=== PATIENT | female | born 1945 | race Caucasian/White ===

== ENCOUNTER → 2017-07-11 08:39 | Outpatient (CLI) | payer MEDICARE, OTHER, SELFPAY ==
--- NOTE | 2017-07-11 08:44 | VDLE_ITS ---
Reason For Study: LEG SWELLING RIGHT LEFT CFV is compressible, spontaneous, phasic, CFV is compressible, spontaneous, phasic, competent and demonstrates normal competent, and demonstrates normal augmentation. augmentation. FV is compressible, spontaneous, phasic, FV is compressible, spontaneous, phasic, competent and demonstrates normal competent and demonstrates normal augmentation. augmentation. POP V is compressible, spontaneous, phasic, POP V is compressible, spontaneous, phasic, competent and demonstrates normal competent and demonstrates normal augmentation. augmentation. T/P Trunk is compressible. T/P Trunk is compressible. PTV is compressible. PTV is compressible. RT PerV is compressible. LT PerV is compressible. SFJ is competent SFJ is competent GSV is INCOMPETENT with reflux greater GSV is competent than .5 sec and diameter of .51 x .48 cm SSV is INCOMPETENT with reflux greater SSV is INCOMPETENT with reflux greater than .5 sec and diameter of .45 x .45 cm. than .5 sec and diameter of .56 x .63 cm. Procedure Exam performed in department. Interpretation Summary 1. Bilateral no DVT. 2. Right GSV 5.1mm with reflux. 3. Right LSV6.3mm with reflux. 4. Left LSV 4.5mm with reflux. Ordering Physician: Dillan Calles Referring Physician: Dillan Calles Performed By: Sharmila Quezada RVT
[2017-07-11 09:27] LABS: Hematocrit 42.2 % (37-47); Hemoglobin 13.9 g/dl (12.0-15.0); Mean Corp Hgb Conc 32.9 g/gl (32-36); Mean Corpuscular Hgb 29.6 pg (27.0-32.0); Mean Corpuscular Volume 89.8 fL (81-99); Platelet Count 209 K/mm3 (150-450); RBC Distribution Width CV 14.4 % (11.6-14.6); RBC Distribution Width SD 46.3 fl (35.1-43.9); White Blood Count 6.7 K/mm3 (4.4-11.0)
[2017-07-11 09:28] LABS: Scan Indicated on CBC? Y/N NO
[2017-07-11 09:46] LABS: Anion Gap 7 (5-15); BUN 25 mg/dL (7-18); BUN/Creat Ratio 29.6 RATIO (10-20); Calcium,Total 9.4 mg/dL (8.5-10.1); Chloride 103 mmol/L (98-107); Creatinine, Serum 0.84 mg/dL (0.55-1.02); EST Glomerular Filtration Rate 71 mL/min (>60); Est Glom Filt Rate - Afr Amer 86 mL/min (>60); Glucose 143 mg/dL (74-106); Potassium 3.7 mmol/L (3.5-5.1); Sodium Level 138 mmol/L (136-145)
--- NOTE | 2017-07-18 12:10 | LEAS ---
Arterial Study - Arterial Study Arterial Study: Date of scan 07/11/[address] CEDENO Interpreting physician Dr. Blue Interpretation: Right lower extremity pulsatile flow noted at the ankle duplex showing triphasic flow with an GLORIA of 1.13 and 1.1 to the posterior tib and dorsalis pedis. Next Left lower extremity also with pulsatile flow at the ankle duplex again showing triphasic flow with an GLORIA 1.291.03 of the posterior tib and dorsalis pedis. Next Impression: 1. Bilateral lower extremities with no evidence of significant arterial occlusive disease at rest with triphasic flow and an GLORIA 1.13 on the right and 1.29 on the left
== END ==
PROVIDERS: Family Provider Internal Medicine; PCP Internal Medicine; Visit Provider Internal Medicine Cardiovascular Disease
DX: I87.2 Venous insufficiency (chronic) (peripheral) (principal); I73.9 Peripheral vascular disease, unspecified; R53.83 Other fatigue; R60.0 Localized edema; R23.8 Other skin changes
CPT/HCPCS: 36415; 80048; 85027; 93922; 93970

== ENCOUNTER → 2017-07-16 12:35 | Outpatient (CLI) | payer MEDICARE, OTHER, SELFPAY ==
[2017-07-16 14:04] LABS: Hemoglobin A1c 6.5 % (4.2-6.3)
[2017-07-16 14:24] LABS: Vitamin D,25 Hydroxy 59.6 ng/mL (29.95-100.01)
== END ==
PROVIDERS: Family Provider Internal Medicine; PCP Internal Medicine; Visit Provider Internal Medicine
DX: E11.9 Type 2 diabetes mellitus without complications (principal); E55.9 Vitamin D deficiency, unspecified
CPT/HCPCS: 36415; 82306; 83036

== ENCOUNTER 2017-08-03 14:00 | Outpatient (RCR) | payer MEDICARE, OTHER, SELFPAY | END 2017-08-04 23:59 | LOC: NS 14:00 | PROVIDERS: Family Provider Internal Medicine; PCP Internal Medicine; Visit Provider Internal Medicine | DX: E66.3 Overweight (principal); E11.9 Type 2 diabetes mellitus without complications; K75.81 Nonalcoholic steatohepatitis (NASH) | CPT/HCPCS: 97802; 97803 ==

== ENCOUNTER → 2017-08-10 06:53 | Outpatient (CLI) | payer MEDICARE, OTHER, SELFPAY ==
--- NOTE | 2017-08-10 06:55 | CT_ITS ---
STUDY: CT ABDOMEN WITH CONTRAST REASON FOR EXAM: Female, 71 years old. 2 month history of worsening right upper quadrant pain. History of Mejia's esophagus. RADIATION DOSAGE (If Supplied By Facility): CTDIvol = ( 12.02 ) mGy, DLP = ( 634.48 ) mGycm TECHNIQUE: Transaxial images were obtained post I.V. administration of 100CC ml of Isovue 300 contrast, and with oral contrast. Sagittal and coronal images were reconstructed. Individualized dose optimization techniques were used for this CT. COMPARISON: Comparison is made with prior study dated September 16, 2016. FINDINGS: The visualized lung bases are unremarkable. Coronary artery calcification. There is hepatomegaly with diffuse hepatic enlargement. The patient is status post cholecystectomy. Stable mild degree of central intrahepatic biliary ductal dilatation. Prominence of the common bile duct in keeping with prior cholecystectomy. There is a 1.4 cm cyst in the posterior medial aspect of the spleen. One point one sinuses also seen along the superior lateral portion of the spleen. This is unchanged. Normal pancreas. Normal bilateral adrenal glands. Normal right kidney. Normal left kidney. Normal visualized stomach. Normal small intestine. Normal colon. The appendix is visualized and appears normal. There is diffuse atherosclerotic calcification of the abdominal aorta, without a demonstrated aneurysm. Normal inferior vena cava. Normal retroperitoneum. Normal abdominal wall. Prior interpedicular screw janelle fixation of the lower thoracic and upper lumbar vertebrae. Almost complete collapse of the T10 vertebrae. CT/Abdomen WITH IV Contrast IMPRESSION: Fatty infiltration of the liver. Stable cystic structures in the spleen. Status post cholecystectomy. Electronically Signed: Barry Segura MD at 14:43 EDT Tel [phone], Service support ,
== END ==
PROVIDERS: Family Provider Internal Medicine; PCP Internal Medicine; Visit Provider Internal Medicine Gastroenterology
DX: K75.81 Nonalcoholic steatohepatitis (NASH) (principal); R10.11 Right upper quadrant pain
CPT/HCPCS: 74160; Q9967

== ENCOUNTER → 2017-08-22 09:05 | Outpatient (CLI) | payer MEDICARE, OTHER, SELFPAY ==
[2017-08-22 10:23] LABS: AST(SGOT) 25 U/L (15-37); Alanine Aminotransfer ALT/SGPT 35 U/L (13-56); Albumin, Serum 3.9 g/dL (3.2-5.0); Alkaline Phosphatase 115 U/L (45-117); Bilirubin, Direct 0.11 mg/dL (0.00-0.30); Cholesterol 213 mg/dL (200); Globulin 4.2 g/dL (2.2-4.2); High Density Lipoprotein 35 mg/dL; Protein, Total 8.1 g/dL (6.4-8.2); Triglycerides 260 mg/dL; Very Low Density Lipoprotein 52 mg/dL (5-40)
== END ==
PROVIDERS: Family Provider Internal Medicine; PCP Internal Medicine; Visit Provider Physician Assistant Medical
DX: E78.5 Hyperlipidemia, unspecified (principal); I25.10 Atherosclerotic heart disease of native coronary artery without angina pectoris; Z79.899 Other long term (current) drug therapy
CPT/HCPCS: 36415; 80061; 80076

== ENCOUNTER 2017-08-24 11:22 | Outpatient (RCR) | payer MEDICARE, OTHER, SELFPAY | END 2017-09-03 23:59 | LOC: NS 11:22 | PROVIDERS: Family Provider Internal Medicine; PCP Internal Medicine; Visit Provider Internal Medicine | DX: E11.9 Type 2 diabetes mellitus without complications (principal); K75.81 Nonalcoholic steatohepatitis (NASH); E66.3 Overweight | CPT/HCPCS: 97803 ==

== ENCOUNTER 2017-09-07 10:00 | Outpatient (RCR) | payer MEDICARE, OTHER, SELFPAY | END 2017-09-07 10:01 | LOC: NS 10:00 | PROVIDERS: Family Provider Internal Medicine; PCP Internal Medicine; Visit Provider Internal Medicine | DX: E11.9 Type 2 diabetes mellitus without complications (principal); K75.81 Nonalcoholic steatohepatitis (NASH); E66.3 Overweight; Z71.3 Dietary counseling and surveillance | CPT/HCPCS: 97803; G0108 ==

== ENCOUNTER → 2017-10-11 09:44 | Outpatient (CLI) | payer MEDICARE, OTHER, SELFPAY ==
--- NOTE | 2017-10-11 09:44 | DT_ITS ---
This patient was seen during an EMR downtime October 08, 2017 - October 15, 2017. This patient may have a combination of paper and electronic documentation or all paper documentation. All documentation is viewable within the e-chart portion of [facility] for each patient visit.
[2017-10-16 04:12] LABS: Hemoglobin A1c 6.6 % (4.2-6.3)
[2017-10-16 04:13] LABS: AST(SGOT) 25 U/L (15-37); Alanine Aminotransfer ALT/SGPT 30 U/L (13-56); Albumin, Serum 3.9 g/dL (3.2-5.0); Alkaline Phosphatase 98 U/L (45-117); Bilirubin, Direct 0.08 mg/dL (0.00-0.30); Cholesterol 165 mg/dL (200); Globulin 4.2 g/dL (2.2-4.2); High Density Lipoprotein 32 mg/dL; Protein, Total 8.1 g/dL (6.4-8.2); Triglycerides 241 mg/dL; Very Low Density Lipoprotein 48 mg/dL (5-40)
== END ==
PROVIDERS: Nurse Practitioner Family; Family Provider Internal Medicine; PCP Internal Medicine; Visit Provider Internal Medicine Cardiovascular Disease
DX: E78.5 Hyperlipidemia, unspecified (principal); R74.8 Abnormal levels of other serum enzymes; E11.9 Type 2 diabetes mellitus without complications
CPT/HCPCS: 36415; 80061; 80076; 83036

== ENCOUNTER → 2017-10-31 10:49 | Outpatient (CLI) | payer MEDICARE, OTHER, SELFPAY ==
--- NOTE | 2017-10-31 10:55 | BD_ITS ---
STUDY: DUAL ENERGY X-RAY ABSORPTIOMETRY / DXA REASON FOR EXAM: Female, 71 years old. The patient is postmenopausal. Loss of height. TECHNIQUE: Bone Mineral Density (BMD) measurements of left forearm and bilateral hips were obtained. COMPARISON: Comparison is made with prior study dated September 21, 2009. FINDINGS: Left Femur Total: g/cm2 (0.844) / T-score (-1.3) / Z-score (0.2) Left Femoral Neck: g/cm2 (0.845) / T-score (-1.4) / Z-score (0.3) Right Femur Total: g/cm2 (0.846) / T-score (-1.3) / Z-score (0.2) Right Femoral Neck: g/cm2 (0.841) / T-score (-1.4) / Z-score (0.3) Left Forearm: g/cm2 (0.759) / T-score (-1.3) / Z-score (0.5) The T-Scores on the most recent prior examination were: Left Femur Total: which represents a worsening of 2.5%. Right Femur Total: which represents a worsening of 9.0%. BD/Dexa Bone Density Study IMPRESSION: The patient is considered osteopenic as outlined below according to World [employer] Organization (WHO) criteria with a moderate fracture risk. There has been worsening of bone density since the previous examination. Reference Information: The T-score is the number of standard deviations above or below the standard which is normal for young adults at their peak bone mineral density. The World Health Organization (WHO) interprets the T-scores as follows: Above -1 Normal bone density Between -1 and -2.5 Osteopenia Equal to / or below -2.5 Osteoporosis As a practical clinical guideline, osteopenia may be graded as follows: Mild -1 through -1.5 Moderate -1.6 through -2.0 Severe -2.1 through -2.4 The Z-score is the number of standard deviations above or below age-matched controls. A Z-score of less than -1.5 would be considered abnormal. References: 1. NIH Osteoporosis and Related Bone Diseases http://www.osteo.org 2. International Society for Clinical Densitometry http://www.iscd.org 3. National Osteoporosis Foundation http://www.nof.org Electronically Signed: Barry Segura MD at 8:52 EDT Tel [phone], Service support ,
== END ==
PROVIDERS: Family Provider Internal Medicine; PCP Internal Medicine; Visit Provider Internal Medicine
DX: M81.0 Age-related osteoporosis without current pathological fracture (principal)
CPT/HCPCS: 77080

== ENCOUNTER 2017-12-28 10:00 | Outpatient (RCR) | payer MEDICARE, OTHER, SELFPAY ==
--- NOTE | 2017-12-13 17:16 | HP.PTEVAL_ITS ---
Patient's Visit Information AWILDA WEBER is a 72 year old F referred to Physical Therapy by Chucho Elise MD with a diagnosis of BPPV. Date of Evaluation: 12/13/17 Physical Therapist: Chucho Michaels DPT, OC - Visit Plan Frequency: 1-2x /Week Duration: 2-4 Weeks Plan: 1-2x/week for 2-4 weeks as needed for positional treatments and exercises and balacne check. - Subjective Subjective: november 20 GOT VERTIGO IN MIDDLE OF NIGHT REALLY BAD when got up to go to bathroom. Room started spinning out of nowhere and lasted seconds. No reason why it started. Currently spins if she looks up, rolls in bed, gets up too fast which lasts seconds. Feels nauseous much of time otherwise. Balance is not great but had back surgery and not much worse since this started. No falls but uses cane in public and this is normal for her. Dizzyness causes her to avoid yard work and gardening. Avoids dusting. Retired. Sleeping OK as long as takes antidepressants. Hobbies and watching 4 yo grandson and is able to barely keep up, helps her. - Objective Walks with cane in L UE mod I. Transitions I. Slowly to supine due to back discomfort. Balance appears good statically. - L hallpike china. + R hallpike for up torsional nystagmus of 12 second duration accompanied by dizzyness. Treated with R Zari maneuver and post Zari education. - Goals Goal 1:: abolish dizzyness with position change. Goal Time Frame: 2-4 Weeks Goal 2:: Back to normal gardening, yard work and housework without dizzy symptoms. Goal Time Frame: 2-4 Weeks Goal 3:: Pt feel 100% better with vertigo. Goal Time Frame: 2-4 Weeks - Rehabilitation Potential Physical Therapy Diagnosis: R postcanal BPPV Rehabilitation Potential: Fair - Anticipated Interventions Patient/Client Instruction: Educate patient on: Condition, Plan of Care For the Purpose of:: To improve ability of physical actions for home/community/ work/leisure Other: to abolish dizzyness Comment: positional ex and treatments. For the Purpose of:: To increase tolerance to activity/condition/position, To improve ability of physical actions for home/community/work/leisure Thank you for the opportunity to evaluate your patient. For Medicare and Medicare HMO plans, please review the plan of care and approve it. It will need to be FAXED BACK to us at [phone] for Medicare purposes. Please let me know if there are questions or concerns regarding this plan of care. Physician Signature: Date:
--- NOTE | 2018-01-03 12:12 | HP.PTDCNRP_ITS ---
HP - Discharge Summary (1) - Patient Information AWILDA WEBER was seen in my office for initial evaluation on 12/13/17. The following Plan of Care was established for this patient: Initial Frequency: 1-2x /Week Initial Duration: 2-4 Weeks - Anticipated Interventions Patient/Client Instruction: Educate patient on: Condition, Plan of Care For the Purpose of:: To improve ability of physical actions for home/community/ work/leisure Other: to abolish dizzyness For the Purpose of:: To increase tolerance to activity/condition/position, To improve ability of physical actions for home/community/work/leisure This patient was last seen in our office 12/28/17. Pertinent comments regarding their Physical therapy will appear below: Pt seen for 3 visits of positional treatments and was to f/u but has cancelled f /u visit stating she is feeling all better since last appointment. Will disconintinue at her request. At this point I will be discontinuing this patient from physical therapy. I would be happy to see this patient again in the future if found appropriate by the physician. Thank you! Chucho Michaels, DPT, OC
== END 2017-12-28 19:00 | disposition home or self-care (01) ==
LOC: PT 10:00
PROVIDERS: Family Provider Internal Medicine; PCP Internal Medicine; Visit Provider Otolaryngology
DX: H81.10 Benign paroxysmal vertigo, unspecified ear (principal)
CPT/HCPCS: 97110; 97161; 97530

== ENCOUNTER → 2018-02-21 09:36 | Outpatient (CLI) | payer MEDICARE, OTHER, SELFPAY ==
[2018-02-21 10:44] LABS: Hemoglobin A1c 6.3 % (4.2-6.3)
[2018-02-21 10:54] LABS: ALB/GLOB Ratio 0.9 RATIO (0.9-2.4); AST(SGOT) 24 U/L (15-37); Alanine Aminotransfer ALT/SGPT 30 U/L (13-56); Albumin, Serum 3.9 g/dL (3.2-5.0); Alkaline Phosphatase 93 U/L (45-117); Anion Gap 8 (5-15); BUN 21 mg/dL (7-18); BUN/Creat Ratio 24.5 RATIO (10-20); Calcium,Total 9.1 mg/dL (8.5-10.1); Chloride 105 mmol/L (98-107); Cholesterol 129 mg/dL (200); Creatinine, Serum 0.86 mg/dL (0.55-1.02); EST Glomerular Filtration Rate 70 mL/min (>60); Est Glom Filt Rate - Afr Amer 84 mL/min (>60); Globulin 4.2 g/dL (2.2-4.2); Glucose 123 mg/dL (74-106); High Density Lipoprotein 41 mg/dL; Potassium 3.9 mmol/L (3.5-5.1); Protein, Total 8.1 g/dL (6.4-8.2); Sodium Level 141 mmol/L (136-145); Triglycerides 166 mg/dL; Very Low Density Lipoprotein 33 mg/dL (5-40)
== END ==
PROVIDERS: Family Provider Internal Medicine; PCP Internal Medicine; Referring Provider Internal Medicine; Visit Provider Internal Medicine
DX: K75.81 Nonalcoholic steatohepatitis (NASH) (principal); E11.9 Type 2 diabetes mellitus without complications; R74.8 Abnormal levels of other serum enzymes
CPT/HCPCS: 36415; 80053; 80061; 83036

== ENCOUNTER → 2018-06-25 09:49 | Outpatient (CLI) | payer MEDICARE, OTHER, SELFPAY ==
[2018-05-30 16:51] VITALS: BMI 28.7
[2018-06-25 11:24] LABS: T4 Free Direct 0.86 ng/dL (0.76-1.46); Thyroid Stim Hormone (TSH) 4.26 uIU/mL (0.358-3.74)
== END ==
PROVIDERS: Family Provider Internal Medicine; PCP Internal Medicine; Referring Provider Internal Medicine; Visit Provider Internal Medicine
DX: R00.0 Tachycardia, unspecified (principal)
CPT/HCPCS: 36415; 84439; 84443

== ENCOUNTER 2018-08-18 00:54 | Inpatient (IN) | payer MEDICARE, OTHER, SELFPAY ==
[2018-07-01 10:56] VITALS: BMI 28.7
[2018-08-18] VITALS (15 sets, daily range): BP systolic 105–159; BP diastolic 56–113; PULSE 78–124; RESP 16–24; TEMP 36.2–36.8; O2SAT 91–97; BMI 30.9
--- NOTE | 2018-08-18 | APP_PTH ---
PATIENT: AWILDA WEBER LOC: [facility]3 U#:[id number] AGE/SX: 72/F [place] [facility] [place]: Dr. Turner Tamez MD : [id number] BED: 1 DIS: 08/24/2018 SPEC #: [id number] RECD: 08/19/18 07:15 STATUS: CHANTEL RERush #: [id number] LUIS: 08/18/18 00:[address]: Turner Tamez DEPT: SURGICAL PATHOLOGY RECD BY: Tee Morales ENTERED: 08/19/18 13:16 SP TYPE: APPENDIX OTHR DR: Dr. Mati Hampton MD Tissues: Appendix, NOS Procedures: Surgery Specimen Level III HEADER OPERATION: Laparoscopic appendectomy PRE-OP DIAGNOSIS: Ruptured appendicitis TISSUE SUBMITTED: Appendix MICROSCOPIC DIAGNOSIS Appendix, appendectomy: Moderate periappendiceal acute inflammation. Focal hyperplastic changes. SJ:geraldine 08/21/18 COMMENT The entire appendix is examined. Luminal or mucosal acute inflammation is not seen. Acute inflammation is noted only involving periappendiceal adipose tissue and adjacent serosal surface and smooth muscle proper. Correlation with clinical findings and appropriate follow up are necessary. The results are reported to Dr. Tamez's office on 08/21/18. Case has been reviewed in consultation with Dr. Brown who concurs with the above diagnosis. IDC:AM MICROSCOPIC DESCRIPTION Slides are reviewed. GROSS DESCRIPTION Received is one container labeled with the patient's name and designated appendix. The specimen consists of an appendix measuring 6 cm in length and up to 0.5 cm in average diameter. No gross perforations are identified. Serial sections reveal a patent lumen. Bull Chain Operator sections are submitted in one cassette. / AM:geraldine 08/19/18 The rest of the specimen is submitted in two more cassettes, 2 & 3. / SJ:geraldine 08/20/18 TC:5 CPT: 60854
[2018-08-18 01:32] LABS: Anion Gap 9 (5-15); BUN 20 mg/dL (7-18); Calcium,Total 9.5 mg/dL (8.5-10.1); Chloride 90 mmol/L (98-107); Creatinine, Serum 1.05 mg/dL (0.55-1.02); EST Glomerular Filtration Rate 55 mL/min (>60); Est Glom Filt Rate - Afr Amer 67 mL/min (>60); Glucose 342 mg/dL (74-106); Potassium 3.2 mmol/L (3.5-5.1); Sodium Level 130 mmol/L (136-145)
[2018-08-18 01:34] LABS: Absolute Lymphocyte Count 3.09 X10^3/ul (0.83-4.51); Absolute Neutrophil Count 16.4 X10^3/uL (2.0-7.7); Basophil# 0.09 X10^3/uL; Basophil% 0.4 % (0-1); Eosinophils% 0.5 % (0-5); Hematocrit 45.1 % (37-47); Hemoglobin 15.6 g/dl (12.0-15.0); Lymphocyte # 3.09 X10^3/ul (4.0); Lymphocyte % 14.4 % (19-41); Mean Corp Hgb Conc 34.6 g/gl (32-36); Mean Corpuscular Hgb 30.4 pg (27.0-32.0); Mean Corpuscular Volume 87.7 fL (81-99); Mean Platelet Vol. 9.2 fl (6.2-12.0); Monocyte# 1.24 X10^3/uL; Monocyte% 5.8 % (0-10); Neutrophil # 16.42 X10^3/uL (2.7-7.7); Neutrophil % 76.8 % (47-70); Platelet Count 311 K/mm3 (150-450); RBC Distribution Width CV 13.9 % (11.6-14.6); RBC Distribution Width SD 44.5 fl (35.1-43.9); Red Blood Count 5.14 M/mm3 (4.2-5.4); White Blood Count 21.4 K/mm3 (4.4-11.0)
[2018-08-18 01:37] LABS: POSITIVE COUNT NO; POSITIVE DIFFERENTIAL NO; POSITIVE MORPHOLOGY NO
[2018-08-18] MEDS: Ondansetron 4 MG/2 ML Vial IV (01:56)
[2018-08-18] MEDS: 0.9% Normal Saline 1,000 ML 1000 ML IV (01:56)
[2018-08-18] MEDS: Morphine 4 MG/ML Syringe IV (01:57)
[2018-08-18 02:02] LABS: ALB/GLOB Ratio 0.5 RATIO (0.9-2.4); AST(SGOT) 25 U/L (15-37); Alanine Aminotransfer ALT/SGPT 30 U/L (13-56); Albumin, Serum 2.8 g/dL (3.2-5.0); Alkaline Phosphatase 123 U/L (45-117); Globulin 5.2 g/dL (2.2-4.2); Lipase 175 U/L (73-393)
[2018-08-18 02:05] LABS: Bacteria 0 SEEN /hpf (None Seen)
[2018-08-18 02:16] LABS: Color, Urine Yellow (Yellow); Glucose, Dipstick 250 mg/dl (Normal); Ketone-Dipstick 5 mg/dl (Negative); Leukocyte Esterase-Dipstick 500 /ul (Negative); Nitrite-Dipstick Negative (Negative); Occult Blood-Urine 150 /ul (Negative); Protein-Dipstick 100 mg/dl (Negative); Urine Clarity Sl. Cloudy (Clear); Urine Urobilinogen 4 mg/dl (Normal)
[2018-08-18 02:24] LABS: Coarse Granular Cast 0-5 SEEN /lpf (0-5 /lpf); Hyaline Cast 5-10 SEEN /lpf (0-5); Mucous, Urine 4+ /hpf (<or=2+); Red Blood Cells-Urine 5-10 SEEN /hpf (0-5); Squamous Epithelial Cells - UA > 100 SEEN /hpf (5-10); Urine Bilirubin Dipstick 3 mg/dL (Negative); White Blood Cells 10-25 SEEN /hpf (0-5)
--- NOTE | 2018-08-18 02:25 | ED.VISSUMM ---
- ER Visit Summary Date of Service: 08/18/18 Chief Complaint: Abdominal pain History of Present Illness: The patient is a 72 F who presents with right lower abdominal pain that has been getting worse over the past 3 days. Patient states the pain is constant. Patient states the pain is worse over the right lower abdomen. Patient describes the pain as aching. Patient admits to some nausea and vomiting. Patient denies any hematemesis or coffee-ground emesis. Patient denies any diarrhea, melena, or hematochezia. Patient denies any dysuria or hematuria. Patient states her pain is worse with palpation. Physical Examination: Vital signs are stable except for a tachycardia of 124. Patient is afebrile. Patient is in no acute distress. Oral mucosa is pink and moist. Neck is supple. Trachea is midline. There is no JVD noted. Heart was regular and tachycardic. Lungs are clear and equal bilateral. Abdomen is soft. There is lower abdominal tenderness. There is no rebound or guarding noted. Cranial nerves II through XII are intact. There are no focal motor or sensory deficits noted. Test Results: CBC showed a leukocytosis of 21.4. Comprehensive metabolic profile showed a creatinine of 1.05, BUN of 20, glucose of 342, sodium of 130, potassium 3.2, and chloride of 90. Urinalysis was a contaminated specimen. CT scan of the abdomen and pelvis was obtained with oral and IV contrast. There is contained perforation of the cecum or a chronic or subacute appendicitis. There are loculated fluid collections in the pelvis that could represent abscesses. Emergency Department Course and Treatment: Patient was given IV fluids, Zofran, and morphine. Patient was given a dose of Zosyn. The case was discussed with Dr. Tamez. He will be in to evaluate the patient. He will take the patient to the operating room this morning. Disposition: Admit to hospital Impression: Perforated appendicitis This note was generated with [employer] dictation software. It may contain incorrect words, spelling, and punctuation that were not noted in review of the chart prior to signing ED Disposition - Plan for ED Patient: Disposition: Acute Care Hospital [facility] Diagnosis: Perforated appendicitis Referrals: Mati Hampton MD [Primary Care Provider] -
--- NOTE | 2018-08-18 02:27 | CT_ITS ---
STUDY: CT ABDOMEN AND PELVIS WITH CONTRAST REASON FOR EXAM: Female, 72 years old. Right lower quadrant abdominal pain and constipation. RADIATION DOSAGE (If Supplied By Facility): CTDIvol = ( 20.65 ) mGy, DLP = ( 1515.64 ) mGycm TECHNIQUE: Transaxial images were obtained from the dome of the diaphragm to the symphysis pubis with oral contrast. 100 ml IV of Isovue 300 was administered. Sagittal and coronal images were reconstructed. Individualized dose optimization techniques were used for this CT. COMPARISON: CT of the abdomen and pelvis dated September 16, 2016. FINDINGS: The visualized lung bases are unremarkable. The visualized portions of the heart are within normal limits. There is hepatomegaly with diffuse hepatic enlargement. The liver measures up to 19.2 cm in greatest dimension. There is non-visualization of the gallbladder, which may be secondary to either contraction or a prior cholecystectomy. There is dilated common hepatic and common bile ducts which measure up to 2.2 cm in greatest dimension. There is a small cystic area in the spleen measuring up to 10 mm in greatest dimension. This is larger than was apparent on the previous CT. Normal pancreas. There appears to be enlargement of left adrenal gland possibly related to hyperplasia. The right adrenal gland has a normal appearance. Normal right kidney. A small lucency is visible in left kidney, too small to characterize that may represent a tiny cyst. There is no evidence for hydronephrosis, hydroureter or radiopaque ureteral calculus. There is a small hiatal hernia. There is no evidence for dilated bowel. There appear to be loculated collections in the pelvis. These may be connected. The largest collection measures approximately 10.9 cm in greatest transverse dimension by 7.7 cm in AP dimension by 7 cm in cephalocaudal dimension. There appears to be acute inflammation within the lower abdomen and right lower quadrant. There is abnormal thickening of the collado of the cecum possibly related to acute or chronic inflammation. A neoplastic process is also possible. Maximum thickness of wall of the cecum measuring approximately 2.7 cm in thickness. The appendix is not visualized. A stool is visible within the transverse colon primarily. The descending colon is not distended with the apparent thickening of the collado. There are numerous sigmoid colon diverticula. There is non-visualization of the appendix. There is diffuse atherosclerotic calcification of the abdominal aorta with elongation and tortuosity, but without a demonstrated aneurysm. Normal inferior vena cava. Normal retroperitoneum. Normal urinary bladder. Normal visualized uterus. The cystic collections surround the uterus. Normal abdominal wall. The patient has had surgical fusion of T10, T11, T12, L1, L2, L3, L4, L5 and S1 with interpedicular screws and rods. The bones are diffusely osteopenic. Patient has had laminectomies of L3, L4 and L5. There is moderate compression fracture of T12 and mild compression fracture of L4. There may also be severe compression fracture of T10. CT/Abdomen/Pelvis WITH Contrast IMPRESSION: 1. The CT findings suggest contained perforation of what may represent the cecum or a chronic or subacute appendicitis. 2. Abnormal thickening of the collado of the cecum, may be a reflection of the chronic inflammation though neoplastic etiologies are also possible. 3. There appears to be loculated collections in the pelvis that could represent abscesses. 4. Sequelae of extensive thoracic lumbar spine surgery with compression fractures. N.B. : The above information has been verbally conveyed by Callie Woodard MD to Chucho Hardy MD, on 08/18/2018 04:51:37 (ET). Electronically Signed: Callie Woodard MD at 5:04 EDT , Service support ,
--- NOTE | 2018-08-18 02:30 | ED.DCSUM_ITS ---
- ER Visit Summary Date of Service: 08/18/18 Chief Complaint: Abdominal pain History of Present Illness: The patient is a 72 F who presents with right lower abdominal pain that has been getting worse over the past 3 days. Patient states the pain is constant. Patient states the pain is worse over the right lower abdomen. Patient describes the pain as aching. Patient admits to some nausea and vomiting. Patient denies any hematemesis or coffee-ground emesis. Patient denies any diarrhea, melena, or hematochezia. Patient denies any dysuria or hematuria. Patient states her pain is worse with palpation. Physical Examination: Vital signs are stable except for a tachycardia of 124. Patient is afebrile. Patient is in no acute distress. Oral mucosa is pink and moist. Neck is supple. Trachea is midline. There is no JVD noted. Heart was regular and tachycardic. Lungs are clear and equal bilateral. Abdomen is soft. There is lower abdominal tenderness. There is no rebound or guarding noted. Cranial nerves II through XII are intact. There are no focal motor or sensory deficits noted. Test Results: CBC showed a leukocytosis of 21.4. Comprehensive metabolic profile showed a creatinine of 1.05, BUN of 20, glucose of 342, sodium of 130, potassium 3.2, and chloride of 90. Urinalysis was a contaminated specimen. CT scan of the abdomen and pelvis was obtained with oral and IV contrast. There is contained perforation of the cecum or a chronic or subacute appendicitis. There are loculated fluid collections in the pelvis that could represent abscesses. Emergency Department Course and Treatment: Patient was given IV fluids, Zofran, and morphine. Patient was given a dose of Zosyn. The case was discussed with Dr. Tamez. He will be in to evaluate the patient. He will take the patient to the operating room this morning. Disposition: Admit to hospital Impression: Perforated appendicitis This note was generated with [employer] dictation software. It may contain incorrect words, spelling, and punctuation that were not noted in review of the chart prior to signing ED Disposition - Plan for ED Patient: Disposition: Acute Care Hospital [facility] Diagnosis: Perforated appendicitis Referrals: Mati Hampton MD [Primary Care Provider] -
--- NOTE | 2018-08-18 05:39 | EKG12_ITS ---
Test Reason : ABDOMINAL PAIN Blood Pressure : / mmHG Vent. Rate : 083 BPM Atrial Rate : 083 BPM P-R Int : 140 ms QRS Dur : 092 ms QT Int : 384 ms P-R-T Axes : 058 -03 022 degrees QTc Int : 451 ms Normal sinus rhythm Inferior-posterior infarct , age undetermined Abnormal ECG Confirmed by PAO ESPINOZA, NAJMA ([id number]), medical editor FIFI JOYCE ([id number]) on 08/21/2018 9:08:21 AM Referred By: SAY Confirmed By:NAJMA CEDENO MD
[2018-08-18 07:11] LABS: Bedside Glucose 280 mg/dL (70-110)
--- NOTE | 2018-08-18 07:24 | PCM.HP.STD ---
Problem List (1) Perforated appendicitis Status: Acute History of Present Illness Date of Admission: 08/18/18 The patient is a 72 year old F with a 3-day history of abdominal pain. The patient reports that 3 days ago she began to have right lower quadrant pain and nausea and vomiting. She says she is not having fevers but she always feels hot. She denies chills. She says she is passing some gas and having diarrhea. She does not note any chest pain or shortness of breath. Past Medical History Past Medical History (Chronic Problems): Chronic Problems (Last Reviewed 07/01/18 @ 10:43 by Sarita Montalvo) Elevated liver enzymes (Chronic) History of coronary artery stent placement (Chronic) 04/30/06 PTCA/Stent (bare metal ) to RCA Atherosclerotic heart disease of [place] coronary artery without angina pectoris (Chronic) Hiatal hernia (Chronic) Barretts esophagus (Chronic) Depression (Chronic) HAMM (nonalcoholic steatohepatitis) (Chronic) Hyperlipidemia (Chronic) Vitamin D deficiency (Chronic) Lumbar stenosis (Chronic) Small bowel obstruction (Chronic) Lumbar interbody fusion L2-S1 (Chronic) Reconstruction of T10 to iliac bone. (Chronic) Scoliosis (Chronic) Coronary artery disease (Chronic) Status post stents. Type 2 diabetes mellitus (Chronic) Hypertension (Chronic) Medical History: Medical History (Last Reviewed 07/01/18 @ 10:43 by Sarita Montalvo) Elevated liver enzymes (Chronic) R74.8 Atherosclerotic heart disease of [place] coronary artery without angina pectoris (Chronic) I25.10 Venous insufficiency of both lower extremities (Acute) I87.2 Hiatal hernia (Chronic) K44.9 Barretts esophagus (Chronic) K22.70 HAMM (nonalcoholic steatohepatitis) (Chronic) K75.81 Hyperlipidemia (Chronic) E78.5 Vitamin D deficiency (Chronic) E55.9 Lumbar stenosis (Chronic) M48.06 Coronary artery disease (Chronic) I25.10 Status post stents. Type 2 diabetes mellitus (Chronic) E11.9 Hypertension (Chronic) I10 Breast lump N63.0 GERD (gastroesophageal reflux disease) K21.9 Hx of non-ST elevation myocardial infarction (NSTEMI) I25.2 Allergies eptifibatide [From Integrilin] Allergy (Verified 08/18/18 00:58) Rash niacin [From Niaspan Extended-Release] Allergy (Verified 08/18/18 00:58) Rash tizanidine [From Zanaflex] Allergy (Verified 08/18/18 00:58) Rash Home Medications: Ambulatory Orders Medication Instructions Recorded Cholecalciferol (Vitamin D3) 5,000 unit PO DAILY 09/13/16 [Vitamin D3] Aspirin 81 mg PO DAILY 11/24/16 blood-glucose meter kit See Dose Instructions .ROUTE 08/01/17 .MEDSUPPLY #1 ea polyethylene glycol 3350 17 gram 17 g PO QDAY 09/06/17 oral powder packet blood sugar diagnostic strips See Dose Instructions .ROUTE 09/07/17 .MEDSUPPLY #100 ea lancets 28 gauge See Dose Instructions .ROUTE 10/18/17 .MEDSUPPLY #50 ea meclizine 25 mg tablet 25 mg PO BID-TID PRN #60 tab 12/26/17 omeprazole 40 mg capsule,delayed 40 mg PO DAILY #90 cap 01/04/18 release cinnamon bark 500 mg capsule mg PO BID cap 02/26/18 nitroglycerin 0.4 mg sublingual 0.4 mg SUBLINGUAL Q5M PRN #30 tab 02/26/18 tablet clopidogrel 75 mg tablet 75 mg PO QDAY #90 tab 03/14/18 metformin ER 500 mg 500 mg PO QDAY #90 tab 03/25/18 tablet,extended release 24hr hydrochlorothiazide 25 mg tablet 25 mg PO QDAY #90 tab 05/02/18 venlafaxine ER 75 mg 75 mg PO DAILY #90 cap 05/30/18 capsule,extended release 24 hr rosuvastatin 20 mg tablet 20 mg PO QDAY #90 tab 06/06/18 metoprolol succinate ER 25 mg 25 mg PO DAILY #30 tab 07/09/18 tablet,extended release 24 hr metoprolol succinate ER 50 mg 50 mg PO QDAY #90 tab 07/09/18 tablet,extended release 24 hr Surgical History: Surgical History (Last Reviewed 07/01/18 @ 10:43 by Sarita Montalvo) History of coronary artery stent placement (Chronic) Z95.5 04/30/06 PTCA/Stent (bare metal ) to RCA History of Gallstone removal History of back surgery Z98.890 09/2016; 11/2016 History of cholecystectomy Z90.49 History of liver biopsy Z98.890 History of tubal ligation Onset Date: ~07/2016 Z98.51 Surgical History: cholecystectomy, - - c spine ?2 30+yrs ago. Tubal ligation. Reconstruction T10 to ileum and transforaminal lumbar interbody fusion L2-S1. Psychiatric History: No pertinent psych hx [employer] History: No pertinent [employer] history Smoking Status: Former smoker - *Family History Maternal Family History: Family History (Last Reviewed 07/01/18 @ 10:43 by Sarita Montalvo) Brother alcoholism Brother alcoholism Colon cancer Mother Arthritis Heart disease Hypertension High cholesterol Myocardial infarction Sister Myocardial infarction Hypertension High cholesterol Heart disease Sister Myocardial infarction Hypertension High cholesterol Heart disease Emphysema lung Sister Heart disease High cholesterol Hypertension Grandmother Rheumatoid arthritis History Items: Heart Disease Paternal Family History: Family History (Last Reviewed 07/01/18 @ 10:43 by Sarita Montalvo) Brother alcoholism Brother alcoholism Colon cancer Mother Arthritis Heart disease Hypertension High cholesterol Myocardial infarction Sister Myocardial infarction Hypertension High cholesterol Heart disease Sister Myocardial infarction Hypertension High cholesterol Heart disease Emphysema lung Sister Heart disease High cholesterol Hypertension Grandmother Rheumatoid arthritis History Items: No pertinent history Review of Systems Constitutional: Denies: Anorexia, Fever HEENT: Denies: Difficulty Swallowing Cardiovascular: Denies: Chest Pain Respiratory: Denies: Cough, Shortness of Breath Gastrointestinal: Reports: Abdominal Pain, Diarrhea, Nausea, Vomiting Genitourinary: Denies: Dysuria Musculoskeletal: Denies: Joint Tenderness Skin: Denies: Dryness, Jaundice Neurological: Denies: Balance problems Hematologic/ Lymphatic: Denies: Anemia VTE Information - Inpt Only VTE Present on Admission: No VTE Mechan Device Prophylaxis: SCD's Patient Problems: Active and Suspected Problems (Last Reviewed 07/01/18 @ 10:43 by Sarita Montalvo) Perforated appendicitis (Acute) - Physical Exam General: Alert, Oriented x3, Cooperative HEENT: Atraumatic, PERRLA Neck: No JVD Lungs: Normal air movement Cardiovascular: Regular rate, Regular Rhythm Abdomen: Distended, Tender Extremities: No clubbing Skin: No rashes Lymphatic: No Cervical, Supraclavicular, or Inguinal Adenopathy Neurological: Cranial nerves II-XII grossly intact Psych/Mental Status: Normal Affect Vital Signs Temp Pulse Resp BP Pulse Ox 97.7 F L 94 16 128/73 H 92 08/18/18 06:30 08/18/18 06:30 08/18/18 06:30 08/18/18 06:30 08/18/18 06:30 Oxygen Flow Rate (L/min) 2 Oxygen Delivery Method Room Air Weight: 212 lb 8.41 oz Body Mass Index (BMI) 30.9 Finger Stick Blood Glucose 280 Laboratory Tests Past 24 Hrs 08/18/18 08/18/18 08/18/18 01:00 01:00 01:00 WBC 21.4 H RBC 5.14 Hgb 15.6 H Hct 45.1 MCV 87.7 MCH 30.4 MCHC 34.6 RDW 13.9 RDW Differential 44.5 H Plt Count 311 MPV 9.2 Immature Gran % (Auto) 2.100 H Neut % (Auto) 76.8 H Lymph % (Auto) 14.4 L Swain % (Auto) 5.8 Eos % (Auto) 0.5 Baso % (Auto) 0.4 Absolute Neuts (auto) 16.4 H Absolute Lymphs (auto) 3.09 Total Counted Not Reportable Diff Path Review May foll Sodium 130 L Cancelled Potassium 3.2 L Cancelled Chloride 90 L Cancelled Carbon Dioxide 31.0 Cancelled Anion Gap 9 Cancelled BUN 20 H Cancelled Creatinine 1.05 H Cancelled Estim Creat Clear Calc 52.10 Cancelled Est GFR (MDRD) Af Amer 67 Cancelled Est GFR (MDRD) Non-Af 55 L Cancelled BUN/Creatinine Ratio 19.0 Cancelled Glucose 342 H Cancelled Calcium 9.5 Cancelled Total Bilirubin 0.50 Cancelled AST 25 Cancelled ALT 30 Cancelled Alkaline Phosphatase 123 H Cancelled Total Protein 8.0 Cancelled Albumin 2.8 L Cancelled Globulin 5.2 H Cancelled Albumin/Globulin Ratio 0.5 L Cancelled Lipase 175 Cancelled Urine Color Urine Clarity Urine pH Ur Specific [place] Urine Protein Urine Glucose (UA) Urine Ketones Urine Occult Blood Urine Nitrite Urine Bilirubin Urine Urobilinogen Ur Leukocyte Esterase Urine RBC Urine WBC Ur Squamous Epith Cells Urine Bacteria Hyaline Casts Coarse Granular Casts Urine Mucus 08/18/18 01:55 WBC RBC Hgb Hct MCV MCH MCHC RDW RDW Differential Plt Count MPV Immature Gran % (Auto) Neut % (Auto) Lymph % (Auto) Swain % (Auto) Eos % (Auto) Baso % (Auto) Absolute Neuts (auto) Absolute Lymphs (auto) Total Counted Diff Path Review Sodium Potassium Chloride Carbon Dioxide Anion Gap BUN Creatinine Estim Creat Clear Calc Est GFR (MDRD) Af Amer Est GFR (MDRD) Non-Af BUN/Creatinine Ratio Glucose Calcium Total Bilirubin AST ALT Alkaline Phosphatase Total Protein Albumin Globulin Albumin/Globulin Ratio Lipase Urine Color Yellow Urine Clarity Sl. Cloudy Urine pH 5.0 Ur Specific [place] 1.020 Urine Protein 100 H Urine Glucose (UA) 250 H Urine Ketones 5 H Urine Occult Blood 150 H Urine Nitrite Negative Urine Bilirubin 3 H Urine Urobilinogen 4 H Ur Leukocyte Esterase 500 H Urine RBC 5-10 SEEN Urine WBC 10-25 SEEN Ur Squamous Epith Cells > 100 SEEN Urine Bacteria 0 SEEN Hyaline Casts 5-10 SEEN Coarse Granular Casts 0-5 SEEN Urine Mucus 4+ POC Glucose 08/18/18 07:05 POC Glucose 280 H Clinical Impression(s) from Imaging Studies Abdomen/Pelvis CT 08/18/18 02:[address]: 1[address] The [address] findings suggest contained perforation of what may represent the cecum or a chronic or subacute appendicitis. 2. Abnormal thickening of the collado of the cecum, may be a reflection of the chronic inflammation though neoplastic etiologies are also possible. 3. There appears to be loculated collections in the pelvis that could represent abscesses. 4. Sequelae of extensive thoracic lumbar spine surgery with compression fractures. N.B. : The above information has been verbally conveyed by Callie Woodard MD to Chucho Hardy MD, on 08/18/2018 04:51:37 (ET). Electronically Signed: Callie Woodard MD at 5:04 EDT , Service support , ADDENDUM: 08/18/18 0511 IMPRESSION: 1. The CT findings suggest contained perforation of what may represent the cecum or a chronic or subacute appendicitis. 2. Abnormal thickening of the collado of the cecum, may be a reflection of the chronic inflammation though neoplastic etiologies are also possible. 3. There appears to be loculated collections in the pelvis that could represent abscesses. 4. Sequelae of extensive thoracic lumbar spine surgery with compression fractures. N.B. : The above information has been verbally conveyed by Callie Woodard MD to Chucho Hardy MD, on 08/18/2018 04:51:37 (ET). Electronically Signed: Callie Woodard MD at 5:04 EDT , Service support , Assessment/Plan All Active Problems (Last Reviewed 07/01/18 @ 10:43 by Sarita Montalvo) Perforated appendicitis (Acute) Tachycardia (Acute) URI (upper respiratory infection) (Acute) Venous insufficiency of both lower extremities (Acute) 72-year-old female with perforated viscus, likely appendicitis 1. The patient has severe right lower quadrant pain as well as leukocytosis. This is been going on for 3 days with acute onset. The patient notes that she had a normal colonoscopy 4 years ago. Patient had a CT scan which shows inflammation in the right lower quadrant as well as purulent material throughout the pelvis and right lower quadrant. Patient likely has perforated appendicitis which is been going on for 3 days. 2. I recommend surgical exploration as the patient is very tender with a large white count. We have no interventional radiologist to do percutaneous drains in the weekend. I recommend exploratory laparoscopy with washout and breakdown of intra-abdominal abscesses. If the appendix is localized I explained that I would perform an appendectomy. If there is a large perforation of the cecum I explained that a right hemicolectomy or ileocecectomy may need to be performed. I explained the possibility of having to convert to an open procedure and I explained that she may remain intubated in the ICU after surgery. I also explained that NG would be placed and stay in until the patient was passing gas after surgery. I explained the risks of surgery including but not limited to bleeding, infection, injury to surrounding organs such as the other bowels or ureter. Patient understands the risks and is willing to consent for surgery. Turner Tamez MD Pager: [facility] [address] [place] [address], [address] [place] [address] Office:
--- NOTE | 2018-08-18 07:29 | HP.PCM_ITS ---
Problem List (1) Perforated appendicitis Status: Acute History of Present Illness Date of Admission: 08/18/18 The patient is a 72 year old F with a 3-day history of abdominal pain. The patient reports that 3 days ago she began to have right lower quadrant pain and nausea and vomiting. She says she is not having fevers but she always feels hot. She denies chills. She says she is passing some gas and having diarrhea. She does not note any chest pain or shortness of breath. 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 (Chronic) Scoliosis (Chronic) Coronary artery disease (Chronic) Status post stents. 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 Type 2 diabetes mellitus (Chronic) E11.9 Hypertension (Chronic) I10 Breast lump N63.0 GERD (gastroesophageal reflux disease) K21.9 Hx of non-ST elevation myocardial infarction (NSTEMI) I25.2 Allergies eptifibatide [From Integrilin] Allergy (Verified 08/18/18 00:58) Rash niacin [From Niaspan Extended-Release] Allergy (Verified 08/18/18 00:58) Rash tizanidine [From Zanaflex] Allergy (Verified 08/18/18 00:58) Rash Home Medications: Ambulatory Orders Medication Instructions Recorded Cholecalciferol (Vitamin D3) 5,000 unit PO DAILY 09/13/16 [Vitamin D3] Aspirin 81 mg PO DAILY 11/24/16 blood-glucose meter kit See Dose Instructions .ROUTE 08/01/17 .MEDSUPPLY #1 ea polyethylene glycol 3350 17 gram 17 g PO QDAY 09/06/17 oral powder packet blood sugar diagnostic strips See Dose Instructions .ROUTE 09/07/17 .MEDSUPPLY #100 ea lancets 28 gauge See Dose Instructions .ROUTE 10/18/17 .MEDSUPPLY #50 ea meclizine 25 mg tablet 25 mg PO BID-TID PRN #60 tab 12/26/17 omeprazole 40 mg capsule,delayed 40 mg PO DAILY #90 cap 01/04/18 release cinnamon bark 500 mg capsule mg PO BID cap 02/26/18 nitroglycerin 0.4 mg sublingual 0.4 mg SUBLINGUAL Q5M PRN #30 tab 02/26/18 tablet clopidogrel 75 mg tablet 75 mg PO QDAY #90 tab 03/14/18 metformin ER 500 mg 500 mg PO QDAY #90 tab 03/25/18 tablet,extended release 24hr hydrochlorothiazide 25 mg tablet 25 mg PO QDAY #90 tab 05/02/18 venlafaxine ER 75 mg 75 mg PO DAILY #90 cap 05/30/18 capsule,extended release 24 hr rosuvastatin 20 mg tablet 20 mg PO QDAY #90 tab 06/06/18 metoprolol succinate ER 25 mg 25 mg PO DAILY #30 tab 07/09/18 tablet,extended release 24 hr metoprolol succinate ER 50 mg 50 mg PO QDAY #90 tab 07/09/18 tablet,extended release 24 hr Surgical History: Surgical History (Last Reviewed 07/01/18 @ 10:43 by Sarita Montalvo) History of coronary artery stent placement (Chronic) Z95.5 04/30/06 PTCA/Stent (bare metal ) to RCA History of Gallstone removal History of back surgery Z98.890 09/2016; 11/2016 History of cholecystectomy Z90.49 History of liver biopsy Z98.890 History of tubal ligation Onset Date: ~07/2016 Z98.51 Surgical History: cholecystectomy, - - c spine ?2 30+yrs ago. Tubal ligation. Reconstruction T10 to ileum and transforaminal lumbar interbody fusion L2-S1. 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 Smoking Status: Former smoker - *Family History Maternal Family History: Family History (Last Reviewed 07/01/18 @ 10:43 by Sarita Montalvo) Brother alcoholism Brother alcoholism Colon cancer Mother Arthritis Heart disease Hypertension High cholesterol Myocardial infarction Sister Myocardial infarction Hypertension High cholesterol Heart disease Sister Myocardial infarction Hypertension High cholesterol Heart disease Emphysema lung Sister Heart disease High cholesterol Hypertension Grandmother Rheumatoid arthritis History Items: Heart Disease Paternal Family History: Family History (Last Reviewed 07/01/18 @ 10:43 by Sarita Montalvo) Brother alcoholism Brother alcoholism Colon cancer Mother Arthritis Heart disease Hypertension High cholesterol Myocardial infarction Sister Myocardial infarction Hypertension High cholesterol Heart disease Sister Myocardial infarction Hypertension High cholesterol Heart disease Emphysema lung Sister Heart disease High cholesterol Hypertension Grandmother Rheumatoid arthritis History Items: No pertinent history Review of Systems Constitutional: Denies: Anorexia, Fever HEENT: Denies: Difficulty Swallowing Cardiovascular: Denies: Chest Pain Respiratory: Denies: Cough, Shortness of Breath Gastrointestinal: Reports: Abdominal Pain, Diarrhea, Nausea, Vomiting Genitourinary: Denies: Dysuria Musculoskeletal: Denies: Joint Tenderness Skin: Denies: Dryness, Jaundice Neurological: Denies: Balance problems Hematologic/ Lymphatic: Denies: Anemia VTE Information - Inpt Only VTE Present on Admission: No VTE Mechan Device Prophylaxis: SCD's Patient Problems: Active and Suspected Problems (Last Reviewed 07/01/18 @ 10:43 by Sarita Montalvo) Perforated appendicitis (Acute) - Physical Exam General: Alert, Oriented x3, Cooperative HEENT: Atraumatic, PERRLA Neck: No JVD Lungs: Normal air movement Cardiovascular: Regular rate, Regular Rhythm Abdomen: Distended, Tender Extremities: No clubbing Skin: No rashes Lymphatic: No Cervical, Supraclavicular, or Inguinal Adenopathy Neurological: Cranial nerves II-XII grossly intact Psych/Mental Status: Normal Affect Vital Signs Temp Pulse Resp BP Pulse Ox 97.7 F L 94 16 128/73 H 92 08/18/18 06:30 08/18/18 06:30 08/18/18 06:30 08/18/18 06:30 08/18/18 06:30 Oxygen Flow Rate (L/min) 2 Oxygen Delivery Method Room Air Weight: 212 lb 8.41 oz Body Mass Index (BMI) 30.9 Finger Stick Blood Glucose 280 Laboratory Tests Past 24 Hrs 08/18/18 08/18/18 08/18/18 01:00 01:00 01:00 WBC 21.4 H RBC 5.14 Hgb 15.6 H Hct 45.1 MCV 87.7 MCH 30.4 MCHC 34.6 RDW 13.9 RDW Differential 44.5 H Plt Count 311 MPV 9.2 Immature Gran % (Auto) 2.100 H Neut % (Auto) 76.8 H Lymph % (Auto) 14.4 L Ware % (Auto) 5.8 Eos % (Auto) 0.5 Baso % (Auto) 0.4 Absolute Neuts (auto) 16.4 H Absolute Lymphs (auto) 3.09 Total Counted Not Reportable Diff Path Review May foll Sodium 130 L Cancelled Potassium 3.2 L Cancelled Chloride 90 L Cancelled Carbon Dioxide 31.0 Cancelled Anion Gap 9 Cancelled BUN 20 H Cancelled Creatinine 1.05 H Cancelled Estim Creat Clear Calc 52.10 Cancelled Est GFR (MDRD) Af Amer 67 Cancelled Est GFR (MDRD) Non-Af 55 L Cancelled BUN/Creatinine Ratio 19.0 Cancelled Glucose 342 H Cancelled Calcium 9.5 Cancelled Total Bilirubin 0.50 Cancelled AST 25 Cancelled ALT 30 Cancelled Alkaline Phosphatase 123 H Cancelled Total Protein 8.0 Cancelled Albumin 2.8 L Cancelled Globulin 5.2 H Cancelled Albumin/Globulin Ratio 0.5 L Cancelled Lipase 175 Cancelled Urine Color Urine Clarity Urine pH Ur Specific [place] Urine Protein Urine Glucose (UA) Urine Ketones Urine Occult Blood Urine Nitrite Urine Bilirubin Urine Urobilinogen Ur Leukocyte Esterase Urine RBC Urine WBC Ur Squamous Epith Cells Urine Bacteria Hyaline Casts Coarse Granular Casts Urine Mucus 08/18/18 01:55 WBC RBC Hgb Hct MCV MCH MCHC RDW RDW Differential Plt Count MPV Immature Gran % (Auto) Neut % (Auto) Lymph % (Auto) Ware % (Auto) Eos % (Auto) Baso % (Auto) Absolute Neuts (auto) Absolute Lymphs (auto) Total Counted Diff Path Review Sodium Potassium Chloride Carbon Dioxide Anion Gap BUN Creatinine Estim Creat Clear Calc Est GFR (MDRD) Af Amer Est GFR (MDRD) Non-Af BUN/Creatinine Ratio Glucose Calcium Total Bilirubin AST ALT Alkaline Phosphatase Total Protein Albumin Globulin Albumin/Globulin Ratio Lipase Urine Color Yellow Urine Clarity Sl. Cloudy Urine pH 5.0 Ur Specific [place] 1.020 Urine Protein 100 H Urine Glucose (UA) 250 H Urine Ketones 5 H Urine Occult Blood 150 H Urine Nitrite Negative Urine Bilirubin 3 H Urine Urobilinogen 4 H Ur Leukocyte Esterase 500 H Urine RBC 5-10 SEEN Urine WBC 10-25 SEEN Ur Squamous Epith Cells > 100 SEEN Urine Bacteria 0 SEEN Hyaline Casts 5-10 SEEN Coarse Granular Casts 0-5 SEEN Urine Mucus 4+ POC Glucose 08/18/18 07:05 POC Glucose 280 H Clinical Impression(s) from Imaging Studies Abdomen/Pelvis CT 08/18/18 02:[address]: 1[address] findings suggest contained perforation of what may represent the cecum or a chronic or subacute appendicitis. 2. Abnormal thickening of the collado of the cecum, may be a reflection of the chronic inflammation though neoplastic etiologies are also possible. 3. There appears to be loculated collections in the pelvis that could represent abscesses. 4. Sequelae of extensive thoracic lumbar spine surgery with compression fractures. N.B. : The above information has been verbally conveyed by Callie Woodard MD to Chucho Hardy MD, on 08/18/2018 04:51:37 (ET). Electronically Signed: Callie Woodard MD at 5:04 EDT , Service support , ADDENDUM: 08/18/18 0511 IMPRESSION: 1. The CT findings suggest contained perforation of what may represent the cecum or a chronic or subacute appendicitis. 2. Abnormal thickening of the collado of the cecum, may be a reflection of the chronic inflammation though neoplastic etiologies are also possible. 3. There appears to be loculated collections in the pelvis that could represent abscesses. 4. Sequelae of extensive thoracic lumbar spine surgery with compression fractures. N.B. : The above information has been verbally conveyed by Callie Woodard MD to Chucho Hardy MD, on 08/18/2018 04:51:37 (ET). Electronically Signed: Callie Woodard MD at 5:04 EDT , Service support , Assessment/Plan All Active Problems (Last Reviewed 07/01/18 @ 10:43 by Sarita Montalvo) Perforated appendicitis (Acute) Tachycardia (Acute) URI (upper respiratory infection) (Acute) Venous insufficiency of both lower extremities (Acute) 72-year-old female with perforated viscus, likely appendicitis 1. The patient has severe right lower quadrant pain as well as leukocytosis. This is been going on for 3 days with acute onset. The patient notes that she had a normal colonoscopy 4 years ago. Patient had a CT scan which shows inflammation in the right lower quadrant as well as purulent material throughout the pelvis and right lower quadrant. Patient likely has perforated appendicitis which is been going on for 3 days. 2. I recommend surgical exploration as the patient is very tender with a large white count. We have no interventional radiologist to do percutaneous drains in the weekend. I recommend exploratory laparoscopy with washout and breakdown of intra-abdominal abscesses. If the appendix is localized I explained that I would perform an appendectomy. If there is a large perforation of the cecum I explained that a right hemicolectomy or ileocecectomy may need to be performed. I explained the possibility of having to convert to an open procedure and I explained that she may remain intubated in the ICU after surgery. I also explained that NG would be placed and stay in until the patient was passing gas after surgery. I explained the risks of surgery including but not limited to bleeding, infection, injury to surrounding organs such as the other bowels or ureter. Patient understands the risks and is willing to consent for surgery. Turner Tamez MD Pager: [facility] [address] [place] [address], [address] [place] [address] Office:
[2018-08-18] MEDS: Potassium Chloride 10mEq/100mL 10 MEQ/100 ML IV.SOLN. 100 MEQ IV BOLUS ×2 (08:30→09:00)
[2018-08-18] MEDS: Bupiv/Epi 0.25% 30 ML Vial (09:09)
--- NOTE | 2018-08-18 09:32 | RAD_ITS ---
STUDY: X-RAY - ABDOMEN/PELVIS REASON FOR EXAM: Female, 72 years old. Documentation of a nasogastric tube placement. TECHNIQUE: Single AP view of the abdomen / pelvis. COMPARISON: CT of the abdomen and pelvis dated August 18, 2018. FINDINGS: There is limited visualization only bases. There is an unremarkable bowel gas pattern. Enteric tube is present with the tip pointing cephalad toward the gastric fundus. There is no obvious splenomegaly, mass or dilated bowel. Normal soft tissue structures. Patient has had extensive thoracic and lumbar spine surgery with multiple interpedicular screws transfixed by rods. Screws are also visible within the iliac wings. RAD/Abdomen Single View (Portable) IMPRESSION: The tip of enteric tube is pointing cephalad within the stomach probably within the fundus. Electronically Signed: Callie Woodard MD at 10:50 EDT , Service support ,
--- NOTE | 2018-08-18 09:44 | OP.PCM_ITS ---
Problem List (1) Perforated appendicitis Status: Acute Report of Operation Date of Procedure: 08/18/18 Pre-Operative Diagnosis: Perforated appendicitis Post-Operative Diagnosis: Perforated appendicitis with purulent peritonitis Surgery/Procedure Performed:: Laparoscopic perforated appendectomy and abdominal washout Specimen's removed: Appendix Drains: LAURA to bulb suction Estimated Blood Loss (mL): 50-100 cc Description of Procedure: The patient was brought back to the operating room and general anesthesia was induced. A Felton catheter and NG tube placed. The abdomen was prepped and draped in usual sterile fashion. After a timeout an incision was made superior to the umbilicus and deepened to the fascia. The fascia was elevated and incised. A finger sweep was performed and a trocar was placed into the abdomen and the abdomen was insufflated to 15 mmHg. The abdomen was inspected and there were dense adhesions to the abdominal wall and the entire right lower quadrant. A 5 mm port was placed in the left lower quadrant under direct visualization. Next the abdominal contents were bluntly swept down from the anterior abdominal wall and came down with ease. There was copious purulent material. A 5 mm port was placed in the suprapubic area under direct visualization. Using a grasper and suction the intraloop abscesses were broken down and the loops of small bowel were . There was also a large abscess in the pelvis which was suctioned. Fluid was sent for culture. The right lower quadrant was examined and after suction and irrigation the appendix was localized. A right upper quadrant 5 mm port was placed under direct visualization to assist with retraction. The appendix appeared severely inflamed. The base of the appendix was identified and did not appear to be inflamed. There was a window created in the mesoappendix and using the Enseal the mesoappendix was taken down until the tip of the appendix was reached. The middle and tip of the appendix was severely inflamed. The appendix was elevated and a 45 mm stapler was used to come across the base of the appendix. The appendix was then placed into a bag. The right lower quadrant and pelvis were then copiously irrigated as was the right upper quadrant and left lower quadrant. The abdomen was suctioned as much as possible. There appeared to be good hemostasis. There was some oozing from the anterior abdominal wall where the adhesions were initially broken up. A 15 Portuguese drain was placed through the left lower quadrant incision and placed into the pelvis under direct visualization. The tip of the drain came up to where the appendix was in the omentum was placed back over the anterior abdominal wa ll. The drain was sutured in place with a 3-0 nylon suture. It was placed to bulb suction. The other ports were removed under direct visualization and the bag and appendix were removed through the umbilical port. The umbilical fascia was closed with 2 [id number] 0 Vicryl sutures. The umbilical subcutaneous tissue was then irrigated and suctioned. All the ports were anesthetized with Marcaine and closed with interrupted 4-0 Monocryl sutures. The drain was covered with a drain sponge and Steri-Strips and bandages were applied to the others incisions. Patient was taken to PACU in stable condition and an x-ray will be used to confirm NG placement as I was unable to see the stomach due to the left lobe of the liver and Felton will remain in place until tomorrow. - Admit VTE Documentation VTE Present on Admission: No VTE Mechan Device Prophylaxis: SCD's
[2018-08-18 09:46] LABS: Bedside Glucose 257 mg/dL (70-110)
--- NOTE | 2018-08-18 09:56 | RAD_ITS ---
STUDY: X-RAY - ABDOMEN/PELVIS REASON FOR EXAM: Female, 72 years old. Documentation of nasogastric tube placement. TECHNIQUE: Single AP view of the abdomen / pelvis. COMPARISON: Radiograph of the abdomen dated August 18, [address] of the abdomen and pelvis dated August 18, 2018 FINDINGS: Normal visualized lung bases. There is an unremarkable bowel gas pattern. Enteric tube is visible with the tip pointing cephalad in the left upper quadrant probably in the gastric fundus. There is no obvious visceromegaly, mass or dilated bowel. Normal soft tissue structures. Patient has had extensive thoracic and lumbar spine surgery with multiple interpedicular screws transfixed by rods. RAD/Abdomen Single View (Portable) IMPRESSION: Enteric tube is present with the tip pointing cephalad probably towards the gastric fundus. Electronically Signed: Callie Woodard MD at 10:53 EDT , Service support ,
[2018-08-18] MEDS: Insulin Lispro 100 UNIT/ML INSULN.PEN SC ×3 (10:21→23:05)
[2018-08-18] MEDS: 0.9% Normal Saline 1,000 ML 125 ML IV ×2 (10:42→18:21)
[2018-08-18] MEDS: Morphine 2 MG/ML Syringe IV ×4 (11:23→23:58)
[2018-08-18 11:51] LABS: Bedside Glucose 287 mg/dL (70-110)
[2018-08-18 17:36] LABS: Bedside Glucose 234 mg/dL (70-110)
[2018-08-18] MEDS: 0.9% NaCl Peripheral Flush Adult/Peds IV ×2 (21:54→23:58)
[2018-08-18 23:10] LABS: Bedside Glucose 227 mg/dL (70-110)
[2018-08-19] VITALS (8 sets, daily range): BP systolic 98–146; BP diastolic 45–78; PULSE 82–98; RESP 14–18; TEMP 36.4–36.9; O2SAT 93–96
[2018-08-19] MEDS: Morphine 2 MG/ML Syringe IV ×4 (02:25→23:08)
[2018-08-19] MEDS: 0.9% Normal Saline 1,000 ML 125 ML IV ×3 (02:32→22:02)
[2018-08-19] MEDS: Insulin Lispro 100 UNIT/ML INSULN.PEN SC ×3 (06:06→17:34)
[2018-08-19 06:13] LABS: Anion Gap 7 (5-15); BUN 11 mg/dL (7-18); BUN/Creat Ratio 17.8 RATIO (10-20); Calcium,Total 7.5 mg/dL (8.5-10.1); Chloride 103 mmol/L (98-107); Creatinine, Serum 0.62 mg/dL (0.55-1.02); EST Glomerular Filtration Rate 101 mL/min (>60); Est Glom Filt Rate - Afr Amer 123 mL/min (>60); Estimated Creatinine Clearance 54.71 ml/min; Glucose 182 mg/dL (74-106); Magnesium 2.2 mg/dL (1.6-2.6); Potassium 3.1 mmol/L (3.5-5.1); Sodium Level 139 mmol/L (136-145)
[2018-08-19 06:15] LABS: Bedside Glucose 183 mg/dL (70-110)
[2018-08-19 06:26] LABS: Absolute Lymphocyte Count 1.46 X10^3/ul (0.83-4.51); Basophil# 0.04 X10^3/uL; Basophil% 0.3 % (0-1); Eosinophil# 0.12 X10^3/uL; Eosinophils% 0.9 % (0-5); Hematocrit 35.9 % (37-47); Hemoglobin 11.7 g/dl (12.0-15.0); Lymphocyte # 1.46 X10^3/ul (4.0); Lymphocyte % 11.5 % (19-41); Mean Corp Hgb Conc 32.6 g/gl (32-36); Mean Corpuscular Hgb 29.4 pg (27.0-32.0); Mean Corpuscular Volume 90.2 fL (81-99); Mean Platelet Vol. 8.8 fl (6.2-12.0); Monocyte# 0.82 X10^3/uL; Monocyte% 6.5 % (0-10); Neutrophil # 10.03 X10^3/uL (2.7-7.7); Platelet Count 207 K/mm3 (150-450); RBC Distribution Width CV 14.4 % (11.6-14.6); RBC Distribution Width SD 47.5 fl (35.1-43.9); Red Blood Count 3.98 M/mm3 (4.2-5.4); White Blood Count 12.7 K/mm3 (4.4-11.0)
[2018-08-19 06:38] LABS: POSITIVE COUNT NO; POSITIVE DIFFERENTIAL NO; POSITIVE MORPHOLOGY NO
[2018-08-19] MEDS: Potassium Chloride 10mEq/100mL 10 MEQ/100 ML IV.SOLN. 100 MEQ IV BOLUS ×4 (07:50→11:57)
[2018-08-19] MEDS: Venlafaxine XR 75 MG Capsule PO (08:08)
[2018-08-19] MEDS: hydroCHLOROthiazide 25 MG Tablet PO (08:08)
[2018-08-19] MEDS: Atorvastatin Calcium 40 MG Tablet PO (08:08)
[2018-08-19] MEDS: Metoprolol(XL)Succ 50 MG Tablet PO (08:08)
[2018-08-19] MEDS: Acetaminophen 325 MG Tablet 650 MG PO ×3 (08:10→21:12)
--- NOTE | 2018-08-19 08:31 | PN.SURG_ITS ---
Patient Problems: Active and Suspected Problems (Last Reviewed 07/01/18 @ 10:43 by Sarita Montalvo) Perforated appendicitis (Acute) Subjective: No nausea or vomiting or flatus this morning. Pain is improved. - Physical Exam General: Alert, Oriented x3, Cooperative Lungs: Normal air movement Abdomen: Soft, Distended, Tender, - - LAURA serosanguineous Vital Signs Temp Pulse Resp BP Pulse Ox 98.4 F 98 18 98/45 L 94 08/19/18 07:59 08/19/18 08:08 08/19/18 07:59 08/19/18 07:59 08/19/18 07:59 Oxygen Flow Rate (L/min) 2 Oxygen Delivery Method Room Air Weight: 212 lb 8.41 oz Body Mass Index (BMI) 30.9 Finger Stick Blood Glucose 257 Intake and Output for Last 24 Hours 08/17/18 08/18/18 08/19/18 23:59 23:59 23:59 Intake Total 3911 / 3911 1721.3 / 1721.3 Output Total 665 / 665 930 / 930 Balance 3246 / 3246 791.3 / 791.3 Laboratory Tests Past 24 Hrs 08/19/18 08/19/18 05:02 05:02 WBC 12.7 H RBC 3.98 L Hgb 11.7 L Hct 35.9 L MCV 90.2 MCH 29.4 MCHC 32.6 RDW 14.4 RDW Differential 47.5 H Plt Count 207 MPV 8.8 Immature Gran % (Auto) 1.800 H Neut % (Auto) 79.0 H Lymph % (Auto) 11.5 L [place] % (Auto) 6.5 Eos % (Auto) 0.9 Baso % (Auto) 0.3 Absolute Neuts (auto) 10.0 H Absolute Lymphs (auto) 1.46 Total Counted Not Reportable Sodium 139 Potassium 3.1 L Chloride 103 Carbon Dioxide 29.0 Anion Gap 7 BUN 11 Creatinine 0.62 Estim Creat Clear Calc 54.71 Est GFR (MDRD) Af Amer 123 Est GFR (MDRD) Non-Af 101 BUN/Creatinine Ratio 17.8 Glucose 182 H Calcium 7.5 L Phosphorus 3.0 Magnesium 2.2 POC Glucose 08/19/18 08/18/18 08/18/18 06:04 23:03 17:28 POC Glucose 183 H 227 H 234 H 08/18/18 08/18/18 11:15 09:42 POC Glucose 287 H 257 H Medical Necessity - Tobacco Use Smoking Status: Former smoker Assessment/Plan All Active Problems (Last Reviewed 07/01/18 @ 10:43 by Sarita Montalvo) Perforated appendicitis (Acute) Tachycardia (Acute) URI (upper respiratory infection) (Acute) Venous insufficiency of both lower extremities (Acute) 72-year-old female status post lap scopic appendectomy for perforated a ppendicitis 1. Patient seems to be doing better this morning. Her abdominal pain is improved. Her urine output was good and I will remove her Felton. She is still not passing any flatus and has a postoperative ileus. I will keep the NG in place. Her LAURA is serosanguineous. Her hemoglobin is stable. I will resume her Plavix and aspirin tomorrow as long as hemoglobin remained stable. 2. Type 2 diabetes-insulin sliding scale 3. Continue antibiotics and IV fluids. PPI, encourage ambulation. Turner Tamez MD Pager: [facility] [address] [place] [address], [address] [place] [address] Office:
[2018-08-19] MEDS: Metoprolol(XL)Succ 25 MG Tablet PO (10:40)
[2018-08-19 11:50] LABS: Bedside Glucose 189 mg/dL (70-110)
[2018-08-19 13:20] LABS: Pathologist Review Reviewed
--- NOTE | 2018-08-19 14:10 | CASEMGMT ---
RN CM attempted to complete Face to Face at this time. Patient is washing up in restroom at this time. RN CM will attempt assessment at a later time.
[2018-08-19 17:41] LABS: Bedside Glucose 162 mg/dL (70-110)
[2018-08-19 23:25] LABS: Bedside Glucose 129 mg/dL (70-110)
[2018-08-20] VITALS (7 sets, daily range): BP systolic 134–162; BP diastolic 74–91; PULSE 79–94; RESP 16–18; TEMP 36.6–36.9; O2SAT 93–96
[2018-08-20] MEDS: Acetaminophen 325 MG Tablet 650 MG PO ×3 (03:31→16:03)
[2018-08-20] MEDS: 0.9% Normal Saline 1,000 ML 125 ML IV ×2 (05:10→13:31)
[2018-08-20 06:09] LABS: Anion Gap 11 (5-15); BUN 6 mg/dL (7-18); BUN/Creat Ratio 11.6 RATIO (10-20); Calcium,Total 7.9 mg/dL (8.5-10.1); Chloride 101 mmol/L (98-107); Creatinine, Serum 0.52 mg/dL (0.55-1.02); EST Glomerular Filtration Rate 124 mL/min (>60); Est Glom Filt Rate - Afr Amer 150 mL/min (>60); Estimated Creatinine Clearance 54.71 ml/min; Glucose 133 mg/dL (74-106); Potassium 2.9 mmol/L (3.5-5.1); Sodium Level 138 mmol/L (136-145)
[2018-08-20 06:35] LABS: Basophil# 0.05 X10^3/uL; Basophil% 0.4 % (0-1); Eosinophil# 0.14 X10^3/uL; Eosinophils% 1.1 % (0-5); Hematocrit 34.9 % (37-47); Hemoglobin 11.5 g/dl (12.0-15.0); Lymphocyte % 11.1 % (19-41); Mean Corpuscular Hgb 29.3 pg (27.0-32.0); Mean Corpuscular Volume 88.8 fL (81-99); Mean Platelet Vol. 8.7 fl (6.2-12.0); Monocyte# 0.73 X10^3/uL; Monocyte% 5.8 % (0-10); Neutrophil # 9.95 X10^3/uL (2.7-7.7); Neutrophil % 79.1 % (47-70); Platelet Count 232 K/mm3 (150-450); RBC Distribution Width CV 14.2 % (11.6-14.6); RBC Distribution Width SD 45.6 fl (35.1-43.9); Red Blood Count 3.93 M/mm3 (4.2-5.4); White Blood Count 12.6 K/mm3 (4.4-11.0)
[2018-08-20 06:37] LABS: Differential Indicated SCAN CRITERIA MET; POSITIVE COUNT YES; POSITIVE DIFFERENTIAL NO; POSITIVE MORPHOLOGY YES
[2018-08-20 06:40] LABS: Differential Comment SCANNED
[2018-08-20] MEDS: Insulin Lispro 100 UNIT/ML INSULN.PEN SC (06:48)
[2018-08-20 06:55] LABS: Bedside Glucose 151 mg/dL (70-110)
[2018-08-20] MEDS: Potassium Chloride 10mEq/100mL 10 MEQ/100 ML IV.SOLN. 100 MEQ IV BOLUS ×4 (09:06→13:30)
[2018-08-20] MEDS: Metoprolol(XL)Succ 50 MG Tablet PO (09:13)
[2018-08-20] MEDS: Metoprolol(XL)Succ 25 MG Tablet PO (09:14)
[2018-08-20] MEDS: hydroCHLOROthiazide 25 MG Tablet PO (09:14)
[2018-08-20] MEDS: Atorvastatin Calcium 40 MG Tablet PO (09:14)
[2018-08-20] MEDS: Venlafaxine XR 75 MG Capsule PO (09:14)
--- NOTE | 2018-08-20 09:55 | CASEMGMT ---
RN CM Face to Face with patient for initial transition planning/care coordination assessment. RN CM introduced self and role at [facility]. Patient lying in bed, alert and oriented. Patient willing to participate in assessment and is able to answer all questions appropriately. Care providers, pharmacy, and demographics verified. Patient wishes to discharge home, denies need for home health at this time. Patient states she has no further needs or concerns at this time. CM to follow for discharge planning needs that may arise. PCP: Berta Specialists: Stevan guest service team leader Preferred Pharmacy: [facility] Insurance: [employer] Prescription Benefit: yes Living Will/HPOA: None LNOK: Living Arrangements: Patient lives with in 2 story home with bed and bath on first floor, patient is independent at home. Transportation: self/ DME/HHC: Patient states she has shower chair, raised toilet seat, cane, and grab bars. Patient denies need for additional DME. Patient has had [facility] in the past. Disposition Plan: Patient to discharge home with family support and follow-up plans in place. Soraya HAMLIN, RN, CM
[2018-08-20 12:41] LABS: Bedside Glucose 136 mg/dL (70-110)
[2018-08-20 14:12] LABS: Pathologist Review Reviewed
[2018-08-20] MEDS: Morphine 2 MG/ML Syringe IV ×2 (18:40→22:40)
[2018-08-20 18:56] LABS: Bedside Glucose 120 mg/dL (70-110)
[2018-08-20] MEDS: 0.9% Normal Saline 1,000 ML 100 ML IV (22:40)
[2018-08-20 23:50] LABS: Bedside Glucose 103 mg/dL (70-110)
[2018-08-21] VITALS (8 sets, daily range): BP systolic 122–165; BP diastolic 78–96; PULSE 73–88; RESP 16–18; TEMP 36.3–37; O2SAT 93–97
[2018-08-21 06:31] LABS: Anion Gap 11 (5-15); BUN 5 mg/dL (7-18); BUN/Creat Ratio 10.2 RATIO (10-20); Calcium,Total 8.1 mg/dL (8.5-10.1); Chloride 99 mmol/L (98-107); Creatinine, Serum 0.49 mg/dL (0.55-1.02); EST Glomerular Filtration Rate 133 mL/min (>60); Est Glom Filt Rate - Afr Amer 161 mL/min (>60); Estimated Creatinine Clearance 54.71 ml/min; Glucose 106 mg/dL (74-106); Potassium 2.9 mmol/L (3.5-5.1); Sodium Level 138 mmol/L (136-145)
[2018-08-21 06:41] LABS: Bedside Glucose 120 mg/dL (70-110)
[2018-08-21 06:43] LABS: Absolute Lymphocyte Count 1.25 X10^3/ul (0.83-4.51); Absolute Neutrophil Count 7.4 X10^3/uL (2.0-7.7); Basophil# 0.04 X10^3/uL; Basophil% 0.4 % (0-1); Eosinophil# 0.13 X10^3/uL; Eosinophils% 1.3 % (0-5); Hematocrit 34.7 % (37-47); Hemoglobin 11.7 g/dl (12.0-15.0); Lymphocyte # 1.25 X10^3/ul (4.0); Lymphocyte % 12.8 % (19-41); Mean Corp Hgb Conc 33.7 g/gl (32-36); Mean Corpuscular Hgb 29.6 pg (27.0-32.0); Mean Corpuscular Volume 87.8 fL (81-99); Mean Platelet Vol. 8.6 fl (6.2-12.0); Monocyte# 0.71 X10^3/uL; Monocyte% 7.3 % (0-10); Neutrophil # 7.43 X10^3/uL (2.7-7.7); Neutrophil % 76.5 % (47-70); Platelet Count 252 K/mm3 (150-450); RBC Distribution Width CV 13.9 % (11.6-14.6); RBC Distribution Width SD 43.9 fl (35.1-43.9); Red Blood Count 3.95 M/mm3 (4.2-5.4); White Blood Count 9.7 K/mm3 (4.4-11.0)
[2018-08-21 06:53] LABS: Differential Indicated SCAN CRITERIA MET; POSITIVE COUNT NO; POSITIVE DIFFERENTIAL NO; POSITIVE MORPHOLOGY YES
--- NOTE | 2018-08-21 08:25 | PCM.PN.SRG ---
Patient Problems: Active and Suspected Problems (Last Reviewed 07/01/18 @ 10:43 by Sarita Montalvo) Perforated appendicitis (Acute) Subjective: Patient is doing well. She reports she is passing flatus this morning. - Physical Exam General: Alert, Oriented x3 Lungs: Normal air movement Cardiovascular: Regular rate, Regular Rhythm Abdomen: Soft, Distended Musculoskeletal: No Muscle Wasting Neurological: Cranial nerves II-XII grossly intact Psych/Mental Status: Normal Affect Vital Signs Temp Pulse Resp BP Pulse Ox 97.4 F L 83 16 144/84 H 93 08/21/18 02:41 08/21/18 02:41 08/21/18 02:41 08/21/18 02:41 08/21/18 07:42 Oxygen Flow Rate (L/min) 2 Oxygen Delivery Method Room Air Weight: 212 lb 8.41 oz Body Mass Index (BMI) 30.9 Finger Stick Blood Glucose 257 Intake and Output for Last 24 Hours 08/19/18 08/20/18 08/21/18 23:59 23:59 23:59 Intake Total 3386.3 / 3386.3 5315 / 5315 700 / 700 Output Total 1510 / 1510 4585 / 4585 0 / 0 Balance 1876.3 / 1876.3 730 / 730 700 / 700 Microbiology Past 72 Hours 08/18/18 09:10 Gram Stain - Final Wound Abcess - Other Wound Culture - Final Strep anginosus Laboratory Tests Past 24 Hrs 08/20/18 08/21/18 08/21/18 05:22 05:30 05:30 WBC 9.7 RBC 3.95 L Hgb 11.7 L Hct 34.7 L MCV 87.8 MCH 29.6 MCHC 33.7 RDW 13.9 RDW Differential 43.9 Plt Count 252 MPV 8.6 Immature Gran % (Auto) 1.700 H Neut % (Auto) 76.5 H Lymph % (Auto) 12.8 L [place] % (Auto) 7.3 Eos % (Auto) 1.3 Baso % (Auto) 0.4 Absolute Neuts (auto) 7.4 Absolute Lymphs (auto) 1.25 Total Counted Not Reportable Diff Path Review Reviewed Sodium 138 Potassium 2.9 L Chloride 99 Carbon Dioxide 28.0 Anion Gap 11 BUN 5 L Creatinine 0.49 L Estim Creat Clear Calc 54.71 Est GFR (MDRD) Af Amer 161 Est GFR (MDRD) Non-Af 133 BUN/Creatinine Ratio 10.2 Glucose 106 Calcium 8.1 L POC Glucose 08/21/18 08/20/18 08/20/18 05:59 23:17 18:44 POC Glucose 120 H 103 120 H 08/20/18 12:14 POC Glucose 136 H Medical Necessity - Tobacco Use Smoking Status: Former smoker Assessment/Plan All Active Problems (Last Reviewed 07/01/18 @ 10:43 by Sarita Montalvo) Perforated appendicitis (Acute) Tachycardia (Acute) URI (upper respiratory infection) (Acute) Venous insufficiency of both lower extremities (Acute) 72-year-old female status post laparoscopic appendectomy with postoperative ileus 1. Patient reports she is passing some flatus today but she is still distended. Her NG is appears bilious but it may be advanced into the duodenum. I will perform a clamping trial. She is still distended. If she does not have over 500 cc at the end of the clamping trial remove her NG but I keep her n.p.o. until she is passing more significant flatus and less distended. 2. Hypokalemia-replace 3. Patient's white count is normal and I will stop her antibiotics. 4. Patient is positive fluid balance and urinating frequently and I will stop her IV fluids. [place] Tamez MD Pager: [facility] [address] [place] [address] [facility] [place] [address] Office:
--- NOTE | 2018-08-21 08:29 | PN.SURG_ITS ---
Patient Problems: Active and Suspected Problems (Last Reviewed 07/01/18 @ 10:43 by Sarita Montalvo) Perforated appendicitis (Acute) Subjective: Patient is doing well. She reports she is passing flatus this morning. - Physical Exam General: Alert, Oriented x3 Lungs: Normal air movement Cardiovascular: Regular rate, Regular Rhythm Abdomen: Soft, Distended Musculoskeletal: No Muscle Wasting Neurological: Cranial nerves II-XII grossly intact Psych/Mental Status: Normal Affect Vital Signs Temp Pulse Resp BP Pulse Ox 97.4 F L 83 16 144/84 H 93 08/21/18 02:41 08/21/18 02:41 08/21/18 02:41 08/21/18 02:41 08/21/18 07:42 Oxygen Flow Rate (L/min) 2 Oxygen Delivery Method Room Air Weight: 212 lb 8.41 oz Body Mass Index (BMI) 30.9 Finger Stick Blood Glucose 257 Intake and Output for Last 24 Hours 08/19/18 08/20/18 08/21/18 23:59 23:59 23:59 Intake Total 3386.3 / 3386.3 5315 / 5315 700 / 700 Output Total 1510 / 1510 4585 / 4585 0 / 0 Balance 1876.3 / 1876.3 730 / 730 700 / 700 Microbiology Past 72 Hours 08/18/18 09:10 Gram Stain - Final Wound Abcess - Other Wound Culture - Final Strep anginosus Laboratory Tests Past 24 Hrs 08/20/18 08/21/18 08/21/18 05:22 05:30 05:30 WBC 9.7 RBC 3.95 L Hgb 11.7 L Hct 34.7 L MCV 87.8 MCH 29.6 MCHC 33.7 RDW 13.9 RDW Differential 43.9 Plt Count 252 MPV 8.6 Immature Gran % (Auto) 1.700 H Neut % (Auto) 76.5 H Lymph % (Auto) 12.8 L [place] % (Auto) 7.3 Eos % (Auto) 1.3 Baso % (Auto) 0.4 Absolute Neuts (auto) 7.4 Absolute Lymphs (auto) 1.25 Total Counted Not Reportable Diff Path Review Reviewed Sodium 138 Potassium 2.9 L Chloride 99 Carbon Dioxide 28.0 Anion Gap 11 BUN 5 L Creatinine 0.49 L Estim Creat Clear Calc 54.71 Est GFR (MDRD) Af Amer 161 Est GFR (MDRD) Non-Af 133 BUN/Creatinine Ratio 10.2 Glucose 106 Calcium 8.1 L POC Glucose 08/21/18 08/20/18 08/20/18 05:59 23:17 18:44 POC Glucose 120 H 103 120 H 08/20/18 12:14 POC Glucose 136 H Medical Necessity - Tobacco Use Smoking Status: Former smoker Assessment/Plan All Active Problems (Last Reviewed 07/01/18 @ 10:43 by Sarita Montalvo) Perforated appendicitis (Acute) Tachycardia (Acute) URI (upper respiratory infection) (Acute) Venous insufficiency of both lower extremities (Acute) 72-year-old female status post laparoscopic appendectomy with postoperative ileus 1. Patient reports she is passing some flatus today but she is still distended. Her NG is appears bilious but it may be advanced into the duodenum. I will perform a clamping trial. She is still distended. If she does not have over 500 cc at the end of the clamping trial remove her NG but I keep her n.p.o. until she is passing more significant flatus and less distended. 2. Hypokalemia-replace 3. Patient's white count is normal and I will stop her antibiotics. 4. Patient is positive fluid balance and urinating frequently and I will stop her IV fluids. [place] Tamez MD Pager: [facility] [address] [place] [address] [facility] [address] [place] [address] Office:
[2018-08-21] MEDS: Acetaminophen 325 MG Tablet 650 MG PO (09:00)
[2018-08-21] MEDS: Metoprolol(XL)Succ 25 MG Tablet PO (10:11)
[2018-08-21] MEDS: hydroCHLOROthiazide 25 MG Tablet PO (10:11)
[2018-08-21] MEDS: Pantoprazole Sodium 40 MG Tablet PO (10:11)
[2018-08-21] MEDS: Atorvastatin Calcium 40 MG Tablet PO (10:12)
[2018-08-21] MEDS: Metoprolol(XL)Succ 50 MG Tablet PO (10:12)
[2018-08-21] MEDS: Venlafaxine XR 75 MG Capsule PO (10:12)
--- NOTE | 2018-08-21 12:37 | NURSING ---
licensed nursing assistant charting reviewed for educational learning purposes only,
[2018-08-21 12:41] LABS: Bedside Glucose 108 mg/dL (70-110)
[2018-08-21] MEDS: Potassium Chloride 10mEq/100mL 10 MEQ/100 ML IV.SOLN. 100 MEQ IV BOLUS ×4 (14:04→17:16)
[2018-08-21 18:31] LABS: Bedside Glucose 109 mg/dL (70-110)
[2018-08-22] VITALS (7 sets, daily range): BP systolic 127–160; BP diastolic 61–85; PULSE 65–76; RESP 16–18; TEMP 36.5–36.8; O2SAT 92–98
[2018-08-22 00:15] LABS: Bedside Glucose 98 mg/dL (70-110)
[2018-08-22] MEDS: 0.9% NaCl Peripheral Flush Adult/Peds IV ×4 (03:07→20:08)
[2018-08-22 05:35] LABS: Bedside Glucose 107 mg/dL (70-110)
[2018-08-22 05:54] LABS: Absolute Lymphocyte Count 1.64 X10^3/ul (0.83-4.51); Absolute Neutrophil Count 7.6 X10^3/uL (2.0-7.7); Basophil# 0.03 X10^3/uL; Basophil% 0.3 % (0-1); Eosinophil# 0.11 X10^3/uL; Eosinophils% 1.1 % (0-5); Hematocrit 38.2 % (37-47); Hemoglobin 12.9 g/dl (12.0-15.0); Lymphocyte # 1.64 X10^3/ul (4.0); Lymphocyte % 16.1 % (19-41); Mean Corp Hgb Conc 33.8 g/gl (32-36); Mean Corpuscular Hgb 29.9 pg (27.0-32.0); Mean Corpuscular Volume 88.4 fL (81-99); Mean Platelet Vol. 8.7 fl (6.2-12.0); Monocyte# 0.66 X10^3/uL; Monocyte% 6.5 % (0-10); Neutrophil % 74.7 % (47-70); Platelet Count 277 K/mm3 (150-450); RBC Distribution Width SD 45.4 fl (35.1-43.9); Red Blood Count 4.32 M/mm3 (4.2-5.4); White Blood Count 10.2 K/mm3 (4.4-11.0)
[2018-08-22 06:04] LABS: POSITIVE COUNT NO; POSITIVE DIFFERENTIAL NO; POSITIVE MORPHOLOGY NO
[2018-08-22 06:08] LABS: Anion Gap 17 (5-15); BUN 5 mg/dL (7-18); BUN/Creat Ratio 11.3 RATIO (10-20); Calcium,Total 8.7 mg/dL (8.5-10.1); Chloride 97 mmol/L (98-107); Creatinine, Serum 0.44 mg/dL (0.55-1.02); EST Glomerular Filtration Rate 148 mL/min (>60); Est Glom Filt Rate - Afr Amer 180 mL/min (>60); Estimated Creatinine Clearance 54.71 ml/min; Glucose 104 mg/dL (74-106); Potassium 2.8 mmol/L (3.5-5.1); Sodium Level 136 mmol/L (136-145)
--- NOTE | 2018-08-22 07:25 | CT_ITS ---
STUDY: CT ABDOMEN AND PELVIS WITH CONTRAST REASON FOR EXAM: Female, 72 years old. History of recent perforated appendicitis and surgical intervention. Follow-up examination. RADIATION DOSAGE (If Supplied By Facility): CTDIvol = ( 22.18 ) mGy, DLP = ( 1620.75 ) mGycm TECHNIQUE: Transaxial images were obtained from the dome of the diaphragm to the symphysis pubis with oral contrast. 100ml IV/Oral Isovue 300 was administered. Sagittal and coronal images were reconstructed. Individualized dose optimization techniques were used for this CT. COMPARISON: Comparison is made with prior study dated August 18, 2018. FINDINGS: Mild degree of right basilar atelectasis. Coronary artery calcifications. There is decreased attenuation of the liver consistent with steatosis. The patient is status post cholecystectomy. Stable 1 cm cyst in the anterior superior aspect of the spleen. Normal pancreas. Normal bilateral adrenal glands. Normal right kidney. Normal left kidney. Moderate degree of hiatal hernia. Normal small intestine. There are multiple colonic diverticula consistent with diverticulosis. The patient is status post cholecystectomy. Postsurgical changes are seen in the region of the cecum. There is residual thickening along the medial aspect of the cecum as well as the terminal ileum. The previously seen fluid collections in the pelvis have improved. A loculated fluid collection measuring 5.5 cm x 3.8 cm is seen in the right hemipelvis. There is diffuse atherosclerotic calcification of the abdominal aorta, without a demonstrated aneurysm. Normal inferior vena cava. Normal retroperitoneum. Normal urinary bladder. Normal abdominal wall. The patient is status post screw and janelle fixation of the lower thoracic and lumbar spine with a stable loss of height of the T12 vertebrae and L4 vertebrae. CT/Abdomen/Pelvis WITH Contrast IMPRESSION: Status post appendectomy with resultant postoperative changes involving the cecum and terminal ileum. Improvement appearance of the fluid collections in the pelvis with a residual fluid collection in the right anterior pelvis measuring 3.8 size by 5.5 cm. Electronically Signed: Barry Segura, at 11:17 EDT , Service support ,
[2018-08-22] MEDS: Potassium Chloride 10mEq/100mL 10 MEQ/100 ML IV.SOLN. 100 MEQ IV BOLUS ×4 (08:12→13:06)
[2018-08-22] MEDS: Metoprolol(XL)Succ 25 MG Tablet PO (08:22)
[2018-08-22] MEDS: Atorvastatin Calcium 40 MG Tablet PO (08:22)
[2018-08-22] MEDS: Pantoprazole Sodium 40 MG Tablet PO (08:22)
[2018-08-22] MEDS: Metoprolol(XL)Succ 50 MG Tablet PO (08:22)
[2018-08-22] MEDS: Venlafaxine XR 75 MG Capsule PO (08:23)
[2018-08-22] MEDS: hydroCHLOROthiazide 25 MG Tablet PO (08:23)
--- NOTE | 2018-08-22 10:45 | PCM.PN.SRG ---
Patient Problems: Active and Suspected Problems (Last Reviewed 07/01/18 @ 10:43 by Sarita Montalvo) Perforated appendicitis (Acute) Subjective: Patient's NG was removed yesterday. She is not complaining of any nausea or vomiting. She is still complaining of some mild right lower quadrant pain. She is passing flatus. - Physical Exam General: Alert, Oriented x3, Cooperative Neck: No JVD Lungs: Normal air movement Cardiovascular: Regular rate, Regular Rhythm Abdomen: Soft, Non-Distended Vital Signs Temp Pulse Resp BP Pulse Ox 97.7 F L 76 16 160/79 H 95 08/22/18 08:15 08/22/18 08:22 08/22/18 08:15 08/22/18 08:15 08/22/18 08:15 Oxygen Flow Rate (L/min) 2 Oxygen Delivery Method Room Air Weight: 212 lb 8.41 oz Body Mass Index (BMI) 30.9 Finger Stick Blood Glucose 257 Intake and Output for Last 24 Hours 08/20/18 08/21/18 08/22/18 23:59 23:59 23:59 Intake Total 5315 / 5315 2079 / 2079 50 / 50 Output Total 4585 / 4585 600 / 600 Balance 730 / 730 1479 / 1479 50 / 50 Microbiology Past 72 Hours 08/18/18 09:10 Gram Stain - Final Wound Abcess - Other Wound Culture - Final Strep anginosus Laboratory Tests Past 24 Hrs 08/22/18 08/22/18 05:04 05:04 WBC 10.2 RBC 4.32 Hgb 12.9 Hct 38.2 MCV 88.4 MCH 29.9 MCHC 33.8 RDW 14.0 RDW Differential 45.4 H Plt Count 277 MPV 8.7 Immature Gran % (Auto) 1.300 H Neut % (Auto) 74.7 H Lymph % (Auto) 16.1 L [place] % (Auto) 6.5 Eos % (Auto) 1.1 Baso % (Auto) 0.3 Absolute Neuts (auto) 7.6 Absolute Lymphs (auto) 1.64 Total Counted Not Reportable Sodium 136 Potassium 2.8 L Chloride 97 L Carbon Dioxide 22.0 Anion Gap 17 H BUN 5 L Creatinine 0.44 L Estim Creat Clear Calc 54.71 Est GFR (MDRD) Af Amer 180 Est GFR (MDRD) Non-Af 148 BUN/Creatinine Ratio 11.3 Glucose 104 Calcium 8.7 POC Glucose 08/22/18 08/22/18 08/21/18 05:27 00:03 18:19 POC Glucose 107 98 109 08/21/18 12:01 POC Glucose 108 Medical Necessity - Tobacco Use Smoking Status: Former smoker Assessment/Plan All Active Problems (Last Reviewed 07/01/18 @ 10:43 by Sarita Montalvo) Perforated appendicitis (Acute) Tachycardia (Acute) URI (upper respiratory infection) (Acute) Venous insufficiency of both lower extremities (Acute) 72-year-old female status post appendectomy 1. The patient's pathology came back as not appendicitis. This is concerning for a perforation of another cause. Before starting a diet I will repeat a CAT scan with oral contrast. As long as there is no ongoing leak I will start the patient on clear liquids today. [place] Tamez MD Pager: [facility] [address] [place] [address], [address] [place] [address] Office:
--- NOTE | 2018-08-22 10:48 | PN.SURG_ITS ---
Patient Problems: Active and Suspected Problems (Last Reviewed 07/01/18 @ 10:43 by Sarita Montalvo) Perforated appendicitis (Acute) Subjective: Patient's NG was removed yesterday. She is not complaining of any nausea or vomiting. She is still complaining of some mild right lower quadrant pain. She is passing flatus. - Physical Exam General: Alert, Oriented x3, Cooperative Neck: No JVD Lungs: Normal air movement Cardiovascular: Regular rate, Regular Rhythm Abdomen: Soft, Non-Distended Vital Signs Temp Pulse Resp BP Pulse Ox 97.7 F L 76 16 160/79 H 95 08/22/18 08:15 08/22/18 08:22 08/22/18 08:15 08/22/18 08:15 08/22/18 08:15 Oxygen Flow Rate (L/min) 2 Oxygen Delivery Method Room Air Weight: 212 lb 8.41 oz Body Mass Index (BMI) 30.9 Finger Stick Blood Glucose 257 Intake and Output for Last 24 Hours 08/20/18 08/21/18 08/22/18 23:59 23:59 23:59 Intake Total 5315 / 5315 2079 / 2079 50 / 50 Output Total 4585 / 4585 600 / 600 Balance 730 / 730 1479 / 1479 50 / 50 Microbiology Past 72 Hours 08/18/18 09:10 Gram Stain - Final Wound Abcess - Other Wound Culture - Final Strep anginosus Laboratory Tests Past 24 Hrs 08/22/18 08/22/18 05:04 05:04 WBC 10.2 RBC 4.32 Hgb 12.9 Hct 38.2 MCV 88.4 MCH 29.9 MCHC 33.8 RDW 14.0 RDW Differential 45.4 H Plt Count 277 MPV 8.7 Immature Gran % (Auto) 1.300 H Neut % (Auto) 74.7 H Lymph % (Auto) 16.1 L [place] % (Auto) 6.5 Eos % (Auto) 1.1 Baso % (Auto) 0.3 Absolute Neuts (auto) 7.6 Absolute Lymphs (auto) 1.64 Total Counted Not Reportable Sodium 136 Potassium 2.8 L Chloride 97 L Carbon Dioxide 22.0 Anion Gap 17 H BUN 5 L Creatinine 0.44 L Estim Creat Clear Calc 54.71 Est GFR (MDRD) Af Amer 180 Est GFR (MDRD) Non-Af 148 BUN/Creatinine Ratio 11.3 Glucose 104 Calcium 8.7 POC Glucose 08/22/18 08/22/18 08/21/18 05:27 00:03 18:19 POC Glucose 107 98 109 08/21/18 12:01 POC Glucose 108 Medical Necessity - Tobacco Use Smoking Status: Former smoker Assessment/Plan All Active Problems (Last Reviewed 07/01/18 @ 10:43 by Sarita Montalvo) Perforated appendicitis (Acute) Tachycardia (Acute) URI (upper respiratory infection) (Acute) Venous insufficiency of both lower extremities (Acute) 72-year-old female status post appendectomy 1. The patient's pathology came back as not appendicitis. This is concerning for a perforation of another cause. Before starting a diet I will repeat a CAT scan with oral contrast. As long as there is no ongoing leak I will start the patient on clear liquids today. [place] Tamez MD Pager: [facility] [address] [place] [address], [address] [place] [address] Office:
[2018-08-22 12:10] LABS: Bedside Glucose 96 mg/dL (70-110)
--- NOTE | 2018-08-22 12:36 | PN_ITS ---
Progress Note CT revealed a 5 cm fluid collection in the right lower quadrant. I talked to Dr. Guerrero and he will place a drain this tomorrow. I will start her on clear liquids today. As long as she is doing well I will advance her diet tomorrow and possibly send her home with a drain tomorrow afternoon. As the pathology did not show acute appendicitis I will be performing an outpatient colonoscopy on her to evaluate the intraluminal cecum. [place] Tamez MD Pager: [facility] [address] [place] [address], [address] [place] [address] Office:
[2018-08-22 17:26] LABS: Bedside Glucose 112 mg/dL (70-110)
[2018-08-22] MEDS: Acetaminophen 325 MG Tablet 650 MG PO (21:54)
[2018-08-22 23:51] LABS: Bedside Glucose 139 mg/dL (70-110)
[2018-08-23] VITALS (11 sets, daily range): BP systolic 110–163; BP diastolic 58–73; PULSE 67–83; RESP 14–18; TEMP 36.8–37.1; O2SAT 93–98
[2018-08-23] MEDS: Acetaminophen 325 MG Tablet 650 MG PO ×3 (05:40→22:21)
[2018-08-23 05:51] LABS: Bedside Glucose 142 mg/dL (70-110)
[2018-08-23 07:40] LABS: Basophil# 0.03 X10^3/uL; Basophil% 0.4 % (0-1); Eosinophils% 1.2 % (0-5); Hemoglobin 12.8 g/dl (12.0-15.0); Lymphocyte % 14.7 % (19-41); Mean Corp Hgb Conc 33.7 g/gl (32-36); Mean Corpuscular Hgb 29.5 pg (27.0-32.0); Mean Corpuscular Volume 87.6 fL (81-99); Mean Platelet Vol. 8.4 fl (6.2-12.0); Monocyte# 0.74 X10^3/uL; Monocyte% 9.1 % (0-10); Neutrophil # 5.97 X10^3/uL (2.7-7.7); Neutrophil % 73.3 % (47-70); Platelet Count 264 K/mm3 (150-450); RBC Distribution Width CV 13.9 % (11.6-14.6); RBC Distribution Width SD 44.2 fl (35.1-43.9); Red Blood Count 4.34 M/mm3 (4.2-5.4); White Blood Count 8.2 K/mm3 (4.4-11.0)
[2018-08-23 07:46] LABS: POSITIVE COUNT NO; POSITIVE DIFFERENTIAL NO; POSITIVE MORPHOLOGY NO
[2018-08-23 07:47] LABS: Magnesium 1.9 mg/dL (1.6-2.6)
[2018-08-23 07:55] LABS: Anion Gap 7 (5-15); BUN 7 mg/dL (7-18); BUN/Creat Ratio 11.8 RATIO (10-20); Calcium,Total 8.6 mg/dL (8.5-10.1); Chloride 97 mmol/L (98-107); EST Glomerular Filtration Rate 106 mL/min (>60); Est Glom Filt Rate - Afr Amer 128 mL/min (>60); Estimated Creatinine Clearance 54.71 ml/min; Glucose 149 mg/dL (74-106); Potassium 2.8 mmol/L (3.5-5.1); Sodium Level 136 mmol/L (136-145)
--- NOTE | 2018-08-23 08:47 | PCM.PN.SRG ---
Patient Problems: Active and Suspected Problems (Last Reviewed 07/01/18 @ 10:43 by Sarita Montalvo) Perforated appendicitis (Acute) Subjective: Patient still complaining of right lower quadrant pain no pain throughout the rest of her abdomen. No nausea or vomiting overnight. Patient had several bouts of runny diarrhea overnight. - Physical Exam General: Alert, Oriented x3 Neck: No JVD Lungs: Normal air movement, No rhonchi Cardiovascular: Regular rate, Regular Rhythm Abdomen: Soft, Non-Distended, Tender - Tender in the right lower quadrant Vital Signs Temp Pulse Resp BP Pulse Ox 98.2 F 69 14 141/66 H 97 08/23/18 05:31 08/23/18 05:31 08/23/18 05:31 08/23/18 05:31 08/23/18 05:31 Oxygen Flow Rate (L/min) 2 Oxygen Delivery Method Room Air Weight: 212 lb 8.41 oz Body Mass Index (BMI) 30.9 Finger Stick Blood Glucose 257 Intake and Output for Last 24 Hours 08/21/18 08/22/18 08/23/18 23:59 23:59 23:59 Intake Total 2079 / 2079 1937 / 193 Output Total 600 / 600 Balance 1479 / 1479 1937 / 1937 Microbiology Past 72 Hours 08/18/18 09:10 Gram Stain - Final Wound Abcess - Other Wound Culture - Final Strep anginosus Laboratory Tests Past 24 Hrs 08/23/18 08/23/18 08/23/18 07:30 07:30 07:30 WBC 8.2 RBC 4.34 Hgb 12.8 Hct 38.0 MCV 87.6 MCH 29.5 MCHC 33.7 RDW 13.9 RDW Differential 44.2 H Plt Count 264 MPV 8.4 Immature Gran % (Auto) 1.300 H Neut % (Auto) 73.3 H Lymph % (Auto) 14.7 L [place] % (Auto) 9.1 Eos % (Auto) 1.2 Baso % (Auto) 0.4 Absolute Neuts (auto) 6.0 Absolute Lymphs (auto) 1.20 Total Counted Not Reportable Sodium 136 Potassium 2.8 L Chloride 97 L Carbon Dioxide 32.0 Anion Gap 7 BUN 7 Creatinine 0.60 Estim Creat Clear Calc 54.71 Est GFR (MDRD) Af Amer 128 Est GFR (MDRD) Non-Af 106 BUN/Creatinine Ratio 11.8 Glucose 149 H Calcium 8.6 Magnesium 1.9 POC Glucose 08/23/18 08/22/18 08/22/18 05:45 23:42 17:15 POC Glucose 142 H 139 H 112 H 08/22/18 11:52 POC Glucose 96 Medical Necessity - Tobacco Use Smoking Status: Former smoker Assessment/Plan All Active Problems (Last Reviewed 07/01/18 @ 10:43 by Sarita Montalvo) Perforated appendicitis (Acute) Tachycardia (Acute) URI (upper respiratory infection) (Acute) Venous insufficiency of both lower extremities (Acute) 72-year-old female status post laparoscopic appendectomy 1. Yesterday afternoon I performed a CT scan with oral contrast which showed a 5 cm fluid collection in the right lower quadrant. There is no other abnormality except for persistent thickening of the cecum. I have ordered a percutaneous drain to be placed into this fluid collection today. I will start her on a regular diet once the procedure is completed. I am checking a C. difficile. She has been off antibiotics since her white count was normal and diarrhea just started last night. 2. Persistent hypokalemia. Replacing mag and potassium [place] Tamez MD Pager: [facility] [address] [place] [address], [address] [place] [address] Office:
[2018-08-23] MEDS: fentaNYL 100 MCG/2 ML Ampul IV (08:57)
[2018-08-23] MEDS: Midazolam 2 MG/2 ML Syringe (08:58)
[2018-08-23] MEDS: Midazolam 2 MG/2 ML Syringe IV (08:58)
--- NOTE | 2018-08-23 09:00 | CT_ITS ---
PROCEDURE: CT DIRECTED ABSCESS DRAINAGE, PERITONEAL DATE OF EXAMINATION: August 23, 2018 INDICATION: Female, 72 years old. Focal abscess collection in the right hemipelvis. PHYSICIAN: Barry Segura M.D. CONSENT: Written informed consent was obtained having explained the risks, benefits and alternatives in detail with the patient who accepted the risks and agreed to proceed. Laboratory review and clinical assessment was performed. CONSCIOUS SEDATION PROTOCOL: The Drugs used were: 1 mg Versed, IV., and 50 mcg Fentanyl, IV. The sedation time was: 10 minutes. Conscious sedation was started at 8:57 AM and terminated at 9:07 AM. The conscious sedation protocol was independently monitored. RADIATION DOSAGE (If Supplied By Facility): CTDIvol = ( 20 ) mGy, DLP = ( 538.14 ) mGycm TECHNIQUE: CT sections were made through the abdomen and pelvis revealing an abscess in the right hemipelvis. The skin surface was prepped and draped in a sterile fashion. Puncture of this collection was performed initially with a 5 Mongolian catheter and fluid was aspirated. Drainage catheter was then inserted into the collection and formed into position. Additional fluid was aspirated for a total of approximately 20 cc of cloudy red fluid. The catheter was sutured into position to allow for continued drainage. Followup CT sections reveals good position of the catheter. CT/CT Guidance Abscess Drg w/Cath IMPRESSION: 1. CT directed drainage of a fluid collection using CT image guidance and image documentation as described. 2. Conscious Sedation protocol utilized with independent monitoring Electronically Signed: Barry Segura, at 10:54 EDT , Service support ,
[2018-08-23] MEDS: Potassium Chloride 10mEq/100mL 10 MEQ/100 ML IV.SOLN. 100 MEQ IV BOLUS ×4 (09:49→15:51)
[2018-08-23] MEDS: Metoprolol(XL)Succ 50 MG Tablet PO (09:50)
[2018-08-23] MEDS: Venlafaxine XR 75 MG Capsule PO (09:50)
[2018-08-23] MEDS: Metoprolol(XL)Succ 25 MG Tablet PO (09:50)
[2018-08-23] MEDS: Pantoprazole Sodium 40 MG Tablet PO (09:50)
[2018-08-23] MEDS: hydroCHLOROthiazide 25 MG Tablet PO (09:52)
[2018-08-23] MEDS: Atorvastatin Calcium 40 MG Tablet PO (11:57)
[2018-08-23 12:06] LABS: Bedside Glucose 109 mg/dL (70-110)
[2018-08-23 16:46] LABS: Bedside Glucose 146 mg/dL (70-110)
[2018-08-23] MEDS: Insulin Lispro 100 UNIT/ML INSULN.PEN SC (22:09)
[2018-08-23 23:00] LABS: Bedside Glucose 256 mg/dL (70-110)
[2018-08-24] MEDS: Acetaminophen 325 MG Tablet 650 MG PO (05:18)
[2018-08-24 05:21] VITALS: BP 145/76; PULSE 75; RESP 16; TEMP 36.7; O2SAT 94
[2018-08-24] MEDS: Insulin Lispro 100 UNIT/ML INSULN.PEN SC (06:57)
[2018-08-24 07:11] LABS: Bedside Glucose 168 mg/dL (70-110)
[2018-08-24 07:25] VITALS: O2SAT 93
--- NOTE | 2018-08-24 09:47 | DCINST_ITS ---
Discharge Diet: Light diet - advance as tolerated - if you have questions about your diet instructions, please talk to you doctor. Discharge Activity: May Not Drive - for 3-5 days or while taking narcotic pain meds. May shower in (days): 1 - may shower now Call your doctor if your incision/area has: Continuous Slow Oozing, Sudden Increased Bleeding, Increased Pain/ Swelling, Increased Redness, Foul Smelling Discharge Call your doctor if you observe: Fever of 101 or Higher Suture Line Care: Avoid Pulling/Pushing, Avoid Pinching/Bending Additional Dressing/Incision Instructions:: Keep dressing clean and dry. Change or remove dressing in 2 days. Leave steri strips for 1 week. May protect with a gauze bandaid. Additional Instructions: may restart plavix today Medications to take at Discharge Cholecalciferol (Vitamin D3) [Vitamin D3] 5,000 unit PO DAILY 09/13/16 Aspirin 81 mg PO DAILY 11/24/16 blood-glucose meter kit See Dose Instructions .ROUTE .MEDSUPPLY #1 ea 08/01/17 polyethylene glycol 3350 17 gram oral powder packet 17 g PO QDAY 09/06/17 blood sugar diagnostic strips See Dose Instructions .ROUTE .MEDSUPPLY #100 ea 09/07/17 lancets 28 gauge See Dose Instructions .ROUTE .MEDSUPPLY #50 ea 10/18/17 meclizine 25 mg tablet 25 mg PO BID-TID PRN #60 tab 12/26/17 omeprazole 40 mg capsule,delayed release 40 mg PO DAILY #90 cap 01/04/18 cinnamon bark 500 mg capsule mg PO BID cap 02/26/18 nitroglycerin 0.4 mg sublingual tablet 0.4 mg SUBLINGUAL Q5M PRN #30 tab 02/26/18 clopidogrel 75 mg tablet 75 mg PO QDAY #90 tab 03/14/18 metformin ER 500 mg tablet,extended release 24hr 500 mg PO QDAY #90 tab 03/25/18 hydrochlorothiazide 25 mg tablet 25 mg PO QDAY #90 tab 05/02/18 venlafaxine ER 75 mg capsule,extended release 24 hr 75 mg PO DAILY #90 cap 05/30/18 rosuvastatin 20 mg tablet 20 mg PO QDAY #90 tab 06/06/18 metoprolol succinate ER 25 mg tablet,extended release 24 hr 25 mg PO DAILY #30 tab 07/09/18 metoprolol succinate ER 50 mg tablet,extended release 24 hr 50 mg PO QDAY #90 tab 07/09/18 Amoxicillin/Potassium Clav [Augmentin 875-125 Tablet] 1 ea PO BID 7 Days #14 tab 08/24/18 Allergies/Adverse Reactions: Allergies eptifibatide [From Integrilin] Allergy (Verified 08/18/18 00:58) Rash niacin [From Niaspan Extended-Release] Allergy (Verified 08/18/18 00:58) Rash tizanidine [From Zanaflex] Allergy (Verified 08/18/18 00:58) Rash The following prescriptions were given: Amoxicillin/Potassium Clav [Augmentin 875-125 Tablet] 1 ea PO BID 7 Days #14 tab Primary Care Physician: Mati Hampton MD [Primary Care Provider] - Test Results: Test results from this visit will be discussed in further detail at your follow- up appointment, if applicable. Please Follow Up With: Abiel [place] MD - [phone] When: Call to make a follow up appointment with your doctor in 1 week.
[2018-08-24 09:53] VITALS: BP 142/85; PULSE 100; RESP 20; TEMP 36.6; O2SAT 98
--- NOTE | 2018-08-24 09:53 | PCM.PN.SRG ---
Patient Problems: Active and Suspected Problems (Last Reviewed 07/01/18 @ 10:43 by Sarita Montalvo) Perforated appendicitis (Acute) Subjective: Patient feels great. Wants to go home. Has had flatus and bowel movements. Abdominal pain is significantly better. Objective: Abdomen is soft LAURA drain is intact and has serous fluid in it - Physical Exam Vital Signs Temp Pulse Resp BP Pulse Ox 98.0 F 75 16 145/76 H 93 08/24/18 05:21 08/24/18 05:21 08/24/18 05:21 08/24/18 05:21 08/24/18 07:25 Oxygen Flow Rate (L/min) [3] 2 Oxygen Flow Rate (L/min) [2] 4 Oxygen Flow Rate (L/min) [1 ( 2 Initial Baseline)] Oxygen Flow Rate (L/min) 2 Oxygen Delivery Method [3] Nasal Cannula Oxygen Delivery Method [2] Nasal Cannula Oxygen Delivery Method [1 ( Nasal Cannula Initial Baseline)] Oxygen Delivery Method Room Air Weight: 212 lb 8.41 oz Body Mass Index (BMI) 30.9 Finger Stick Blood Glucose 257 Intake and Output for Last 24 Hours 08/22/18 08/23/18 08/24/18 23:59 23:59 23:59 Intake Total 1937 2230 / 2230 1352 / 1352 Balance 1937 2230 / 2230 1352 / 1352 Microbiology Past 72 Hours 08/23/18 08:30 Enteric Bacteriology - Final Stool 08/23/18 09:23 Gram Stain - Final Wound Drainage - Abdominal 08/23/18 07:30 C. difficile DNA Amplification - Final Stool 08/18/18 09:10 Gram Stain - Final Wound Abcess - Other Wound Culture - Final Strep anginosus Anaerobic Culture - Final Fusobacterium nucleatum POC Glucose 08/24/18 08/23/18 08/23/18 06:56 22:06 16:34 POC Glucose 168 H 256 H 146 H 08/23/18 11:54 POC Glucose 109 Medical Necessity - Tobacco Use Smoking Status: Former smoker Assessment/Plan All Active Problems (Last Reviewed 07/01/18 @ 10:43 by Sarita Montalvo) Perforated appendicitis (Acute) Tachycardia (Acute) URI (upper respiratory infection) (Acute) Venous insufficiency of both lower extremities (Acute) We will discharge the patient home today we will start her on Augmentin 875 mg twice daily for the next 7 days. She is to call the office on Sunday to have a follow-up time to have her drain removed. Drain will be left in place until final cultures are obtained. It is okay for her to start her Plavix today.
[2018-08-24 10:00] VITALS: BP 147/74; PULSE 78; RESP 20; TEMP 36.9; O2SAT 95
[2018-08-24] MEDS: Venlafaxine XR 75 MG Capsule PO (10:34)
[2018-08-24 10:35] VITALS: BP 147/74; PULSE 78
[2018-08-24] MEDS: Pantoprazole Sodium 40 MG Tablet PO (10:35)
[2018-08-24] MEDS: Metoprolol(XL)Succ 25 MG Tablet PO (10:35)
[2018-08-24] MEDS: Atorvastatin Calcium 40 MG Tablet PO (10:35)
[2018-08-24] MEDS: hydroCHLOROthiazide 25 MG Tablet PO (10:35)
[2018-08-24 10:36] VITALS: BP 147/74; PULSE 78
[2018-08-24] MEDS: Metoprolol(XL)Succ 50 MG Tablet PO (10:36)
--- NOTE | 2018-08-26 16:06 | CASEMGMT ---
ALEX MORGAN Discharge Follow-up Phone Call: DANELLETim: Kishan Strata: 4 Call Date: 08/26/18 Discharge Date: 08/24/18 Time of Call: 1605 Duration: 2 min Admitting Diagnosis: Perforated Appendicitis ALEX MORGAN completed follow-up phone after recent hospitalization. Patient states she is doing well. Patient had no concerns regarding discharge instructions or medications. 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 Patient has follow-up appt scheduled for . Patient had no further questions or concerns at this time.
--- NOTE | 2018-08-29 14:01 | PCM.DC.SUM ---
Discharge Date and Diagnosis Date of Admission: 08/18/18 Date of Discharge: 08/24/18 - Primary Discharge Diagnosis Acute ruptured appendicitis Pelvic abscess - Secondary Discharge Diagnosis Chronic Problems (Last Updated 08/28/18 @ 15:35 by Sadaf Frias) Essential (primary) hypertension (Chronic) Atherosclerotic heart disease of [place] coronary artery without angina pectoris (Chronic) PCI-BMS-Mid RCA w/ 3.0 x 16 mm Liberte Stent 05/01/2006 Hyperlipidemia (Chronic) Hospital Course and Treatment Operations: appendectomy - Laparoscopic appendectomy with abdominal washout Procedures: - - CT guided abscess drainage with LAURA drain placement Summary of Care Provided: The patient is a 72 year old F who presented to the ED with 3 days of abdominal pain. CT scan demonstrated perforation of the cecum or subacute appendicitis. NG tube was placed. Dr. Tamez performed a laparoscopic appendectomy with abdominal washout on 08/18. Patient tolerated the procedure well. On POD # 3, patient had a follow-up CT scan ab/pel which demonstrated residual purulent fluid collection which measured 3.8 x 5.5 cm. Patient had a LAURA drain placed in radiology. Patient otherwise had an uneventful hospitalization. Upon discharge, patient had minimal amount of abdominal pain. She has positive flatus, BM. LAURA drain intact and will be monitored as an outpatient. - Physical Exam General: Alert, Oriented x3, Cooperative Abdomen: Bowel Sounds Present, Soft, Tender - minimal generalized, - - Incisions c/d/i. No erythema or infection noted. LAURA drain inatct Vital Signs Temp Pulse Resp BP Pulse Ox 98.5 F 78 20 H 147/74 H 95 08/24/18 10:00 08/24/18 10:36 08/24/18 10:00 08/24/18 10:36 08/24/18 10:00 Oxygen Flow Rate (L/min) [3] 2 Oxygen Flow Rate (L/min) [2] 4 Oxygen Flow Rate (L/min) [1 ( 2 Initial Baseline)] Oxygen Flow Rate (L/min) 2 Oxygen Delivery Method [3] Nasal Cannula Oxygen Delivery Method [2] Nasal Cannula Oxygen Delivery Method [1 ( Nasal Cannula Initial Baseline)] Oxygen Delivery Method Room Air Weight: 212 lb 8.41 oz Body Mass Index (BMI) 30.9 Finger Stick Blood Glucose 257 Microbiology Past 72 Hours 08/23/18 09:23 Gram Stain - Final Wound Drainage - Abdominal Wound Culture - Final Streptococcus group F Anaerobic Culture - Final No anaerobic bacteria isolated. Discharge Diet: Light diet - advance as tolerated - if you have questions about your diet instructions, please talk to you doctor. Discharge Activity: May Not Drive - for 3-5 days or while taking narcotic pain meds. May shower in (days): 1 - may shower now Call your doctor if your incision/area has: Continuous Slow Oozing, Sudden Increased Bleeding, Increased Pain/ Swelling, Increased Redness, Foul Smelling Discharge Call your doctor if you observe: Fever of 101 or Higher Suture Line Care: Avoid Pulling/Pushing, Avoid Pinching/Bending Additional Dressing/Incision Instructions:: Keep dressing clean and dry. Change or remove dressing in 2 days. Leave steri strips for 1 week. May protect with a gauze bandaid. Home Medications: Medications to take at Discharge Cholecalciferol (Vitamin D3) [Vitamin D3] 5,000 unit PO DAILY 09/13/16 Aspirin 81 mg PO DAILY 11/24/16 blood-glucose meter kit See Dose Instructions .ROUTE .MEDSUPPLY #1 ea 08/01/17 polyethylene glycol 3350 17 gram oral powder packet 17 g PO QDAY 09/06/17 blood sugar diagnostic strips See Dose Instructions .ROUTE .MEDSUPPLY #100 ea 09/07/17 lancets 28 gauge See Dose Instructions .ROUTE .MEDSUPPLY #50 ea 10/18/17 meclizine 25 mg tablet 25 mg PO BID-TID PRN #60 tab 12/26/17 omeprazole 40 mg capsule,delayed release 40 mg PO DAILY #90 cap 01/04/18 cinnamon bark 500 mg capsule mg PO BID cap 02/26/18 nitroglycerin 0.4 mg sublingual tablet 0.4 mg SUBLINGUAL Q5M PRN #30 tab 02/26/18 clopidogrel 75 mg tablet 75 mg PO QDAY #90 tab 03/14/18 metformin ER 500 mg tablet,extended release 24hr 500 mg PO QDAY #90 tab 03/25/18 hydrochlorothiazide 25 mg tablet 25 mg PO QDAY #90 tab 05/02/18 venlafaxine ER 75 mg capsule,extended release 24 hr 75 mg PO DAILY #90 cap 05/30/18 rosuvastatin 20 mg tablet 20 mg PO QDAY #90 tab 01/31/19 metoprolol succinate ER 25 mg tablet,extended release 24 hr 25 mg PO DAILY #30 tab 07/09/18 metoprolol succinate ER 50 mg tablet,extended release 24 hr 50 mg PO QDAY #90 tab 07/09/18 Amoxicillin/Potassium Clav [Augmentin 875-125 Tablet] 1 ea PO BID 7 Days #14 tab 08/24/18 Following Prescrptions Were Given to Patient: Amoxicillin/Potassium Clav [Augmentin 875-125 Tablet] 1 ea PO BID 7 Days #14 tab Primary Care Physician: Mati Hampton MD [Primary Care Provider] - Please Follow Up With: Abiel Forde MD - [phone] When: Call to make a follow up appointment with your doctor in 1 week. Additional Instructions: may restart plavix today Disposition: Home Minutes spent on discharge:: 20 Patient Condition:: Stable Medical Necessity - Tobacco Use Smoking Status: Former smoker Meaningful Use Info Meaningful Use Diagnoses (Choose all that apply): None applicable Code Visit Inpatient E&M: 86286 Subs Hosp L1 - No charge
== END 2018-08-24 12:10 | disposition home or self-care (01) | DRG 339 ==
LOC: ED 05:19 → SDC 06:21 → MS3 09:31 → SDC 09:50 → MS3 09:52
PROVIDERS: Admitting Provider Surgery; Emergency Provider Emergency Medicine; Family Provider Internal Medicine; PCP Internal Medicine; Visit Provider Surgery
PROC: 0DTJ4ZZ Resection of Appendix, Percutaneous Endoscopic Approach (ICD-10-PCS; CPT 44970; principal; 2018-08-18 07:00)
DX: K35.33 Acute appendicitis with perforation, localized peritonitis, and gangrene, with abscess (principal); K56.7 Ileus, unspecified; E87.6 Hypokalemia; I25.10 Atherosclerotic heart disease of native coronary artery without angina pectoris; E78.5 Hyperlipidemia, unspecified; I10 Essential (primary) hypertension; Z87.891 Personal history of nicotine dependence
CPT/HCPCS: 36415; 74018; 74177; 75989; 80048; 80053; 81001; 82962; 83690; 83735; 84100; 85025; 87070; 87075; 87076; 87077; 87102; 87186; 87205; 87206; 87493; 87506; 88304; 93005; 99156; 99283; J7030; J7040; Q9967; A4216; C1760; J2405; J3475

== ENCOUNTER → 2018-09-02 09:47 | Outpatient (CLI) | payer MEDICARE, OTHER, SELFPAY ==
[2018-08-18 10:59] VITALS: BMI 30.9
[2018-09-02 11:41] LABS: AST(SGOT) 48 U/L (15-37); Alanine Aminotransfer ALT/SGPT 51 U/L (13-56); Albumin, Serum 3.6 g/dL (3.2-5.0); Alkaline Phosphatase 99 U/L (45-117); Bilirubin, Direct 0.15 mg/dL (0.00-0.30); Cholesterol 119 mg/dL (200); Globulin 4.6 g/dL (2.2-4.2); High Density Lipoprotein 34 mg/dL; Protein, Total 8.2 g/dL (6.4-8.2); Triglycerides 288 mg/dL; Very Low Density Lipoprotein 58 mg/dL (5-40)
== END ==
PROVIDERS: Family Provider Internal Medicine; PCP Internal Medicine; Referring Provider Internal Medicine Cardiovascular Disease; Visit Provider Internal Medicine Cardiovascular Disease
DX: E78.5 Hyperlipidemia, unspecified (principal)
CPT/HCPCS: 36415; 80061; 80076

== ENCOUNTER → 2018-09-19 06:03 | Outpatient (CLI) | payer MEDICARE, OTHER, SELFPAY ==
[2018-09-10 07:35] VITALS: BMI 28.7
[2018-09-19 07:38] LABS: Potassium 3.4 mmol/L (3.5-5.1)
== END ==
PROVIDERS: Family Provider Internal Medicine; PCP Internal Medicine; Referring Provider Physician Assistant; Visit Provider Physician Assistant
DX: E87.6 Hypokalemia (principal)
CPT/HCPCS: 36415; 84132

== ENCOUNTER 2018-09-20 06:41 | Day surgery (SDC) | payer MEDICARE, OTHER, SELFPAY ==
[2018-08-18 10:59] VITALS: BMI 30.9
[2018-09-10 07:35] VITALS: BMI 28.7
--- NOTE | 2018-09-20 | COLBX_PTH ---
PATIENT: AWILDA WEBER LOC: EN U#:[id number] AGE/SX: 72/F ROOM: RE09/20/[address]: Dr. Turner Tamez MD : 1945 BED: DIS: 09/20/2018 SPEC #: [id number] RECD: 09/20/18 12:35 STATUS: CHANTEL ERNIE #: [id number] LUIS: 09/20/18 00:[address]: Turner Tamez DEPT: SURGICAL PATHOLOGY RECD BY: Tee Morales ENTERED: 09/20/18 12:38 SP TYPE: COLON BX QUINN DR: Dr. Mati Hampton MD Tissues: A - Right colon B - COLON BIOPSY C - COLON BIOPSY D - COLON BIOPSY E - Rectum, NOS Procedures: Surgery Specimen Level IV HEADER OPERATION: Colonoscopy PRE-OP DIAGNOSIS: Colonic thickening TISSUE SUBMITTED: A - Right colon biopsy, B - Hepatic flexure biopsy, C - Transverse colon biopsy, D - Descending colon biopsy, E - Sigmoid colon biopsy MICROSCOPIC DIAGNOSIS A. Right colon, biopsy: No pathologic diagnosis. B. Colon at hepatic flexure, biopsy: No pathologic diagnosis. C. Transverse colon, biopsy: No pathologic diagnosis. D. Descending colon, biopsy: No pathologic diagnosis. E. Sigmoid colon, biopsy: No pathologic diagnosis. AM:geraldine 09/23/18 MICROSCOPIC DESCRIPTION Slides are reviewed. GROSS DESCRIPTION A - Received in fixative is one container labeled with the patient's name and designated right colon biopsy. The specimen consists of two irregular fragments of light carrillo soft tissue that in aggregate measure 0.3 x 0.2 x 0.1 cm. The specimen is totally submitted in one cassette. B - Received in fixative is one container labeled with the patient's name and designated hepatic flexure biopsy. The specimen consists of one irregular fragment of light carrillo soft tissue that measures 0.3 x 0.2 x 0.1 cm. The specimen is totally submitted in one cassette. C - Received in fixative is one container labeled with the patient's name and designated transverse colon biopsy. The specimen consists of two irregular fragments of light carrillo soft tissue that in aggregate measure 0.5 x 0.2 x 0.2 cm. The specimen is totally submitted in one cassette. D - Received in fixative is one container labeled with the patient's name and designated descending colon biopsy. The specimen consists of one irregular fragment of light carrillo soft tissue that measures 0.2 x 0.2 x 0.1 cm. The specimen is totally submitted in one cassette. E - Received in fixative is one container labeled with the patient's name and designated sigmoid colon biopsy. The specimen consists of one irregular fragment of light carrillo soft tissue that measures 0.2 x 0.1 x 0.1 cm. The specimen is totally submitted in one cassette. / CE:geraldine 09/20/18 TC:5 CPT: 95227 x5
[2018-09-20 06:57] VITALS: BP 138/77; PULSE 75; RESP 18; TEMP 36.5; O2SAT 98; BMI 29.5
[2018-09-20 07:15] LABS: Bedside Glucose 151 mg/dL (70-110)
--- NOTE | 2018-09-20 07:43 | PCM.HP.BLA ---
Problem List (1) Colonic thickening Status: Acute History and Physical Date of Admission: 09/20/18 Intake Intake Visit Reasons: FU APPY 08/18/18 Chief Complaint: appy Delivery Department Supervisor Required: No Is patient in pain?: Yes (soreness at drain site) Allergies eptifibatide [From Integrilin] Allergy (Verified 08/29/18 13:49) Rash niacin [From Niaspan Extended-Release] Allergy (Verified 08/29/18 13:49) Rash tizanidine [From Zanaflex] Allergy (Verified 08/29/18 13:49) Rash Medications Cholecalciferol (Vitamin D3) [Vitamin D3] 5,000 unit PO DAILY 09/13/16 [History Confirmed 08/29/18] Aspirin 81 mg PO DAILY 11/24/16 [History Confirmed 08/29/18] blood-glucose meter kit See Dose Instructions .ROUTE .MEDSUPPLY #1 ea 08/01/17 [Rx Confirmed 08/29/18] polyethylene glycol 3350 17 gram oral powder packet 17 g PO QDAY 09/06/17 [History Confirmed 08/29/18] blood sugar diagnostic strips See Dose Instructions .ROUTE .MEDSUPPLY #100 ea 09/07/17 [Rx Confirmed 08/29/18] lancets 28 gauge See Dose Instructions .ROUTE .MEDSUPPLY #50 ea 10/18/17 [Rx Confirmed 08/29/18] meclizine 25 mg tablet 25 mg PO BID-TID PRN #60 tab 12/26/17 [Rx Confirmed 08/29/18] omeprazole 40 mg capsule,delayed release 40 mg PO DAILY #90 cap 01/04/18 [Rx Confirmed 08/29/18] cinnamon bark 500 mg capsule mg PO BID cap 02/26/18 [History Confirmed 08/29/18] nitroglycerin 0.4 mg sublingual tablet 0.4 mg SUBLINGUAL Q5M PRN #30 tab 02/26/18 [Rx Confirmed 08/29/18] clopidogrel 75 mg tablet 75 mg PO QDAY #90 tab 03/14/18 [Rx Confirmed 08/29/18] metformin ER 500 mg tablet,extended release 24hr 500 mg PO QDAY #90 tab 03/25/18 [Rx Confirmed 08/29/18] hydrochlorothiazide 25 mg tablet 25 mg PO QDAY #90 tab 05/02/18 [Rx Confirmed 08/29/18] venlafaxine ER 75 mg capsule,extended release 24 hr 75 mg PO DAILY #90 cap 05/30/18 [Rx Confirmed 08/29/18] rosuvastatin 20 mg tablet 20 mg PO QDAY #90 tab 06/06/18 [Rx Confirmed 08/29/18] metoprolol succinate ER 25 mg tablet,extended release 24 hr 25 mg PO DAILY #30 tab 07/09/18 [Rx Confirmed 08/29/18] metoprolol succinate ER 50 mg tablet,extended release 24 hr 50 mg PO QDAY #90 tab 07/09/18 [Rx Confirmed 08/29/18] Amoxicillin/Potassium Clav [Augmentin 875-125 Tablet] 1 ea PO BID 7 Days #14 tab 08/24/18 [Rx Confirmed 08/29/18] Subjective Details: Patient reports that she is doing well. She is tolerating regular diet and has no right lower quadrant pain. She reports that her drain output is minimal. Objective Details: Patient's abdomen is soft and nontender. Minimal output in the LAURA drain. Assessment & Plan Problems 1. Colonic thickening K63.9 Plan Patient had perforation and exploratory laparoscopy with subsequent drain placement. Drain was removed today in the office. Patient's right lower quadrant pain has resolved. On pathology it showed that the periappendiceal tissue was thickened with inflammation but the actual lumen was normal. This concerns me for another perforation of the colon in a different location. It appears that this is resolving and she has no abdominal pain and her drain is been removed but I believe she needs a colonoscopy to ensure that there is no malignancy or other cause for possible perforation of the colon. I explained endoscopy in detail to the patient. I explained the risks including but not limited to stroke or heart attack with anesthesia, perforation of the GI tract, bleeding, infection. I explained that any of these could necessitate further emergency surgery. The patient understands and all questions were answered sufficiently. The patient wishes to proceed with procedure. Plan for colonoscopy in 3 to 4 weeks. Turner Tamez MD Pager: [facility] [address] [place] [address], [address] [place] [address] Office:
[2018-09-20 08:25] VITALS: BP 138/77; BP 96/82; PULSE 68; RESP 16; TEMP 36.1; O2SAT 97
--- NOTE | 2018-09-20 08:27 | OP.ENDO_ITS ---
09/20/2018 Mati Hampton MD [address] [place] [address] Re : Colonoscopy procedure for Ariane Fagan Dear Dr. Hampton This procedure was performed on Thursday, September 20, 2018. My impressions and recommendations are as follows: Impressions : - Preparation of the colon was inadequate. - Localized mild inflammation was found in the cecum. Biopsied. Recommendations : - Discharge patient to home. - Resume previous diet. - Continue present medications. - Resume aspirin tomorrow and Plavix (clopidogrel) tomorrow at prior doses. - Await pathology results. - Repeat colonoscopy after studies are complete for surveillance based on pathology results. My findings are described in the full procedure note, which is enclosed. If I can be of further assistance, please feel free to contact me at Doctor phone number(s): , Work: . Sincerely, Turner Tamez MD 09/20/2018 8:27:20 AM This report has been signed electronically.
[2018-09-20 08:30] VITALS: BP 102/61; BP 138/77; PULSE 65; RESP 16; O2SAT 97
[2018-09-20 08:35] VITALS: BP 106/62; BP 138/77; PULSE 63; RESP 16; O2SAT 95
[2018-09-20 08:40] VITALS: BP 114/69; BP 138/77; PULSE 62; RESP 16; TEMP 36.2; O2SAT 95
[2018-09-20 09:15] VITALS: BP 138/77
== END 2018-09-20 09:15 | disposition home or self-care (01) ==
LOC: EN 06:42 → AC 06:42
PROVIDERS: Family Provider Internal Medicine; PCP Internal Medicine; Referring Provider Internal Medicine; Visit Provider Surgery
PROC: 0DJD8ZZ Inspection of Lower Intestinal Tract, Via Natural or Artificial Opening Endoscopic (ICD-10-PCS; CPT 45378; principal; 2018-09-20 07:55)
DX: K52.9 Noninfective gastroenteritis and colitis, unspecified (principal); R10.31 Right lower quadrant pain; R93.3 Abnormal findings on diagnostic imaging of other parts of digestive tract; K21.9 Gastro-esophageal reflux disease without esophagitis; K76.0 Fatty (change of) liver, not elsewhere classified; I25.10 Atherosclerotic heart disease of native coronary artery without angina pectoris; I25.2 Old myocardial infarction; I10 Essential (primary) hypertension; E78.00 Pure hypercholesterolemia, unspecified; E11.9 Type 2 diabetes mellitus without complications; Z95.5 Presence of coronary angioplasty implant and graft; Z79.82 Long term (current) use of aspirin; Z79.01 Long term (current) use of anticoagulants; Z79.84 Long term (current) use of oral hypoglycemic drugs; Z79.899 Other long term (current) drug therapy; Z87.891 Personal history of nicotine dependence
CPT/HCPCS: 45380; 82962; 88305; J7120; J2405

== ENCOUNTER → 2018-12-31 11:17 | Outpatient (CLI) | payer MEDICARE, OTHER, SELFPAY ==
[2018-12-31 10:35] VITALS: BMI 29.5
[2018-12-31 12:15] LABS: Absolute Lymphocyte Count 1.97 X10^3/uL (0.83-4.51); Absolute Neutrophil Count 3.2 X10^3/uL (2.0-7.7); Basophil# 0.05 X10^3/uL; Basophil% 0.9 % (0-1); Eosinophils% 1.7 % (0-5); Hematocrit 43.5 % (37-47); Hemoglobin 14.6 g/dL (12.0-15.0); Lymphocyte # 1.97 X10^3/ul (4.0); Mean Corp Hgb Conc 33.6 g/dL (32-36); Mean Corpuscular Hgb 30.2 pg (27.0-32.0); Mean Corpuscular Volume 90.1 fL (81-99); Mean Platelet Vol. 8.8 fl (6.2-12.0); Monocyte# 0.45 X10^3/uL; Monocyte% 7.8 % (0-10); NRBC Flagged by Analyzer 0 % (0-5); Neutrophil % 55.1 % (47-70); Platelet Count 210 K/mm3 (150-450); RBC Distribution Width CV 13.6 % (11.6-14.6); RBC Distribution Width SD 44.4 fl (35.1-43.9); Red Blood Count 4.83 M/mm3 (4.2-5.4); White Blood Count 5.8 K/mm3 (4.4-11.0)
[2018-12-31 13:01] LABS: AST(SGOT) 27 U/L (15-37); Alanine Aminotransfer ALT/SGPT 39 U/L (13-56); Alkaline Phosphatase 95 U/L (45-117); Anion Gap 7 (5-15); BUN 22 mg/dL (7-18); BUN/Creat Ratio 20.8 RATIO (10-20); Calcium,Total 9.6 mg/dL (8.5-10.1); Chloride 102 mmol/L (98-107); Creatinine, Serum 1.06 mg/dL (0.55-1.02); EST Glomerular Filtration Rate 54 mL/min (>60); Est Glom Filt Rate - Afr Amer 66 mL/min (>60); Globulin 4.2 g/dL (2.2-4.2); Glucose 194 mg/dL (74-106); Potassium 3.7 mmol/L (3.5-5.1); Protein, Total 8.2 g/dL (6.4-8.2); Sodium Level 137 mmol/L (136-145); T4 Free Direct 0.88 ng/dL (0.76-1.46); Thyroid Stim Hormone (TSH) 3.14 uIU/mL (0.358-3.74)
== END ==
PROVIDERS: Family Provider Internal Medicine; PCP Internal Medicine; Visit Provider Internal Medicine
DX: R61 Generalized hyperhidrosis (principal); R94.6 Abnormal results of thyroid function studies; F32.9 Major depressive disorder, single episode, unspecified; E78.5 Hyperlipidemia, unspecified
CPT/HCPCS: 36415; 80053; 84439; 84443; 85025

== ENCOUNTER → 2019-01-13 09:49 | Outpatient (CLI) | payer MEDICARE, OTHER, SELFPAY ==
[2018-12-31 10:35] VITALS: BMI 29.5
--- NOTE | 2019-01-13 09:51 | BI_ITS ---
MAMMOGRAPHY - BILATERAL SCREENING REASON FOR EXAM: Female, 73 years old. Routine annual screening examination. PERTINENT HISTORY: Non-contributory. TECHNIQUE: Digital bilateral breast luis (3D mammographic acquisition) in the CC and MLO projections. 2-D mediolateral oblique (MLO) and craniocaudad (CC) views of both breasts were obtained. CAD: Full Field Digital Mammography with Computer Added Detection was performed. COMPARISON: None. Baseline examination. FINDINGS: Breast Composition: There are scattered areas of fibroglandular density. There are no dominant masses or suspicious calcifications. No other significant abnormalities are identified. BI/SCREEN MAMM (CAD) W/LUIS BILAT IMPRESSION: Negative screening mammogram. Yearly followup mammogram recommended. (A) ASSESSMENT CATEGORY: BIRADS Category 1: Negative. A letter regarding these results will be sent to the patient by the facility within 30 days. Approximately 10% of breast cancers are not detected by mammography. A normal mammogram should not delay biopsy of a clinically suspicious abnormality. [id number] Electronically Signed: Barry Segura, at 12:31 EDT , Service support ,
== END ==
PROVIDERS: Family Provider Internal Medicine; PCP Internal Medicine; Referring Provider Internal Medicine; Visit Provider Internal Medicine
DX: Z12.31 Encounter for screening mammogram for malignant neoplasm of breast (principal)
CPT/HCPCS: 77063; 77067

== ENCOUNTER 2019-04-18 06:48 | Day surgery (SDC) | payer MEDICARE, OTHER, SELFPAY ==
--- NOTE | 2019-04-02 12:29 | HP_ITS ---
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 Required: No Is patient in pain?: No Allergies eptifibatide [From Integrilin] Allergy (Verified 12/31/18 10:33) Rash niacin [From Niaspan Extended-Release] Allergy (Verified 12/31/18 10:33) Rash tizanidine [From Zanaflex] Allergy (Verified 12/31/18 10:33) Rash Medications Cholecalciferol (Vitamin D3) [Vitamin D3] 5,000 unit PO DAILY 09/13/16 [History Confirmed 04/01/19] Aspirin 81 mg PO DAILY 11/24/16 [History Confirmed 04/01/19] blood-glucose meter kit See Dose Instructions .ROUTE .MEDSUPPLY #1 ea 08/01/17 [Rx Confirmed 04/01/19] polyethylene glycol 3350 17 gram oral powder packet 17 g PO QDAY 09/06/17 [History Confirmed 04/01/19] blood sugar diagnostic strips See Dose Instructions .ROUTE .MEDSUPPLY #100 ea 09/07/17 [Rx Confirmed 04/01/19] lancets 28 gauge See Dose Instructions .ROUTE .MEDSUPPLY #50 ea 10/18/17 [Rx Confirmed 04/01/19] meclizine 25 mg tablet 25 mg PO BID-TID PRN #60 tab 12/26/17 [Rx Confirmed 04/01/19] cinnamon bark 500 mg capsule 500 mg PO BID cap 02/26/18 [History Confirmed 04/01/19] nitroglycerin 0.4 mg sublingual tablet 0.4 mg SUBLINGUAL Q5M PRN #30 tab 02/26/18 [Rx Confirmed 04/01/19] calcium carbonate 600 mg calcium (1,500 mg) tablet 600 mg PO BID tab 10/01/18 [History Confirmed 04/01/19] hydrochlorothiazide 25 mg tablet 25 mg PO QDAY #90 tab 10/01/18 [Rx Confirmed 04/01/19] metoprolol succinate ER 25 mg tablet,extended release 24 hr 25 mg PO DAILY #90 tab 10/01/18 [Rx Confirmed 04/01/19] metoprolol succinate ER 50 mg tablet,extended release 24 hr 50 mg PO QDAY #90 tab 10/01/18 [Rx Confirmed 04/01/19] venlafaxine ER 150 mg capsule,extended release 24 hr 150 mg PO DAILY #90 cap 10/01/18 [Rx Confirmed 04/01/19] rosuvastatin 20 mg tablet 20 mg PO QDAY #90 tab 11/27/18 [Rx Confirmed 04/01/19] clopidogrel 75 mg tablet 75 mg PO QDAY #90 tab 12/17/18 [Rx Confirmed 04/01/19] metformin ER 500 mg tablet,extended release 24hr 1,000 mg PO QDAY #180 tab 03/31/19 [Rx Confirmed 04/01/19] pantoprazole 40 mg tablet,delayed release 40 mg PO DAILY #90 tab 03/31/19 [Rx Confirmed 04/01/19] Is last menstrual period known: No Post menopausal: Yes Patient : No PFSH Medical History Essential (primary) hypertension (Chronic) Atherosclerotic heart disease of [place] coronary artery without angina pectoris (Chronic) Hyperlipidemia (Chronic) Mejia esophagus (Chronic) Breast lump (Chronic) GERD (gastroesophageal reflux disease) (Chronic) Hiatal hernia (Chronic) Hx of non-ST elevation myocardial infarction (NSTEMI) (Chronic) HAMM (nonalcoholic steatohepatitis) (Chronic) Scoliosis (Chronic) Small bowel obstruction (Chronic) Type 2 diabetes mellitus (Chronic) Venous insufficiency of both lower extremities (Chronic) Vitamin D deficiency (Chronic) Perforated appendicitis (Resolved 08/18/18) Surgical History History of coronary artery stent placement (Resolved 05/01/06) History of colonoscopy (Acute) History of lumbar fusion (Chronic) History of appendectomy (Resolved 08/18/18) History of back surgery (Resolved) History of cholecystectomy (Resolved) History of liver biopsy (Resolved) History of tubal ligation (Resolved ~07/2016) Family History Brother alcoholism Brother alcoholism Colon cancer Mother Arthritis Heart disease Hypertension High cholesterol Myocardial infarction Sister Myocardial infarction Hypertension High cholesterol Heart disease Sister Myocardial infarction Hypertension High cholesterol Heart disease Emphysema lung Sister Heart disease High cholesterol Hypertension Grandmother Rheumatoid arthritis Social History (Updated 04/02/19 @ 12:29 by Grisel Diaz PA-C) Smoking Status: Former smoker second hand exposure: No alcohol intake: never substance use type: does not use caffeine: Yes Type: coffee Number of servings: 2, tea what type of physical activity do you participate in: other details: CSID frequency: 3-4 times per week duration: 45-60 minutes/day seatbelt use: always do you feel safe at home: Yes HPI HPI HPI: AWILDA WEBER, is a 73 F who presents to the office today for HPI HPI Surgical H&P: Yes HPI: AWILDA WEBER, is a 73 F who presents to the office today for Mejia's esophagus. Patient notes a history of short-segment Mejia's esophagus. Her last upper scope was performed by Dr. Dailey in March 2014. Findings included esophageal changes consistent with short-segment Mejia's esophagus, normal stomach, normal duodenum. Recommend repeat examination in 2 years. Pathology demonstrated columnar mucosa with focal intestinal metaplasia, negative for dysplasia. Patient also had a colonoscopy at the same setting. Findings included multiple diverticula in the sigmoid and descending colon. Sessile polyp found in proximal sigmoid colon. Resection and retrieval complete. Pathology demonstrated colonic mucosa. Patient had an exploratory laparoscopy for perforated appendicitis. Drain was placed. Patient was also noted to have a thickened colon. Dr. Tamez later performed a colonoscopy on 09/20/18. Findings included localized inflammation in the cecum. Multiple random biopsies were completed. Pathology demonstrated no pathologic diagnosis. Patient denies abdominal pain currently. She notes her new PCP switched her from omeprazole to pantoprazole due to the amount of time she has been on omeprazole. Patient has a history of right cardiac stent placed. She is currently on Plavix and aspirin. She denies previous complications with anesthesia. ROS General General: Yes weight change and fatigue; no appetite, colon cancer, breast cancer or weakness HEENT HEENT: No difficulty swallowing, eye injury, eye surgery, swollen glands or hoarseness Endo Endocrine: Yes diabetes mellitus; no thyroid disease, thyroid cancer, Hair loss, heat intolerance or cold intolerance Cardio Cardiovascular: Yes heart disease, high blood pressure, heart attack and heart stent; no murmur, pacemaker, atrial fibrillation, palpitations, shortness of breat with exertion or chest pain Psych Psychiatric: Yes depression and anxiety; no hearing voices Resp Respiratory: No shortness of breath, No sleep apnea, No cough, No COPD, No asthma, No emphysema, No wheezing Gastro Gastrointestinal: No abdominal pain, No nausea or vomiting, No diarrhea, Yes constipation, No blood in stool, Yes acid reflux, No hemorrhoids, No ulcers, No gallbladder problem, No black,tarry stools Vipul Hematologic: Yes blood thinners, No blood disorders, No bleeding, No anemia, No blood clots Neuro Neurologic: No weakness Exam Const General: cooperative, healthy appearing, comfortable, no acute distress HENMT Head: normal to inspection Eyes General: appearance normal, both eyes and all related structures Neck Neck: normal visual inspection Neck mass: No Resp Effort & Inspection: normal respiratory effort Auscultation: clear to auscultation bilaterally Cardio Rate: regular rate Rhythm: regular rhythm Heart Sounds: no murmurs GI Inspection: normal to inspection Palpation: soft Auscultation: normal bowel sounds Skin General: no rashes or lesions noted Neuro General: no focal motor deficits, CN's II-XI intact bilaterally Extrem General: normal to inspection Psych Appearance: grossly normal Affect: normal affect Assessment & Plan Problems 1. 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 will plan to perform an upper scope with possible biopsies. Procedure details, risks and benefits have been explained to the patient. Patient has had the opportunity to ask and have questions answered. Patient verbally understands and agrees with the plan. Patient to hold Plavix 3 days prior to the procedure. Continue aspirin. Coding Level of Care Code Off vis,est,level 4 Diagnoses Meija's esophagus without dysplasia K22.70 ??Emjia's esophagus type: without dysplasia 04/02/19 1229 <Electronically signed by Grisel medina PA-C> Date _ Fito Dailey MD
[2019-04-04 09:12] VITALS: BMI 30.1
[2019-04-18] VITALS (8 sets, daily range): BP systolic 97–135; BP diastolic 48–79; PULSE 64–80; RESP 16; TEMP 36.3–37.1; O2SAT 93–99; BMI 30.5
[2019-04-18] MEDS: Lactated Ringers 1,000 ML 100 ML IV (07:26)
--- NOTE | 2019-04-18 08:00 | EGD_PTH ---
PATIENT: AWILDA WEBER LOC: EN U#:[id number] AGE/SX: 73/F ROOM: RE04/18/[address]: Dr. Fito Dailey MD : 1945 BED: DIS: 04/18/2019 SPEC #: [id number] RECD: 04/18/19 12:25 STATUS: CHANTEL ERNIE #: [id number] LUIS: 04/18/19 08:[address]: Fito Dailey DEPT: SURGICAL PATHOLOGY RECD BY: Darrell Gonzalez ENTERED: 04/18/19 13:54 SP TYPE: EGD BIOPSY OT DR: Dr. Mati Hampton MD Tissues: A - Gastric mucous membrane B - Gastric mucous membrane C - Esophageal mucous membrane Procedures: Special Stain Group II Surgery Specimen Level IV Alcian Blue/PAS (control) HEADER OPERATION: EGD (MOD) PRE-OP DIAGNOSIS: Mejia's esophagus TISSUE SUBMITTED: A - Antrum biopsy for H. pylori and path, B - gastric polyp biopsy, C - Distal esophagus biopsy MICROSCOPIC DIAGNOSIS A. Gastric antrum, biopsy: Mild chronic gastritis. See comment. B. Gastric polyp, biopsy: Fundic gland polyp. C. Distal esophagus, biopsy: Gastroesophageal junction with mild chronic inflammation. No evidence of intestinal metaplasia. No evidence of dysplasia. See comment. AM:geraldine 04/21/19 COMMENT A. The results of immunohistochemistry for Helicobacter pylori will be reported separately ([id number]). C. Alcian blue/PAS stain with matched control supports the above diagnosis. MICROSCOPIC DESCRIPTION Slides are reviewed. GROSS DESCRIPTION A - Received in fixative is one container labeled with the patient's name and designated antrum biopsy. The specimen consists of one irregular fragment of light carrillo soft tissue that measures 0.7 x 0.3 x 0.1 cm. The specimen is totally submitted in one cassette. B - Received in fixative is one container labeled with the patient's name and designated gastric polyp. The specimen consists of two irregular fragments of light carrillo soft tissue that in aggregate measure 0.5 x 0.3 x 0.1 cm. The specimen is totally submitted in one cassette. C - Received in fixative is one container labeled with the patient's name and designated distal esophagus. The specimen consists of multiple irregular fragments of light carrillo soft tissue that in aggregate measure 1 x 0.5 x 0.1 cm. The specimen is totally submitted in one cassette. / AM:geraldine 04/18/19 TC:3 CPT: 11259 x3, 28689
--- NOTE | 2019-04-18 08:00 | IMM_PTH ---
PATIENT: AWILDA WEBER LOC: EN U#:[id number] AGE/SX: 73/F ROOM: RE04/18/[address]: Dr. Fito Dailey MD : 1945 BED: DIS: 04/18/2019 SPEC #: [id number] RECD: 04/18/19 14:19 STATUS: CHANTEL REQ #: [id number] LUIS: 04/18/19 08:[address]: Fito Dailey DEPT: IMMUNOHISTOCHEMISTRY RECD BY: Jessica Dow ENTERED: 04/18/19 14:20 SP TYPE: IMMUNO OTHR DR: Dr. Mati Hampton MD Tissues: A - Stomach, NOS Procedures: H Pylori (initial) PHYSICIAN & [place] [id number] SPECIMEN INFORMATION: Tissue Source: A - Antrum biopsy Clinical Info: Mejia's esophagus Specimen Number: [id number] CPT code: 29115 METHODOLOGY: Deparaffinized sections of prefer/formalin-fixed tissue or PAP/DQ stained slides are incubated with monoclonal/polyclonal antibodies/oligonucleotide probes. Localization is made via biotin free immunoperoxidase method. Appropriate controls are performed and reacted as expected. Results on target cell population are indicated in the following table: RESULTS: ANTIBODY / CLONE RESULT Block A H Pylori (polyclonal) negative These tests were developed and their performance characteristics determined by [facility]. They may not have been cleared or approved by the U.S. Food and Drug Administration. The FDA has determined that such clearance or approval is not necessary. INTERPRETATION: A. Antrum biopsy: Negative for Helicobacter pylori organisms. AM:geraldine 04/21/19
--- NOTE | 2019-04-18 08:25 | HP.PCM_ITS ---
Problem List (1) History of Mejia's esophagus Status: Acute History and Physical Date of Admission: 04/18/19 Visit Reasons: Repeat EGD recall Chief Complaint: barretts/ EGD Reporting Consultant Required: No Is patient in pain?: No Allergies eptifibatide [From Integrilin] Allergy (Verified 12/31/18 10:33) Rash niacin [From Niaspan Extended-Release] Allergy (Verified 12/31/18 10:33) Rash tizanidine [From Zanaflex] Allergy (Verified 12/31/18 10:33) Rash Medications Cholecalciferol (Vitamin D3) [Vitamin D3] 5,000 unit PO DAILY 09/13/16 [History Confirmed 04/01/19] Aspirin 81 mg PO DAILY 11/24/16 [History Confirmed 04/01/19] blood-glucose meter kit See Dose Instructions .ROUTE .MEDSUPPLY #1 ea 08/01/17 [Rx Confirmed 04/01/19] polyethylene glycol 3350 17 gram oral powder packet 17 g PO QDAY 09/06/17 [History Confirmed 04/01/19] blood sugar diagnostic strips See Dose Instructions .ROUTE .MEDSUPPLY #100 ea 09/07/17 [Rx Confirmed 04/01/19] lancets 28 gauge See Dose Instructions .ROUTE .MEDSUPPLY #50 ea 10/18/17 [Rx Confirmed 04/01/19] meclizine 25 mg tablet 25 mg PO BID-TID PRN #60 tab 12/26/17 [Rx Confirmed 04/01/19] cinnamon bark 500 mg capsule 500 mg PO BID cap 02/26/18 [History Confirmed 04/01/19] nitroglycerin 0.4 mg sublingual tablet 0.4 mg SUBLINGUAL Q5M PRN #30 tab 02/26/18 [Rx Confirmed 04/01/19] calcium carbonate 600 mg calcium (1,500 mg) tablet 600 mg PO BID tab 10/01/18 [History Confirmed 04/01/19] hydrochlorothiazide 25 mg tablet 25 mg PO QDAY #90 tab 10/01/18 [Rx Confirmed 04/01/19] metoprolol succinate ER 25 mg tablet,extended release 24 hr 25 mg PO DAILY #90 tab 10/01/18 [Rx Confirmed 04/01/19] metoprolol succinate ER 50 mg tablet,extended release 24 hr 50 mg PO QDAY #90 tab 10/01/18 [Rx Confirmed 04/01/19] venlafaxine ER 150 mg capsule,extended release 24 hr 150 mg PO DAILY #90 cap 10/01/18 [Rx Confirmed 04/01/19] rosuvastatin 20 mg tablet 20 mg PO QDAY #90 tab 11/27/18 [Rx Confirmed 04/01/19] clopidogrel 75 mg tablet 75 mg PO QDAY #90 tab 12/17/18 [Rx Confirmed 04/01/19] metformin ER 500 mg tablet,extended release 24hr 1,000 mg PO QDAY #180 tab 03/31/19 [Rx Confirmed 04/01/19] pantoprazole 40 mg tablet,delayed release 40 mg PO DAILY #90 tab 03/31/19 [Rx Confirmed 04/01/19] Is last menstrual period known: No Post menopausal: Yes Patient : No PFSH Medical History Essential (primary) hypertension (Chronic) Atherosclerotic heart disease of [place] coronary artery without angina pectoris (Chronic) Hyperlipidemia (Chronic) Mejia esophagus (Chronic) Breast lump (Chronic) GERD (gastroesophageal reflux disease) (Chronic) Hiatal hernia (Chronic) Hx of non-ST elevation myocardial infarction (NSTEMI) (Chronic) HAMM (nonalcoholic steatohepatitis) (Chronic) Scoliosis (Chronic) Small bowel obstruction (Chronic) Type 2 diabetes mellitus (Chronic) Venous insufficiency of both lower extremities (Chronic) Vitamin D deficiency (Chronic) Perforated appendicitis (Resolved 08/18/18) Surgical History History of coronary artery stent placement (Resolved 05/01/06) History of colonoscopy (Acute) History of lumbar fusion (Chronic) History of appendectomy (Resolved 08/18/18) History of back surgery (Resolved) History of cholecystectomy (Resolved) History of liver biopsy (Resolved) History of tubal ligation (Resolved ~07/2016) Family History Brother alcoholism Brother alcoholism Colon cancer Mother Arthritis Heart disease Hypertension High cholesterol Myocardial infarction Sister Myocardial infarction Hypertension High cholesterol Heart disease Sister Myocardial infarction Hypertension High cholesterol Heart disease Emphysema lung Sister Heart disease High cholesterol Hypertension Grandmother Rheumatoid arthritis Social History (Updated 04/02/19 @ 12:29 by Grisel Diaz PA-C) Smoking Status: Former smoker second hand exposure: No alcohol intake: never substance use type: does not use caffeine: Yes Type: coffee Number of servings: 2, tea what type of physical activity do you participate in: other details: Winning Pitch frequency: 3-4 times per week duration: 45-60 minutes/day seatbelt use: always do you feel safe at home: Yes HPI HPI HPI: AWILDA WEBER, is a 73 F who presents to the office today for HPI HPI Surgical H&P: Yes HPI: AWILDA WEBER, is a 73 F who presents to the office today for Mejia's esophagus. Patient notes a history of short-segment Mejia's esophagus. Her last upper scope was performed by Dr. Dailey in March 2014. Findings included esophageal changes consistent with short-segment Mejia's esophagus, normal stomach, normal duodenum. Recommend repeat examination in 2 years. Pathology demonstrated columnar mucosa with focal intestinal metaplasia, negative for dysplasia. Patient also had a colonoscopy at the same setting. Findings included multiple diverticula in the sigmoid and descending colon. Sessile polyp found in proximal sigmoid colon. Resection and retrieval complete. Pathology demonstrated colonic mucosa. Patient had an exploratory laparoscopy for perforated appendicitis. Drain was placed. Patient was also noted to have a thickened colon. Dr. Tamez later performed a colonoscopy on 09/20/18. Findings included localized inflammation in the cecum. Multiple random biopsies were completed. Pathology demonstrated no pathologic diagnosis. Patient denies abdominal pain currently. She notes her new PCP switched her from omeprazole to pantoprazole due to the amount of time she has been on omeprazole. Patient has a history of right cardiac stent placed. She is currently on Plavix and aspirin. She denies previous complications with anesthesia. ROS General General: Yes weight change and fatigue; no appetite, colon cancer, breast cancer or weakness HEENT HEENT: No difficulty swallowing, eye injury, eye surgery, swollen glands or hoarseness Endo Endocrine: Yes diabetes mellitus; no thyroid disease, thyroid cancer, Hair loss, heat intolerance or cold intolerance Cardio Cardiovascular: Yes heart disease, high blood pressure, heart attack and heart stent; no murmur, pacemaker, atrial fibrillation, palpitations, shortness of breat with exertion or chest pain Psych Psychiatric: Yes depression and anxiety; no hearing voices Resp Respiratory: No shortness of breath, No sleep apnea, No cough, No COPD, No asthma, No emphysema, No wheezing Gastro Gastrointestinal: No abdominal pain, No nausea or vomiting, No diarrhea, Yes constipation, No blood in stool, Yes acid reflux, No hemorrhoids, No ulcers, No gallbladder problem, No black,tarry stools Vipul Hematologic: Yes blood thinners, No blood disorders, No bleeding, No anemia, No blood clots Neuro Neurologic: No weakness Exam Const General: cooperative, healthy appearing, comfortable, no acute distress HENNH Head: normal to inspection Eyes General: appearance normal, both eyes and all related structures Neck Neck: normal visual inspection Neck mass: No Resp Effort & Inspection: normal respiratory effort Auscultation: clear to auscultation bilaterally Cardio Rate: regular rate Rhythm: regular rhythm Heart Sounds: no murmurs GI Inspection: normal to inspection Palpation: soft Auscultation: normal bowel sounds Skin General: no rashes or lesions noted Neuro General: no focal motor deficits, CN's II-XI intact bilaterally Extrem General: normal to inspection Psych Appearance: grossly normal Affect: normal affect Assessment & Plan Problems 1. 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 will plan to perform an upper scope with possible biopsies. Procedure details, risks and benefits have been explained to the patient. Patient has had the opportunity to ask and have questions answered. Patient verbally understands and agrees with the plan. Patient to hold Plavix 3 days prior to the procedure. Continue aspirin. 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 There are no clinical changes since date of exam.
--- NOTE | 2019-04-18 08:50 | OP.EGD_ITS ---
Patient Name: Ariane Fagan Procedure Date: 04/18/2019 8:30 AM Date of : 1945 Age: 73 Procedure: Upper GI endoscopy Indications: Follow-up of Mejia's esophagus Providers: Fito Dailey MD Referring MD: Mati Hampton MD Medicines: Midazolam 3 mg IV, Meperidine 75 mg IV Complications: No immediate complications. Procedure: Pre-Anesthesia Assessment: - Prior to the procedure, a History and Physical was performed, and patient medications and allergies were reviewed. The patient's tolerance of previous anesthesia was also reviewed. The risks and benefits of the procedure and the sedation options and risks were discussed with the patient. All questions were answered, and informed consent was obtained. Prior Anticoagulants: The patient has taken no previous anticoagulant or antiplatelet agents. ASA Grade Assessment: II - A patient with mild systemic disease. After reviewing the risks and benefits, the patient was deemed in satisfactory condition to undergo the procedure. After obtaining informed consent, the endoscope was passed under direct vision. Throughout the procedure, the patient's blood pressure, pulse, and oxygen saturations were monitored continuously. The gastroscope was introduced through the mouth, and advanced to the second part of duodenum. The upper GI endoscopy was accomplished without difficulty. The patient tolerated the procedure well. Moderate Sedation: Moderate (conscious) sedation was personally administered by the endoscopist. The following parameters were monitored: oxygen saturation, heart rate, blood pressure, and response to care. Total physician intraservice time was 14 minutes. Scope In: 8:37:40 AM Scope Out: 8:44:18 AM Total Procedure Duration Time 0 hours 6 minutes 38 seconds Findings: There were esophageal mucosal changes consistent with short-segment Mejia's esophagus present at the gastroesophageal junction. Mucosa was biopsied with a cold forceps for histology. The Z-line was variable and was found 38 cm from the incisors. A medium-sized hiatal hernia was present. Multiple sessile polyps with no stigmata of recent bleeding were found in the stomach. The polyp was removed with a cold biopsy forceps. Resection and retrieval were complete. Diffuse minimal inflammation was found in the gastric antrum. Biopsies were taken with a cold forceps for histology. The examined duodenum was normal. Impression: - Esophageal mucosal changes consistent with short-segment Mejia's esophagus. Biopsied. - Z-line variable, 38 cm from the incisors. - Medium-sized hiatal hernia. - Multiple gastric polyps. Resected and retrieved. - Chronic gastritis. Biopsied. - Normal examined duodenum. Recommendation: - Discharge patient to home. - Resume previous diet. - Continue present medications. - Telephone my office for pathology results in 1 week. - Repeat upper endoscopy in 5 years for surveillance. Procedure Code(s): --- Professional --- 41973, Esophagogastroduodenoscopy, flexible, transoral; with biopsy, single or multiple 79900, 59, Moderate sedation services provided by the same physician or other qualified health floor care specialist performing the diagnostic or therapeutic service that the sedation supports, requiring the presence of an independent trained observer to assist in the monitoring of the patient's level of consciousness and physiological status; initial 15 minutes of intraservice time, patient age 5 years or older Diagnosis Code(s): --- Professional --- K22.70, Mejia's esophagus without dysplasia K22.8, Other specified diseases of esophagus K44.9, Diaphragmatic hernia without obstruction or gangrene K31.7, Polyp of stomach and duodenum K29.50, Unspecified chronic gastritis without bleeding CPT copyright 2017 [employer]. All rights reserved. The codes documented in this report are preliminary and upon medical biller coder review may be revised to meet current compliance requirements. Fito Dailey MD 04/18/2019 8:49:55 AM This report has been signed electronically. Number of Addenda: 0 Note Initiated On: 04/18/2019 8:30 AM
== END 2019-04-18 09:24 | disposition home or self-care (01) ==
LOC: EN 06:49 → AC 06:50
PROVIDERS: Family Provider Internal Medicine; PCP Internal Medicine; Referring Provider Internal Medicine; Visit Provider Surgery
PROC: (CPT 43239; principal; 2019-04-18 07:55)
DX: K31.7 Polyp of stomach and duodenum (principal); K29.50 Unspecified chronic gastritis without bleeding; K44.9 Diaphragmatic hernia without obstruction or gangrene; K22.70 Barrett's esophagus without dysplasia; K22.8 Other specified diseases of esophagus; I10 Essential (primary) hypertension; I25.10 Atherosclerotic heart disease of native coronary artery without angina pectoris; E78.5 Hyperlipidemia, unspecified; K21.9 Gastro-esophageal reflux disease without esophagitis; E11.9 Type 2 diabetes mellitus without complications; I87.2 Venous insufficiency (chronic) (peripheral); K57.30 Diverticulosis of large intestine without perforation or abscess without bleeding; Z95.5 Presence of coronary angioplasty implant and graft; I25.2 Old myocardial infarction; Z87.891 Personal history of nicotine dependence; Z79.84 Long term (current) use of oral hypoglycemic drugs; Z79.82 Long term (current) use of aspirin; Z79.02 Long term (current) use of antithrombotics/antiplatelets
CPT/HCPCS: 43239; 88305; 88313; 88342; 99152; 99153; J7120

== ENCOUNTER → 2019-06-30 11:02 | Outpatient (CLI) | payer MEDICARE, OTHER, SELFPAY ==
[2019-06-30 12:39] LABS: Anion Gap 7 (5-15); BUN 13 mg/dL (7-18); BUN/Creat Ratio 13.5 RATIO (10-20); Chloride 100 mmol/L (98-107); Creatinine, Serum 0.97 mg/dL (0.55-1.02); EST Glomerular Filtration Rate 60 mL/min (>60); Est Glom Filt Rate - Afr Amer 73 mL/min (>60); Glucose 217 mg/dL (74-106); Potassium 3.7 mmol/L (3.5-5.1); Sodium Level 136 mmol/L (136-145); T4 Free Direct 0.84 ng/dL (0.76-1.46); Thyroid Stim Hormone (TSH) 4.33 uIU/mL (0.358-3.74)
== END ==
PROVIDERS: PCP Internal Medicine; Referring Provider Internal Medicine; Visit Provider Internal Medicine
DX: I10 Essential (primary) hypertension (principal); R25.1 Tremor, unspecified
CPT/HCPCS: 36415; 80048; 84439; 84443

== ENCOUNTER → 2019-11-07 10:57 | Outpatient (CLI) | payer MEDICARE, OTHER, SELFPAY ==
[2019-07-10 14:12] VITALS: BMI 30.5
[2019-11-07 11:42] LABS: AST(SGOT) 76 U/L (15-37); Alanine Aminotransfer ALT/SGPT 78 U/L (13-56); Albumin, Serum 4.2 g/dL (3.2-5.0); Alkaline Phosphatase 97 U/L (45-117); Cholesterol 160 mg/dL (200); Globulin 4.2 g/dL (2.2-4.2); High Density Lipoprotein 39 mg/dL; Protein, Total 8.4 g/dL (6.4-8.2); Triglycerides 368 mg/dL; Very Low Density Lipoprotein 74 mg/dL (5-40)
== END ==
PROVIDERS: PCP Internal Medicine; Visit Provider Nurse Practitioner Family
DX: E78.5 Hyperlipidemia, unspecified (principal); I25.10 Atherosclerotic heart disease of native coronary artery without angina pectoris
CPT/HCPCS: 80061; 80076

== ENCOUNTER → 2019-11-24 11:21 | Outpatient (CLI) | payer MEDICARE, OTHER, SELFPAY ==
[2019-11-24 11:03] VITALS: BMI 32.4
[2019-11-24 12:09] LABS: Absolute Lymphocyte Count 2.09 X10^3/uL (0.83-4.51); Absolute Neutrophil Count 3.7 X10^3/uL (2.0-7.7); Basophil# 0.06 X10^3/uL; Basophil% 0.9 % (0-1); Eosinophil# 0.13 X10^3/uL; Hematocrit 45.3 % (37-47); Hemoglobin 15.3 g/dL (12.0-15.0); Lymphocyte # 2.09 X10^3/ul (4.0); Lymphocyte % 32.2 % (19-41); Mean Corp Hgb Conc 33.8 g/dL (32-36); Mean Corpuscular Hgb 31.5 pg (27.0-32.0); Mean Corpuscular Volume 93.4 fL (81-99); Mean Platelet Vol. 8.9 fl (6.2-12.0); Monocyte# 0.53 X10^3/uL; Monocyte% 8.2 % (0-10); NRBC Flagged by Analyzer 0 % (0-5); Neutrophil # 3.67 X10^3/uL (2.7-7.7); Neutrophil % 56.4 % (47-70); Platelet Count 219 K/mm3 (150-450); RBC Distribution Width CV 13.6 % (11.6-14.6); RBC Distribution Width SD 46.1 fl (35.1-43.9); Red Blood Count 4.85 M/mm3 (4.2-5.4); White Blood Count 6.5 K/mm3 (4.4-11.0)
[2019-11-24 13:04] LABS: Anion Gap 9 (5-15); BUN 19 mg/dL (7-18); BUN/Creat Ratio 17.8 RATIO (10-20); Calcium,Total 9.8 mg/dL (8.5-10.1); Chloride 97 mmol/L (98-107); Creatinine, Serum 1.07 mg/dL (0.55-1.02); EST Glomerular Filtration Rate 54 mL/min (>60); Est Glom Filt Rate - Afr Amer 65 mL/min (>60); Glucose 283 mg/dL (74-106); Potassium 3.6 mmol/L (3.5-5.1); Sodium Level 134 mmol/L (136-145); T4 Free Direct 1.06 ng/dL (0.76-1.46); Thyroid Stim Hormone (TSH) 4.13 uIU/mL (0.358-3.74)
== END ==
PROVIDERS: PCP Internal Medicine; Referring Provider Internal Medicine; Visit Provider Internal Medicine
DX: E11.9 Type 2 diabetes mellitus without complications (principal); I25.10 Atherosclerotic heart disease of native coronary artery without angina pectoris; I10 Essential (primary) hypertension; R79.89 Other specified abnormal findings of blood chemistry
CPT/HCPCS: 36415; 80048; 84439; 84443; 85025

== ENCOUNTER → 2020-08-24 12:20 | Outpatient (CLI) | payer MEDICARE, OTHER, SELFPAY ==
[2020-08-13 13:25] VITALS: BMI 29.9
--- NOTE | 2020-08-24 12:25 | BI_ITS ---
MAMMOGRAPHY - BILATERAL SCREENING REASON FOR EXAM: Female, 74 years old. Routine annual screening examination. PERTINENT HISTORY: Non-contributory. History of left excisional breast biopsy. TECHNIQUE: Digital bilateral breast luis (3D mammographic acquisition) in the CC and MLO projections. 2-D mediolateral oblique (MLO) and craniocaudad (CC) views of both breasts were obtained. CAD: Full Field Digital Mammography with Computer Added Detection was performed. COMPARISON: Comparison is made with prior study dated 01/13/2019. FINDINGS: Breast Composition: There are scattered areas of fibroglandular density. There are no dominant masses or suspicious calcifications. No other significant abnormalities are identified. There has been no significant change since the prior study. BI/SCRN MAMM (CAD)W/LUIS BILAT IMPRESSION: Stable bilateral screening mammogram. Yearly follow-up mammogram recommended. (A) ASSESSMENT CATEGORY: BIRADS Category 1: Negative. A letter regarding these results will be sent to the patient by the facility within 30 days. Approximately 10% of breast cancers are not detected by mammography. A normal mammogram should not delay biopsy of a clinically suspicious abnormality. [id number] Electronically Signed: Barry Segura MD at 13:23 EDT , Service support ,
== END ==
PROVIDERS: PCP Internal Medicine; Referring Provider Internal Medicine; Visit Provider Internal Medicine
DX: Z12.31 Encounter for screening mammogram for malignant neoplasm of breast (principal)
CPT/HCPCS: 77063; 77067

== ENCOUNTER → 2020-11-12 10:31 | Outpatient (CLI) | payer MEDICARE, OTHER, SELFPAY ==
[2020-11-12 10:04] VITALS: BMI 29.8
[2020-11-12 12:27] LABS: Absolute Lymphocyte Count 2.07 X10^3/uL (0.83-4.51); Absolute Neutrophil Count 3.8 X10^3/uL (2.0-7.7); Basophil# 0.06 X10^3/uL; Basophil% 0.9 % (0-1); Eosinophils% 2.9 % (0-5); Hematocrit 45.8 % (37-47); Lymphocyte # 2.07 X10^3/ul (0.83-4.51); Lymphocyte % 30.4 % (19-41); Mean Corp Hgb Conc 32.8 g/dL (32-36); Mean Corpuscular Hgb 30.8 pg (27.0-32.0); Mean Platelet Vol. 9.2 fl (6.2-12.0); Monocyte# 0.63 X10^3/uL; Monocyte% 9.2 % (0-10); NRBC Flagged by Analyzer 0 % (0-5); Neutrophil # 3.83 X10^3/uL (2.7-7.7); Neutrophil % 56.2 % (47-70); Platelet Count 216 K/mm3 (150-450); RBC Distribution Width CV 13.6 % (11.6-14.6); RBC Distribution Width SD 46.9 fl (35.1-43.9); Red Blood Count 4.87 M/mm3 (4.2-5.4); White Blood Count 6.8 K/mm3 (4.4-11.0)
[2020-11-12 12:30] LABS: AST(SGOT) 50 U/L (15-37); Alanine Aminotransfer ALT/SGPT 62 U/L (13-56); Alkaline Phosphatase 93 U/L (45-117); Anion Gap 8 (5-15); BUN 13 mg/dL (7-18); BUN/Creat Ratio 14.7 RATIO (10-20); Calcium,Total 9.6 mg/dL (8.5-10.1); Chloride 100 mmol/L (98-107); Cholesterol 139 mg/dL (200); Creatinine, Serum 0.88 mg/dL (0.55-1.02); EST Glomerular Filtration Rate 67 mL/min (>60); Est Glom Filt Rate - Afr Amer 81 mL/min (>60); Glucose 139 mg/dL (74-106); High Density Lipoprotein 40 mg/dL; Potassium 4.1 mmol/L (3.5-5.1); Sodium Level 138 mmol/L (136-145); T4 Free Direct 0.86 ng/dL (0.76-1.46); Thyroid Stim Hormone (TSH) 3.11 uIU/mL (0.358-3.74); Triglycerides 270 mg/dL; Very Low Density Lipoprotein 54 mg/dL (5-40)
== END ==
PROVIDERS: PCP Internal Medicine; Referring Provider Internal Medicine; Visit Provider Internal Medicine
DX: E78.5 Hyperlipidemia, unspecified (principal); E11.9 Type 2 diabetes mellitus without complications
CPT/HCPCS: 36415; 80053; 80061; 84439; 84443; 85025

== ENCOUNTER → 2020-11-22 12:31 | Outpatient (CLI) | payer MEDICARE, OTHER, SELFPAY ==
[2020-11-12 10:04] VITALS: BMI 29.8
--- NOTE | 2020-11-22 12:33 | RAD_ITS ---
STUDY: X-RAY - LUMBAR SPINE REASON FOR EXAM: Female, 74 years old. Back pain. TECHNIQUE: 2 view(s) of the lumbar spine were obtained. COMPARISON: None FINDINGS: Generalized osteopenia. Extensive laminectomy and posterior fusion from T10 to both sacroiliac joints. 7 mm of anterolisthesis of L4 on L5. Diffuse intervertebral disc space narrowing with intervertebral disc prostheses at L2-3, L3-4, L4-5 and L5-S1. No complications noted. The soft tissue structures are unremarkable. RAD/Lumbar Spine 2 or 3 Views IMPRESSION: Osteopenia with extensive laminectomy and posterior fusion as described. No complicating features. Electronically Signed: Shahram Vasquez MD at 9:58 EDT , Service support ,
--- NOTE | 2020-11-22 12:33 | RAD_ITS ---
STUDY: X-RAY - THORACIC SPINE REASON FOR EXAM: Female, 74 years old. Back pain. TECHNIQUE: 2 view(s) of the thoracic spine were obtained on 3 images. COMPARISON: None. FINDINGS: Generalized osteopenia. Anterior wedge compression deformity of T10 and T12 with kyphotic angulation at this site. Posterior fusion from T10 to S1. Diffuse intervertebral disc space narrowing with small osteophytes. The soft tissue structures are unremarkable. RAD/Thoracic Spine 3 Views IMPRESSION: Osteopenia with anterior wedge compression deformities, posterior fusion, increased kyphosis and mild thoracic spondylosis. No other abnormality. Electronically Signed: Shahram Vasquez MD at 10:44 EDT , Service support ,
== END ==
PROVIDERS: PCP Internal Medicine; Referring Provider Anesthesiology Pain Medicine; Visit Provider Anesthesiology Pain Medicine
DX: M54.9 Dorsalgia, unspecified (principal)
CPT/HCPCS: 72072; 72100

== ENCOUNTER → 2021-03-28 12:08 | Outpatient (CLI) | payer MEDICARE, OTHER, SELFPAY ==
--- NOTE | 2021-03-28 13:00 | RAD_ITS ---
HISTORY: PRIMARY FOCAL HYPERHIDROSIS EXAMINATION/TECHNIQUE: XR Chest 2 Views: 2 views COMPARISON: Thoracic spine series 11/22/20 FINDINGS: LINES/DEVICES: None. LUNGS: No pulmonary consolidation, mass, or edema. No pleural effusion or pneumothorax. MEDIASTINUM AND CARDIOVASCULAR STRUCTURES: Cardiac silhouette not enlarged. Central airways and mediastinal contour are unremarkable. BONES AND SOFT TISSUES: No acute bony abnormalities. Thoracolumbar fusion hardware with stable compression fractures of T10 and T12. RAD/Chest PA and Lateral IMPRESSION: No radiographic evidence of acute cardiopulmonary disease. at 1459 Reported and signed by: Bayron Delgadillo MD Electronically Signed: Bayron Delgadillo MD at 14:58 EST Tel , Service support ,
[2021-03-28 13:01] LABS: Absolute Lymphocyte Count 2.17 X10^3/uL (0.83-4.51); Absolute Neutrophil Count 4.4 X10^3/uL (2.0-7.7); Basophil# 0.07 X10^3/uL; Basophil% 0.9 % (0-1); Eosinophil# 0.22 X10^3/uL; Eosinophils% 2.9 % (0-5); Hematocrit 45.3 % (37-47); Lymphocyte # 2.17 X10^3/ul (0.83-4.51); Mean Corp Hgb Conc 33.1 g/dL (32-36); Mean Corpuscular Hgb 30.7 pg (27.0-32.0); Mean Corpuscular Volume 92.6 fL (81-99); Mean Platelet Vol. 8.6 fl (6.2-12.0); Monocyte# 0.56 X10^3/uL; Monocyte% 7.5 % (0-10); NRBC Flagged by Analyzer 0 % (0-5); Neutrophil # 4.44 X10^3/uL (2.7-7.7); Neutrophil % 59.4 % (47-70); Platelet Count 180 K/mm3 (150-450); RBC Distribution Width CV 13.2 % (11.6-14.6); RBC Distribution Width SD 44.6 fl (35.1-43.9); Red Blood Count 4.89 M/mm3 (4.2-5.4); White Blood Count 7.5 K/mm3 (4.4-11.0)
[2021-03-28 13:37] LABS: ALB/GLOB Ratio 0.9 RATIO (0.9-2.4); AST(SGOT) 120 U/L (15-37); Alanine Aminotransfer ALT/SGPT 131 U/L (13-56); Albumin, Serum 3.8 g/dL (3.2-5.0); Alkaline Phosphatase 89 U/L (45-117); Anion Gap 7 (5-15); BUN 12 mg/dL (7-18); BUN/Creat Ratio 14.9 RATIO (10-20); Calcium,Total 9.5 mg/dL (8.5-10.1); Chloride 101 mmol/L (98-107); Creatinine, Serum 0.81 mg/dL (0.55-1.02); EST Glomerular Filtration Rate 74 mL/min (>60); Est Glom Filt Rate - Afr Amer 90 mL/min (>60); Globulin 4.2 g/dL (2.2-4.2); Glucose 154 mg/dL (74-106); Potassium 3.7 mmol/L (3.5-5.1); Sodium Level 138 mmol/L (136-145); T4 Free Direct 0.86 ng/dL (0.76-1.46); Thyroid Stim Hormone (TSH) 3.31 uIU/mL (0.358-3.74)
[2021-03-30 16:09] LABS: PROEL- A/G Ratio 1.1 (0.7-1.7); PROEL- Albumin 3.9 g/dL (2.9-4.4); PROEL- Alpha-1 Globulin 0.3 g/dL (0.0-0.4); PROEL- Beta Globulin 1.3 g/dL (0.7-1.3); PROEL- Gamma Globulin 1.1 g/dL (0.4-1.8); PROEL- Globulin, Total 3.5 g/dL (2.2-3.9); PROEL- TOTAL PROTEIN 7.4 g/dL (6.0-8.5)
== END ==
PROVIDERS: PCP Internal Medicine; Referring Provider Dermatology; Visit Provider Dermatology
DX: L74.519 Primary focal hyperhidrosis, unspecified (principal); L72.0 Epidermal cyst; D36.12 Benign neoplasm of peripheral nerves and autonomic nervous system, upper limb, including shoulder; E78.5 Hyperlipidemia, unspecified
CPT/HCPCS: 36415; 71046; 80053; 84165; 84439; 84443; 85025

== ENCOUNTER → 2021-04-22 13:44 | Outpatient (CLI) | payer MEDICARE, OTHER, SELFPAY | PROVIDERS: PCP Internal Medicine; Visit Provider Physician Assistant | DX: J06.9 Acute upper respiratory infection, unspecified (principal); R19.7 Diarrhea, unspecified | CPT/HCPCS: 87635; U0005; U0003 ==

== ENCOUNTER 2021-07-06 13:09 | Outpatient (CLI) | payer MEDICARE, OTHER, SELFPAY ==
[2021-07-06 15:34] LABS: AST(SGOT) 162 U/L (15-37); Alanine Aminotransfer ALT/SGPT 132 U/L (13-56); Alkaline Phosphatase 109 U/L (45-117); Anion Gap 5 (5-15); BUN 10 mg/dL (7-18); BUN/Creat Ratio 10.9 RATIO (10-20); Calcium,Total 10.2 mg/dL (8.5-10.1); Chloride 100 mmol/L (98-107); Creatinine, Serum 0.92 mg/dL (0.55-1.02); EST Glomerular Filtration Rate 64 mL/min (>60); Est Glom Filt Rate - Afr Amer 77 mL/min (>60); Globulin 4.2 g/dL (2.2-4.2); Glucose 148 mg/dL (74-106); Potassium 3.9 mmol/L (3.5-5.1); Protein, Total 8.2 g/dL (6.4-8.2); Sodium Level 136 mmol/L (136-145)
== END 2021-07-06 23:59 | disposition home or self-care (01) ==
LOC: BIMLAB 13:11
PROVIDERS: PCP Internal Medicine; Referring Provider Internal Medicine; Visit Provider Internal Medicine
DX: R74.8 Abnormal levels of other serum enzymes (principal)
CPT/HCPCS: 36415; 80053

== ENCOUNTER 2021-07-12 11:16 | Outpatient (CLI) | payer MEDICARE, OTHER, SELFPAY ==
[2021-07-12 12:28] LABS: Erythrocyte Sedimentation Rate 21 mm/hr (0-30)
[2021-07-12 13:20] LABS: CRP < 2.90 mg/L (0.0-3.0); GGTP 273 U/L (5-55)
[2021-07-12 13:43] LABS: Hepatitis B Surface Antigen Non-Reactive (Nonreactive); Hepatitis C Antibody Non-Reactive (Nonreactive)
[2021-07-13 18:30] LABS: Anti-Smooth Muscle ABS 4 Units (0-19)
== END 2021-07-12 23:59 | disposition home or self-care (01) ==
LOC: BIMLAB 11:17
PROVIDERS: PCP Internal Medicine; Referring Provider Internal Medicine; Visit Provider Internal Medicine
DX: R74.8 Abnormal levels of other serum enzymes (principal)
CPT/HCPCS: 36415; 82977; 83516; 85652; 86140; 86803; 87340

== ENCOUNTER 2021-07-28 10:50 | Outpatient (CLI) | payer MEDICARE, OTHER, SELFPAY ==
[2021-07-28 12:16] LABS: International Normalized Ratio 1.1; Prothrombin Time (Protime)PT. 13.1 SECONDS (11.7-14.9)
[2021-07-28 12:54] LABS: CPK Total, Creatine Kinase 58 U/L (26-192); Ferritin 210 ng/mL (8-252); LDH 251 U/L (84-246)
[2021-07-29 13:08] LABS: Anti-Centromere B Ab <0.2 AI (0.0-0.9); Anti-Chromatin 0.4 AI (0.0-0.9); Anti-Jo <0.2 AI (0.0-0.9); Anti-Scleroderma-70 AB <0.2 AI (0.0-0.9); RNP Ab <0.2 AI (0.0-0.9); SJOGREN'S Anti-SS-A test < 0.2 AI (0.0-0.9); SJOGREN'S Anti-SS-B test < 0.2 AI (0.0-0.9); Smith Ab <0.2 AI (0.0-0.9)
[2021-07-29 15:47] LABS: Anti-dsDNA Ab 153 IU/mL (0-9)
[2021-08-02 07:08] LABS: Albumin 4.1 g/dL (2.9-4.4); Alpha-1-Globulins 0.3 g/dL (0.0-0.4); Ceruloplasmin 40.2 mg/dL (19.0-39.0); Cytoplasmic Ab (C-ANCA) <1:20 titer (Neg:<1:20); Gamma Globulin 1.2 g/dL (0.4-1.8); Immunoglobulin A 405 mg/dL (64-422); Immunoglobulin G 1138 mg/dL (586-1602); Immunoglobulin M 80 mg/dL (26-217); PROEL- TOTAL PROTEIN 8.1 g/dL (6.0-8.5)
[2021-08-02 08:31] LABS: Anti-Smooth Muscle ABS 6 Units (0-19); Copper, Serum or Plasma 141 ug/dL (80-158); Perinuclear Ab (P-ANCA) <1:20 titer (Neg:<1:20)
== END 2021-07-28 23:59 | disposition home or self-care (01) ==
LOC: LAB 10:55
PROVIDERS: PCP Internal Medicine; Visit Provider Nurse Practitioner Adult Health
DX: K76.0 Fatty (change of) liver, not elsewhere classified (principal); R74.8 Abnormal levels of other serum enzymes
CPT/HCPCS: 36415; 82390; 82525; 82550; 82728; 82784; 83516; 83615; 84165; 85610; 86225; 86235; 86256; 86334

== ENCOUNTER 2021-08-06 08:36 | Outpatient (CLI) | payer MEDICARE, OTHER, SELFPAY ==
--- NOTE | 2021-08-06 08:40 | US_ITS ---
STUDY: ABDOMINAL ULTRASOUND - RIGHT UPPER QUADRANT REASON FOR VISIT: Female, 75 years old ELEVATED GGT TECHNIQUE: Ultrasound evaluation of the right upper quadrant was performed with real-time and static hicks-scale imaging. TECHNICAL QUALITY: Adequate. COMPARISON: None. FINDINGS: Liver: The liver is mildly enlarged and measures 18.2 cm. There is increased echogenicity consistent with fatty infiltration. The bile ducts are within normal limits. There is hepatic color flow. The direction of portal flow is hepatopetal. There is no demonstrated mass lesion. Gallbladder: The patient is status post cholecystectomy. Common Bile Duct (C.B.D.): The common bile duct is dilated and measures 15.6 mm. This most likely secondary to the postcholecystectomy state. Pancreas: Normal size of the head, body and tail of the pancreas. There is increased echogenicity of the pancreas. There is no demonstrated pancreatic mass or cyst. Right Kidney: Normal size of the right kidney. The right kidney measures 11.8 cm x 6.3 cm x 4.8 cm. Normal renal cortex. The right cortex measures 1 cm. There is no demonstrated renal mass or cyst. There is no right hydronephrosis. US/Abdomen Limited IMPRESSION: Hepatomegaly and diffuse fatty infiltration of the liver. Dilated common bile duct most likely secondary to the postcholecystectomy state. Electronically Signed: Barry Segura MD at 8:46 EDT ,
--- NOTE | 2021-08-06 08:40 | US_ITS ---
STUDY: ABDOMINAL ULTRASOUND - ELASTOGRAPHY REASON FOR VISIT: Female, 75 years old. Hepatomegaly and fatty infiltration of the liver. TECHNIQUE: Liver stiffness measurements were obtained on a [place] RS 85 ultrasound machine using a CA 1-7 probe following the SRU guidelines. 3 measurements were obtained using a 2-D-SWE method. TheIQR/M was 12% suggesting a quality data set. TECHNICAL QUALITY: Adequate. COMPARISON: Comparison is made with prior study done earlier today. FINDINGS: Liver: Mild hepatomegaly and fatty infiltration of the liver. Median liver stiffness measured 16 kPa. US/Elastography Parenchyma/Organ IMPRESSION: Liver stiffness measures 16 kPa compatible with F3-F4 (Moderate to severe liver fibrosis) Metavir score. Electronically Signed: Barry Segura MD at 8:47 EDT ,
== END 2021-08-06 23:59 | disposition home or self-care (01) ==
LOC: MRI 08:37
PROVIDERS: PCP Internal Medicine; Referring Provider Nurse Practitioner Adult Health; Visit Provider Nurse Practitioner Adult Health
DX: R74.8 Abnormal levels of other serum enzymes (principal)
CPT/HCPCS: 76705; 76981

== ENCOUNTER 2021-08-12 11:34 | Outpatient (CLI) | payer MEDICARE, OTHER, SELFPAY ==
[2021-08-12 12:25] LABS: Absolute Lymphocyte Count 2.12 X10^3/uL (0.83-4.51); Absolute Neutrophil Count 3.5 X10^3/uL (2.0-7.7); Basophil# 0.08 X10^3/uL; Basophil% 1.2 % (0-1); Eosinophil# 0.36 X10^3/uL; Eosinophils% 5.3 % (0-5); Hematocrit 45.5 % (37-47); Hemoglobin 15.5 g/dL (12.0-15.0); Lymphocyte # 2.12 X10^3/ul (0.83-4.51); Lymphocyte % 31.3 % (19-41); Mean Corp Hgb Conc 34.1 g/dL (32-36); Mean Corpuscular Hgb 31.6 pg (27.0-32.0); Mean Corpuscular Volume 92.9 fL (81-99); Mean Platelet Vol. 8.9 fl (6.2-12.0); Monocyte# 0.66 X10^3/uL; Monocyte% 9.7 % (0-10); NRBC Flagged by Analyzer 0 % (0-5); Neutrophil # 3.53 X10^3/uL (2.7-7.7); Neutrophil % 52.1 % (47-70); Platelet Count 210 K/mm3 (150-450); RBC Distribution Width CV 13.4 % (11.6-14.6); RBC Distribution Width SD 45.6 fl (35.1-43.9); White Blood Count 6.8 K/mm3 (4.4-11.0)
[2021-08-12 13:43] LABS: HIV - WCH Non-Reactive (Nonreactive)
--- NOTE | 2021-08-12 17:08 | MRI_ITS ---
STUDY: MR MRCP WITHOUT CONTRAST REASON FOR EXAM: Female, 75 years old. elevated GGT -- TECHNIQUE: Standard MRCP technique was utilized. 3-D postprocessing images were reviewed. COMPARISON: None. FINDINGS: Gall Bladder: Surgically absent. Cystic duct: Surgically absent. Intrahepatic ducts: Mildly dilated with no fixed filling defect or stricture. Common hepatic duct: Mildly dilated with no fixed filling defect or stricture. Common bile duct: Mildly dilated with no fixed filling defect or stricture. Pancreatic duct: Normal with no demonstrated fixed filling defect, dilation or stricture. Other: Splenic and renal cysts. Hiatal hernia. MRI/MRCP Abdomen without Contrast IMPRESSION: Mild extra and intrahepatic biliary duct dilatation most likely represents reservoir effect status post cholecystectomy. No fixed filling defect or stricture is seen. Electronically Signed: Eric Mckeon MD at 21:49 EDT ,
[2021-08-16 12:00] LABS: Angiotensin Convert Enzyme 58 U/L (14-82)
[2021-08-16 13:16] LABS: AFP, Tumor Marker 2.7 ng/mL (0.0-9.2); Haptoglobin 140 mg/dL (42-346)
== END 2021-08-12 23:59 | disposition home or self-care (01) ==
PROVIDERS: PCP Internal Medicine; Referring Provider Nurse Practitioner Adult Health; Visit Provider Nurse Practitioner Adult Health
DX: K74.00 Hepatic fibrosis, unspecified (principal); R74.8 Abnormal levels of other serum enzymes
CPT/HCPCS: 36415; 74181; 82105; 82140; 82164; 83010; 83516; 85025; 86703

== ENCOUNTER 2021-08-17 08:51 | Outpatient (CLI) | payer MEDICARE, OTHER, SELFPAY ==
[2021-08-17] VITALS (10 sets, daily range): BP systolic 94–147; BP diastolic 47–98; PULSE 77–83; RESP 16–22; TEMP 36.6; O2SAT 87–97; BMI 29.3
--- NOTE | 2021-08-17 | LIV_PTH ---
PATIENT: AWILDA WEBER LOC: CT U#:[id number] AGE/SX: 75/F ROOM: RE08/17/[address]: RHONDA Cosby : 1945 BED: DIS: 08/17/2021 SPEC #: [id number] RECD: 08/17/21 10:56 STATUS: CHANTEL RERush #: [id number] LUIS: 08/17/21 00:[address]: Coni Correa NP DEPT: SURGICAL PATHOLOGY RECD BY: Mable Mayes ENTERED: 08/17/21 12:55 SP TYPE: LIVER RES OTHR DR: Dr. Mati Hampton MD Tissues: Liver, NOS Procedures: PAS with Diastase (control) Trichrome (control) Special Stain Group II PAS Stain (control) Surgery Specimen Level V Retic (control) Iron Stain (control) HEADER OPERATION: CT-guided liver biopsy PRE-OP DIAGNOSIS: Fatty liver TISSUE SUBMITTED: Liver 18-gauge core MICROSCOPIC DIAGNOSIS Liver, CT-guided core biopsy: Macro vesicular steatosis and cirrhosis. See comment. AM:geraldine 08/18/2021 COMMENT Sections show broad band fibrosis with parenchymal distortion and portal to portal bridging. There is macro vesicular steatosis throughout. Iron stain does not reveal accumulation of intraparenchymal iron. There is no abnormal protein accumulation identified. Reticulin and trichrome stains confirm the presence of cirrhosis. Mild chronic inflammation is noted and primarily confined to the portal areas. Iron, PAS, PASD, reticulin and trichrome stains with matched controls are appropriate. Clinical correlation is suggested. Case has been reviewed in consultation with Dr. Dsouza who concurs with the above diagnosis. IDC:RADHA MICROSCOPIC DESCRIPTION Slides are reviewed. GROSS DESCRIPTION Received is one container labeled with the patient's name and not further designated. The specimen consists of three elongated fragments of carrillo soft tissue each measuring 1.8 cm in length and 0.1 cm in diameter. The specimen is totally submitted in one cassette. / RADHA:geraldine 08/17/2021 TC:3 CPT: 41255, 03054 x5
[2021-08-17 09:09] LABS: Platelet Count 207 K/mm3 (150-450)
[2021-08-17 09:18] LABS: International Normalized Ratio 1.1; Prothrombin Time (Protime)PT. 13.9 SECONDS (11.7-14.9)
[2021-08-17 09:19] LABS: Partial Thromboplast Time 26.2 Seconds (24.1-36.2)
[2021-08-17] MEDS: fentaNYL 100 MCG/2 ML Ampul IV (10:13)
[2021-08-17] MEDS: Midazolam 2 MG/2 ML Syringe IV (10:14)
[2021-08-17] MEDS: Lidocaine 2% (20 ml mdv) 20 ML Vial INFILT (10:15)
--- NOTE | 2021-08-17 10:15 | CT_ITS ---
PROCEDURE: CT DIRECTED CORE LIVER BIOPSY INDICATION: Female, 75 years old. FATTY LIVER PHYSICIAN: Dr. DOC Martines CONSENT: Written informed consent was obtained having explained the risks, benefits and alternatives in detail with the patient who accepted the risks and agreed to proceed. Laboratory review and clinical assessment was performed. CONSCIOUS SEDATION PROTOCOL: The Drugs used were: 2 mg Versed, IV., and 50 mcg Fentanyl, IV. The sedation time was: 17 minutes. Conscious sedation was started at 10:13 AM and terminated at 10:30 AM. The conscious sedation protocol was independently monitored. RADIATION DOSAGE (If Supplied By Facility): CTDIvol = ( 23.5 ) mGy, DLP = ( 683.92 ) mGycm Individualized dose optimization techniques were used for this CT. TECHNIQUE: Using CT image guidance with image documentation, a suitable location in the left lobe of the liver was identified. Using an anterior approach, puncture of the liver was uneventful with an 18-gauge core needle system. 3, 18-gauge core samples were obtained, and submitted in formalin to the pathologist for further assessment. Followup CT scan revealed no distinct sequelae. CT/Biopsy/Inj or Needle Placement IMPRESSION: 1. CT directed core needle biopsy of the liver, using CT image guidance with image documentation as described. 2. Conscious Sedation protocol utilized with independent monitoring. Electronically Signed: Barry Segura MD at 10:53 EDT ,
== END 2021-08-17 23:59 | disposition home or self-care (01) ==
LOC: CT 08:56
PROVIDERS: PCP Internal Medicine; Visit Provider Nurse Practitioner Adult Health
DX: K74.00 Hepatic fibrosis, unspecified (principal); K76.0 Fatty (change of) liver, not elsewhere classified
CPT/HCPCS: 47000; 36415; 77012; 85049; 85610; 85730; 88307; 88313; 99156; J7040

== ENCOUNTER → 2021-09-02 | Outpatient (CLI) | payer MEDICARE, OTHER, SELFPAY ==
[2021-09-02 12:30] LABS: Cholesterol 133 mg/dL (200); High Density Lipoprotein 33 mg/dL; Triglycerides 302 mg/dL; Very Low Density Lipoprotein 60 mg/dL (5-40)
== END | disposition home or self-care (01) ==
LOC: BIMLAB 10:01
PROVIDERS: PCP Internal Medicine; Referring Provider Nurse Practitioner Family; Visit Provider Nurse Practitioner Family
DX: E78.5 Hyperlipidemia, unspecified (principal)
CPT/HCPCS: 36415; 80061

== ENCOUNTER → 2021-09-13 | Outpatient (CLI) | payer MEDICARE, OTHER, SELFPAY ==
--- NOTE | 2021-09-13 14:20 | RAD_ITS ---
STUDY: X-RAY - RIGHT SHOULDER REASON FOR EXAM: Female, 75 years old. Pain. TECHNIQUE: Follow-up view(s) of the shoulder. COMPARISON: None. FINDINGS: Osteopenia. Mild arthrosis of the glenohumeral joint. Mild arthrosis of the AC joint. Normal acromion. Normal humeral head and visualized proximal humerus. The soft tissue structures are unremarkable. Normal visualized pulmonary apex. RAD/Shoulder min 2 Views IMPRESSION: Osteopenia with mild arthrosis of the glenohumeral and acromioclavicular joints. No acute abnormality or erosive changes. Electronically Signed: Shahram Vasquez MD at 12:57 EDT ,
[2021-09-13 15:19] LABS: EXAGEN MAILED SPECIMEN
[2021-09-13 15:21] LABS: Absolute Lymphocyte Count 2.33 X10^3/uL (0.83-4.51); Absolute Neutrophil Count 4.5 X10^3/uL (2.0-7.7); Basophil# 0.09 X10^3/uL; Basophil% 1.1 % (0-1); Eosinophils% 3.8 % (0-5); Hematocrit 46.3 % (37-47); Hemoglobin 15.8 g/dL (12.0-15.0); Lymphocyte # 2.33 X10^3/ul (0.83-4.51); Lymphocyte % 29.2 % (19-41); Mean Corp Hgb Conc 34.1 g/dL (32-36); Mean Corpuscular Hgb 31.6 pg (27.0-32.0); Mean Corpuscular Volume 92.6 fL (81-99); Monocyte# 0.75 X10^3/uL; Monocyte% 9.4 % (0-10); NRBC Flagged by Analyzer 0 % (0-5); Neutrophil # 4.51 X10^3/uL (2.7-7.7); Neutrophil % 56.4 % (47-70); Platelet Count 240 K/mm3 (150-450); RBC Distribution Width CV 13.4 % (11.6-14.6); RBC Distribution Width SD 45.1 fl (35.1-43.9)
[2021-09-13 15:37] LABS: Erythrocyte Sedimentation Rate 11 mm/hr (0-30)
[2021-09-13 16:21] LABS: ALB/GLOB Ratio 0.9 RATIO (0.9-2.4); AST(SGOT) 103 U/L (15-37); Alanine Aminotransfer ALT/SGPT 81 U/L (13-56); Albumin, Serum 4.1 g/dL (3.2-5.0); Alkaline Phosphatase 94 U/L (45-117); Anion Gap 5 (5-15); BUN 13 mg/dL (7-18); BUN/Creat Ratio 15.7 RATIO (10-20); CRP < 2.90 mg/L (0.0-3.0); Calcium,Total 10.1 mg/dL (8.5-10.1); Chloride 102 mmol/L (98-107); Creatinine, Serum 0.83 mg/dL (0.55-1.02); EST Glomerular Filtration Rate 72 mL/min (>60); Est Glom Filt Rate - Afr Amer 87 mL/min (>60); Globulin 4.4 g/dL (2.2-4.2); Glucose 123 mg/dL (74-106); Potassium 3.7 mmol/L (3.5-5.1); Protein, Total 8.5 g/dL (6.4-8.2); Sodium Level 138 mmol/L (136-145)
[2021-09-13 17:59] LABS: Color, Urine Yellow (Yellow); Glucose, Dipstick Normal (Normal); Ketone-Dipstick Negative (Negative); Leukocyte Esterase-Dipstick 100 /ul (Negative); Nitrite-Dipstick Positive (Negative); Occult Blood-Urine 10 /ul (Negative); Protein-Dipstick Negative (Negative); Specific Gravity, Urine 1.015 (1.002-1.030); Urine Bilirubin Dipstick Negative (Negative); Urine Clarity Clear (Clear); Urine Urobilinogen 1 mg/dl (Normal)
[2021-09-13 18:13] LABS: Protein, Urine (Random) 20.8 mg/dL (<11.9); Protein:Creat Ratio 329 mg/g CRE (0-200)
[2021-09-14 08:43] LABS: Hepatitis B Surface Antibody Non-Reactive; Hepatitis B Surface Antigen Non-Reactive (Nonreactive); Hepatitis C Antibody Non-Reactive (Nonreactive)
== END | disposition home or self-care (01) ==
PROVIDERS: PCP Internal Medicine; Referring Provider Internal Medicine Rheumatology; Visit Provider Internal Medicine Rheumatology
DX: M06.4 Inflammatory polyarthropathy (principal); K74.60 Unspecified cirrhosis of liver; E11.9 Type 2 diabetes mellitus without complications; R76.8 Other specified abnormal immunological findings in serum; M79.7 Fibromyalgia; M18.0 Bilateral primary osteoarthritis of first carpometacarpal joints; M17.0 Bilateral primary osteoarthritis of knee; M47.892 Other spondylosis, cervical region; M47.897 Other spondylosis, lumbosacral region; M21.41 Flat foot [pes planus] (acquired), right foot; I10 Essential (primary) hypertension; I25.10 Atherosclerotic heart disease of native coronary artery without angina pectoris; E78.5 Hyperlipidemia, unspecified; F41.9 Anxiety disorder, unspecified; K21.9 Gastro-esophageal reflux disease without esophagitis; Z87.442 Personal history of urinary calculi; Z79.899 Other long term (current) drug therapy
CPT/HCPCS: 36415; 73030; 80053; 81002; 82570; 84156; 85025; 85652; 86140; 86706; 86803; 87340

== ENCOUNTER 2021-09-26 10:03 | Day surgery (SDC) | payer MEDICARE, OTHER, SELFPAY ==
[2021-09-26] VITALS (7 sets, daily range): BP systolic 89–122; BP diastolic 52–85; PULSE 72–88; RESP 16–18; TEMP 36.2–37.3; O2SAT 76–96; BMI 29.0
--- NOTE | 2021-09-26 | ESO_PTH ---
PATIENT: AWILDA WEBER LOC: EN U#:[id number] AGE/SX: 75/F ROOM: RE09/26/[address]: Dr. Hernesto Ponce DO : 1945 BED: DIS: 09/26/2021 SPEC #: [id number] RECD: 09/26/21 16:43 STATUS: CHANTEL KLEIN #: [id number] LUIS: 09/26/21 00:[address]: Hernesto Ponce DEPT: SURGICAL PATHOLOGY RECD BY: Tee Morales ENTERED: 09/27/21 09:26 SP TYPE: WU BALL DR: Dr. Mati Hampton MD Tissues: Esophagus, NOS Procedures: Special Stain Group II Surgery Specimen Level IV Alcian Blue/PAS (control) HEADER OPERATION: [place] [place] DIAGNOSIS: Cirrhosis, primary biliary cholangitis, chronic constipation TISSUE SUBMITTED: Distal esophagus MICROSCOPIC DIAGNOSIS Distal esophagus, biopsy: A fragment of gastroesophageal mucosa with congestion and chronic inflammation. Intestinal metaplasia (goblet cell metaplasia) not identified. See comment. RADHA:geraldine 09/28/2021 COMMENT Alcian blue/PAS stain with matched control is used in the evaluation of the specimen. MICROSCOPIC DESCRIPTION Slides are reviewed. GROSS DESCRIPTION Received in fixative is one container labeled with the patient's name and designated distal esophagus. The specimen consists of one irregular fragment of light carrillo soft tissue that measures 0.2 x 0.2 x 0.1 cm. The specimen is totally submitted in one cassette. / RADHA:geraldine 09/27/2021 TC:3 CPT: 92712, 29377
[2021-09-26] MEDS: Lactated Ringers 1,000 ML 15 ML IV (10:20)
--- NOTE | 2021-09-26 10:29 | PCM.HP.BLA ---
History and Physical Date of Admission: 09/26/21 AWILDA WEBER, is a 75 F who presents to the office today accompanied by daughters Brooklynn and Madi for discussion of new diagnoses cirrhosis and primary biliary cholangitis She presented to this office for the first time on 07/28/21 for abnormal liver labs: AST 162, ALT 132, GGT 273. She reported a hx of fatty liver. She had a liver biopsy in 08/2016 in preparation for back surgery; the path report showed steatohepatitis w/ perisinusoidal and focal bridging fibrosis (stage 2-3 of 4). At that appt we also discussed her chronic constipation and exhaustion. Our workup for her abnormal liver labs revealed she has cirrhosis and primary biliary cholangitis, as well as possibly having lupus. Liver elastography is 16 kPa, F4. Liver biopsy confirms cirrhosis but also reveals there is still some steatohepatitis, indicating some relatively healthy liver. Labs showed ammonia slightly high at 33, elevated anti-mitochondrial antibody (indicating PBC), elevated double strand DNA antibody (indicating possible lupus). She has upcoming consultation with forestry supervisor Dr Alexandre for positive lupus Pruritus--no generalized pruritus. Rash on bilat arms, not purititic. Hepatic encehpalopathy? +fatigue, sleeps 18 hrs per day, some day-night switching, +confusion +forgetful Jaundice no Ascites trace LE edema, belly bigger no ascites on US On metoprolol for HTN Chronic constipation, this is lifelong. May have BM daily but usually just johanne, doesn't fully evacuate. Gets lots of gas and gas pains, they can wake her at night. No melena or hematochezia. Intermittent nausea, worse when constipation is worse, no vomiting. Has heartburn if she doesn't take PPI, takes pantoprazole. Took miralax daily but not effective. Tried Activia w/o relief, also no relief with stool softener or ex-lax. No rx med for constipation. Had EGD and colonoscopy iin 2018, no pathology. 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 Will be seeing [facility] for diabetes education today, her most recent hgb A1C was 8.2 ROS Const Constitutional: Positive for fatigue, weakness and weight change ENT ENT: Positive for nasal congestion; No difficulty swallowing Gastro GI: Positive for abdominal pain, bloating, constipation, diarrhea and excessive flatus; No belching, change in bowel habits, change in stool character, coffee ground emesis, cramping, heartburn, difficulty swallowing, feeling full early, incontinent of stools, Vomiting blood/hematemesis, Blood in stool, loose stools, Black,tarry stools, nausea/dyspepsia, pain with swallowing, vomiting or other Genitourinary-Female: Positive for urinary frequency Musc Musculoskeletal: Positive for joint pain, back pain, muscle cramps, muscle weakness and stiffness Skin Skin: No yellowing of the eye or itchy eyes Neuro Neurology: Positive for weakness Psych Psychiatric: Positive for anxiety and Positive for depression Endo Endocrine: Positive for cold intolerance, fatigue, heat intolerance and weight change Aller/Imm Allergy/Immunologic: No itchy eyes Vipul/Lymp Hematologic/Lymphatic: Positive for easy bruising; No easy bleeding Exam Const General: cooperative, comfortable, well developed and well groomed Nutritional Appearance: obese Eyes Conjunctivae: conjunctivae normal Sclera: sclerae normal Chest Chest palpation & inspection: normal inspection of the chest Resp Effort & Inspection: normal respiratory effort GI Inspection: obesity Palpation: soft and nontender Skin Lesions: lesion noted (red macules, no spider legs) bilateral forearm Neuro Other: +tremor in hands, no asterixis Extrem General: pedal edema (trace) bilaterally Results POC A1C POC A1C 7.5 % Last Edit by Marlee Garcia on 09/01/21 13:40 Quality Reporting Tobacco Screening ([facility] 138) Smoking Status: Former smoker Assessment and Plan Assessment and Plan (1) Cirrhosis: Status: Acute Plan - Coni Correa [facility], [facility]-C: 75 yr old female with new diagnosis of cirrhosis--likely multifactorial etiology including fatty liver, obesity, DM2, PBC, hypertriglyceridemia. Hour-long appt discussing this diagnosis, as well as PBC, with pt and her daughters. Written and verbal info provided including dx, treatment, expectations, plan. She will start ursodiol 250 mg BID for cirrhosis and PBC. Avoid alcohol and NSAIDs. Avoid acetaminophen, may have up to 2000 mg in a day if needed (she doesn't use APAP she said). Reviewed positives today also: AFP negative (will check every 6 mos), Child [place] A, MELD 7, bx not only cirrhosis (still some fatty liver remaining). Encouraged weight loss, good control of DM. I recommended she discuss treatment for triglycerides (270) with PCP or endocrinology. I believe she has hepatic encephalopathy; I would like to treat this and her constipation with lactulose, but only if ok with endocrinology; otherwise consider Linzess or Amitiza for constipation, and Xifaxan for HE. Needs to avoid constipation to keep ammonia level down. She should get TwinRix vaccine if she hasn't already. (2) Primary biliary cholangitis: Status: Acute Plan - Coni Correa [facility]ICK[facility], [facility] PICKER-C: See above. Discussed this is autoimmune inflammation of bile ducts. MRCP unremarkable. Will follow alk phos level, this is normal now. Treat with ursodiol. Consider Ocaliva. (3) Chronic constipation: Status: Chronic Plan - Coni Correa [facility], [facility]ICKER-C: As above. Prefer lactulose, but may use Linzess or Amitiza if needed; will check with endocrinology. f/u 6 wks. Plan Details Other Medications: New: ursodiol 250 mg PO BID 180 tabs 3RF I have re-examined the patient. There are no clinical changes since date of exam.
[2021-09-26 10:56] LABS: Bedside Glucose 172 mg/dL (74-106)
--- NOTE | 2021-09-26 12:15 | OP.EGD_ITS ---
Patient Name: Ariane Fagan Procedure Date: 09/26/2021 11:47 AM Date of : 1945 Age: 75 Procedure: Upper GI endoscopy Indications: Cirrhosis with suspected esophageal varices Providers: Hernesto Ponce DO Medicines: Monitored Anesthesia Care Patient Profile: This is a 75 year old female. Refer to note in patient chart for documentation of history and physical. Patient has symptoms of chronic dyspepsia. Complications: No immediate complications. Procedure: Pre-Anesthesia Assessment: - Prior to the procedure, a History and Physical was performed, and patient medications and allergies were reviewed. The risks and benefits of the procedure and the sedation options and risks were discussed with the patient. All questions were answered and informed consent was obtained. Patient identification and proposed procedure were verified by the physician in the pre-procedure area. Mental Status Examination: alert and oriented. Airway Examination: normal oropharyngeal airway and neck mobility. Respiratory Examination: clear to auscultation. CV Examination: normal. Prophylactic Antibiotics: The patient does not require prophylactic antibiotics. Prior Anticoagulants: The patient has taken no previous anticoagulant or antiplatelet agents. ASA Grade Assessment: II - A patient with mild systemic disease. After reviewing the risks and benefits, the patient was deemed in satisfactory condition to undergo the procedure. The anesthesia plan was to use moderate sedation / analgesia (conscious sedation). Immediately prior to administration of medications, the patient was re-assessed for adequacy to receive sedatives. The heart rate, respiratory rate, oxygen saturations, blood pressure, adequacy of pulmonary ventilation, and response to care were monitored throughout the procedure. The physical status of the patient was re-assessed after the procedure. After obtaining informed consent, the endoscope was passed under direct vision. Throughout the procedure, the patient's blood pressure, pulse, and oxygen saturations were monitored continuously. The Endoscope was introduced through the mouth, and advanced to the second part of duodenum. The upper GI endoscopy was accomplished without difficulty. The patient tolerated the procedure well. Scope In: 11:57:39 AM Scope Out: 12:05:44 PM Total Procedure Duration Time 0 hours 8 minutes 5 seconds Findings: Grade II varices were found in the middle third of the esophagus and in the lower third of the esophagus. They were 5 mm in largest diameter. Two bands were successfully placed with incomplete eradication of varices. There was no bleeding during the procedure. A large hiatal hernia was present. A medium amount of food (residue) was found in the gastric body. The second portion of the duodenum was normal. There were esophageal mucosal changes suspicious for Mejia's esophagus present in the lower third of the esophagus. The maximum longitudinal extent of these mucosal changes was 1 cm in length. Mucosa was biopsied with a cold forceps for histology in a targeted manner in the lower third of the esophagus. One specimen bottle was sent to pathology. Verification of patient identification for the specimen was done. Estimated blood loss was minimal. Impression: - Grade II esophageal varices. Incompletely eradicated. Banded. - Large hiatal hernia. - A medium amount of food (residue) in the stomach. - Normal second portion of the duodenum. - No specimens collected. Recommendation: - Discharge patient to home. - Resume previous diet. - Continue present medications. - Await pathology results. Procedure Code(s): --- Professional --- 05805, 59, Esophagogastroduodenoscopy, flexible, transoral; with band ligation of esophageal/gastric varices 69882, Esophagogastroduodenoscopy, flexible, transoral; with biopsy, single or multiple CPT copyright 2017 [employer]. All rights reserved. The codes documented in this report are preliminary and upon hcc coders review may be revised to meet current compliance requirements. Hernesto Ponce DO 09/26/2021 12:15:20 PM This report has been signed electronically. Number of Addenda: 1 Note Initiated On: 09/26/2021 11:47 AM Addendum Number: 1 Addendum Date: 02/03/2022 6:12:22 AM MAC was used as sedation for this procedure. Hernesto Ponce DO 02/03/2022 6:12:26 AM This report has been signed electronically.
--- NOTE | 2021-09-26 12:16 | OP.CCLET_ITS ---
02/03/2022 Mati Hampton MD [address] [place] [address] [place] [address] Re : Upper GI endoscopy procedure for Ariane Fagan Dear Dr. Hampton This procedure was performed on Sunday, September 26, 2021. My impressions and recommendations are as follows: Impressions : - Grade II esophageal varices. Incompletely eradicated. Banded. - Large hiatal hernia. - A medium amount of food (residue) in the stomach. - Normal second portion of the duodenum. - No specimens collected. Recommendations : - Discharge patient to home. - Resume previous diet. - Continue present medications. - Await pathology results. My findings are described in the full procedure note, which is enclosed. If I can be of further assistance, please feel free to contact me at . Sincerely, Henresto Ponce, 09/26/2021 12:15:20 PM This report has been signed electronically.
== END 2021-09-26 13:19 | disposition home or self-care (01) ==
LOC: EN 10:04 → AC 10:05
PROVIDERS: PCP Internal Medicine; Referring Provider Internal Medicine; Visit Provider Internal Medicine Gastroenterology
PROC: 0DJ08ZZ Inspection of Upper Intestinal Tract, Via Natural or Artificial Opening Endoscopic (ICD-10-PCS; CPT 43235; principal; 2021-09-26 11:10)
DX: K74.60 Unspecified cirrhosis of liver (principal); I85.00 Esophageal varices without bleeding; K74.3 Primary biliary cirrhosis; E11.9 Type 2 diabetes mellitus without complications; Z87.891 Personal history of nicotine dependence; K44.9 Diaphragmatic hernia without obstruction or gangrene; Z79.82 Long term (current) use of aspirin; Z79.02 Long term (current) use of antithrombotics/antiplatelets; Z79.899 Other long term (current) drug therapy; F41.9 Anxiety disorder, unspecified; F32.A Depression, unspecified; K21.9 Gastro-esophageal reflux disease without esophagitis; E78.00 Pure hypercholesterolemia, unspecified; K75.81 Nonalcoholic steatohepatitis (NASH); M41.9 Scoliosis, unspecified; E55.9 Vitamin D deficiency, unspecified; M19.90 Unspecified osteoarthritis, unspecified site; I25.10 Atherosclerotic heart disease of native coronary artery without angina pectoris; Z95.5 Presence of coronary angioplasty implant and graft; K59.09 Other constipation
CPT/HCPCS: 43239; 43244; 82962; 88305; 88313; J7120; J2405

== ENCOUNTER → 2021-11-10 | Outpatient (CLI) | payer MEDICARE, OTHER, SELFPAY ==
[2021-11-10 15:13] LABS: Absolute Lymphocyte Count 2.47 X10^3/uL (0.83-4.51); Absolute Neutrophil Count 3.9 X10^3/uL (2.0-7.7); Basophil# 0.08 X10^3/uL; Basophil% 1.1 % (0-1); Eosinophil# 0.26 X10^3/uL; Eosinophils% 3.5 % (0-5); Hematocrit 47.4 % (37-47); Hemoglobin 15.6 g/dL (12.0-15.0); Lymphocyte # 2.47 X10^3/ul (0.83-4.51); Lymphocyte % 33.4 % (19-41); Mean Corp Hgb Conc 32.9 g/dL (32-36); Mean Corpuscular Hgb 30.6 pg (27.0-32.0); Mean Corpuscular Volume 93.1 fL (81-99); Mean Platelet Vol. 8.8 fl (6.2-12.0); Monocyte# 0.67 X10^3/uL; Monocyte% 9.1 % (0-10); NRBC Flagged by Analyzer 0 % (0-5); Neutrophil # 3.91 X10^3/uL (2.7-7.7); Neutrophil % 52.8 % (47-70); Platelet Count 220 K/mm3 (150-450); RBC Distribution Width CV 13.4 % (11.6-14.6); RBC Distribution Width SD 45.4 fl (35.1-43.9); Red Blood Count 5.09 M/mm3 (4.2-5.4); White Blood Count 7.4 K/mm3 (4.4-11.0)
[2021-11-10 15:22] LABS: International Normalized Ratio 1.1; Prothrombin Time (Protime)PT. 13.4 SECONDS (11.7-14.9)
[2021-11-10 15:28] LABS: ALB/GLOB Ratio 1.1 RATIO (0.9-2.4); AST(SGOT) 45 U/L (15-37); Alanine Aminotransfer ALT/SGPT 41 U/L (13-56); Albumin, Serum 4.3 g/dL (3.2-5.0); Alkaline Phosphatase 75 U/L (45-117); Anion Gap 4 (5-15); BUN 14 mg/dL (7-18); BUN/Creat Ratio 14.1 RATIO (10-20); Calcium,Total 9.9 mg/dL (8.5-10.1); Chloride 100 mmol/L (98-107); EST Glomerular Filtration Rate 58 mL/min (>60); Est Glom Filt Rate - Afr Amer 70 mL/min (>60); Glucose 132 mg/dL (74-106); LDH 180 U/L (84-246); Potassium 3.9 mmol/L (3.5-5.1); Protein, Total 8.3 g/dL (6.4-8.2); Sodium Level 137 mmol/L (136-145)
== END | disposition home or self-care (01) ==
LOC: BIMLAB 13:52
PROVIDERS: Nurse Practitioner Adult Health; PCP Internal Medicine; Referring Provider Internal Medicine Rheumatology; Visit Provider Internal Medicine Rheumatology
DX: M06.4 Inflammatory polyarthropathy (principal); K74.3 Primary biliary cirrhosis; E11.9 Type 2 diabetes mellitus without complications; R76.8 Other specified abnormal immunological findings in serum; M79.7 Fibromyalgia; M18.0 Bilateral primary osteoarthritis of first carpometacarpal joints; M17.0 Bilateral primary osteoarthritis of knee; M47.892 Other spondylosis, cervical region; M47.897 Other spondylosis, lumbosacral region; M21.41 Flat foot [pes planus] (acquired), right foot; I10 Essential (primary) hypertension; I25.10 Atherosclerotic heart disease of native coronary artery without angina pectoris; E78.5 Hyperlipidemia, unspecified; F41.9 Anxiety disorder, unspecified; K21.9 Gastro-esophageal reflux disease without esophagitis; K44.9 Diaphragmatic hernia without obstruction or gangrene; Z87.442 Personal history of urinary calculi
CPT/HCPCS: 36415; 80053; 82140; 83615; 85025; 85610

== ENCOUNTER → 2022-01-16 | Outpatient (CLI) | payer MEDICARE, OTHER, SELFPAY ==
--- NOTE | 2022-01-16 14:22 | BI_ITS ---
MAMMOGRAPHY - BILATERAL SCREENING REASON FOR EXAM: Female, 76 years old. Routine annual screening examination. PERTINENT HISTORY: Non-contributory. TECHNIQUE: Digital bilateral breast luis (3D mammographic acquisition) in the CC and MLO projections. 2-D mediolateral oblique (MLO) and craniocaudad (CC) views of both breasts were obtained. CAD: Full Field Digital Mammography with Computer Added Detection was performed. COMPARISON: Comparison is made with prior study dated 08/24/2020 and 01/13/2019. FINDINGS: Breast Composition: There are scattered areas of fibroglandular density. There are no dominant masses or suspicious calcifications. Stable small benign-appearing bilateral axillary lymph nodes. A tissue clip marker is seen in the upper lateral aspect of the left breast. No other significant abnormalities are identified. There has been no significant change since the prior study. BI/SCRN MAMM (CAD)W/LUIS BILAT IMPRESSION: Stable bilateral screening mammogram. Yearly follow-up mammogram recommended. (A) ASSESSMENT CATEGORY: BIRADS Category 2: Benign. A letter regarding these results will be sent to the patient by the facility within 30 days. Approximately 10% of breast cancers are not detected by mammography. A normal mammogram should not delay biopsy of a clinically suspicious abnormality. [id number] Electronically Signed: Barry Segura MD at 15:02 EDT ,
== END | disposition home or self-care (01) ==
LOC: OPBI 14:02
PROVIDERS: PCP Internal Medicine; Referring Provider Physician Assistant; Visit Provider Physician Assistant
DX: Z12.31 Encounter for screening mammogram for malignant neoplasm of breast (principal)
CPT/HCPCS: 77063; 77067

== ENCOUNTER → 2022-01-23 | Outpatient (CLI) | payer MEDICARE, OTHER, SELFPAY ==
--- NOTE | 2022-01-23 18:59 | STRESSREP ---
Stress Test Report Pharmacologic myocardial perfusion stress test. 76-year-old lady with a history of chest pain. Stress protocol: Resting EKG demonstrates sinus rhythm with a rate of 80 bpm normal intervals are noted resting blood pressure is 104/62 mmHg. 0.4 mg of regadenoson was infused per usual protocol followed by Intravenous saline flush injection continuous EKG monitoring was performed. The maximum heart rate attained was 105 bpm which was 71% of max impacted heart rate the maximum workload was 1 metabolic equivalent. At rest there were no ST or T wave changes noted to suggest abnormal flow reserve and at peak infusion nonspecific ST changes were noted with did not meet the criteria for ischemia. Myocardial perfusion protocol. 11.4 mCi of technetium 99m sestamibi was injected at rest. 0.4 mg of regadenoson was infused per usual protocol. At peak infusion 33.7 mCi of technetium 99m sestamibi was injected at rest. Stress and rest images were reconstructed and compared in the short axis vertical long and horizontal long axis. Gated images were also obtained. Perfusion SPECT analysis: Review of the stress images demonstrate normal uptake of tracer noted in all areas of the myocardium. The resting images similar demonstrate normal uptake of tracer noted in all areas of the myocardium. No reversibility was noted to suggest ischemia no previous infarct is noted. Gated SPECT analysis: The gated ejection fraction is noted to be 82%. Conclusion: Normal pharmacologic myocardial perfusion stress test. Preserved ejection fraction.
== END | disposition home or self-care (01) ==
LOC: CVS 06:16
PROVIDERS: PCP Internal Medicine; Referring Provider Nurse Practitioner Family; Visit Provider Nurse Practitioner Family
DX: I25.10 Atherosclerotic heart disease of native coronary artery without angina pectoris (principal)
CPT/HCPCS: 78452; 93017; A9500; A4216; J2785

== ENCOUNTER → 2022-02-07 | Outpatient (CLI) | payer MEDICARE, OTHER, SELFPAY ==
[2022-02-07 13:34] LABS: Absolute Lymphocyte Count 1.79 X10^3/uL (0.83-4.51); Absolute Neutrophil Count 3.9 X10^3/uL (2.0-7.7); Basophil# 0.08 X10^3/uL; Basophil% 1.2 % (0-1); Eosinophil# 0.15 X10^3/uL; Eosinophils% 2.3 % (0-5); Hematocrit 44.7 % (37-47); Hemoglobin 15.3 g/dL (12.0-15.0); Lymphocyte # 1.79 X10^3/ul (0.83-4.51); Lymphocyte % 27.2 % (19-41); Mean Corp Hgb Conc 34.2 g/dL (32-36); Mean Corpuscular Hgb 31.8 pg (27.0-32.0); Mean Corpuscular Volume 92.9 fL (81-99); Mean Platelet Vol. 8.6 fl (6.2-12.0); Monocyte% 9.1 % (0-10); NRBC Flagged by Analyzer 0 % (0-5); Neutrophil # 3.94 X10^3/uL (2.7-7.7); Neutrophil % 59.9 % (47-70); Platelet Count 220 K/mm3 (150-450); RBC Distribution Width CV 13.8 % (11.6-14.6); RBC Distribution Width SD 46.8 fl (35.1-43.9); Red Blood Count 4.81 M/mm3 (4.2-5.4); White Blood Count 6.6 K/mm3 (4.4-11.0)
[2022-02-07 14:08] LABS: AST(SGOT) 24 U/L (15-37); Alanine Aminotransfer ALT/SGPT 27 U/L (13-56); Albumin, Serum 4.2 g/dL (3.2-5.0); Alkaline Phosphatase 69 U/L (45-117); Anion Gap 9 (5-15); BUN 17 mg/dL (7-18); Calcium,Total 10.1 mg/dL (8.5-10.1); Chloride 101 mmol/L (98-107); Creatinine, Serum 0.89 mg/dL (0.55-1.02); EST Glomerular Filtration Rate 66 mL/min (>60); Est Glom Filt Rate - Afr Amer 79 mL/min (>60); Glucose 114 mg/dL (74-106); Potassium 3.6 mmol/L (3.5-5.1); Protein, Total 8.2 g/dL (6.4-8.2); Sodium Level 139 mmol/L (136-145)
== END | disposition home or self-care (01) ==
LOC: LAB 13:16
PROVIDERS: PCP Internal Medicine; Referring Provider Internal Medicine Rheumatology; Visit Provider Internal Medicine Rheumatology
DX: M06.4 Inflammatory polyarthropathy (principal); K74.3 Primary biliary cirrhosis; E11.9 Type 2 diabetes mellitus without complications; M25.511 Pain in right shoulder; R76.8 Other specified abnormal immunological findings in serum; M18.0 Bilateral primary osteoarthritis of first carpometacarpal joints; M17.0 Bilateral primary osteoarthritis of knee; M47.892 Other spondylosis, cervical region; M47.897 Other spondylosis, lumbosacral region; M21.41 Flat foot [pes planus] (acquired), right foot; I10 Essential (primary) hypertension; I25.10 Atherosclerotic heart disease of native coronary artery without angina pectoris; E78.5 Hyperlipidemia, unspecified; F41.9 Anxiety disorder, unspecified
CPT/HCPCS: 36415; 80053; 85025

== ENCOUNTER → 2022-02-23 | Outpatient (CLI) | payer MEDICARE, OTHER, SELFPAY ==
--- NOTE | 2022-02-23 09:44 | CDU_ITS ---
Reason For Study: Left carotid stenosis Rt. Velocities/BP Lt. Velocities/BP Prox CCA 67.0/12.0 cm/sec. Prox CCA 98.1/14.6 cm/sec. Mid CCA 48.5/8.8 cm/sec. Mid CCA 91.6/16.8 cm/sec. Dist CCA 53.2/11.6 cm/sec. Dist CCA 60.8/13.5 cm/sec. Prox ICA 33.3/12.6 cm/sec. Prox ICA 44.3/13.5 cm/sec. Mid ICA 65.5/18.2 cm/sec. Mid ICA 68.5/23.4 cm/sec. Dist ICA 69.2/23.9 cm/sec. Dist ICA 62.7/18.5 cm/sec. Rt. ICA/CCA = 1.4. Lt. ICA/CCA = .7. Prox ECA 92.7/8.0 cm/sec. Prox ECA 80.6/8.0 cm/sec. Rt. Vert. 36.2/5.0 cm/sec. Lt. Vert. 69.6/16.8 cm/sec. Right Extracranial There is heterogeneous, irregular atherosclerotic plaque noted in the right common carotid artery. There is heterogeneous, irregular atherosclerotic plaque noted in the right internal carotid artery. There is intimal thickening but no significant atherosclerotic plaque noted in the right external carotid artery. Antegrade flow is noted in the right vertebral artery. Left Extracranial There is homogeneous, smooth atherosclerotic plaque noted in the left common carotid artery. There is heterogeneous, irregular atherosclerotic plaque noted in the left internal carotid artery. There is intimal thickening but no significant atherosclerotic plaque noted in the left external carotid artery. Antegrade flow is noted in the left vertebral artery. Procedure Carotid Duplex [id number]. This is a Carotid Duplex examination using B-mode, color flow and specral Doppler. The exam was diagnostic. Exam performed in department. VL/Carotid Duplex Ultrasound Interpretation Summary Mild (<50%) stenosis right extracranial internal carotid. Mild (<50%) stenosis left extracranial internal carotid. Patent and antegrade vertebrals bilaterally. Ordering Physician: Joseph Koo Performed By: Ruperto Wheeler RVT
--- NOTE | 2022-02-23 09:44 | ART_ITS ---
Reason For Study: PVD Procedure A bilateral lower extremity continuous wave Doppler with analog waveform analysis,segmental pressures,and ankle brachial indexes without exercise. Left Segmental Pressures Left brachial= 137mmHg. Left posterior tibial artery = 151mmHg. Left dorsalis pedis artery = 144mmHg. Left digit = 123 mmHg. The left dorsalis pedis waveforms are triphasic. The left posterior tibial artery waveforms are triphasic. Right Segmental Pressures Right brachial= 132mmHg. Right posterior tibial artery = 163mmHg. Right dorsalis pedis artery = 155mmHg. Right digit = 165 mmHg. The right dorsalis pedis waveforms are triphasic. The right posterior tibial artery waveforms are triphasic. Indices The right ankle brachial index by the posterior tibial artery is 1.19. The right ankle brachial index by the dorsalis pedis is 1.13. The right digital-brachial index is 1.2. The left ankle brachial index by the posterior tibial artery is 1.1. The left ankle brachial index by the dorsalis pedis is 1.05. The left digital-brachial index is .9. VL/Lower Ext Art Exam w/o Exercis Interpretation Summary Right GLORIA 1.19, normal. TBI and Doppler/PVR waveforms of the right leg normal a t rest. Left GLORIA 1.1, normal. TBI and Doppler/PVR waveforms of the left leg normal at r est. Ordering Physician: Joseph Koo Performed By: Ruperto Wheeler RVT
== END | disposition home or self-care (01) ==
LOC: CVS 09:43
PROVIDERS: PCP Internal Medicine; Referring Provider Nurse Practitioner Family; Visit Provider Nurse Practitioner Family
DX: I65.22 Occlusion and stenosis of left carotid artery (principal); E11.65 Type 2 diabetes mellitus with hyperglycemia; I10 Essential (primary) hypertension; E78.5 Hyperlipidemia, unspecified; I25.10 Atherosclerotic heart disease of native coronary artery without angina pectoris; Z95.5 Presence of coronary angioplasty implant and graft
CPT/HCPCS: 93880; 93923

== ENCOUNTER → 2022-03-24 | Outpatient (CLI) | payer MEDICARE, OTHER, SELFPAY ==
[2022-03-24 14:33] LABS: Absolute Neutrophil Count 4.8 X10^3/uL (2.0-7.7); Basophil# 0.07 X10^3/uL; Eosinophil# 0.08 X10^3/uL; Eosinophils% 1.1 % (0-5); Hematocrit 47.3 % (37-47); Hemoglobin 16.2 g/dL (12.0-15.0); Lymphocyte % 22.4 % (19-41); Mean Corp Hgb Conc 34.2 g/dL (32-36); Mean Corpuscular Hgb 31.3 pg (27.0-32.0); Mean Corpuscular Volume 91.5 fL (81-99); Mean Platelet Vol. 8.6 fl (6.2-12.0); Monocyte# 0.63 X10^3/uL; Monocyte% 8.8 % (0-10); NRBC Flagged by Analyzer 0 % (0-5); Neutrophil # 4.75 X10^3/uL (2.7-7.7); Neutrophil % 66.4 % (47-70); Platelet Count 243 K/mm3 (150-450); RBC Distribution Width CV 13.4 % (11.6-14.6); RBC Distribution Width SD 45.8 fl (35.1-43.9); Red Blood Count 5.17 M/mm3 (4.2-5.4); White Blood Count 7.2 K/mm3 (4.4-11.0)
[2022-03-24 14:38] LABS: Erythrocyte Sedimentation Rate 8 mm/hr (0-30)
[2022-03-24 14:41] LABS: Prothrombin Time (Protime)PT. 13.3 SECONDS (11.7-14.9)
[2022-03-24 15:14] LABS: AST(SGOT) 29 U/L (15-37); Alanine Aminotransfer ALT/SGPT 27 U/L (13-56); Albumin, Serum 4.4 g/dL (3.2-5.0); Alkaline Phosphatase 74 U/L (45-117); Anion Gap 7 (5-15); BUN 14 mg/dL (7-18); CRP < 2.90 mg/L (0.0-3.0); Calcium,Total 10.5 mg/dL (8.5-10.1); Chloride 103 mmol/L (98-107); EST Glomerular Filtration Rate 58 mL/min (>60); Est Glom Filt Rate - Afr Amer 70 mL/min (>60); Globulin 4.2 g/dL (2.2-4.2); Glucose 123 mg/dL (74-106); LDH 165 U/L (84-246); Potassium 3.4 mmol/L (3.5-5.1); Protein, Total 8.6 g/dL (6.4-8.2); Sodium Level 141 mmol/L (136-145)
== END | disposition home or self-care (01) ==
LOC: LAB 14:09
PROVIDERS: PCP Internal Medicine; Referring Provider Internal Medicine Gastroenterology; Visit Provider Internal Medicine Gastroenterology
DX: I25.10 Atherosclerotic heart disease of native coronary artery without angina pectoris (principal); K74.60 Unspecified cirrhosis of liver; E78.5 Hyperlipidemia, unspecified
CPT/HCPCS: 36415; 80053; 82140; 83615; 85025; 85610; 85652; 86140

== ENCOUNTER → 2022-06-01 | Outpatient (CLI) | payer MEDICARE, OTHER, SELFPAY ==
[2022-06-01 12:47] LABS: PTHIN 17.8 pg/mL (18.4-80.1)
[2022-06-01 12:55] LABS: Vitamin D,25 Hydroxy 99.6 ng/mL
[2022-06-01 13:26] LABS: AST(SGOT) 25 U/L (15-37); Alanine Aminotransfer ALT/SGPT 24 U/L (13-56); Albumin, Serum 4.1 g/dL (3.2-5.0); Alkaline Phosphatase 75 U/L (45-117); Anion Gap 10 (5-15); BUN 15 mg/dL (7-18); BUN/Creat Ratio 18.4 RATIO (10-20); Calcium,Total 10.1 mg/dL (8.5-10.1); Chloride 99 mmol/L (98-107); Cholesterol 107 mg/dL (200); Creatinine, Serum 0.82 mg/dL (0.55-1.02); EST Glomerular Filtration Rate 73 mL/min (>60); Est Glom Filt Rate - Afr Amer 88 mL/min (>60); Globulin 4.1 g/dL (2.2-4.2); Glucose 89 mg/dL (74-106); High Density Lipoprotein 49 mg/dL; Potassium 4.6 mmol/L (3.5-5.1); Protein, Total 8.2 g/dL (6.4-8.2); Sodium Level 137 mmol/L (136-145); T4 Free Direct 0.93 ng/dL (0.76-1.46); Triglycerides 201 mg/dL; Very Low Density Lipoprotein 40 mg/dL (5-40)
[2022-06-03 14:16] LABS: Thyroid Peroxidase AB < 9 IU/mL (0-34)
== END | disposition home or self-care (01) ==
LOC: BIMLAB 11:49
PROVIDERS: PCP Internal Medicine; Referring Provider Internal Medicine Endocrinology, Diabetes & Metabolism; Visit Provider Internal Medicine Endocrinology, Diabetes & Metabolism
DX: E11.9 Type 2 diabetes mellitus without complications (principal); E78.5 Hyperlipidemia, unspecified; I10 Essential (primary) hypertension; I25.10 Atherosclerotic heart disease of native coronary artery without angina pectoris; E55.9 Vitamin D deficiency, unspecified
CPT/HCPCS: 36415; 80053; 80061; 82306; 83970; 84439; 86376

== ENCOUNTER → 2022-07-13 | Outpatient (CLI) | payer MEDICARE, OTHER, SELFPAY ==
--- NOTE | 2022-07-13 10:27 | BD_ITS ---
STUDY: DUAL ENERGY X-RAY ABSORPTIOMETRY / DXA REASON FOR EXAM: Female, 76 years old. History of osteopenia with moderate fracture risk TECHNIQUE: Bone Mineral Density (BMD) measurements of left forearm and bilateral hips were obtained. COMPARISON: Comparison is made with prior study dated October 31, 2017. FINDINGS: Left Femur Total: g/cm2 (0.759) / T-score (-1.5) / Z-score (0.3) Left Femoral Neck: g/cm2 (0.754) / T-score (-0.9) / Z-score (1.2) Right Femur Total: g/cm2 (0.764) / T-score (-1.5) / Z-score (0.3) Right Femoral Neck: g/cm2 (0.723) / T-score (-1.1) / Z-score (0.9) Left forearm: 0.553 -2.3 by 0.2 The T-Scores on the most recent prior examination were: Left Femur Total: which represents a worsening of 3.1%. Right Femur Total: which represents a worsening of 2.6%. BD/Dexa Bone Density Study IMPRESSION: The patient is considered osteopenic as outlined below according to World [employer] (WHO) criteria with a moderate fracture risk. There has been worsening of bone density since the previous examination. Reference Information: The T-score is the number of standard deviations above or below the standard which is normal for young adults at their peak bone mineral density. The World Health Organization (WHO) interprets the T-scores as follows: Above -1 Normal bone density Between -1 and -2.5 Osteopenia Equal to / or below -2.5 Osteoporosis As a practical clinical guideline, osteopenia may be graded as follows: Mild -1 through -1.5 Moderate -1.6 through -2.0 Severe -2.1 through -2.4 The Z-score is the number of standard deviations above or below age-matched controls. A Z-score of less than -1.5 would be considered abnormal. References: 1. NIH Osteoporosis and Related Bone Diseases www osteo.org 2. International Society for Clinical Densitometry www iscd.org 3. National Osteoporosis Foundation www nof.org Electronically Signed: Barry Segura MD at 10:47 [facility] ,
== END | disposition home or self-care (01) ==
LOC: OPBD 10:15
PROVIDERS: PCP Internal Medicine; Visit Provider Internal Medicine
DX: Z78.0 Asymptomatic menopausal state (principal)
CPT/HCPCS: 77080

== ENCOUNTER → 2022-07-28 | Outpatient (CLI) | payer MEDICARE, OTHER, SELFPAY ==
[2022-07-28 12:29] LABS: Absolute Lymphocyte Count 2.06 X10^3/uL (0.83-4.51); Basophil# 0.11 X10^3/uL; Basophil% 1.4 % (0-1); Eosinophil# 0.12 X10^3/uL; Eosinophils% 1.5 % (0-5); Hematocrit 44.7 % (37-47); Hemoglobin 14.4 g/dL (12.0-15.0); Lymphocyte # 2.06 X10^3/ul (0.83-4.51); Lymphocyte % 26.1 % (19-41); Mean Corp Hgb Conc 32.2 g/dL (32-36); Mean Corpuscular Hgb 30.2 pg (27.0-32.0); Mean Corpuscular Volume 93.7 fL (81-99); Mean Platelet Vol. 8.7 fl (6.2-12.0); Monocyte% 7.6 % (0-10); NRBC Flagged by Analyzer 0 % (0-5); Neutrophil # 4.98 X10^3/uL (2.7-7.7); Neutrophil % 63.1 % (47-70); Platelet Count 255 K/mm3 (150-450); RBC Distribution Width CV 13.5 % (11.6-14.6); RBC Distribution Width SD 45.7 fl (35.1-43.9); Red Blood Count 4.77 M/mm3 (4.2-5.4); White Blood Count 7.9 K/mm3 (4.4-11.0)
[2022-07-28 13:12] LABS: ALB/GLOB Ratio 1.1 RATIO (0.9-2.4); AST(SGOT) 18 U/L (15-37); Alanine Aminotransfer ALT/SGPT 21 U/L (13-56); Albumin, Serum 4.1 g/dL (3.2-5.0); Alkaline Phosphatase 100 U/L (45-117); Anion Gap 5 (5-15); BUN 17 mg/dL (7-18); BUN/Creat Ratio 21.3 RATIO (10-20); Calcium,Total 9.8 mg/dL (8.5-10.1); Chloride 102 mmol/L (98-107); EST Glomerular Filtration Rate 75 mL/min (>60); Est Glom Filt Rate - Afr Amer 90 mL/min (>60); Globulin 3.9 g/dL (2.2-4.2); Glucose 95 mg/dL (74-106); Potassium 4.2 mmol/L (3.5-5.1); Sodium Level 138 mmol/L (136-145)
== END | disposition home or self-care (01) ==
LOC: BIMLAB 11:37
PROVIDERS: PCP Internal Medicine; Referring Provider Internal Medicine Rheumatology; Visit Provider Internal Medicine Rheumatology
DX: M06.4 Inflammatory polyarthropathy (principal); R76.8 Other specified abnormal immunological findings in serum; Z79.899 Other long term (current) drug therapy
CPT/HCPCS: 36415; 80053; 85025

== ENCOUNTER → 2022-09-14 | Outpatient (CLI) | payer MEDICARE, OTHER, SELFPAY ==
--- NOTE | 2022-09-14 16:13 | MRI_ITS ---
STUDY: MRI LUMBAR SPINE WITHOUT CONTRAST REASON FOR EXAM: Female, 76 years old. RADICULOPATHY, HX PRIOR SURGERY 2017, LOW BACK PAIN TECHNIQUE: Standardized fat and water weighted pulse sequences were obtained in the sagittal and axial planes. COMPARISON: X-ray the lumbar spine dated November 22, 2020 FINDINGS: Spinal rods and pedicle screws from the thoracic spine down to S1 resulting in metallic artifact and limited visualization of the underlying structures. There are chronic compression deformities of the T11 and T12 vertebral bodies. The T12 vertebral body has lost approximately 30-40% of its original height with mild retropulsion is well. No acute fractures or active marrow edema is seen. No aggressive abnormalities are present. Posterior surgical decompressive defects are present at multiple levels. A small to moderate size simple cyst is present in the central pelvis of the right kidney. Normal lumbar lordosis. There is a levoscoliosis of the lumbar spine. Normal conus medullaris that terminates at the T12-L1 level. T12-L1: Normal endplates. Mild disc desiccation with preserved disc space height. Normal bilateral facet joints. Mild central canal stenosis. Normal bilateral intervertebral neural foramina. L1-2: Normal endplates. Normal disc height, hydration and morphology. Normal bilateral facet joints. Normal central canal and bilateral lateral recesses. Normal bilateral intervertebral neural foramina. L2-3: Diffuse disc desiccation with minimal posterior disc space narrowing but no bulging or herniation. Mild Modic endplate degenerative signal and changes. Normal central canal and bilateral lateral recesses. Normal bilateral intervertebral neural foramina. Mild anterolisthesis of L2 on L3 of 2 to 3 mm. L3-4: Mild to moderate asymmetric disc space narrowing with minimal posterior annular bulging. The facet joints are obscured by metallic artifact. Moderate right foraminal stenosis with nerve root compression is demonstrated. Normal left neural foramen. Normal central canal and bilateral lateral recesses. L4-5: Mild disc space narrowing with minimal posterior annular bulging. Slight anterolisthesis of L4 and L5 of 2 to 3 mm. Mild bilateral foraminal stenosis and mild facet joint hypertrophy. Normal central canal and bilateral lateral recesses. L5-S1: Moderate left side disc space narrowing and Modic endplate degenerative signal and Schmorl''s node changes. Left side disc spur complex. Mild facet joint hypertrophy. Normal central canal and bilateral lateral recesses. Normal bilateral intervertebral neural foramina. Normal visualized sacral ala. There is moderate paraspinal muscular atrophy. MRI/Spine Lumbar (Routine) IMPRESSION: 1. Multilevel degenerative changes, as described above. 2. There are chronic compression deformities of the T11 and T12 vertebral bodies. The T12 vertebral body has lost approximately 30-40% of its original height with mild retropulsion is well. No acute fractures or active marrow edema is seen. No aggressive abnormalities are present. 3. Multilevel foraminal stenosis 4. No central canal stenosis is demonstrated in the lumbar spine. Mild central canal stenosis is present at the T12 level due to retropulsion of the chronic compression deformity.. Electronically Signed: Johny Wong MD at 12:02 EDT ,
== END | disposition home or self-care (01) ==
LOC: MRI 15:55
PROVIDERS: PCP Internal Medicine; Referring Provider Anesthesiology Pain Medicine; Visit Provider Anesthesiology Pain Medicine
DX: M54.16 Radiculopathy, lumbar region (principal)
CPT/HCPCS: 72148

== ENCOUNTER → 2022-09-21 | Outpatient (CLI) | payer MEDICARE, OTHER, SELFPAY ==
[2022-09-21 13:25] LABS: Hemoglobin A1c 5.1 % (3.8-5.6)
== END | disposition home or self-care (01) ==
LOC: BIMLAB 11:20
PROVIDERS: PCP Internal Medicine; Referring Provider Nurse Practitioner Family; Visit Provider Nurse Practitioner Family
DX: E11.69 Type 2 diabetes mellitus with other specified complication (principal)
CPT/HCPCS: 36415; 83036

== ENCOUNTER → 2022-12-07 | Outpatient (CLI) | payer MEDICARE, OTHER, SELFPAY ==
[2022-12-07 15:06] LABS: International Normalized Ratio 1.1; Prothrombin Time (Protime)PT. 13.8 SECONDS (11.7-14.9)
[2022-12-07 15:09] LABS: Absolute Lymphocyte Count 1.83 X10^3/uL (0.83-4.51); Absolute Neutrophil Count 4.7 X10^3/uL (2.0-7.7); Basophil# 0.09 X10^3/uL; Basophil% 1.2 % (0-1); Eosinophil# 0.24 X10^3/uL; Eosinophils% 3.2 % (0-5); Hematocrit 43.5 % (37-47); Hemoglobin 14.3 g/dL (12.0-15.0); Lymphocyte # 1.83 X10^3/ul (0.83-4.51); Lymphocyte % 24.3 % (19-41); Mean Corp Hgb Conc 32.9 g/dL (32-36); Mean Corpuscular Hgb 29.5 pg (27.0-32.0); Mean Corpuscular Volume 89.7 fL (81-99); Monocyte# 0.68 X10^3/uL; NRBC Flagged by Analyzer 0 % (0-5); Neutrophil # 4.65 X10^3/uL (2.7-7.7); Neutrophil % 61.9 % (47-70); Platelet Count 217 K/mm3 (150-450); RBC Distribution Width SD 45.8 fl (35.1-43.9); Red Blood Count 4.85 M/mm3 (4.2-5.4); White Blood Count 7.5 K/mm3 (4.4-11.0)
[2022-12-07 15:12] LABS: Erythrocyte Sedimentation Rate 4 mm/hr (0-30)
[2022-12-07 18:42] LABS: AST(SGOT) 20 U/L (15-37); Alanine Aminotransfer ALT/SGPT 23 U/L (13-56); Albumin, Serum 4.1 g/dL (3.2-5.0); Alkaline Phosphatase 92 U/L (45-117); Anion Gap 5 (5-15); BUN 18 mg/dL (7-18); CRP < 2.90 mg/L (0.0-3.0); Calcium,Total 10.1 mg/dL (8.5-10.1); Chloride 104 mmol/L (98-107); Creatinine, Serum 1.06 mg/dL (0.55-1.02); EST Glomerular Filtration Rate 54 mL/min (>60); Est Glom Filt Rate - Afr Amer 65 mL/min (>60); Globulin 4.1 g/dL (2.2-4.2); Glucose 102 mg/dL (74-106); LDH 204 U/L (84-246); Potassium 4.6 mmol/L (3.5-5.1); Protein, Total 8.2 g/dL (6.4-8.2); Sodium Level 139 mmol/L (136-145)
== END | disposition home or self-care (01) ==
LOC: BIMLAB 13:46
PROVIDERS: PCP Internal Medicine; Referring Provider Internal Medicine Gastroenterology; Visit Provider Internal Medicine Gastroenterology
DX: K74.60 Unspecified cirrhosis of liver (principal); I25.10 Atherosclerotic heart disease of native coronary artery without angina pectoris; E78.5 Hyperlipidemia, unspecified
CPT/HCPCS: 36415; 80053; 82140; 83615; 85025; 85610; 85652; 86140

== ENCOUNTER → 2023-01-11 | Outpatient (CLI) | payer MEDICARE, SELFPAY ==
[2023-01-11 13:55] LABS: Mucous, Urine 0 SEEN /hpf (<or=2+); Red Blood Cells-Urine 0 SEEN /hpf (0-5)
[2023-01-11 15:44] LABS: Color, Urine Yellow (Yellow); Glucose, Dipstick Normal (Normal); Ketone-Dipstick 5 mg/dl (Negative); Leukocyte Esterase-Dipstick 500 /ul (Negative); Nitrite-Dipstick Positive (Negative); Occult Blood-Urine 10 /ul (Negative); Protein-Dipstick 15 mg/dl (Negative); Specific Gravity, Urine 1.025 (1.002-1.030); Urine Clarity Sl. Cloudy (Clear); Urine Urobilinogen Normal (Normal)
[2023-01-11 15:49] LABS: Urine Bilirubin Dipstick 1 mg/dL (Negative)
[2023-01-11 16:08] LABS: Vitamin D,25 Hydroxy 54.3 ng/mL
[2023-01-11 16:09] LABS: Bacteria 3+ /hpf (None Seen); Squamous Epithelial Cells - UA 5-10 SEEN /hpf (5-10); White Blood Cells 5-10 SEEN /hpf (0-5)
[2023-01-15 17:07] LABS: ANTINUCLEAR ANTIBODIES DIRECT Positive (Negative); Anti-Centromere B Ab <0.2 AI (0.0-0.9); Anti-Jo <0.2 AI (0.0-0.9); Anti-Scleroderma-70 AB <0.2 AI (0.0-0.9); Anti-dsDNA Ab 129 IU/mL (0-9); RNP Ab <0.2 AI (0.0-0.9); SJOGREN'S Anti-SS-A test < 0.2 AI (0.0-0.9); SJOGREN'S Anti-SS-B test < 0.2 AI (0.0-0.9); Smith Ab <0.2 AI (0.0-0.9)
== END | disposition home or self-care (01) ==
LOC: BIMLAB 13:50
PROVIDERS: PCP Internal Medicine; Visit Provider Internal Medicine
DX: R10.2 Pelvic and perineal pain (principal); K74.3 Primary biliary cirrhosis; N39.0 Urinary tract infection, site not specified
CPT/HCPCS: 36415; 81001; 82306; 86038; 86225; 86235

== ENCOUNTER → 2023-01-15 | Outpatient (CLI) | payer MEDICARE, SELFPAY ==
[2023-01-15 11:26] LABS: Bacteria 0 SEEN /hpf (None Seen); Mucous, Urine 0 SEEN /hpf (<or=2+)
[2023-01-15 12:23] LABS: Color, Urine Yellow (Yellow); Glucose, Dipstick Normal (Normal); Ketone-Dipstick Negative (Negative); Leukocyte Esterase-Dipstick 500 /ul (Negative); Nitrite-Dipstick Negative (Negative); Occult Blood-Urine 10 /ul (Negative); Protein-Dipstick 15 mg/dl (Negative); Urine Clarity Clear (Clear); Urine Urobilinogen 1 mg/dl (Normal)
[2023-01-15 12:28] LABS: Urine Bilirubin Dipstick 1 mg/dL (Negative)
[2023-01-15 12:59] LABS: Red Blood Cells-Urine 0-5 SEEN /hpf (0-5); Squamous Epithelial Cells - UA 0-5 SEEN /hpf (5-10); Transitional Epithelial - Ur 0-5 SEEN /hpf (0-5); White Blood Cells 25-50 SEEN /hpf (0-5)
== END | disposition home or self-care (01) ==
LOC: LABSPEC 11:24
PROVIDERS: PCP Internal Medicine; Referring Provider Internal Medicine; Visit Provider Internal Medicine
DX: N39.0 Urinary tract infection, site not specified (principal)
CPT/HCPCS: 81001; 87086

== ENCOUNTER → 2023-01-23 | Outpatient (CLI) | payer MEDICARE, OTHER, SELFPAY ==
--- NOTE | 2023-01-23 12:50 | CT_ITS ---
STUDY: CT ABDOMEN AND PELVIS WITH CONTRAST REASON FOR EXAM: Female, 77 years old. Right Lower Abdominal Pain RADIATION DOSAGE (If Supplied By Facility): CTDIvol = ( 27.15 ) mGy, DLP = ( 1406.38 ) mGycm TECHNIQUE: Transaxial images were obtained from the dome of the diaphragm to the symphysis pubis without oral contrast. Oral and amp;amp; IV Readi-CAT and amp;amp; 100mL Isovue-300 was administered. Sagittal and coronal images were reconstructed. Individualized dose optimization techniques were used for this CT. COMPARISON: None. FINDINGS: The visualized lung bases are unremarkable. Coronary artery calcification. There is decreased attenuation of the liver consistent with steatosis. The patient is status post cholecystectomy. There is evidence of a splenic cyst. The largest cyst is in the anterior lateral aspect of the upper portion of the spleen and measures 1.9 cm. A 1 cm cyst is seen along its medial portion. Normal pancreas. Normal bilateral adrenal glands. Normal right kidney. Normal left kidney. Normal visualized stomach. Normal small intestine. There are multiple colonic diverticula consistent with diverticulosis. The appendix is visualized and appears normal. There is diffuse atherosclerotic calcification of the abdominal aorta and its major visceral branches, without a demonstrated aneurysm. Normal inferior vena cava. Normal retroperitoneum. Normal urinary bladder. Calcified fibroid uterus. Normal abdominal wall. Status post screw and janelle fixation of the lower thoracic and upper lumbar spine. Stable loss of height of the T12 and L4 vertebral bodies. CT/Abdomen/Pelvis WITH Contrast IMPRESSION: Fatty infiltration of the liver. Splenic cysts. Diffuse atherosclerotic changes. Sigmoid diverticulosis. Electronically Signed: Barry Segura MD at 13:43 EDT ,
== END | disposition home or self-care (01) ==
LOC: CT 12:49
PROVIDERS: PCP Internal Medicine; Referring Provider Internal Medicine; Visit Provider Internal Medicine
DX: R10.31 Right lower quadrant pain (principal)
CPT/HCPCS: 74177; Q9967

== ENCOUNTER 2023-01-26 09:57 | Outpatient (CLI) | payer MEDICARE, OTHER, SELFPAY ==
[2023-01-26 10:05] VITALS: BP 158/89; PULSE 87; RESP 16; TEMP 35.5; O2SAT 94; BMI 26.4
[2023-01-26] MEDS: Zoledronic Acid 5 MG 100 ML 300 MG IV (10:16)
[2023-01-26] MEDS: 0.9% NaCl Peripheral Flush Adult/Peds IV (10:16)
[2023-01-26 10:40] VITALS: BP 135/91; PULSE 78
[2023-01-26 12:19] LABS: Absolute Lymphocyte Count 1.46 X10^3/uL (0.83-4.51); Absolute Neutrophil Count 3.6 X10^3/uL (2.0-7.7); Basophil# 0.08 X10^3/uL; Basophil% 1.3 % (0-1); Eosinophil# 0.22 X10^3/uL; Eosinophils% 3.7 % (0-5); Hematocrit 43.2 % (37-47); Hemoglobin 13.8 g/dL (12.0-15.0); Lymphocyte # 1.46 X10^3/ul (0.83-4.51); Lymphocyte % 24.6 % (19-41); Mean Corp Hgb Conc 31.9 g/dL (32-36); Mean Corpuscular Hgb 28.9 pg (27.0-32.0); Mean Corpuscular Volume 90.4 fL (81-99); Mean Platelet Vol. 8.8 fl (6.2-12.0); Monocyte# 0.58 X10^3/uL; Monocyte% 9.8 % (0-10); NRBC Flagged by Analyzer 0 % (0-5); Neutrophil # 3.58 X10^3/uL (2.7-7.7); Neutrophil % 60.4 % (47-70); Platelet Count 227 K/mm3 (150-450); RBC Distribution Width CV 14.2 % (11.6-14.6); Red Blood Count 4.78 M/mm3 (4.2-5.4); White Blood Count 5.9 K/mm3 (4.4-11.0)
[2023-01-26 13:22] LABS: ALB/GLOB Ratio 1.1 RATIO (0.9-2.4); AST(SGOT) 20 U/L (15-37); Alanine Aminotransfer ALT/SGPT 20 U/L (13-56); Albumin, Serum 3.9 g/dL (3.2-5.0); Alkaline Phosphatase 91 U/L (45-117); Anion Gap 5 (5-15); BUN 11 mg/dL (7-18); BUN/Creat Ratio 12.6 RATIO (10-20); Calcium,Total 9.1 mg/dL (8.5-10.1); Chloride 106 mmol/L (98-107); Creatinine, Serum 0.88 mg/dL (0.55-1.02); EST Glomerular Filtration Rate 67 mL/min (>60); Est Glom Filt Rate - Afr Amer 81 mL/min (>60); Estimated Creatinine Clearance 57.73 ml/min; Globulin 3.7 g/dL (2.2-4.2); Glucose 93 mg/dL (74-106); Protein, Total 7.6 g/dL (6.4-8.2); Sodium Level 140 mmol/L (136-145)
== END 2023-01-26 09:58 | disposition home or self-care (01) ==
PROVIDERS: Internal Medicine Rheumatology; PCP Internal Medicine; Referring Provider Internal Medicine; Visit Provider Internal Medicine
DX: M85.80 Other specified disorders of bone density and structure, unspecified site (principal)
CPT/HCPCS: 96365; 36415; 80053; 85025; A4216; J3489

== ENCOUNTER → 2023-03-06 | Outpatient (CLI) | payer MEDICARE, OTHER, SELFPAY ==
[2023-03-06 13:08] LABS: Absolute Lymphocyte Count 1.46 X10^3/uL (0.83-4.51); Absolute Neutrophil Count 3.8 X10^3/uL (2.0-7.7); Basophil# 0.07 X10^3/uL; Basophil% 1.2 % (0-1); Eosinophil# 0.17 X10^3/uL; Eosinophils% 2.8 % (0-5); Hematocrit 42.4 % (37-47); Hemoglobin 13.3 g/dL (12.0-15.0); Lymphocyte # 1.46 X10^3/ul (0.83-4.51); Lymphocyte % 24.5 % (19-41); Mean Corp Hgb Conc 31.4 g/dL (32-36); Mean Corpuscular Hgb 28.4 pg (27.0-32.0); Mean Corpuscular Volume 90.6 fL (81-99); Monocyte# 0.48 X10^3/uL; NRBC Flagged by Analyzer 0 % (0-5); Neutrophil # 3.76 X10^3/uL (2.7-7.7); Platelet Count 223 K/mm3 (150-450); RBC Distribution Width CV 14.6 % (11.6-14.6); RBC Distribution Width SD 48.4 fl (35.1-43.9); Red Blood Count 4.68 M/mm3 (4.2-5.4)
[2023-03-06 13:11] LABS: Erythrocyte Sedimentation Rate 9 mm/hr (0-30)
[2023-03-06 13:22] LABS: Vitamin D,25 Hydroxy 95.9 ng/mL
[2023-03-06 13:24] LABS: ALB/GLOB Ratio 1.1 RATIO (0.9-2.4); AST(SGOT) 17 U/L (15-37); Alanine Aminotransfer ALT/SGPT 20 U/L (13-56); Alkaline Phosphatase 77 U/L (45-117); Anion Gap 6 (5-15); BUN 13 mg/dL (7-18); BUN/Creat Ratio 16.1 RATIO (10-20); CRP < 2.90 mg/L (0.0-3.0); Chloride 106 mmol/L (98-107); Creatinine, Serum 0.81 mg/dL (0.55-1.02); EST Glomerular Filtration Rate 73 mL/min (>60); Est Glom Filt Rate - Afr Amer 89 mL/min (>60); Globulin 3.7 g/dL (2.2-4.2); Glucose 94 mg/dL (74-106); LDH 175 U/L (84-246); Potassium 3.8 mmol/L (3.5-5.1); Protein, Total 7.7 g/dL (6.4-8.2); Sodium Level 140 mmol/L (136-145)
[2023-03-06 13:28] LABS: Ferritin 12 ng/mL (8-252); Thyroid Stim Hormone (TSH) 3.37 uIU/mL (0.358-3.74)
[2023-03-08 02:07] LABS: Zinc, WHOLE BLOOD 624 ug/dL (440-860)
[2023-03-09 12:09] LABS: Vitamin D 1,25-Dihydroxy 66.5 pg/mL (24.8-81.5)
== END | disposition home or self-care (01) ==
LOC: BIMLAB 12:22
PROVIDERS: Dermatology; Internal Medicine Gastroenterology; PCP Internal Medicine; Visit Provider Internal Medicine
DX: L65.0 Telogen effluvium (principal); K74.60 Unspecified cirrhosis of liver; L30.8 Other specified dermatitis; L21.8 Other seborrheic dermatitis; E55.9 Vitamin D deficiency, unspecified; K74.00 Hepatic fibrosis, unspecified; R10.11 Right upper quadrant pain
CPT/HCPCS: 36415; 80053; 82140; 82306; 82652; 82728; 83615; 84439; 84443; 84630; 85025; 85610; 85652; 86140

== ENCOUNTER → 2023-03-08 | Outpatient (CLI) | payer MEDICARE, OTHER, SELFPAY ==
--- NOTE | 2023-03-08 09:41 | US_ITS ---
STUDY: ABDOMINAL ULTRASOUND - RIGHT UPPER QUADRANT REASON FOR VISIT: Female, 77 years old RUQ Pain TECHNIQUE: Ultrasound evaluation of the right upper quadrant was performed with real-time and static hicks-scale imaging. TECHNICAL QUALITY: Adequate. COMPARISON: Comparison is made with prior study dated August 06, 2021. FINDINGS: Liver: The liver measures 17.5 cm. There is increased echogenicity consistent with fatty infiltration. The bile ducts are within normal limits. There is hepatic color flow. The direction of portal flow is hepatopetal. There is no demonstrated mass lesion. Gallbladder: The patient is status post cholecystectomy. Common Bile Duct (C.B.D.): The common bile duct measures 12 mm. Pancreas: Normal size of the head, body and tail of the pancreas. There is normal echogenicity of the pancreas. There is no demonstrated pancreatic mass or cyst. Right Kidney: Normal size of the right kidney. The right kidney measures 10.7 cm x 5.4 cm x 5.1 cm. Normal renal cortex. The right cortex measures 1.4 cm. There is no demonstrated renal mass or cyst. There is no right hydronephrosis. US/Abdomen Limited IMPRESSION: Borderline hepatomegaly. Fatty infiltration of the liver. Status post cholecystectomy. Dilated common bile duct. Electronically Signed: Barry Segura MD at 10:55 EDT ,
== END | disposition home or self-care (01) ==
LOC: US 09:39
PROVIDERS: PCP Internal Medicine; Referring Provider Internal Medicine Gastroenterology; Visit Provider Internal Medicine Gastroenterology
DX: K74.00 Hepatic fibrosis, unspecified (principal); K74.60 Unspecified cirrhosis of liver; R10.11 Right upper quadrant pain
CPT/HCPCS: 76705

== ENCOUNTER 2023-03-22 07:40 | Day surgery (SDC) | payer MEDICARE, OTHER, SELFPAY ==
[2023-03-22] VITALS (7 sets, daily range): BP systolic 95–153; BP diastolic 62–80; PULSE 74–91; RESP 16–20; TEMP 36.8–37.3; O2SAT 93–97; BMI 26.6
[2023-03-22] MEDS: Lactated Ringers 1,000 ML 15 ML IV (08:14)
--- NOTE | 2023-03-22 08:16 | PCM.HP.BLA ---
History and Physical Date of Admission: 03/22/23 77 F who presents to the office today for PMH DMII, chronic pain (Dr. De La Paz), History of Mejia?s esophagus that was resolved on last EGD; Lupus (Dr. Alexandre).? ? Previous imaging:? CT abd/pel 08.22.18?with hepatic steatosis. s/p cholecystectomy; moderate hiatal hernia; diverticulosis; surgical changes of cecum with residual thickening along cecum and TI. Previously seen fluid collections improved (appendicitis).? ? *[facility]I established 07.28.21 with referral for further workup of abnormal LFT with a history of fatty liver disease with liver biopsy 5years prior confirming.? Constipation is also an issue with increased gas and associated pains, small and hard BM. Attempted MiraLAX, Activia yogurt, stool softeners and EX-Lax without effect.? Biochemical workup?CBC, haptoglobin, ESR, coagulation, ferritin, CRP, LUCINDA, AFP, copper, IgGAM, ANCA, hepatitis, HIV without pertinent abnormality? GGT H273, ammonia H33, LDH H251, ceruloplasmin H40.2, LFT AST H162/ALT H132/AP 109, JENELLE Beta globulin H1.5? US RUQ and elastography .06.28?with hepatomegaly measuring 18.2cm with fatty infiltration stiffness measures 16kPa F3/4.? MRCP 08.12.21?for elevated GGT with mild extra/intrahepatic biliary duct dilation; likely reservoir effect s/p cholecystectomy.? Liver biopsy 08.17.21?noting macro vesicular steatosis and cirrhosis with parenchymal distortion and portal-portal bridging; chronic inflammation noted and confined to portal areas; no abnormal protein accumulation. Cirrhosis confirmed with reticulin and trichrome stains.? OV 09.01.21?Start ursodiol and lactulose.? EGD 09.26.21?noting Grade II esophageal varices, banded; large hiatal hernia; medium amount of food in stomach. No esophageal metaplasia.? OV 10.20.21 2-3 BM/day with use of lactulose with resolution of previously noted confusion/HE.? OV 12.30.21 with continued resolution of confusion and sleep pattern.?Start Xifaxan.? OV 03.24.22 continues to be doing well without HE SE;?Lactulose continues.? OV 07.28.22 continues to be doing well without HE SE. Lactulose continues.? PCP OV 01.12.23 with worsening GERD, continues PPI. ? ? MELD? Child-[place]? plt ? Ammonia? INR? 11.10.21 7? A? 220?40? 1.1? 03.24.22 6? A? 243? 33? 1.0? ESR, CRP, LDH WNL? 12.07.22 8? A? 217? 23? 1.1? ESR, CRP, LDH WNL OV 02.21.23 Pt reports consistent RUQ pain the last 3 weeks. Feels its related to her BM. Takes her Lactulose TID and usually has consistent loose bowels. Lately she only goes about once a day and the stool is liquid with solid pieces. Also reports increase in heartburn. ROS Const Constitutional: Positive for fatigue and weight change ENT ENT: No difficulty swallowing Gastro GI: Positive for abdominal pain, bloating, constipation, diarrhea, heartburn and excessive flatus; No belching, change in bowel habits, change in stool character, coffee ground emesis, cramping, difficulty swallowing, feeling full early, incontinent of stools, Vomiting blood/hematemesis, Blood in stool, loose stools, Black,tarry stools, nausea/dyspepsia, pain with swallowing, vomiting or other Musc Musculoskeletal: Positive for abnormal gait, joint pain, back pain, joint swelling, stiffness, Arthritis and sciatica Skin Skin: No yellowing of the eye or itchy eyes Neuro Neurology: Positive for abnormal gait, dizziness and tremor(s) Psych Psychiatric: Positive for anxiety, Positive for depression and Positive for inattentiveness Endo Endocrine: Positive for fatigue and weight change Aller/Imm Allergy/Immunologic: No itchy eyes Vipul/Lymp Hematologic/Lymphatic: No easy bleeding or easy bruising Exam Const General: cooperative, comfortable and no acute distress Orientation: alert, awake and oriented x3 HENMT Head: normal to inspection, normocephalic and atraumatic Ears: hearing grossly normal bilaterally Neck Neck: normal visual inspection, full ROM and supple Neck mass: No Thyroid: thyroid normal Resp Effort & Inspection: normal respiratory effort and able to speak in complete sentences Auscultation: Bilateral: Clear to Auscultation Cardio Rate: regular rate Rhythm: regular rhythm Heart Sounds: S1 normal and S2 normal GI Palpation: soft (Suprapubic discomfort) Neuro General: patient alert, patient awake, patient oriented x3, moves all extremities and CN's II-XI intact bilaterally Psych Appearance: grossly normal Mental Status: mental status grossly normal Mood: congruent mood Affect: normal affect Quality Reporting Tobacco Screening ([facility] 138) Smoking Status: Former smoker Assessment and Plan Assessment and Plan (1) Back pain: Qualifiers: Back pain location: low back pain Chronicity: chronic Back pain laterality: midline Sciatica presence: without sciatica Qualified Code(s): M54.50 - Low back pain, unspecified; G89.29 - Other chronic pain (2) Primary biliary cholangitis: Status: Chronic (3) Cirrhosis: Status: Chronic Qualifiers: Hepatic cirrhosis type: unspecified hepatic cirrhosis Ascites presence: without ascites Qualified Code(s): K74.60 - Unspecified cirrhosis of liver Plan: She is a child [place] class a with a meld of 7. She has not shown any signs of decompensation at this time including no encephalopathy, no ascites, no bleeding or jaundice. She is having approximately 3-4 bowel movements per day. She presents monitoring her sodium intake. At this time she is only taking about a gram of sodium a day. Patient has lost approximately 7 pounds. I do not recommend protein restriction to decrease hyperammonemia. This is because recent studies have shown that protein restriction can lead to worsening sarcopenia in a cirrhotic patient. Due to the fact that she is very stable at this time on the current regimen we will not make any other changes in her medication regimen. (4) Hepatic encephalopathy: Status: Chronic Plan: We will try to get Xifaxan 550 mg twice a day for her. She has thought about starting her on neomycin or vancomycin for the treatment of her hepatic encephalopathy but she is doing very well on lactulose therapy. Hopefully will be able to get Xifaxan for the sterilization of her GI tract. (5) Esophageal varices: Status: Chronic Qualifiers: Esophageal varices type: idiopathic Esophageal varices bleeding: without bleeding Qualified Code(s): I85.00 - Esophageal varices without bleeding Plan: She is still banding of esophageal varices. When she follows up in the office in approximately 3 months we will Discuss the further need for banding in the future. She is on beta-jose therapy we will continue that I have examined the patient and the H&P has been reviewed. There are no clinical changes since date of exam.
[2023-03-22 08:33] LABS: Bedside Glucose 99 mg/dL (74-106)
--- NOTE | 2023-03-22 09:12 | OP.CCLET_ITS ---
03/22/2023 Mati Hampton MD [address] [place] [address] [place] [address] Re : Upper GI endoscopy procedure for Ariane Fagan Dear Dr. Hampton This procedure was performed on March. My impressions and recommendations are as follows: Impressions : - Small (< 5 mm) esophageal varices. - Large hiatal hernia. - Portal hypertensive gastropathy. - Gastric antral vascular ectasia. - Erythematous mucosa in the gastric fundus. - No gross lesions in the first portion of the duodenum. - No specimens collected. Recommendations : - Discharge patient to home. - Resume previous diet. - Continue present medications. - Repeat upper endoscopy in 6 months for surveillance. My findings are described in the full procedure note, which is enclosed. If I can be of further assistance, please feel free to contact me at . Sincerely, Hernesto Friend, 03/22/2023 9:12:09 AM This report has been signed electronically.
--- NOTE | 2023-03-22 09:12 | OP.EGD_ITS ---
Patient Name: Ariane Fagan Procedure Date: 03/22/2023 8:53 AM Date of : 1945 Age: 77 Procedure: Upper GI endoscopy Indications: For therapy of esophageal varices Providers: Hernesto Ponce DO Referring MD: Hernesto Ponce DO Medicines: Monitored Anesthesia Care Patient Profile: This is a 77 year old female. Refer to note in patient chart for documentation of history and physical. Patient has symptoms of chronic vomiting. Complications: No immediate complications. Procedure: Pre-Anesthesia Assessment: - Prior to the procedure, a History and Physical was performed, and patient medications and allergies were reviewed. The patient is competent. The risks and benefits of the procedure and the sedation options and risks were discussed with the patient. All questions were answered and informed consent was obtained. Patient identification and proposed procedure were verified by the physician in the pre-procedure area. Mental Status Examination: alert and oriented. Airway Examination: normal oropharyngeal airway and neck mobility. Respiratory Examination: clear to auscultation. CV Examination: normal. Prophylactic Antibiotics: The patient does not require prophylactic antibiotics. Prior Anticoagulants: The patient has taken no anticoagulant or antiplatelet agents. ASA Grade Assessment: II - A patient with mild systemic disease. After reviewing the risks and benefits, the patient was deemed in satisfactory condition to undergo the procedure. The anesthesia plan was to use monitored anesthesia care (MAC). Immediately prior to administration of medications, the patient was re-assessed for adequacy to receive sedatives. The heart rate, respiratory rate, oxygen saturations, blood pressure, adequacy of pulmonary ventilation, and response to care were monitored throughout the procedure. The physical status of the patient was re-assessed after the procedure. After obtaining informed consent, the endoscope was passed under direct vision. Throughout the procedure, the patient's blood pressure, pulse, and oxygen saturations were monitored continuously. The Endoscope was introduced through the mouth, and advanced to the second part of duodenum. The upper GI endoscopy was accomplished without difficulty. The patient tolerated the procedure well. Scope In: 9:03:15 AM Scope Out: 9:05:45 AM Total Procedure Duration Time 0 hours 2 minutes 30 seconds Findings: Small (< 5 mm) varices were found in the lower third of the esophagus. They were 2 mm in largest diameter. A large hiatal hernia was present. Moderate portal hypertensive gastropathy was found in the entire examined stomach. Moderate gastric antral vascular ectasia was present in the gastric antrum. Localized moderately erythematous mucosa without bleeding was found in the gastric fundus. No gross lesions were noted in the first portion of the duodenum. Multiple 9 mm hyperplastic polyps with no bleeding and no stigmata of recent bleeding were found in the stomach. Impression: - Small (< 5 mm) esophageal varices. - Large hiatal hernia. - Portal hypertensive gastropathy. - Gastric antral vascular ectasia. - Erythematous mucosa in the gastric fundus. - No gross lesions in the first portion of the duodenum. - No specimens collected. Recommendation: - Discharge patient to home. - Resume previous diet. - Continue present medications. - Repeat upper endoscopy in 6 months for surveillance. Procedure Code(s): --- Professional --- 44286, Esophagogastroduodenoscopy, flexible, transoral; diagnostic, including collection of specimen(s) by brushing or washing, when performed (separate procedure) CPT copyright 2021 [employer]. All rights reserved. The codes documented in this report are preliminary and upon physician coder review may be revised to meet current compliance requirements. Hernesto Ponce DO 03/22/2023 9:12:09 AM This report has been signed electronically. Number of Addenda: 0 Note Initiated On: 03/22/2023 8:53 AM
== END 2023-03-22 09:59 | disposition home or self-care (01) ==
LOC: EN 07:47 → AC 07:49
PROVIDERS: PCP Internal Medicine; Referring Provider Internal Medicine; Visit Provider Internal Medicine Gastroenterology
PROC: 0DJ08ZZ Inspection of Upper Intestinal Tract, Via Natural or Artificial Opening Endoscopic (ICD-10-PCS; CPT 43235; principal; 2023-03-22 08:55)
DX: I85.00 Esophageal varices without bleeding (principal); K76.6 Portal hypertension; K74.60 Unspecified cirrhosis of liver; E11.9 Type 2 diabetes mellitus without complications; K44.9 Diaphragmatic hernia without obstruction or gangrene; G89.29 Other chronic pain; M54.40 Lumbago with sciatica, unspecified side; K31.89 Other diseases of stomach and duodenum; K31.819 Angiodysplasia of stomach and duodenum without bleeding; I25.10 Atherosclerotic heart disease of native coronary artery without angina pectoris; F32.A Depression, unspecified; F41.9 Anxiety disorder, unspecified; K21.9 Gastro-esophageal reflux disease without esophagitis; E78.5 Hyperlipidemia, unspecified; E66.9 Obesity, unspecified; Z79.82 Long term (current) use of aspirin; Z79.01 Long term (current) use of anticoagulants; Z79.899 Other long term (current) drug therapy; Z87.891 Personal history of nicotine dependence; Z68.26 Body mass index [BMI] 26.0-26.9, adult
CPT/HCPCS: 43235; 82962; J7120; J2405

== ENCOUNTER → 2023-04-03 | Outpatient (CLI) | payer MEDICARE, OTHER, SELFPAY ==
[2023-04-03 12:35] LABS: Cholesterol 165 mg/dL (200); High Density Lipoprotein 65 mg/dL; Triglycerides 190 mg/dL; Very Low Density Lipoprotein 38 mg/dL (5-40)
== END | disposition home or self-care (01) ==
LOC: BIMLAB 10:22
PROVIDERS: PCP Internal Medicine; Referring Provider Nurse Practitioner Family; Visit Provider Nurse Practitioner Family
DX: E78.5 Hyperlipidemia, unspecified (principal)
CPT/HCPCS: 36415; 80061

== ENCOUNTER 2023-10-03 08:18 | Day surgery (SDC) | payer MEDICARE, SELFPAY ==
--- NOTE | 2023-10-03 | IMM_PTH ---
PATIENT: AWILDA WEBER LOC: EN U#:[id number] AGE/SX: 77/F ROOM: RE10/03/[address]: Dr. Hernesto Ponce DO : 1945 BED: DIS: 10/03/2023 SPEC #: [id number] RECD: 10/09/23 10:45 STATUS: CHANTEL REQ #: [id number] LUIS: 10/03/23 00:[address]: Hernesto Ponce DEPT: IMMUNOHISTOCHEMISTRY RECD BY: Jerman Ramírez ENTERED: 10/09/23 10:46 SP TYPE: IMMUNO OTHR DR: Dr. Mati Hampton MD Tissues: Gastric mucous membrane Procedures: P53 (initial) KI-67 (add) PHYSICIAN & INSTITUTION [place] [id number] SPECIMEN INFORMATION: Tissue Source: Gastric polyp biopsy Clinical Info: Primary biliary cholangitis, cirrhosis, esophageal varcies, hepatic encephalopathy Specimen Number: [id number] CPT code: 28288,93569 METHODOLOGY: Deparaffinized sections of prefer/formalin-fixed tissue or PAP/DQ stained slides are incubated with monoclonal/polyclonal antibodies/oligonucleotide probes. Localization is made via biotin free immunoperoxidase method. Appropriate controls are performed and reacted as expected. Results on target cell population are indicated in the following table: RESULTS: ANTIBODY / CLONE RESULT P53 (DO-7) positive, wild type Ki-67 (30-9) positive, low These tests were developed and their performance characteristics determined by [facility]. They may not have been cleared or approved by the U.[place]. Food and Drug Administration. The FDA has determined that such clearance or approval is not necessary. The above immunohistochemical/dualISH markers are ordered and reviewed by the Pathologist. INTERPRETATION: Gastric polyp, biopsy: No evidence of dysplasia. ALISON/ 10/09/2023
[2023-10-03 08:53] VITALS: BP 159/93; PULSE 99; RESP 20; TEMP 36.1; O2SAT 95; BMI 28.5
[2023-10-03] MEDS: Lactated Ringers 1,000 ML 15 ML IV (09:04)
--- NOTE | 2023-10-03 09:11 | PCM.HP.STD ---
HPI - General General Date of Admission: 10/03/23 Date of Service: 10/03/23 Chief Complaint: Cirrhosis HPI Narrative AWILDA WEBER, is a 77 F who presents 77 F who presents to the office today for PMH DMII, chronic pain (Dr. De La Paz), History of Mejia?s esophagus that was resolved on last EGD; Lupus (Dr. Alexandre). Previous imaging: CT abd/pel 08.22.18 with hepatic steatosis. s/p cholecystectomy; moderate hiatal hernia; diverticulosis; surgical changes of cecum with residual thickening along cecum and TI. Previously seen fluid collections improved (appendicitis). *[facility] established 07.28.21 with referral for further workup of abnormal LFT with a history of fatty liver disease with liver biopsy 5years prior confirming. Constipation is also an issue with increased gas and associated pains, small and hard BM. Attempted MiraLAX, Activia yogurt, stool softeners and EX-Lax without effect. Biochemical workup CBC, haptoglobin, ESR, coagulation, ferritin, CRP, LUCINDA, AFP, copper, IgGAM, ANCA, hepatitis, HIV without pertinent abnormality GGT H273, ammonia H33, LDH H251, ceruloplasmin H40.2, LFT AST H162/ALT H132/AP 109, JENELLE Beta globulin H1.5 US RUQ and elastography .06.28 with hepatomegaly measuring 18.2cm with fatty infiltration stiffness measures 16kPa F3/4. MRCP 08.12.21 for elevated GGT with mild extra/intrahepatic biliary duct dilation; likely reservoir effect s/p cholecystectomy. Liver biopsy 08.17.21 noting macro vesicular steatosis and cirrhosis with parenchymal distortion and portal-portal bridging; chronic inflammation noted and confined to portal areas; no abnormal protein accumulation. Cirrhosis confirmed with reticulin and trichrome stains. OV 09.01.21 Start ursodiol and lactulose. EGD 09.26.21 noting Grade II esophageal varices, banded; large hiatal hernia; medium amount of food in stomach. No esophageal metaplasia. OV 6. 2-3 BM/day with use of lactulose with resolution of previously noted confusion/HE. OV 12.30.21 with continued resolution of confusion and sleep pattern. Start Xifaxan. OV 03.24.22 continues to be doing well without HE SE; Lactulose continues. OV 07.28.22 continues to be doing well without HE SE. Lactulose continues. PCP OV 9.. with worsening GERD, continues PPI. OV 02.21. persistent RUQ abdominal pain; lactulose continues and bowels move regularly. ? US 03.08.23 hepatic measurement 17.5cm with fatty infiltration; s/p cholecystectomy; dilated CBD. ? EGD 03.22.23 small lower EV; large hiatal hernia; moderate portal HTN gastropathy; moderate GAVE; gastritis; multiple gastric polyps. No specimens OV 05.30.23 BM occur 1-2/day. Denies difficulty with sleep-wake cycle disturbance, balance difficulty, pruritis. MELD? CP? plt/INR ? Ammonia? 11.10.21 7? A? 220/1.1 40? 03.24.22 6? A? 243/1??? 33? ESR, CRP, LDH WNL 08.03.23 8? A? 217/1.1 23? ESR, CRP, LDH WNL 03.06. 6? A? 223/1??? 12 ROS Const Constitutional: No body ache, chills, excessive sweating, fatigue, fever(s), frequent falls, headache(s), snoring, weakness, sleep problems or change in appetite Eyes Eyes: No blurry vision, change in vision, floaters or Light sensitivity ENT ENT: No abnormal hearing, ear or mastoid pain, tinnitus, balance problems, nosebleed/epistaxis, nasal congestion, nasal discharge, headache(s), neck pain or sore throat Resp Respiratory: No cough, excessive phlegm production, pain on inspiration, shortness of breath, snoring or wheezing Cardio Cardiology: No chest pain at rest, chest pain with exertion, excessive sweating, shortness of breath, dyspnea on exertion, lightheadedness, orthopnea or palpitations Gastro GI: No abdominal pain, change in bowel habits, constipation, cramping, diarrhea, incontinent of stools, Vomiting blood/hematemesis or nausea/dyspepsia Genitourinary-Female: No burning urination, painful urination, urinary incontinence or urinary frequency Musc Musculoskeletal: No abnormal gait, joint pain, back pain, limited range of motion, muscle weakness, neck pain or numbness Skin Skin: No dry skin, redness, lesions, itchy eyes, rash or wounds Neuro Neurology: No abnormal gait, abnormal hearing, abnormal speech, confusion, weakness, frequent falls, headache(s), memory loss or numbness Psych Psychiatric: No anxiety, No change in appetite, No confusion, No depression, No memory loss, No panic attacks and No Thoughts of harming yourself/Others Endo Endocrine: No cold intolerance, excessive sweating, fatigue, flushing, heat intolerance, increased thirst/drinking or increased hunger Aller/Imm Allergy/Immunologic: No itchy eyes, seasonal allergy symptoms, hives or wheezing Vipul/Lymp Hematologic/Lymphatic: No easy bleeding or easy bruising Exam Const General: cooperative, comfortable and no acute distress Orientation: alert, awake and oriented x3 [facility] Head: normal to inspection, normocephalic and atraumatic Ears: hearing grossly normal bilaterally Neck Neck: normal visual inspection, full ROM and supple Neck mass: No Thyroid: thyroid normal Resp Effort & Inspection: normal respiratory effort and able to speak in complete sentences Auscultation: Bilateral: Clear to Auscultation Cardio Rate: regular rate Rhythm: regular rhythm Heart Sounds: S1 normal and S2 normal GI Palpation: soft (Nontender, no palpable organomegaly) Neuro General: patient alert, patient awake, patient oriented x3, moves all extremities and CN's II-XI intact bilaterally Psych Appearance: grossly normal Mental Status: mental status grossly normal Mood: congruent mood Affect: normal affect Quality Reporting Tobacco Screening ([facility] 138) Smoking Status: Former smoker Assessment and Plan Assessment and Plan (1) Primary biliary cholangitis: Status: Chronic (2) Cirrhosis: Status: Chronic Qualifiers: Ascites presence: without ascites Hepatic cirrhosis type: unspecified hepatic cirrhosis Qualified Code(s): K74.60 - Unspecified cirrhosis of liver Plan: She is a child [place] class a with a meld of 7. She has not shown any signs of decompensation at this time including no encephalopathy, no ascites, no bleeding or jaundice. She is having approximately 3-4 bowel movements per day. She presents monitoring her sodium intake. At this time she is only taking about a gram of sodium a day. Patient has lost approximately 7 pounds. I do not recommend protein restriction to decrease hyperammonemia. This is because recent studies have shown that protein restriction can lead to worsening sarcopenia in a cirrhotic patient. Due to the fact that she is very stable at this time on the current regimen we will not make any other changes in her medication regimen. (3) Esophageal varices: Status: Chronic Qualifiers: Esophageal varices bleeding: without bleeding Esophageal varices type: idiopathic Qualified Code(s): I85.00 - Esophageal varices without bleeding Plan: She is still banding of esophageal varices. When she follows up in the office in approximately 3 months we will Discuss the further need for banding in the future. She is on beta-jose therapy we will continue that (4) Chronic constipation: Status: Chronic (5) Hepatic encephalopathy: Status: Chronic Plan: We will try to get Xifaxan 550 mg twice a day for her. She has thought about starting her on neomycin or vancomycin for the treatment of her hepatic encephalopathy but she is doing very well on lactulose therapy. Hopefully will be able to get Xifaxan for the sterilization of her GI tract. Orders: Orders Ammonia 12/07/22 K74.60 - Unspecified cirrhosis of liver Comprehensive Metabolic Profil 12/07/22 K74.60 - Unspecified cirrhosis of liver LDH 12/07/22 K74.60 - Unspecified cirrhosis of liver CRP 12/07/22 K74.60 - Unspecified cirrhosis of liver Prothrombin Time w/INR 12/07/22 I25.10 - Atherosclerotic heart disease of [place] coronary artery without angina pectoris, K74.60 - Unspecified cirrhosis of liver CBC W/Diff, Automated 12/07/22 E78.5 - Hyperlipidemia, unspecified, K74.60 - Unspecified cirrhosis of liver Erythrocyte Sed Rate 12/07/22 K74.60 - Unspecified cirrhosis of liver Ammonia Today K74.3 - Primary biliary cirrhosis, K74.60 - Unspecified cirrhosis of liver Erythrocyte Sed Rate Today K74.3 - Primary biliary cirrhosis, K74.60 - Unspecified cirrhosis of liver CBC W/Diff, Automated Today K74.3 - Primary biliary cirrhosis, K74.60 - Unspecified cirrhosis of liver LDH Today K74.3 - Primary biliary cirrhosis, K74.60 - Unspecified cirrhosis of liver Comprehensive Metabolic Profil Today K74.3 - Primary biliary cirrhosis, K74.60 - Unspecified cirrhosis of liver Prothrombin Time w/INR Today K74.3 - Primary biliary cirrhosis, K74.60 - Unspecified cirrhosis of liver CRP Today K74.3 - Primary biliary cirrhosis, K74.60 - Unspecified cirrhosis of liver AFP, Tumor Marker Today K74.3 - Primary biliary cirrhosis, K74.60 - Unspecified cirrhosis of liver I have examined the patient and the H&P has been reviewed. There are no clinical changes since date of exam. [facility] Medical History Memory impairment Alcohol use Rash History of steroid therapy Vertigo Easy bruising History of diverticulitis History of echocardiogram History of edema History of heart attack History of stress test Suprapubic discomfort Osteopenia SLE (systemic lupus erythematosus) Hypercalcemia Wears glasses Anxiety Diabetes Ambulates with cane Arthritis Back pain Syncope Mejia esophagus Cardiology follow-up encounter Primary biliary cholangitis Obesity (BMI 30.0-34.9) Kidney stones Former smoker Positive double stranded 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 Chronic constipation Elevated serum GGT level Health care maintenance Bunion of left foot Hyperhidrosis Anxiety and depression Chronic back pain Depression Colonic thickening Perforated appendicitis (08/18/18) Vitamin D deficiency Scoliosis Venous insufficiency of both lower extremities Type 2 diabetes mellitus HAMM (nonalcoholic steatohepatitis) Hiatal hernia Small bowel obstruction Essential (primary) hypertension Hx of non-ST elevation myocardial infarction (NSTEMI) (05/02/06) GERD (gastroesophageal reflux disease) Atherosclerotic heart disease of [place] coronary artery without angina pectoris Breast lump Hyperlipidemia Home Medications ?Medication ?Instructions ?Recorded ?Last Taken ?Type aspirin 81 mg chewable tablet 81 mg PO DAILY 11/24/16 09/26/23 History Handicap Placard #1 ea 03/11/21 Unknown Rx dulaglutide 3 mg/0.5 mL 3 mg (0.5 mL) subcut QWEEK 3 07/04/21 10/01/23 Rx subcutaneous pen injector months #6.5 mL lactulose 20 gram/30 mL oral 20 g (30 mL) PO DAILY #1,200 mL 09/27/22 Unknown Rx solution cholecalciferol (vitamin D3) 125 125 mcg PO DAILY 01/26/23 10/02/23 History mcg (5,000 unit) capsule rosuvastatin 20 mg tablet 20 mg PO .COMPLEX #90 tabs 06/05/23 10/01/23 Rx clopidogrel 75 mg tablet (Plavix) 75 mg PO QDAY #90 tabs 06/07/23 09/26/23 Rx meclizine 25 mg tablet 25 mg PO BID-TID PRN 06/07/23 Unknown Rx dizziness/vertigo #60 tabs nitroglycerin 0.4 mg sublingual 0.4 mg sublingual Q5M PRN Chest 06/07/23 Unknown Rx tablet Pain #30 tabs pantoprazole 40 mg tablet,delayed 40 mg PO DAILY #90 tabs 06/07/23 10/02/23 Rx release ursodiol 250 mg tablet 250 mg PO BID #180 tabs 06/07/23 10/02/23 Rx venlafaxine 150 mg 150 mg PO DAILY #90 caps 06/07/23 10/02/23 Rx capsule,extended release 24 hr blood-glucose meter (OneTouch #1 ea 06/14/23 Unknown Rx Verio Flex Start kit) blood sugar diagnostic (OneTouch #100 ea 06/15/23 Unknown Rx Verio test strips) lancets 28 gauge (Unilet Lancet) #100 ea 07/16/23 Unknown Rx Allergy/AdvReac Type Severity Reaction Status Date / Time triamcinolone Allergy Intermediate Rash Verified 10/03/23 08:50 eptifibatide (From Allergy Rash Verified 10/03/23 08:50 Integrilin) niacin (From Niaspan Allergy Rash Verified 10/03/23 08:50 Extended-Release) tizanidine (From Zanaflex) Allergy Rash Verified 10/03/23 08:50 Family History Brother alcoholism Brother alcoholism Colon cancer Mother Arthritis Heart disease Hypertension High cholesterol Myocardial infarction Sister Myocardial infarction Hypertension High cholesterol Heart disease Sister Myocardial infarction Hypertension High cholesterol Heart disease Emphysema lung Sister Heart disease High cholesterol Hypertension Grandmother Rheumatoid arthritis Other Type 2 diabetes mellitus Surgical History History of esophagogastroduodenoscopy (EGD) History of heart surgery Stented coronary artery History of colonoscopy History of appendectomy (08/18/18) History of lumbar fusion History of liver biopsy History of tubal ligation History of cholecystectomy History of coronary artery stent placement (05/01/06) History of back surgery Social History Smoking Status: Former smoker how long ago did patient quit smokin years second hand exposure: No alcohol intake: never substance use type: does not use caffeine: Yes Type: coffee Number of servings: 2 and tea what type of physical activity do you participate in: walking and other details: [employer] frequency: daily duration: 15-30 minutes/day seatbelt use: always do you feel safe at home: Yes ROS Review of Systems ROS Unobtainable: other Constitutional Constitutional: Denies fatigue, fever(s), poor appetite, weight gain or weight loss ENT HEENT: Denies mouth lesions Cardiovascular Cardiovascular: Denies abdominal bloating, abdominal edema or abdominal pain Respiratory/Chest Respiratory/Chest: Denies change in mental status, change in phlegm color, chest congestion or chest tightness Gastrointestinal Gastrointestinal: Denies belching, bloating, change in bowel habits, change in stool character, chewing difficulty, coffee ground emesis, constipation, cramping, diarrhea, dyspepsia, dysphagia, early satiety, excessive flatus, fecal incontinence, heartburn, hematemesis, hematochezia, hemorrhoids, loose stools, melena, nausea, odynophagia, rectal bleeding, tenesmus, vomiting or weight changes Genitourinary Genitourinary: Denies abdominal discomfort, burning urination or itching Musculoskeletal Musculoskeletal: Reports as per HPI; Denies muscle weakness or myalgias Integumentary Integumentary: Denies jaundice Neurologic Neurologic: Denies lack of coordination or weakness Psychiatric Psychiatric: Denies confusion, depression, memory loss, mood swings, paranoia or suicidal ideation Endocrine Endocrinology: Denies systems reviewed and no addt'l complaints, except as documented Hematologic/Lymphatic Hematologic/Lymphatic: Denies anemia, easy bleeding, easy bruising or lymphadenopathy Allergic/Immunologic Allergic/Immunologic: Denies systems reviewed and no addt'l complaints, except as documented Vital Signs Vital Signs Vital Signs: 10/03/23 08:53 10/03/23 08:53 Temperature 96.9 F L Temperature Source Temporal Pulse Rate 99 Respiratory Rate 20 H Respiratory Pattern Normal Blood Pressure 159/93 H Blood Pressure Mean 115 Blood Pressure Source Monitor Blood Pressure Position Semi-Fowlers Blood Pressure Location Left Arm Pulse Ox 95 Oxygen Delivery Method Room Air Weight Weight: 193 lb 5.526 oz Body Mass Index (BMI) 28.5 Assessment & Plan Assessment/Plan (1) Hepatic encephalopathy: (2) Esophageal varices: QUALIFIERS: Esophageal varices type: idiopathic Esophageal varices bleeding: without bleeding Qualified Code(s): I85.00 - Esophageal varices without bleeding PLAN: Plan She will undergo an upper endoscopy to evaluate her esophagus for esophageal varices. She is status post banding of esophageal varices in the past and this is for surveillance. She was explained alternatives, risk, benefits include not withstanding bleeding, infection, sepsis, perforation, need for return to . She will have an ASA of 3.
--- NOTE | 2023-10-03 09:30 | EGD_PTH ---
PATIENT: AWILDA WEBER LOC: EN U#:[id number] AGE/SX: 77/F ROOM: RE10/03/[address]: Dr. Hernesto Ponce DO : 1945 BED: DIS: 10/03/2023 SPEC #: [id number] RECD: 10/03/23 12:26 STATUS: CHANTEL ERNIE #: [id number] LUIS: 10/03/23 09:[address]: Hernesto Ponce DEPT: SURGICAL PATHOLOGY RECD BY: Sean Richardson ENTERED: 10/03/23 13:58 SP TYPE: EGD BIOPSY OT DR: Dr. Mati Hampton MD Tissues: Gastric mucous membrane Procedures: Special Stain Group I Surgery Specimen Level IV Alcian Blue/PAS (control) HEADER OPERATION: EGD PRE-OP DIAGNOSIS: Primary biliary cholangitis, cirrhosis, esophageal varices, hepatic encephalopathy TISSUE SUBMITTED: Gastric polyp biopsy MICROSCOPIC DIAGNOSIS Gastric polyp, biopsy: Inflammatory polyp. Focal intestinal metaplasia. No evidence of dysplasia. See comment. AM/mr 10/04/2023 COMMENT Alcian blue/PAS stain with matched control supports the above diagnosis. Immunohistochemistry ([id number]) for P53 and Ki-67 will be performed and results will be reported separately. MICROSCOPIC DESCRIPTION Slides are reviewed. GROSS DESCRIPTION Received in fixative is one container labeled with the patient's name and designated gastric polyp biopsy. The specimen consists of two irregular fragments of light carrillo soft tissue that in aggregate measure 0.7 x 0.5 x 0.1 cm. The specimen is totally submitted in one cassette. AM/mr 10/03/2023 TC:3 CPT:27310,03707
[2023-10-03 09:55] LABS: Bedside Glucose 134 mg/dL (74-106)
[2023-10-03 10:45] VITALS: BP 159/93; BP 95/56; PULSE 92; RESP 16; TEMP 36.7; O2SAT 95
[2023-10-03 10:50] VITALS: BP 159/93; BP 81/56; PULSE 92; RESP 16; O2SAT 93
--- NOTE | 2023-10-03 10:52 | OP.EGD_ITS ---
Patient Name: Ariane Fagan Procedure Date: 10/03/2023 10:24 AM Date of : 1945 Age: 77 Procedure: Upper GI endoscopy Indications: Follow-up of esophageal varices Providers: Hernesto Ponce DO Medicines: Monitored Anesthesia Care Patient Profile: This is a 77 year old female. Refer to note in patient chart for documentation of history and physical. Patient has symptoms of chronic epigastric abdominal pain. Complications: No immediate complications. Procedure: Pre-Anesthesia Assessment: - Prior to the procedure, a History and Physical was performed, and patient medications and allergies were reviewed. The patient is competent. The risks and benefits of the procedure and the sedation options and risks were discussed with the patient. All questions were answered and informed consent was obtained. Patient identification and proposed procedure were verified by the physician in the pre-procedure area. Mental Status Examination: normal. Prophylactic Antibiotics: The patient does not require prophylactic antibiotics. Prior Anticoagulants: The patient has taken no anticoagulant or antiplatelet agents. After reviewing the risks and benefits, the patient was deemed in satisfactory condition to undergo the procedure. The anesthesia plan was to use monitored anesthesia care (MAC). Immediately prior to administration of medications, the patient was re-assessed for adequacy to receive sedatives. The heart rate, respiratory rate, oxygen saturations, blood pressure, adequacy of pulmonary ventilation, and response to care were monitored throughout the procedure. The physical status of the patient was re-assessed after the procedure. After obtaining informed consent, the endoscope was passed under direct vision. Throughout the procedure, the patient's blood pressure, pulse, and oxygen saturations were monitored continuously. The gastroscope was introduced through the mouth, and advanced to the second part of duodenum. The upper GI endoscopy was accomplished with ease. The patient tolerated the procedure well. Scope In: 10:33:59 AM Scope Out: 10:40:06 AM Total Procedure Duration Time 0 hours 6 minutes 7 seconds Findings: Small (< 5 mm) varices were found in the lower third of the esophagus. They were 5 mm in largest diameter. Moderate portal hypertensive gastropathy was found in the stomach. Multiple 9 mm sessile polyps with no bleeding and no stigmata of recent bleeding were found in the entire examined stomach. Biopsies were taken with a cold forceps for histology. Verification of patient identification for the specimen was done. Estimated blood loss was minimal. The first portion of the duodenum was normal. Impression: - Small (< 5 mm) esophageal varices. - Portal hypertensive gastropathy. - Multiple gastric polyps. Biopsied. - Normal first portion of the duodenum. Recommendation: - Discharge patient to home. - Resume previous diet. - Continue present medications. - Await pathology results. - Repeat upper endoscopy in 1 year for surveillance. Procedure Code(s): --- Professional --- 42821, Esophagogastroduodenoscopy, flexible, transoral; with biopsy, single or multiple CPT copyright 2021 [employer]. All rights reserved. The codes documented in this report are preliminary and upon ship manager review may be revised to meet current compliance requirements. Hernesto Ponce DO 10/03/2023 10:50:56 AM This report has been signed electronically. Number of Addenda: 0 Note Initiated On: 10/03/2023 10:24 AM
[2023-10-03 11:01] VITALS: BP 105/61; BP 159/93; PULSE 80; RESP 16; TEMP 36.7; O2SAT 92
[2023-10-03 11:15] VITALS: BP 159/93
== END 2023-10-03 11:25 | disposition home or self-care (01) ==
LOC: EN 08:19 → AC 08:20
PROVIDERS: PCP Internal Medicine; Referring Provider Internal Medicine; Visit Provider Internal Medicine Gastroenterology
PROC: 0DJ08ZZ Inspection of Upper Intestinal Tract, Via Natural or Artificial Opening Endoscopic (ICD-10-PCS; CPT 43235; principal; 2023-10-03 09:25)
DX: K76.6 Portal hypertension (principal); K76.82 Hepatic encephalopathy; I85.00 Esophageal varices without bleeding; K83.09 Other cholangitis; K74.3 Primary biliary cirrhosis; E11.9 Type 2 diabetes mellitus without complications; E78.5 Hyperlipidemia, unspecified; K31.7 Polyp of stomach and duodenum; K31.89 Other diseases of stomach and duodenum; Z87.891 Personal history of nicotine dependence; I25.10 Atherosclerotic heart disease of native coronary artery without angina pectoris; Z79.02 Long term (current) use of antithrombotics/antiplatelets; Z79.82 Long term (current) use of aspirin; Z79.899 Other long term (current) drug therapy
CPT/HCPCS: 43239; 82962; 88305; 88312; 88341; 88342; J2405

== ENCOUNTER → 2023-10-17 | Outpatient (CLI) | payer MEDICARE, SELFPAY ==
[2023-10-17 16:00] LABS: Absolute Lymphocyte Count 1.58 X10^3/uL (0.83-4.51); Basophil# 0.08 X10^3/uL; Basophil% 1.3 % (0-1); Eosinophil# 0.19 X10^3/uL; Hematocrit 42.9 % (37-47); Hemoglobin 13.2 g/dL (12.0-15.0); Lymphocyte # 1.58 X10^3/ul (0.83-4.51); Lymphocyte % 24.8 % (19-41); Mean Corp Hgb Conc 30.8 g/dL (32-36); Mean Corpuscular Hgb 26.5 pg (27.0-32.0); Mean Platelet Vol. 8.9 fl (6.2-12.0); Monocyte% 7.9 % (0-10); NRBC Flagged by Analyzer 0 % (0-5); Neutrophil # 3.99 X10^3/uL (2.7-7.7); Neutrophil % 62.7 % (47-70); Platelet Count 219 K/mm3 (150-450); RBC Distribution Width CV 16.5 % (11.6-14.6); RBC Distribution Width SD 51.7 fl (35.1-43.9); Red Blood Count 4.99 M/mm3 (4.2-5.4); White Blood Count 6.4 K/mm3 (4.4-11.0)
[2023-10-17 16:17] LABS: International Normalized Ratio 1.1; Prothrombin Time (Protime)PT. 13.8 SECONDS (11.7-14.9)
[2023-10-17 16:26] LABS: AST(SGOT) 24 U/L (15-37); Alanine Aminotransfer ALT/SGPT 28 U/L (13-56); Albumin, Serum 4.1 g/dL (3.2-5.0); Alkaline Phosphatase 81 U/L (45-117); Anion Gap 8 (5-15); BUN 14 mg/dL (7-18); BUN/Creat Ratio 15.8 RATIO (10-20); Calcium,Total 10.1 mg/dL (8.5-10.1); Chloride 103 mmol/L (98-107); Cholesterol 175 mg/dL (200); Creatinine, Serum 0.89 mg/dL (0.55-1.02); EST Glomerular Filtration Rate 66 mL/min (>60); Est Glom Filt Rate - Afr Amer 80 mL/min (>60); Globulin 4.1 g/dL (2.2-4.2); Glucose 103 mg/dL (74-106); High Density Lipoprotein 50 mg/dL; Potassium 3.9 mmol/L (3.5-5.1); Protein, Total 8.2 g/dL (6.4-8.2); Sodium Level 137 mmol/L (136-145); T4 Free Direct 0.81 ng/dL (0.76-1.46); Thyroid Stim Hormone (TSH) 4.18 uIU/mL (0.358-3.74); Triglycerides 190 mg/dL; Very Low Density Lipoprotein 38 mg/dL (5-40)
[2023-10-17 16:26] LABS: Erythrocyte Sedimentation Rate 12 mm/hr (0-30)
[2023-10-17 16:40] LABS: CRP < 2.90 mg/L (0.0-3.0); LDH 201 U/L (84-246)
[2023-10-17 17:34] LABS: Microalbumin:Creatinine Ratio 121.8 mg/g CRE (<30 mg/g CRE)
== END | disposition home or self-care (01) ==
LOC: BIMLAB 12:01
PROVIDERS: Internal Medicine Gastroenterology; PCP Internal Medicine; Visit Provider Internal Medicine
DX: I10 Essential (primary) hypertension (principal); K74.60 Unspecified cirrhosis of liver; K74.3 Primary biliary cirrhosis; R25.1 Tremor, unspecified; E78.5 Hyperlipidemia, unspecified
CPT/HCPCS: 36415; 80053; 80061; 82043; 82105; 82140; 82570; 83615; 84439; 84443; 85025; 85610; 85652; 86140

== ENCOUNTER → 2023-12-06 | Outpatient (CLI) | payer MEDICARE, SELFPAY ==
--- NOTE | 2023-12-06 11:04 | MRI_ITS ---
STUDY: MRI BRAIN WITH AND WITHOUT CONTRAST REASON FOR EXAM: Female, 77 years old. DIZZINESS AND GIDDINESS TECHNIQUE: Standardized multiplanar fat and water weighted pulse sequences were obtained. IV 17ml clariscan was administered for the contrast portion of the examination. COMPARISON: None. FINDINGS: There is mild cerebral atrophy with widening of the extra-axial spaces and ventricular dilatation. There are a limited number of small white matter hyperintensities, distributed throughout the deep white matter tracts of the cerebral hemispheres, consistent with mild chronic white matter ischemic changes. There is no evidence for recent intracranial ischemia or other cause of cytotoxic edema on diffusion weighted imaging (DWI). Normal T2* images of the brain without demonstrated susceptibility artifact. There is no demonstrated hemosiderin stain. Normal bilateral basal ganglia. Normal thalami. There is no extra-axial fluid accumulation. Normal flow voids within the major intracranial circulation suggesting patency by spin echo criteria. Normal venous enhancement. There is no enhancing intra-axial or extra-axial abnormality. Normal sella turcica, pituitary gland, infundibular stalk, optic chiasm and hypothalamus. Normal tectal plate and pineal gland. There are chronic white matter ischemic changes of the kimo. The midbrain and medulla are otherwise normal. Normal cerebellum. Normal basal cisterns. Normal bilateral temporal bones. Normal bilateral internal auditory canals. No demonstrated orbital abnormality, within the constraints of a routine brain study. Mucosal thickening in the left max sinus consistent with chronic sinusitis. Normal calvarium and skull base. Normal visualized soft tissue structures. Normal visualized upper cervical spine. MRI/Brain W/WO Contrast IMPRESSION: Involutional changes of the brain, as described above. No acute infarct. Electronically Signed: Chapo Shultz MD at 10:17 EDT ,
[2023-12-06 11:35] LABS: CREATININE FINGERSTICK < 1.0 mg/dL (0.55-1.02); EGFR FINGERSTICK > 60.0000 mL/min (>60)
== END | disposition home or self-care (01) ==
PROVIDERS: PCP Internal Medicine; Referring Provider Psychiatry & Neurology Neurology; Visit Provider Psychiatry & Neurology Neurology
DX: R42 Dizziness and giddiness (principal)
CPT/HCPCS: 70553; A9581

== ENCOUNTER → 2024-01-26 | Outpatient (CLI) | payer MEDICARE, SELFPAY ==
--- NOTE | 2024-01-26 10:00 | RAD_ITS ---
STUDY: X-RAY - LEFT SHOULDER REASON FOR EXAM: Female, 78 years old. Pain, decreased range of motion TECHNIQUE: 4 view(s) of the shoulder. COMPARISON: None. FINDINGS: There is mild degenerative arthrosis of the glenohumeral articulation. There is degenerative arthrosis of the acromioclavicular joint without inferior osseous spur formation. Normal acromion. Normal humeral head and visualized proximal humerus. The soft tissue structures are unremarkable. Normal visualized pulmonary apex. RAD/Shoulder min 2 Views IMPRESSION: Age consistent arthrosis, no fracture or suspicious osseous lesion Electronically Signed: Ag Infante MD at 15:36 EDT ,
== END | disposition home or self-care (01) ==
LOC: RAD 09:56
PROVIDERS: PCP Internal Medicine; Referring Provider Internal Medicine; Visit Provider Internal Medicine
DX: M25.512 Pain in left shoulder (principal)
CPT/HCPCS: 73030

== ENCOUNTER → 2024-02-05 | Outpatient (CLI) | payer MEDICARE, SELFPAY ==
[2024-02-05 15:18] LABS: Absolute Lymphocyte Count 1.87 X10^3/uL (0.83-4.51); Absolute Neutrophil Count 4.4 X10^3/uL (2.0-7.7); Basophil# 0.12 X10^3/uL; Basophil% 1.7 % (0-1); Eosinophil# 0.15 X10^3/uL; Eosinophils% 2.1 % (0-5); Hematocrit 43.2 % (37-47); Hemoglobin 13.2 g/dL (12.0-15.0); Lymphocyte # 1.87 X10^3/ul (0.83-4.51); Lymphocyte % 25.9 % (19-41); Mean Corp Hgb Conc 30.6 g/dL (32-36); Mean Corpuscular Hgb 26.1 pg (27.0-32.0); Mean Corpuscular Volume 85.4 fL (81-99); Mean Platelet Vol. 9.1 fl (6.2-12.0); Monocyte# 0.67 X10^3/uL; Monocyte% 9.3 % (0-10); NRBC Flagged by Analyzer 0 % (0-5); Neutrophil # 4.39 X10^3/uL (2.7-7.7); Neutrophil % 60.6 % (47-70); Platelet Count 302 K/mm3 (150-450); RBC Distribution Width CV 14.9 % (11.6-14.6); Red Blood Count 5.06 M/mm3 (4.2-5.4); White Blood Count 7.2 K/mm3 (4.4-11.0)
[2024-02-05 15:23] LABS: International Normalized Ratio 1.1
[2024-02-05 15:34] LABS: ALB/GLOB Ratio 1.1 RATIO (0.9-2.4); AST(SGOT) 27 U/L (15-37); Alanine Aminotransfer ALT/SGPT 26 U/L (13-56); Albumin, Serum 4.4 g/dL (3.2-5.0); Alkaline Phosphatase 65 U/L (45-117); Anion Gap 8 (5-15); BUN 19 mg/dL (7-18); BUN/Creat Ratio 19.1 RATIO (10-20); Chloride 103 mmol/L (98-107); Creatinine, Serum 0.99 mg/dL (0.55-1.02); EST Glomerular Filtration Rate 58 mL/min (>60); Est Glom Filt Rate - Afr Amer 70 mL/min (>60); Globulin 3.9 g/dL (2.2-4.2); Glucose 106 mg/dL (74-106); Potassium 3.9 mmol/L (3.5-5.1); Protein, Total 8.3 g/dL (6.4-8.2); Sodium Level 136 mmol/L (136-145)
[2024-02-05 15:38] LABS: Hemoglobin A1c 5.7 % (3.8-5.6)
[2024-02-07 08:14] LABS: AFP, Tumor Marker 2.1 ng/mL (0.0-9.2)
== END | disposition home or self-care (01) ==
LOC: BIMLAB 14:11
PROVIDERS: PCP Internal Medicine; Referring Provider Internal Medicine Gastroenterology; Visit Provider Internal Medicine Gastroenterology
DX: K74.60 Unspecified cirrhosis of liver (principal); E11.69 Type 2 diabetes mellitus with other specified complication
CPT/HCPCS: 36415; 80053; 82105; 82140; 83036; 85025; 85610

== ENCOUNTER → 2024-02-15 | Outpatient (CLI) | payer MEDICARE, SELFPAY ==
--- NOTE | 2024-02-15 09:09 | US_ITS ---
INDICATION: cirrhosis EXAMINATION: Ultrasound US Abdomen Limited (quadrant) TECHNIQUE: Garcia scale and color doppler imaging was performed of the right upper quadrant. COMPARISON: FINDINGS: LIVER: There is coarse echotexture measuring 18.8 cm. No focal hepatic lesion. There is no free fluid. GALLBLADDER AND BILIARY TREE: Status post cholecystectomy. The proximal common bile duct measures 14.1 mm. PANCREAS: No focal abnormality is demonstrated in the pancreas. No pancreatic ductal dilatation. RIGHT KIDNEY: 10.8 x 4.3 x 4.8 cm the cortex is 10 mm. No hydronephrosis. No shadowing calculi. 1.8 cm cyst. US/Abdomen Limited IMPRESSION: Hepatomegaly with coarse echotexture. Status post cholecystectomy. Dilated common bile duct. Right renal cyst. Electronically Signed: Miguel Angel Tejada DO at 19:58 EDT ,
== END | disposition home or self-care (01) ==
LOC: US 09:09
PROVIDERS: PCP Internal Medicine; Referring Provider Internal Medicine Gastroenterology; Visit Provider Internal Medicine Gastroenterology
DX: K74.60 Unspecified cirrhosis of liver (principal)
CPT/HCPCS: 76705

== ENCOUNTER 2024-03-03 07:51 | Day surgery (SDC) | payer MEDICARE, SELFPAY ==
[2024-03-03] VITALS (8 sets, daily range): BP systolic 87–140; BP diastolic 58–83; PULSE 75–84; RESP 16–17; TEMP 36.7–37.2; O2SAT 92–98; BMI 27.7
--- OUTSIDE RECORDS SUMMARY | 2024-03-03 08:12 | XMS RPT_ITS | CCD ---
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 Name Role Phone SANJU, TOOMAS Unavailable Unavailable SANJU, TOOMAS Unavailable Unavailable TALAMPAS, NATHAN Unavailable Unavailable SANJU, TOOMAS Unavailable Unavailable SANJU, TOOMAS Unavailable Unavailable TALAMPAS, NATHAN Unavailable Unavailable ISAAC, KENISHA Unavailable Unavailable CHINA MYESHA Unavailable Unavailable POWER JOYCE Unavailable Unavailable RODNEY CARSON Unavailable Unavailable SANJU, TOOMAS Unavailable Unavailable SANJU, TOOMAS Unavailable Unavailable SANJU, TOOMAS Unavailable Unavailable MODESTAAS, NATHAN Unavailable Unavailable STANLEY SALMON Unavailable Unavailabl e STANLEY SALMON Unavailable Unavailabl e TALAMPEDMOND, NATHAN Unavailable Unavailable STANLEY SALMON (PAC) Unavailable Unavaila STANLEY Degroot (PAC) Unavailable Unavaila ble ASHLEY THOMAS (PA) Unavailable Unavailable ASHLEY THOMAS (PA) Unavailable Unavailable SANJU, TOOMAS S Unavailable Unavailable SANJU, TOOMAS S Unavailable Unavailable David Hampton MD Primary Care Provider David Hampton MD Primary Care Provider Allergies Allergy Classification Reported Allergen(s) Allergy Type Date of Onset Reaction(s) Facility (1 source) niacin Drug Allergy [facility] Repository (1 source) oxolinic acid Drug Allergy [facility] Repository (1 source) tiZANidine Drug Allergy [facility] Repository (4 sources) eptifibatide; Translations: [EPTIFIBATIDE] Drug Allergy 4 Other: See Comments [facility] Repository (4 sources) niacin; Translations: [NIACIN] Drug Allergy 4 Rash [facility] Repository (4 sources) tiZANidine; Translations: [TIZANIDINE] Drug Allergy 6 Rash [facility] Other [place] Repository Medications Completed/Discontinued Medications Medication Drug Class(es) Dates Sig (Normalized) Sig (Original) aspirin 81 mg delayed release oral tablet (3 sources) Platelet Aggregation Inhibitor, Nonsteroidal Anti-inflammator y Drug Start: 0 aspirin(ADULT LOW DOSE ASPIRIN 81 MG TAB, DELAYED RELEASE) atorvastatin 20 mg oral tablet (3 sources) HMG-CoA Reductase Inhibitor take 1 tablet by mouth once daily atorvastatin (LIPITOR) 20 mg tablet Take 20 mg by mouth once daily. 0 Active Comment on above: Take 20 mg by mouth once daily. cholecalciferol 0.125 mg oral capsule (3 sources) Vitamin D Start: 7 take 1 capsule by mouth once daily Cholecalciferol, Vitamin D3, 5,000 unit cap Take 1 capsule by mouth once daily. 0 01/18/2017 Active Comment on above: Take 1 capsule by [facility] once daily. Cinnamon Bark (3 sources) cinnamon bark (CINNAMON ORAL) Take by mouth. 0 Active Comment on above: Take by mouth. clopidogrel 75 mg oral tablet (3 sources) P2Y12 Platelet Inhibitor Start: 0 clopidogrel bisulfate(PLAVIX 75 MG TAB) Take one(1) tablet daily. 0 09/17/2009 Active Comment on above: Take one(1) tablet d aily. ergocalciferol 1.25 mg oral capsule (3 sources) Provitamin D2 Compound take 1 capsule by mouth every week ergocalciferol, vitamin D2, (VITAMIN D) 50,000 unit capsule Take 50,000 Units by mouth once each week. 0 Active Comment on above: Take 50,000 Units by mouth once each week. furosemide 40 mg oral tablet (3 sources) Loop Diuretic take 1 tablet by mouth twice daily furosemide (LASIX) 40 mg tablet Take 40 mg by mouth twice daily. 0 Active Comment on above: Take 40 mg by mouth twice daily. hydroCHLOROthiazide 25 mg oral tablet (6 sources) Thiazide Diuretic Start: 8 hydroCHLOROthiazide (HYDRODIURIL, ESIDRIX) 25 mg tablet every day 0 09/06/2017 Active Comment on above: every day lidocaine 0.04 mg/mg medicated patch (3 sources) Antiarrhythmic, Amide Local Anesthetic Start: 7 Lidocaine (ASPERCREME, LIDOCAINE,) 4 % ptmd Apply 1 application to affected area once daily. For 12 hours per day 0 01/18/2017 Active Comment on above: Apply 1 application to affected area once daily. For 12 hours per day metFORMIN hydrochloride 500 mg oral tablet (3 sources) Biguanide take 1 tablet by mouth once daily at breakfast metFORMIN (GLUCOPHAGE) 500 mg tablet Take 500 mg by mouth daily with breakfast. 0 Active Comment on above: Take 500 mg by mouth daily with breakfast. 24 hr metoprolol succinate 50 mg extended release oral tablet (3 sources) beta-Adrenergic Enio Start: 7 take 1 tablet by mouth once daily metoprolol succinate ER (TOPROL XL) 50 mg 24 hr tablet Indications: Essential hypertension Take 1 tablet by mouth once daily. 90 tablet 3 08/29/2016 Active Comment on above: [facility]. nitroglycerin 0.4 mg sublingual tablet (3 sources) Nitrate Vasodilator nitroglycerin sublingual (NITROSTAT) 0.4 mg SL tablet Dissolve 0.4 mg under the tongue every 5 minutes as needed. 0 Active Comment on above: Dissolve 0.4 mg unde r the tongue every 5 minutes as needed. omeprazole 40 mg delayed release oral capsule (3 sources) Proton Pump Inhibitor Start: 7 take 1 capsule by mouth once daily Omeprazole 40 mg capsule Indications: Gastroesophageal reflux disease, esophagitis presence not specified Take 1 capsule by mouth once daily. 90 capsule 3 01/18/2017 Active Comment on above: Take 1 capsule by [facility] once daily. Polyethylene Glycols (3 sources) POLYETHYLENE GLY COL 3350 (MIRALAX ORAL) Take by mouth. 0 Active Comment on above: Take by mouth. pravastatin sodium 20 mg oral tablet (3 sources) HMG-CoA Reductase Inhibitor take 1 tablet by mouth once daily pravastatin (PRAVACHOL) 20 mg tablet Take 20 mg by mouth once daily. 0 Active Comment on above: Take 20 mg by mouth once daily. sertraline 50 mg oral tablet (3 sources) Serotonin Reuptake Inhibitor take 1 tablet by mouth once daily sertraline (ZOLOFT) 50 mg tablet Take 50 mg by mouth once daily. 0 Active Comment on above: Take 50 mg by mouth once daily. TRUE METRIX GLUCOSE METER misc (3 sources) Start: 8 TRUE METRIX GLUCOSE METER misc as directed. 0 08/01/2017 Active Comment on above: as directed. Problems Active Problems Problem Classification Problem Date Documented Date Episodic/Chronic Coronary atherosclerosis and other heart disease (5 sources) Old myocardial infarction; Translations: [Atherosclerotic heart disease of [place] coronary artery without angina pectoris] Onset: 12-07-2016 06-14-2017 Chronic Deficiency and other anemia (1 source) Iron deficiency anemia secondary to blood loss (chronic); Translations: [IRON DEFIC ANEMIA SEC BLD LOSS CHRN] Onset: 12-07-2016 Chronic Diabetes mellitus without complication (4 sources) Type 2 diabetes mellitus without complications; Translations: [Type 2 diabetes mellitus] Onset: 12-07-2016 05-02-2021 Chronic Disorders of lipid metabolism (1 source) Hyperlipidemia, unspecified; Translations: [HYPERLIPIDEMIA UNSPECIFIED] Onset: 12-07-2016 Chronic Diverticulosis and diverticulitis (3 sources) Diverticulosis of colon; Translations: [Diverticulosis of large intestine without perforation or abscess without bleeding] Onset: 02-23-2006 02-23-2006 Chronic Esophageal disorders (7 sources) Gastro-esophageal reflux disease without esophagitis; Translations: [Mejia's esophagus] Onset: 01-16-2006 01-16-2006 Chronic Essential hypertension (4 sources) Essential (primary) hypertension; Translations: [Hypertensive disorder] Onset: 12-07-2016 10-29-2015 Chronic Hepatitis (6 sources) Nonalcoholic steatohepatitis (HAMM); Translations: [Nonalcoholic steatohepatitis] Onset: 08-30-2016 Chronic Mood disorders (3 sources) Depressive disorder; Translations: [Other specified depressive episodes] Onset: 12-23-2014 12-23-2014 Chronic Other acquired deformities (3 sources) Scoliosis, unspecified; Translations: [SCOLIOSIS UNSPECIFIED] Onset: 11-17-2016 Chronic Other liver diseases (2 sources) Primary biliary cholangitis; Translations: [Primary biliary cirrhosis] Chronic Other nutritional; endocrine; and metabolic disorders (3 sources) Simple obesity ; Translations: [Other obesity due to excess calories] Onset: 04-22-2015 04-22-2015 Chronic Spondylosis; intervertebral disc disorders; other back problems (9 sources) Intervertebral disc disorder of lumbar region with myelopathy; Translations: [Intervertebral disc disorders with myelopathy, lumbar region] Onset: 09-27-2009 09-27-2009 Chronic Unclassified (1 source) Other specified postprocedural states; Translations: [OTH SPECIFIED POSTPROCEDURAL STATES] Onset: 04-15-2017 Unclassified (1 source) Unknown / UNK(Unknown) Onset: 08-07-2017 Past or Other Problems Problem Classification Problem Date Documented Da te Episodic/Chronic Abdominal hernia (3 sources) Diaphragmatic hernia; Translations: [Diaphragmatic hernia without obstruction or gangrene] Onset: 05-10-2007 05-10-2007 Episodic Complications of surgical procedures or medical care (1 source) Infection following a procedure, initial encounter; Translations: [INFECTION FOLLOW PROC INITIAL ENC] Onset: 12-07-2016 Episodic Coronary atherosclerosis and other heart disease (1 source) Presence of coronary angioplasty implant and graft; Translations: [PRESENCE COR ANGPLSTY IMPLANTANDGRAFT] Onset: 12-07-2016 Episodic Fluid and electrolyte disorders (1 source) Hypokalemia; Translations: [HYPOKALEMIA] Onset: 12-07-2016 Episodic Hemorrhoids (3 sources) Internal hemorrhoids; Translations: [Other hemorrhoids] Onset: 02-23-2006 02-23-2006 Episodic Other DISPLAY TRIMMER infection and poliomyelitis (1 source) Extradural and subdural abscess, unspecified; Translations: [EXTRADURAL AND SUBDURAL ABSCESS UNS] Onset: 12-07-2016 Episodic Other connective tissue disease (3 sources) Pain in buttock; Translations: [Myalgia, other site] Onset: 08-26-2015 08-26-2015 Episodic Other fractures (3 sources) Compression fracture of lumbar spine; Translations: [Wedge compression fracture of unspecified lumbar vertebra, initial encounter for closed fracture] Onset: 12-30-2015 12-30-2015 Episodic Other lower respiratory disease (1 source) Hypoxemia; Translations: [HYPOXEMIA] Onset: 12-07-2016 Episodic Other nervous system disorders (1 source) Other acute postprocedural pain; Translations: [OTHER ACUTE POSTPROCEDURAL PAIN] Onset: 12-07-2016 Episodic Residual codes; unclassified (3 sources) History of operative procedure on lumbar spinal structure; Translations: [Other specified postprocedural states] Onset: 11-16-2016 11-16-2016 Episodic Screening or history of mental health and substance abuse (1 source) Personal history of nicotine dependence; Translations: [PERSONAL HISTORY OF NICOTINE DEPEND] Onset: 08-03-2017 Episodic Spondylosis; intervertebral disc disorders; other back problems (8 sources) Fusion of spine, thoracolumbar region; Translations: [Chronic low back pain] Onset: 08-27-2015 08-27-2015 Episodic Results Test Name Value Interpretation Reference Range Facility [facility] TIAARIANE Patten ([id number]) 1945 F NFR Date Time Provider Department 02/22/22 LIVER TXP COORDINATOR TXCTMN During your visit today, we recorded the following information about you: Marcie Lawler 02/22/2022 12:29 PM Signed Patient spoke to local physician Dr. Ponce, and it was decided not to do an evaluation at this time because her liver was trying to heal itself [phone]. Please don't call patient until after 12:00 Marcie Fabian RN 02/23/2022 11:32 AM Signed Noted. Referral closed. Josefina Fabian RN Allergies As of Date: 02/22/2022 Noted Allergy Reaction INTEGRILIN (EPTIFIBATIDE) 03/12/2014 14 - Other: See Comments Comments: Pt does not know reaction, info from cardiology stated pat allergic to it NIASPAN (NIACIN) 03/12/2014 2 - Rash ZANAFLEX (TIZANIDINE) 11/22/2015 2 - Rash Comments: Patient called and reported cannot take because caused a rash Date Reviewed: 01/08/2018 Reviewed by: Bridgette Powell Ma - Fully Assessed Reason for Visit: Future appointment [Other] Prescriptions as of 02/23/2022 - ergocalciferol, vitamin D2, (VITAMIN D) 50,000 unit capsule Take 50,000 Units by mouth once each week. - sertraline (ZOLOFT) 50 mg tablet Take 50 mg by mouth once daily. - cinnamon bark (CINNAMON ORAL) Take by mouth. - atorvastatin (LIPITOR) 20 mg tablet Take 20 mg by mouth once daily. - metFORMIN (GLUCOPHAGE) 500 mg tablet Take 500 mg by mouth daily with breakfast. - hydroCHLOROthiazide (HYDRODIURIL, ESIDRIX) 25 mg tablet every day - pravastatin (PRAVACHOL) 20 mg tablet Take 20 mg by mouth once daily. - hydroCHLOROthiazide (HYDRODIURIL, ESIDRIX) 25 mg tablet - TRUE METRIX GLUCOSE METER misc as directed. - UNILET SUPER THIN LANCETS 30 gauge misc Check blood glucose daily for type 2 DM - POLYETHYLENE GLYCOL 3350 (MIRALAX ORAL) Take by mouth. - furosemide (LASIX) 40 mg tablet Take 40 mg by mouth twice daily. - Omeprazole 40 mg capsule Take 1 capsule by mouth once daily. - Lidocaine (ASPERCREME, LIDOCAINE,) 4 % ptmd Apply 1 application to affected area once daily. For 12 hours per day - Cholecalciferol, Vitamin D3, 5,000 unit cap Take 1 capsule by mouth once daily. - Lancets lancets Test blood sugar(s) 2 times daily. Dx: Type 2 DM - Uncontrolled E11.65 Insulin: No - blood sugar diagnostic (BLOOD GLUCOSE TEST) test strip Test blood sugar(s) 2 times daily and as needed for symptoms of high or low sugars. Dx: Type 2 DM - Uncontrolled E11.65 Insulin: No - metoprolol succinate ER (TOPROL XL) 50 mg 24 hr tablet Take 1 tablet by mouth once daily. - nitroglycerin sublingual (NITROSTAT) 0.4 mg SL tablet Dissolve 0.4 mg under the tongue every 5 minutes as needed. - aspirin(ADULT LOW DOSE ASPIRIN 81 MG TAB, DELAYED RELEASE) - clopidogrel bisulfate(PLAVIX 75 MG TAB) Take one(1) tablet daily. Problem List As Of Date 02/22/2022 Noted Resolved EMJIA'S ULCER [K22.70] 01/16/2006 PAIN ABDOMEN( Generalized) [R10.84] 02/07/2006 12/04/2014 DIVERTICULOSIS COLON - NO HEMORRHAGE [K57.30] 02/23/2006 HEMORRHOIDS INTERNAL PROLAPSED [K64.8] 02/23/2006 GE REFLUX (GASTROESOPHAGEAL) [K21.9] 03/05/2006 HIATAL HERNIA [K44.9] 05/10/2007 Esophagitis, unspecified [K20.90] 09/04/2008 12/04/2014 Intervertebral Lumbar Disc Disorder with Myelop*09/27/2009 Depressive disorder, not elsewhere classified [*12/23/2014 Right-sided low back pain with right-sided scia*04/22/2015 10/28/2015 Non morbid obesity due to excess calories [E66.*04/22/2015 Osteoarthritis of spine with radiculopathy, lum*06/14/2015 Right buttock pain [M79.18] 08/26/2015 Chronic right-sided low back pain with right-si*08/27/2015 Type 2 diabetes mellitus (HCC) [E11.9] HTN (hypertension) [I10] Facet arthropathy, lumbar (HCC) [M47.816] 11/02/2015 Lumbar compression fracture (HCC) [S32.000A] 12/30/2015 Nonalcoholic steatohepatitis (HAMM) [K75.81] 08/30/2016 Fusion of spine of thoracolumbar region [M43.25]09/18/2016 Status post lumbar spine operation [Z98.890] 11/16/2016 Coronary artery disease involving hamilton gaines*06/14/2017 Encounter Status:[facility] ARIANE FAGAN ([id number]) 1945 F NFR Date Time Provider Department 12/19/21 JOSEFINA FABIAN TXCTMN During your visit today, we recorded the following information about you: Josefina Fabian RN 12/19/2021 9:22 PM Signed [facility] Referral for Liver Transplant This is a 76 year old female with HAMM/PBC liver disease referred for OLT evaluation by Coni Correa CNP. I spoke with Patient today and obtained all necessary information. Hepatology consult and labwork will be scheduled to start. Pt with low MELD score, HE and varices. Pt has had a previous liver transplant evaluation: No Pt has had COVID-19 vaccination: Yes Pt to bring COVID-19 vaccination card: No If pt has not had COVID-19 vaccination, pt was advised that it is a requirement at [facility] to be fully vaccinated to be listed for transplant: Not Applicable Patient instructed to review liver transplant information online at [email or web address] or paper information sent via FedEx and to have someone accompany them to appointments (explained current [facility] visitation policy regarding outpatient visits due to COVID 19). All questions answered. Contact information provided and advised to call our office with any questions/concerns or schedule changes. Will schedule next available hepatology consult. MELD Na: 7 Medical History: PAST MEDICAL HISTORY Diagnosis Date Anxiety Arthritis Atherosclerotic heart disease Back pain Mejia's esophagus CAD (coronary artery disease) Dr. Calles Depression Diaphragmatic hernia without mention of obstruction or gangrene Hiatal hernia Diverticulosis of colon (without mention of hemorrhage) Diverticulosis Diverticulosis of colon (without mention of hemorrhage) Esophageal varices (HCC) Esophagitis, unspecified Former smoker last in 2005 GERD (gastroesophageal reflux disease) Hepatic encephalopathy (HCC) Hiatal hernia HTN (hypertension) Hyperlipidemia Kidney stone Nonalcoholic steatohepatitis (HAMM) 08/30/2016 NSTEMI (non-ST elevated myocardial infarction) (HCC) 2005 Other specified gastritis without mention of hemorrhage 02/23/2006 PMH - PAST MEDICAL HISTORY OF OR 04/27/06 Primary biliary cirrhosis (HCC) SBO (small bowel obstruction) (HCC) Scoliosis Stented coronary artery 2005 Type 2 diabetes mellitus (HCC) Currently diet controlled Venous insufficiency BLE Vertigo Vitamin D deficiency Surgical History: PAST SURGICAL HISTORY Procedure Laterality Date APPENDECTOMY BACK SURGERY HX BIOPSY BREAST OPEN INCISIONAL Bx of breast, incisional COLONOSCOPY FLX DX W/COLLJ SPEC WHEN PFRMD 07/22/2002 Colonoscopy COLONOSCOPY FLX DX W/COLLJ SPEC WHEN PFRMD 02/23/2006 Diverticulosis,minimal of sigmoid COLONOSCOPY FLX DX W/COLLJ SPEC WHEN PFRMD 03/13/2014 EGD 07/22/2005 EGD BANDING 09/26/2021 EGD TRANSORAL BIOPSY SINGLE/MULTIPLE 02/23/2006 Gastritis/Esophagitis EGD TRANSORAL BIOPSY SINGLE/MULTIPLE 05/10/2007 HH,Barretts,PUD EGD TRANSORAL BIOPSY SINGLE/MULTIPLE 09/04/2008 HH,Esophagitis and PUD EGD TRANSORAL BIOPSY SINGLE/MULTIPLE 09/10/2009 HH, Esophagitis, Gastritis LAPAROSCOPIC CHOLECYSTECTOMY LAPAROSCOPY SURG CHOLECYSTECTOMY 08/14/2002 Cholecystectomy, lap LIG/TRNSXJ FLP TUBE ABDL/VAG APPR UNI/BI Tubal ligation LIGATE FALLOPIAN TUBE PAST SURGICAL HISTORY OF 05/07/1981 discs fused in neck RIGHT HEART CATHETERIZATION 04/06/2006 Cardiac cath, R heart STENT - CORONARY 2005 TRANSCATH STENT INIT VESSEL,PERCUT 04/06/2006 Transcath stent init vessel percut Last Weight: 192 Lbs Mobility aid: Wheelchair Cane Substance History: Smoking: Yes: Amount: 1PPD, # of years: 40, Last use: 2005 Cough: No Hoarseness: No ETOH: Yes: Last Drink: about 1 yr ago, Rehab: No Drugs: No I advised pt to abstain from alcohol and/or drug use: Yes Health Maintenance: Last Mammogram: 08/24/20 Last Pap: couple years Last Dental Exam: Mar 2021 Last Derm Visit: Winter 2020 Last Colonoscopy: Aug 2018 Last Endoscopy: 09/26/21 banding Medications: Med list obtained: Yes Beta Enio: Yes Current Outpatient Medications Medication Sig Dispense Refill ergocalciferol, vitamin D2, (VITAMIN D) 50,000 unit capsule Take 50,000 Units by mouth once each week. sertraline (ZOLOFT) 50 mg tablet Take 50 mg by mouth once daily. cinnamon bark (CINNAMON ORAL) Take by mouth. atorvastatin (LIPITOR) 20 mg tablet Take 20 mg by mouth once daily. metFORMIN (GLUCOPHAGE) 500 mg tablet Take 500 mg by mouth daily with breakfast. hydroCHLOROthiazide (HYDRODIURIL, ESIDRIX) 25 mg tablet every day pravastatin (PRAVACHOL) 20 mg tablet Take 20 mg by mouth once daily. hydroCHLOROthiazide (HYDRODIURIL, ESIDRIX) 25 mg tablet TRUE METRIX GLUCOSE METER misc as directed. 0 UNILET SUPER THIN LANCETS [facility] blood glucose daily (more content not included)... Normal [facility]o 10-27-2021 KAY[place] Telephone (TXCTMN) ARIANE FAGAN ([id number]) 1945 F NFR Date Time Provider Department 10/27/21 LIVER TXP COORDINATOR TXCTMN During your visit today, we recorded the following information about you: Marcie Lawler 10/27/2021 3:39 PM Signed LIVER TRANSPLANT REFERRAL Ariane Fagan [id number] Diagnosis: HAMM/PBC Date of diagnosis: 2016 MELD Na: 7 Referring MD: Coni Correa, RADIOLOGY CLERK Gastro MD: Friend COVID-19: Are you vaccinated for COVID19? yes MyCHART Is the patient signed up for MyChart? No If YES - send patient the OLT New Referral Message If NO - obtain their email address AND send [employer] sign up information: email address: [email or web address] How long does it take you to drive to [facility]? 1 1/2 half Who will accompany you to your transplant evaluation? Patient's and daughter Have you ever been evaluated for liver transplant? No If yes, where? N/A Status: N/A Outside Records Needed: Yes Where are outside records being requested from: [employer] Requested? Yes Full or Partial Evaluation? Full Do you have a potential living donor? Patient's children/grandchildren A nurse will call for medical intake, -who should she call?Patient -what phone number?[phone] Advise patient that the call may come from a restricted phone number for intake. Additional Comments: N/A Marcie Lawler Allergies As of Date: 10/27/2021 Noted Allergy Reaction INTEGRILIN (EPTIFIBATIDE) 03/12/2014 14 - Other: See Comments Comments: Pt does not know reaction, info from cardiology stated pat allergic to it NIASPAN (NIACIN) 03/12/2014 2 - Rash ZANAFLEX (TIZANIDINE) 11/22/2015 2 - Rash Comments: Patient called and reported cannot take because caused a rash Date Reviewed: 01/08/2018 Reviewed by: Bridgette Powell Ma - Fully Assessed Reason for Visit: Referral - Liver Txp [[id number]] Primary Visit Diagnosis:HAMM (nonalcoholic steatohepatitis) [K75.81] Other Visit Diagnosis:Primary biliary cirrhosis (HCC) [K74.3] Order(s):CONSULT TO TRANSPLANT CENTER [157525] Order #: [id number]: 1 Prescriptions as of 10/27/2021 - ergocalciferol, vitamin D2, (VITAMIN D) 50,000 unit capsule Take 50,000 Units by mouth once each week. - sertraline (ZOLOFT) 50 mg tablet Take 50 mg by mouth once daily. - cinnamon bark (CINNAMON ORAL) Take by mouth. - atorvastatin (LIPITOR) 20 mg tablet Take 20 mg by mouth once daily. - metFORMIN (GLUCOPHAGE) 500 mg tablet Take 500 mg by mouth daily with breakfast. - hydroCHLOROthiazide (HYDRODIURIL, ESIDRIX) 25 mg tablet every day - pravastatin (PRAVACHOL) 20 mg tablet Take 20 mg by mouth once daily. - hydroCHLOROthiazide (HYDRODIURIL, ESIDRIX) 25 mg tablet - TRUE METRIX GLUCOSE METER misc as directed. - UNILET SUPER THIN LANCETS 30 gauge misc Check blood glucose daily for type 2 DM - POLYETHYLENE GLYCOL 3350 (MIRALAX ORAL) Take by mouth. - furosemide (LASIX) 40 mg tablet Take 40 mg by mouth twice daily. - Omeprazole 40 mg capsule Take 1 capsule by mouth once daily. - Lidocaine (ASPERCREME, LIDOCAINE,) 4 % ptmd Apply 1 application to affected area once daily. For 12 hours per day - Cholecalciferol, Vitamin D3, 5,000 unit cap Take 1 capsule by mouth once daily. - Lancets lancets Test blood sugar(s) 2 times daily. Dx: Type 2 DM - Uncontrolled E11.65 Insulin: No - blood sugar diagnostic (BLOOD GLUCOSE TEST) test strip Test blood sugar(s) 2 times daily and as needed for symptoms of high or low sugars. Dx: Type 2 DM - Uncontrolled E11.65 Insulin: No - metoprolol succinate ER (TOPROL XL) 50 mg 24 hr tablet Take 1 tablet by mouth once daily. - nitroglycerin sublingual (NITROSTAT) 0.4 mg SL tablet Dissolve 0.4 mg under the tongue every 5 minutes as needed. - aspirin(ADULT LOW DOSE ASPIRIN 81 MG TAB, DELAYED RELEASE) - clopidogrel bisulfate(PLAVIX 75 MG TAB) Take one(1) tablet daily. Problem List As Of Date 10/27/2021 Noted Resolved MEJIA'S ULCER [K22.70] 01/16/2006 PAIN ABDOMEN( Generalized) [R10.84] 02/07/2006 12/04/2014 DIVERTICULOSIS COLON - NO HEMORRHAGE [K57.30] 02/23/2006 HEMORRHOIDS INTERNAL PROLAPSED [K64.8] 02/23/2006 GE REFLUX (GASTROESOPHAGEAL) [K21.9] 03/05/2006 HIATAL HERNIA [K44.9] 05/10/2007 Esophagitis, unspecified [K20.90] 09/04/2008 12/04/2014 Intervertebral Lumbar Disc Disorder with Myelop*09/27/2009 Depressive disorder, not elsewhere classified [*12/23/2014 Right-sided low back pain with right-sided scia*04/22/2015 10/28/2015 Non morbid obesity due to excess calories [E66.*04/22/2015 Osteoarthritis of spine with radiculopathy, lum*06/14/2015 Right buttock pain [M79.18] 08/26/2015 Chronic right-sided low back pain with right-si*08/27/2015 Type 2 diabetes mellitus (HCC) [E11.9] HTN (hypertension) [I10] Facet arthropathy, lumbar (HCC) [M47.816] 11/02/2015 Lumbar compression fracture (HCC) (more content not included)... Normal [facility] XR SCOLIOSIS 2V PA STAND/LAT on 01-08-2018 XR SCOLIOSIS 2V PA STAND/LAT * * *Final Report* * *DATE OF EXAM: Jan 08 2018 12:41PM HCX [id number] - XR SCOLIOSIS 2V PA STAND/LAT / REASON: other form of scoliosis of lumber spine * * * * Physician Interpretation * * * *RESULT: SCOLIOSIS STUDY, 11 VIEWSHISTORY: Postop follow-upTECHNIQUE: Multiple AP and lateral view of the thoracolumbar spine.Comparison spine x-rays 10/09/2017RESULT:Intact posterior fixation hardware is seen at T10 through the SI joints, stable compared to prior. There are lucencies adjacent to the T10 pedicle screws. Interbody devices remain in place at L2/3 through L5/S1. Note is again made height loss at the T9 and T10 vertebral bodies with T10 pedicle screws approximating the T9/T10 disc space and contacting the inferior aspect of T9. There is kyphosis at this level similar to prior. Moderate T12 compression fracture similar to prior. Mild retrolisthesis of T12 on L1 and mild anterolisthesis of L2 on L3 and L4 and L5.IMPRESSION:1. Intact posterior fixation hardware with lucency adjacent to the T10 pedicle screws that can be correlated with loosening.2. Compression fractures at T9 and T10 again seen with T10 pedicle screws approximating the T9/T10 disc space and contacting the inferior aspect of T9. Kyphosis again noted at this level.Transcribed Using Voice RecognitionTranscribe Date/Time: Jan 08 2018 1:11PDictated by: Faustino ALTMAN examination was interpreted and the report reviewed and electronically signed by: MARCIN OLIVARES MD on Jan 08 2018 1:40PM [id number] [facility] XR SCOLIOSIS 2V PA STAND/LAT on 10-09-2017 XR SCOLIOSIS 2V PA STAND/LAT * * *Final Report* * *DATE OF EXAM: Oct 09 2017 1:04PM HMX [id number] - XR SCOLIOSIS 2V PA STAND/LAT / REASON: S/P FUSION * * * * Physician Interpretation * * * *RESULT: SCOLIOSIS STUDY, 6 VIEWSHISTORY: Status post fusionTECHNIQUE: AP view of thoracic, lumbar, and thoracolumbar spine as well as lateral views of thoracic, lumbar, and thoracolumbar spine.Comparison scoliosis x-rays 08/07/2017RESULT:Stable and intact posterior fixation hardware is seen at T10 through the SI joints. Multilevel interbody devices in the lumbar spine. T10 vertebral body height loss with approximation of pedicle screws at the T9/T10 disc space with associated kyphosis and endplate sclerotic changes are similar to prior. Stable mild T12 compression fracture. Vertebral body heights otherwise maintained. Minor anterolisthesis of L2 on L3 again seen.IMPRESSION:Postoperati ve and degenerative changes.Persisting kyphosis at the T9/10 level with associated degenerative changes and endplate approximation of the pedicle screwsTranscribed Using Voice RecognitionTranscribe Date/Time: Oct 09 2017 2:27PDictated by: Faustino ALTMAN examination was interpreted and the report reviewed and electronically signed by: MARCIN OLIVARES MD on Oct 09 2017 2:29PM [id number] [facility] XR SCOLIOSIS 2V PA STAND/LAT on 08-07-2017 XR SCOLIOSIS 2V PA STAND/LAT * * *Final Report* * *DATE OF EXAM: Aug 07 2017 1:31PM HMX [id number] - XR SCOLIOSIS 2V PA STAND/LAT / REASON: fusion of thoracolumbar spine * * * * Physician Interpretation * * * *RESULT: SCOLIOSIS RADIOGRAPHSHistory: fusion of thoracolumbar spineComparison: 01/09/2017Technique: AP and lateral thoracic and AP and lateral lumbar radiographs, four views. Six images.Result:Postoperative changes with posterior decompression and fusion hardware extending from T10 through the sacrum with bilateral pedicle screws and connecting rods. Interbody cage devices at L2-L3, L3-L4, L4-L5, and L5-S1. Loss of height of the T9 and T10 vertebral bodies with associated kyphosis and severe disc space narrowing. T10 pedicle screw tips overlie the T9-T10 disc interspace. Mild T12 compression deformity, similar to prior. Paraspinal soft tissues are unremarkable.IMPRESSION:Pos toperative changes and compression deformities similar to prior.Transcribed Using Voice RecognitionTranscribe Date/Time: Aug 07 2017 3:19PDictated by: XU LOPEZ MDThis examination was interpreted and the report reviewed and electronically signed by: XU LOPEZ MD on Aug 07 2017 3:21PM [id number] [facility] XR Spine Thoracolumbar Stand ingon 04-10-2017 XR Spine Thoracolumbar Standing THORACOLUMBAR SPINE:CLINICAL INDICATION: Status post spinal fusionTECHNIQUE: AP and lateral views of the thoracic and lumbar spine were obtained.Stitched together views were constructed.COMPARISON: 01/09/2017FINDINGS:There is an exaggerated thoracic kyphosis centered at T10. There is normallumbar lordosis. There is a posterior thoracolumbar spine fusion constructconsisting of paired rods, transpedicular screws, sacral screws, and iliacextenders extending from T10 to S1. There are associated laminectomy changes.There is anterior fusion with interbody cages at L2-L3 to L5-S1. There is stableappearance of anterior wedging deformities at T9, T10, T11, and T12, withprogression of the compression deformity at T10 since the prior exam. There ismild multilevel degenerative endplate spurring of the thoracic spine. Nospondylolisthesis.IMPRESS ION: Status post posterior thoracolumbar spine fusion from T10 to S1 withiliac wing extenders and anterior fusion at L2-L3 to L5-S1. Stable compressiondeformities at T9, T10, T11, and T12 since 01/09/2017.Report Dictated on Workstation: [id number] d by: Flavio Pickering: 04/11/2017 09:31Read by: Donna DELGADO: 04/11/2017 09:[address] [facility] XR Spine Thoracolumbar Stand ingon 01-09-2017 XR Spine Thoracolumbar Standing DORSOLUMBAR SPINEHISTORY: Spinal surgical fusion, follow-upCOMPARISON: 11/14/2016FINDINGS: Multiple frontal and lateral standing combined views dorsolumbar spineand coned-down views of the dorsolumbar and lumbosacral junctions were obtained.There is redemonstration of surgical spine fusion from T10 through S1 vertebraewith corresponding surgical janelle and interpedicular screws. There are alsosurgical screws across the bilateral sacroiliac joints, not significantlychanged from the prior exam. There appears to be bilateral bone graft materialalong the lumbar spine. There is redemonstration of anterior wedging compressionof T10, T11, T12. Mild compression of T9 vertebra is now apparent... There iscorresponding lower dorsal kyphosis. There is no significant lateral spinecurvature.There are mild degenerative spine changes. There is narrowing of partiallyvisualized C5-C6 and probably C6-7 disc spaces.IMPRESSION: Surgical fusion of the dorsolumbar spine.Anterior wedging compression of T10, T11, T12 vertebra, not significantlychanged. Mild anterior wedging of T9 vertebra is now apparent.. Lower dorsalkyphosis. No significant lateral scoliosis.Report Dictated on Workstation: [id number] d by: Iam Melvin: 01/10/2017 09:43Read by: JACKELIN MELVIN, MDDate: 01/10/2017 09:46 Normal [facility] XR Chest Mobile 1 viewon XR Chest Mobile 1 view XR Chest Mobile 1 view performed 11/17/2016 1:28 PMINDICATION: PelvicCOMPARISON: November 15, 2016FINDINGS:Left PICC tip is in the SVC. Cardiac size is within normal limits. Mediastinalcontours demonstrate no acute abnormality. Mild bibasilar atelectasis greater onthe right. No focal airspace consolidation. No pleural effusion or pneumothorax.Indeterminate lines/catheters project over the right chest, skin ernesto areseen in the midline.IMPRESSION:PICC tip in the SVC.Basilar atelectasis.Report Dictated on Workstation: [id number] d by: Curt PichardoOn: 11/17/2016 13:29Read by: CURT PICHARDO, MDDate: 11/17/2016 13:32 Normal [facility] C-Reactive Proteinon 017 C reactive protein (CRP) 58.80 mg/L High <=2.99 [facility] Comment on above: Performed By: #### C RPR ####[facility] [place] [id number] Sed Rate - Westergrenon 11-04 Sed Rate 48 mm/hr High 0-20 [facility] Comment on above: Performed By: #### E SR ####[facility] [place] [id number] Lumbar wo contraston 11-04 CT Lumbar wo contrast Clinical: 70-year-old female patient on 3 W. with history of spinal surgery inMay 2017. Patient has right-sided back pain and the incision is seeping. Thereis right leg pain.CT scan of the lumbar spine, 11/15/2016.1 mm axial scans reconstructed with sharp algorithm and 3 mm axial scansreconstructed with soft tissue algorithm and 2 mm sagittal coronal reformattedimages are viewed. The axial scans are taken from the lower portion of T11 downthrough to lower sacrum.There is a mild left convex lumbar scoliosis at L3-4. The lumbar lordosis ismaintained. There is mild anterolisthesis at L4-5, displacement about 4 to 5 mm.Osteoporosis is evident. There is compression fracture of the upper endplate ofT12 with posterior protrusion of the upper posterior corner. There is minimalbuckling of L3 vertebral body and slight buckling of the upper endplate of L4.Small bony fragments are seen immediately medial to the left L3 and L4 pedicles.Multiple bony chips posteriorly for posterior fusion are noted.There is evidence of laminectomy from L2-3 level down through to L5-S1. There isabnormal tissue density interspersed with air pockets overlying the posteriorelements of the thoracolumbar spine and overlying the laminectomy defect alongthe length of the lumbar spine, the air pockets suggesting the likelihood ofinfection and abscess collection. There is continuation of this collectionoverlying the laminectomy defect through the muscular fascia posteriorly to thesubcutaneous location at about L2-3 level, with superior and inferior extensionof the subcutaneous involvement along the length of the thoracolumbar spine.IMPRESSION:1. Pedicle screws and rods along the length of the thoracolumbar spine down tothe upper sacrum.2. Extensive laminectomy from the mid lumbar spine down to the lumbosacrallevel.3. Slight buckling of L3 and L4 vertebral bodies anteriorly. Small bony fragmentseen medial to the left L3 and L4 pedicles. Osteoporosis. Compression of theupper endplate of T12 with posterior protrusion of the upper posterior corner ofT12.4. Mild anterolisthesis at L4-5.5. Multiple air pockets in the abnormal soft tissue collection overlying theposterior aspect of the thoracolumbar spine and with subcutaneous extension,suspect this is abscess.Report Dictated on Workstation: [id number] by: Derrick Luong: 11/15/2016 19:51Read by: AYLIN LUONG, MDDate: 11/15/2016 19:[address] [facility] CT Thoracic Spine wo contras ton 11-15-2016 CT Thoracic Spine wo contrast Clinical: 70-year-old female patient on 3 W. with history of thoracolumbar spinefusion surgery in September 2013 has seeping incision and patient has back pain on theright side and right leg pain.CT scan of the thoracic spine, 11/15/2016.1 mm axial scans reconstructed with sharp algorithm and 3 mm axial scansreconstructed with soft tissue algorithm and sagittal and coronal reformattedimages are viewed. The axial scans are taken from upper C7 level down through toL1-L2 level.No significant lateral curvatures are seen. There is a slightly prominent lowerthoracic kyphosis.There are pedicle screws and rods, and the pedicle screws are seen from T10 downthrough to the lowest limit of images to L2.The pedicle screws through T10 protrudes into the upper endplate of T10 into thedisc space anteriorly, and there is slight loss of height of T10 vertebral bodya small fracture fragment in the region. There is slight loss of height also ofT12 vertebral body and minimal loss of height of T11, greater is also a smallanterior fracture fragment off the endplate.There is posterior protrusion of the upper posterior corner of T12 and loss ofheight of T12 is about 20-30%.In the soft tissues posteriorly multiple air pockets are seen overlying theposterior elements in the area of surgery, since the surgery was done in September2016, the persistence of air pockets would raise concern for possibility ofinfection and abscess and this therefore requires clinical correlation. 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 There aremultiple small emphysematous blebs at the lung apices bilaterally. Features ofairway disease and bronchial wall thickening are noted. Minor linear atelectasesare seen at the right lung base posteriorly and posteromedially, no confluentinfiltration or consolidation is seen.IMPRESSION:1. Orthopedic hardware from T10 down through to the lumbar spine, lowest imagesthrough the upper endplate of L2.2. Loss of height of thoracic vertebral bodies, at T10, T11, and T12, maximumloss of height of T12 about 20-30%.3. Posterior protrusion of the upper posterior corner of T12.4. Multiple air pockets interspersed in the soft tissue fullness posteriorlyalong the length of the lower thoracic and thoracolumbar spine, from T9-L82xpkwv caudad. Infection and abscess because of the air pockets suggested as alikely possibility.Report Dictated on Workstation: [id number] by: Derrick Luong: 11/15/2016 17:50Read by: Donna KOHLI: 11/15/2016 17:[address] [facility] MRI Lumbar Spine wo contrast on 11-15-2016 MRI Lumbar Spine wo contrast Clinical: 70-year-old female patient with history of surgery on thethoracolumbar spine in September 2016. The incision posteriorly seeping. There is painin the back on the right and right leg pain. Clinical concern is that ofhematoma. MRI of the thoracic spine done earlier is suggested possibility ofabscess pocket.MRI of the lumbar spine, 11/15/2016.The examination was requested after the contrast-enhanced MRI of the thoracicspine was completed, and therefore this study is essentially a postcontrastexamination for all the sequences obtained.There is extensive orthopedic hardware along the entire length of the lumbarspine continuing from the thoracic spine, the lowest of the pedicle screws isthrough S1 and there are also screws in the iliac bone. A mild anterolisthesisat L4-5 shows a displacement about 4 to 5 mm. There is evidence of extensivelaminectomy posteriorly along the length of the lumbar spine, and therefore nosuggestion of any spinal stenosis, the spinal canal appears capacious. Lumbarlordosis is maintained, the orthopedic hardware in place.There is a large T1 hypointense and T2 hyperintense collection posteriorly inthe midline along the length of the thoracolumbar spine overlying thelaminectomy defects, interspersed by multiple signal void foci that likelyrepresent air bubbles. There is suggestion of continuation of this collectionposteriorly overlying the muscular fascia and into the subcutaneous location atabout L2-3 level, this well appreciated on the sagittal T1 scans whichessentially are postcontrast scans. On the axial images there is suggestion ofcontinuation of this collection overlying the muscular fascia to the skinsurface the seen well for instance at L1-L2 level. Myositis of the posteriorspinal muscles is evident.The collection overlying the laminectomy defect extends from the thoracolumbarlevel down to S1-S2 level. The subcutaneous collection also extends down to thelumbosacral level, larger component at L2-3.Given the history of surgery in September, the observation of air pockets interspersedthroughout the abnormal large fluid collection to suggest the likely possibilityof abscess collection. Nature of the fluid obtained from this region would bediagnostic.IMPRESSION:1. Limited visualization of the intraspinal anatomy because of the orthopedichardware, but a capacious spinal canal is evident following extensivelaminectomy. Minimal anterolisthesis at L4-5 is noted.2. Large collection with multiple signal void foci in the collection overlyingthe posterior portion of the spine along the laminectomy defects, withcommunication to a subcutaneous irregular collection at about L2-3 level.Likelihood of this representing an extensive phlegmon is suspected. Myositis ofthe posterior spinal muscles.Report Dictated on Workstation: [id number] by: Derrick Luong: 11/15/2016 19:37Read by: Donna KOHLI: 11/15/2016 19:[address] [facility] MRI Thoracic Spine w/wo cont ann 11-15-2016 MRI Thoracic Spine w/wo contrast Clinical: 70-year-old female patient 3 W. Clinical impression is of hematomapostop. History of surgery on the thoracolumbar spine after compressionfracture. There is worsening pain and drainage at the surgical site.MRI of the thoracic spine, pre and postcontrast scans, 11/15/2016.For contrast enhancement 20 mL of MultiHance are injected IV.Sagittal T1, T2, and STIR sequences are obtained. Axial T1 and T2 sequences areobtained, the axial scans are taken from C7-T1 level down through to lower Z8anxci. Postcontrast sagittal and axial T1-weighted images are obtained.The presence of orthopedic hardware, pedicle screws and rods in the posterioraspect along the length of the lower thoracic and throughout lumbar spinecontributes significant susceptibility artifacts. Loss of height of severallower thoracic vertebral bodies, T10, T11 and T12 is noted, in to betteradvantage on the CT scans done this day. Posterior protrusion of the upperposterior corner of T12 is evident.In the soft tissues posteriorly detail is significantly compromised by theartifacts attendant to the orthopedic hardware. There is however identified W1pqhtunksbll and T2 hyperintense collection posteriorly from T10-11 level downthrough to the lowest level seen on the scans which is lower L1, and gradientcollection is largest. Contrast-enhanced scans show enhancement along the wallof this collection, and although clinical impression is that of a postophematoma, abscess certainly cannot be excluded, and the diagnosis of which issupported further by the observation of air pockets in the soft tissues on theCT scan, a couple of months following the surgery.The visualized cord shows no obvious lesion or enhancement in the mid and upperthoracic spine, the cord and lower thoracic spine cannot be satisfactorilyassessed, because of the artifact from metallic hardware.IMPRESSION:1. Postsurgical changes in the lower thoracic and thoracolumbar region. Limitedvisualization of the lower thoracic cord.2. Abnormal collection in the soft tissues posteriorly overlying thethoracolumbar spine, likelihood of subcutaneous abscess extending to the skinincision in the midline posteriorly is suggested.Report Dictated on Workstation: [id number] by: Derrick Luong: 11/15/2016 18:18Read by: PALMA KOHLIate: 11/15/2016 18:[address] [facility] XR Chest Pa and Lateralon XR Chest Pa and Lateral Clinical: 70-year-old female patient on 3 W. History of back surgery on09/14/2016. History of a stent 11 years ago. Preop chest.Chest, PA and lateral, 11/15/2016.There is orthopedic hardware, pedicle screws and rods from T10 down through tothe lumbar spine. Multiple air pockets are seen in the soft tissues posterior tothe hardware at the thoracolumbar level. There is a slightly prominent lowerthoracic kyphosis and slight wedging of T10 and T12 vertebral bodies is noted.Osteoporosis is evident.Diaphragms are slightly high, crowding markings at the bases. Mild interstitialprominence is seen throughout the lungs. No confluent infiltration orconsolidation is seen. There is no indication for cardiac failure. The heart isnot enlarged.IMPRESSION:1. Air pockets in the soft tissues posterior to the orthopedic hardware in thethoracolumbar spine.2. Interstitial prominence. Negative for confluent pneumonia negative forcardiac failure.Report Dictated on Workstation: [id number] by: Derrick Luong: 11/15/2016 19:57Read by: Donna KOHLI: 11/15/2016 19:[address] [facility] XR Spine Thoracolumbar Stand ingon 11-14-2016 XR Spine Thoracolumbar Standing Clinical: 70-year-old female patient with history of surgery on thethoracolumbar spine, patient is having pain with trouble walking and standingstraight.Thoracolum bar spine, 11/14/2016.AP lateral views of the thoracolumbar spine and additional cone-down AP andlateral views at the lumbosacral level and AP lateral views of the thoracolumbarlevel are obtained.There are pedicle screws and rods from T10 down through to S1, and there arelarge threaded screws from the rods across the SI joints and both sides. Nosignificant lateral curvatures of the thoracolumbar spine are seen. There ishowever a prominent kyphosis at T10-11. There is slight wedging of T10, T11 andT12 vertebral bodies.No significant change is appreciated when compared with the previous examinationof 10/31/2016.IMPRESSION:1. Pedicle screws and rods from T10 down through to S1, and screws across the SIjoints.2. No significant lateral curvatures. Slightly prominent lower thoracickyphosis.3. Stable status maintained compared with the previous study of 10/31/2016.Report Dictated on Workstation: [id number] d by: Ravindra Luongn: 11/14/2016 15:54Read by: AYLIN LUONG, MDDate: 11/14/2016 15:[address] [facility] Encounters Encounter Date Encounter Type Care Provider Facility Start: 02-22-2022 Telephone encounter Liver Txp Coordinator Work Phone: [facility] Comment on above: Future appointment Start: 12-19-2021 Telephone encounter Josefina Fabian RN [facility] Comment on above: Referral - Liver Txp (Intake) Start: 10-27-2021 Telephone encounter Liver Txp Coordinator Work Phone: [facility] Comment on above: Referral - Liver Txp Start: 01-08-2018 [facility] Start: 10-09-2017 End: 10-10-2017 Patient encounter ASHLEY SALDANA) [facility] Start: 08-07-2017 End: 08-08-2017 Patient encounter STANLEY SALMON (PAC) [facility] Start: 04-10-2017 End: 04-11-2017 Ambulatory STANLEY SALMON Facility:[facility] Start: 01-09-2017 End: 01-10-2017 Ambulatory SIRISHA BILLS Facility:[facility] Start: 11-15-2016 End: 11-22-2016 Evaluation and management of inpatient SIRISHA BILLS Facility:[facility] [place] Start: 11-14-2016 End: 11-15-2016 Ambulatory SIRISHA BILLS Facility:[facility] Procedures Date Procedure Procedure Detail Performing Clinician Start: 09-20-2018 Colonoscopy Liver Coor dinator Work Phone: Start: 04-05-2017 Mammography Liver Coor dinator Work Phone: Start: 11-17-2016 Insertion of Infusio n Device into Superior Vena Cava, Percutaneous Approach SIRISHA BILLS Start: 11-17-2016 Ultrasonography of S uperior Vena Cava, Guidance SIRISHA BILLS Start: 11-16-2016 Drainage of Spinal C anal, Open Approach SIRISHA BILLS Start: 11-16-2016 Reposition Lumbosacr al Joint with Internal Fixation Device, Open Approach SIRISHA BILLS Plan of Treatment Date Care Activity Detail Author Start: 09-21-2023 Colonoscopy COLONOSCOPY [facility] Start: 09-21-2023 COLORECTAL CANCER SCREENING COLORECTAL CANCER SCREENING [facility] Start: 04-13-2022 HEPATITIS A (3 of 3 - Hep A Twinrix risk 3-dose series) HEPATITIS A (3 of 3 - Hep A Twinrix risk 3-dose series) [facility] Start: 04-13-2022 HEPATITIS B (3 of 3 - Hep B Twinrix risk 3-dose series) HEPATITIS B (3 of 3 - Hep B Twinrix risk 3-dose series) [facility] Start: 01-05-2022 Influenza vaccination C [facility] Start: 01-02-2022 End: 03-04-2022 Basic metabolic 2000 panel - Serum or Plasma BASIC METABOLIC PNL Lab Routine Primary biliary cirrhosis (HCC) [facility] (nonalcoholic steatohepatitis) Expected: 01/02/2022, Expires: 03/04/2022 [facility] Work Phone: Comment on above: Expected: 01/02/2022 , Expires: 03/04/2022 Start: 01-02-2022 End: 03-04-2022 CBC W Auto Differential panel - Blood CBC + DIFF Lab STAT Primary biliary cirrhosis (HCC) HAMM (nonalcoholic steatohepatitis) Expected: 01/02/2022, Expires: 03/04/2022 [facility] Work Phone: Comment on above: Expected: 01/02/2022 , Expires: 03/04/2022 Start: 01-02-2022 End: 03-04-2022 Hepatic function 2000 panel - Serum or Plasma HEPATIC FUNCTION PNL Lab Routine Primary biliary cirrhosis (HCC) HAMM (nonalcoholic steatohepatitis) Expected: 01/02/2022, Expires: 03/04/2022 [facility] Work Phone: Comment on above: Expected: 01/02/2022 , Expires: 03/04/2022 Start: 01-02-2022 End: 03-04-2022 PT panel - Platelet poor plasma by Coagulation assay PROTHROMBIN TIME/PT Lab STAT Primary biliary cirrhosis (HCC) HAMM (nonalcoholic steatohepatitis) Expected: 01/02/2022, Expires: 03/04/2022 [facility] Work Phone: Comment on above: Expected: 01/02/2022 , Expires: 03/04/2022 Start: 08-01-2021 COVID-19 VACCINE (3 - Booster for Pfizer series) COVID-19 VACCINE (3 - Booster for Pfizer series) [facility] Start: 05-07-2021 ADVANCE DIRECTIVE DISCUSSION ADVANCE DIRECTIVE DISCUSSION [facility] Start: 04-28-2021 COVID-19 VACCINE (3 - Booster for Pfizer series) COVID-19 VACCINE (3 - Booster for Pfizer series) [facility] Start: 06-01-2019 SHINGRIX VACCINE (1 of 2) SHINGRIX VACCINE (1 of 2) [facility] Start: 08-14-2018 Urine microalbumin profile DTAP,TDAP,TD (2 - Td or Tdap) [facility] Start: 04-05-2018 Mammography MAMMOGRAM [facility] Start: 02-12-2018 3 comp foot exam completed DIABETIC FOOT EXAM [facility] Start: 01-24-2018 Hepatitis B surface antibody level LDL CHOLESTEROL [facility] Start: 10-23-2017 Hepatitis B screening URINE ALBUMIN:CREATININE RATIO [facility] Start: 07-24-2017 Hemoglobin A1c/Hemoglobin.total in Blood HBA1C [facility] Start: 12-10-1992 COLOGUARD (FIT-DNA) COLOGUARD (FIT-D NA) [facility] Start: 12-10-[address] COLONOGRAPHY [facility] Start: 12-10-1992 FECAL OCCULT BLOOD FECAL OCCULT BLOO D [facility] Start: 12-10-1992 SIGMOIDOSCOPY SIGMOIDOSCOPY [facility] Start: 12-10-1966 SHINGRIX VACCINE (1 of 2) SHINGRIX VACCINE (1 of 2) [facility] Start: 12-10-1965 ANNUAL PCP 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 DISEASE VISIT ANNUAL PCP TEAM CHRONIC DISEASE VISIT [facility] Start: 12-10-1965 BP CONTROLLED (<130/80) BP CONTROLLE D (<130/80) [facility] Start: 1959 Adult depression screening assessment DEPRESSION SCREENING [facility] Start: 12-10-1957 Hepatitis C antibody , confirmatory test DILATED RETINAL EXAM [facility] Start: 12-10-1952 COVID-19 VACCINE (#1) COVID-19 VACCI NE (#1) [facility] Immunizations Immunization Date Immunization Notes Care Provider Chester harrison 11-10-2021 hepatitis A and hepatitis B vaccine Josefina Fabian RN [facility] 11-10-2021 hepatitis B vaccine, unspecified formulation Liver Coordinator Work Phone: [facility] 10-12-2021 hepatitis A and hepatitis B vaccine Josefina Fabian RN [facility] 09-29-2021 pneumococcal conjuga te vaccine, 13 valent Josefina Fabian RN [facility] 02-23-2020 influenza, seasonal, injectable Josefina Fabian RN [facility] 02-23-2020 influenza, seasonal, injectable, preservative free Josefina Fabian RN [facility] 04-06-2019 zoster vaccine, live Josefina Fabian RN [facility] 02-26-2018 influenza, seasonal, injectable, preservative free Josefina Fabian RN [facility] 02-26-2018 pneumococcal polysaccharide vaccine, 23 valent Josefina Fabian RN [facility] 02-26-2018 pneumococcal vaccine , unspecified formulation Josefina Fabian RN [facility] 01-18-2017 influenza, high dose seasonal, preservative-free Liver Coordinator Work Phone: [facility] 09-20-2016 pneumococcal conjuga te vaccine, 13 valent Josefina Fabian RN [facility] 04-04-2016 influenza, high dose seasonal, preservative-free Liver Coordinator Work Phone: [facility] 03-30-2015 influenza, high dose seasonal, preservative-free Liver Coordinator Work Phone: [facility] 12-04-2014 pneumococcal conjuga te vaccine, 13 valent Liver Coordinator Work Phone: [facility] 12-04-2014 pneumococcal polysaccharide vaccine, 23 valent Josefina Fabian RN [facility] 12-25-2012 pneumococcal polysaccharide vaccine, 23 valent Liver Coordinator Work Phone: [facility] 08-14-2008 tetanus toxoid, redu carson diphtheria toxoid, and acellular pertussis vaccine, adsorbed Liver Coordinator Work Phone: [facility] Payers Date Payer Category Payer Medicare MEDICARE MEDICAR E A AND B [id number] 2012-Present [phone] [place] [address] Medicare [id number] 2012 Medicare MEDICARE MEDICAR E A AND B [id number] 2012-Present [phone] [place] [address] Medicare [id number] 2012 Private Health Insurance HUMANA HUMANA MEDICARE SUPPLEMENT [id number] 2012-Present [phone] [id number] [place] [id number] Indemnity [id number] 2012 Private Health Insurance HUMANA HUMANA MEDICARE SUPPLEMENT [id number] 2012-Present [phone] [place] [id number] Indemnity [id number] 1957 Medicare [id number] Social History Date Type Detail Facility Start: 06-14-2015 Tobacco smoking stat us NHIS Ex-smoker [facility] End: 04-27-2006 History of tobacco use Current smoker [facility] End: 04-27-2006 History of tobacco use Cigarette Smoker [facility] Start: 01-08-2018 End: 12-19-2021 Alcohol intake Current non-drinker of alcohol (finding) [facility] Start: 1945 Sex Assigned At Not on file C [facility] Start: 06-14-2015 Cigarettes smoked cu rrent (pack per day) - Reported 1.3 [facility] Start: 06-14-2015 Tobacco use and exposure Smoke less tobacco non-user [facility] Medical Equipment Procedure Code Equipment Code Equipment Original Text Equipment Identifier Dates Start: 12-06-2016 Comment on above: Test blood sugar(s) 2 times daily and as needed for symptoms of high or low sugars. Dx: Type 2 DM - Uncontrolled E11.65 Insulin: No Test blood sugar(s) 2 times daily. Dx: Type 2 DM - Uncontrolled E11.65 Insulin: No Check blood glucose daily for type 2 DM Note 02-23-2022 Telephone Encounter - Josefina Fabian RN - 02/23/2022 11:31 AM EDTTelephone Encounter - Marcie Lawler - 02/22/2022 12:27 PM EDT Note Date & Type Note Facility 02-23-2022 Miscellaneous Notes Formattin g of this note might be different from the original. Noted. Referral closed. Josefina Fabian RN Patient spoke to local physician Dr. Ponce, and it was decided not to do an evaluation at this time because her liver was trying to heal itself [phone]. Please don't call patient until after 12:00 Marcie Lawler documented in this encounter [facility] Note 12-19-2021 Telephone Encounter - Josefina Fabian RN - 12/19/2021 9:08 PM EDT Note Date & Type Note Facility 12-19-2021 Miscellaneous Notes Formattin g of this note is different from the original. [facility] Referral for Liver Transplant This is a 76 year old female with HAMM/PBC liver disease referred for OLT evaluation by Coni Correa CNP. I spoke with Patient today and obtained all necessary information. Hepatology consult and labwork will be scheduled to start. Pt with low MELD score, HE and varices. Pt has had a previous liver transplant evaluation: No Pt has had COVID-19 vaccination: Yes Pt to bring COVID-19 vaccination card: No If pt has not had COVID-19 vaccination, pt was advised that it is a requirement at [facility] to be fully vaccinated to be listed for transplant: Not Applicable Patient instructed to review liver transplant information online at [email or web address] or paper information sent via [employer] and to have someone accompany them to appointments (explained current [facility] visitation policy regarding outpatient visits due to COVID 19). All questions answered. Contact information provided and advised to call our office with any questions/concerns or schedule changes. Will schedule next available hepatology consult. MELD Na: 7 Medical History: PAST MEDICAL HISTORY Diagnosis Date Anxiety Arthritis Atherosclerotic heart disease Back pain Mejia's esophagus CAD (coronary artery disease) Dr. Calles Depression Diaphragmatic hernia without mention of obstruction or gangrene Hiatal hernia Diverticulosis of colon (without mention of hemorrhage) Diverticulosis Diverticulosis of colon (without mention of hemorrhage) Esophageal varices (HCC) Esophagitis, unspecified Former smoker last in 2005 GERD (gastroesophageal reflux disease) Hepatic encephalopathy (HCC) Hiatal hernia HTN (hypertension) Hyperlipidemia Kidney stone Nonalcoholic steatohepatitis (HAMM) 08/30/2016 NSTEMI (non-ST elevated myocardial infarction) (HCC) 2005 Other specified gastritis without mention of hemorrhage 02/23/2006 PMH - PAST MEDICAL HISTORY OF OR 04/27/06 Primary biliary cirrhosis (HCC) SBO (small bowel obstruction) (HCC) Scoliosis Stented coronary artery 2005 Type 2 diabetes mellitus (HCC) Currently diet controlled Venous insufficiency BLE Vertigo Vitamin D deficiency Surgical History: PAST SURGICAL HISTORY Procedure Laterality Date APPENDECTOMY BACK SURGERY HX BIOPSY BREAST OPEN INCISIONAL Bx of breast, incisional COLONOSCOPY FLX DX W/COLLJ SPEC WHEN PFRMD 07/22/2002 Colonoscopy COLONOSCOPY FLX DX W/COLLJ SPEC WHEN PFRMD 02/23/2006 Diverticulosis,minimal of sigmoid COLONOSCOPY FLX DX W/COLLJ SPEC WHEN PFRMD 03/13/2014 EGD 07/22/2005 EGD BANDING 09/26/2021 EGD TRANSORAL BIOPSY SINGLE/MULTIPLE 02/23/2006 Gastritis/Esophagitis EGD TRANSORAL BIOPSY SINGLE/MULTIPLE 05/10/2007 HH,Barretts,PUD EGD TRANSORAL BIOPSY SINGLE/MULTIPLE 09/04/2008 HH,Esophagitis and PUD EGD TRANSORAL BIOPSY SINGLE/MULTIPLE 09/10/2009 HH, Esophagitis, Gastritis LAPAROSCOPIC CHOLECYSTECTOMY LAPAROSCOPY SURG CHOLECYSTECTOMY 08/14/2002 Cholecystectomy, lap LIG/TRNSXJ FLP TUBE ABDL/VAG APPR UNI/BI Tubal ligation LIGATE FALLOPIAN TUBE PAST SURGICAL HISTORY OF 05/07/1981 discs fused in neck RIGHT HEART CATHETERIZATION 04/06/2006 Cardiac cath, R heart STENT - CORONARY 2005 TRANSCATH STENT INIT VESSEL,PERCUT 04/06/2006 Transcath stent init vessel percut Last Weight: 192 Lbs Mobility aid: Wheelchair Cane Substance History: Smoking: Yes: Amount: 1PPD, # of years: 40, Last use: 2005 Cough: No Hoarseness: No ETOH: Yes: Last Drink: about 1 yr ago, Rehab: No Drugs: No I advised pt to abstain from alcohol and/or drug use: Yes Health Maintenance: Last Mammogram: 08/24/20 Last Pap: couple years Last Dental Exam: Mar 2021 Last Derm Visit: Winter 2020 Last Colonoscopy: Aug 2018 Last Endoscopy: 09/26/21 banding Medications: Med list obtained: Yes Beta Enio: Yes Current Outpatient Medications Medication Sig Dispense Refill ergocalciferol, vitamin D2, (VITAMIN D) 50,000 unit capsule Take 50,000 Units by mouth once each week. sertraline (ZOLOFT) 50 mg tablet Take 50 mg by mouth once daily. cinnamon bark (CINNAMON ORAL) Take by mouth. atorvastatin (LIPITOR) 20 mg tablet Take 20 mg by mouth once daily. metFORMIN (GLUCOPHAGE) 500 mg tablet Take 500 mg by mouth daily with breakfast. hydroCHLOROthiazide (HYDRODIURIL, ESIDRIX) 25 mg tablet every day pravastatin (PRAVACHOL) 20 mg tablet Take 20 mg by mouth once daily. hydroCHLOROthiazide (HYDRODIURIL, ESIDRIX) 25 mg tablet TRUE METRIX GLUCOSE METER misc as directed. 0 UNILET SUPER THIN LANCETS 30 gauge misc Check blood glucose daily for type 2 DM 0 POLYETHYLENE GLYCOL 3350 (MIRALAX ORAL) Take by mouth. furosemide (LASIX) 40 mg tablet Take 40 mg by mouth twice daily. Omeprazole 40 mg capsule Take 1 capsule by mouth once daily. 90 capsule 3 Lidocaine (ASPERCREME, LIDOCAINE,) 4 % ptmd Apply 1 application to affected area once daily. For 12 hours per day Cholecalciferol, Vitamin D3, 5,000 unit cap Take 1 capsule by mouth once daily. Lancets lancets Test blood sugar(s) 2 times daily. Dx: Type 2 DM - Uncontrolled E11.65 Insulin: No 100 Each 11 blood sugar diagnostic (BLOOD GLUCOSE TEST) test strip Test blood sugar(s) 2 times daily and as needed for symptoms of high or low sugars. Dx: Type 2 DM - Uncontrolled E11.65 Insulin: No 100 Strip 11 metoprolol succinate ER (TOPROL XL) 50 mg 24 hr tablet Take 1 tablet by mouth once daily. 90 tablet 3 nitroglycerin sublingual (NITROSTAT) 0.4 mg SL tablet Dissolve 0.4 mg under the tongue every 5 minutes as needed. aspirin(ADULT LOW DOSE ASPIRIN 81 MG TAB, DELAYED RELEASE) 0 clopidogrel bisulfate(PLAVIX 75 MG TAB) Take one(1) tablet daily. 0 No current facility-administered medications for this visit. ALLERGIES Allergen Reactions Integrilin [Eptifib* Other: See Comments Pt does not know reaction, info from cardiology stated pat allergic to it Niaspan [Niacin] Rash Zanaflex [Tizanidin* Rash Patient called and reported cannot take because caused a rash Vaccination History (from previous 10 years - Hepatitis A and B, Tetanus, Zostivax, Flu, Pneumonia, etc.): Epic Josefina Fabian RN documented in this encounter [facility] Note 10-27-2021 Telephone Encounter - Marcie Oneillmatt - 10/27/2021 3:31 PM EDT Note Date & Type Note Facility 10-27-2021 Miscellaneous Notes LIVER TRANSPLANT REFERRAL Ariane Fagan [id number] Diagnosis: HAMM/PBC Date of diagnosis: 2016 MELD Na: 7 Referring MD: Coni Correa, RADIOLOGY CLERK Gastro MD: Friend COVID-19: Are you vaccinated for COVID19? yes MyCHART Is the patient signed up for MyChart? No If YES - send patient the OLT New Referral Message If NO - obtain their email address AND send mychart sign up information: email address: [email or web address] How long does it take you to drive to [facility]? 1 1/2 half Who will accompany you to your transplant evaluation? Patient's and daughter Have you ever been evaluated for liver transplant? No If yes, where? N/A Status: N/A Outside Records Needed: Yes Where are outside records being requested from: [employer] Requested? Yes Full or Partial Evaluation? Full Do you have a potential living donor? Patient's children/grandchildren A nurse will call for medical intake, -who should she call?Patient -what phone number?[phone] Advise patient that the call may come from a restricted phone number for intake. Additional Comments: N/A Marcie Lawler documented in this encounter [facility] History of Past illness Narrative 04-22-2015 Note Date & Type Note Facility 04-22-2015 History of Past i llness Narrative Problem Noted Date Resolved Date Right-sided low back pain with right-sided sciat ica 04/22/2015 10/28/2015 Esophagitis, unspecified 09/04/2008 015 PAIN ABDOMEN( Generalized) 02/07/200612/04 documented as of this encounter (statuses as of 10/27/2021) [facility] History of Past illness Narrative 04-22-2015 Note Date & Type Note Facility 04-22-2015 History of Past i llness Narrative Problem Noted Date Resolved Date Right-sided low back pain with right-sided sciat ica 04/22/2015 10/28/2015 Esophagitis, unspecified 09/04/2008 015 PAIN ABDOMEN( Generalized) 02/07/200612/04 documented as of this encounter (statuses as of 12/20/2021) [facility] History of Past illness Narrative 04-22-2015 Note Date & Type Note Facility 04-22-2015 History of Past i llness Narrative Problem Noted Date Resolved Date Right-sided low back pain with right-sided sciat ica 04/22/2015 10/28/2015 Esophagitis, unspecified 09/04/2008 015 PAIN ABDOMEN( Generalized) 02/07/200612/04 documented as of this encounter (statuses as of 02/23/2022) [facility] Evaluation note Note Date & Type Note Facility Evaluation note Diagnosis HAMM (nonalcoholic steatohepatitis)- Primary Other chronic nonalcoholic liver disease Primary biliary cirrhosis (HCC) Biliary cirrhosis documented in this encounter [facility] Evaluation note Note Date & Type Note Facility Evaluation note Diagnosis HAMM (nonalcoholic steatohepatitis)- Primary Other chronic nonalcoholic liver disease Primary biliary cirrhosis (HCC) Biliary cirrhosis documented in this encounter [facility] Summary Purpose Family History No Family History Records FoundNo Family History Records FoundNo Family History Records Found Advance Directives No Advanced Directives Records FoundDocuments on File Type Date Recorded Patient Group Program Manager Expl anation Advance Directive(s) 08/27/2015 4:24 PM Reason for Referral Specialty Diagnoses / Procedures Referred By Shaina denton Referred To Contact TRANSPLANT Diagnoses HAMM (nonalcoholic steatohepatitis) Primary biliary cirrhosis (HCC) Procedures CONSULT TO TRANSPLANT CENTER OFFICE/OUTPATIENT NEW HIGH MDM 60-74 MINUTES ECG ROUTINE ECG W/LEAST 12 LDS I&R ONLY ECHO TTHRC R-T 2D W/WOM-MODE COMPL SPEC&COLR D COLONOSCOPY W/BIOPSY SINGLE/MULTIPLE US ABDOMINAL REAL TIME W/IMAGE DOCUMENTATION ECHO TTHRC R-T 2D W/WO M-MODE COMPLETE REST&ST CYTP C/V AUTO THIN LYR PREPJ SCR MNL RESCR PHYS SCREENING MAMMOGRAM BILATERAL DXA BONE DENSITY STUDY 1/> SITES AXIAL SKEL OFFICE/OUTPATIENT NEW HIGH MDM 60-[address] ABDOMEN W & W/O CONTRAST CT ANGIOGRAPHY CHEST W/CONTRAST/NONCONTRAST MRI ABDOMEN W/O & W/CONTRAST MATERIAL COLLECTION VENOUS BLOOD VENIPUNCTURE Coni Correa [address] [address] [facility] [address] [address] Referral ID Status Reason Start Date Expiration Date Visits Requested Visits Authorized [id number] Outside PCP PCP Requested Referral Financial Clearance Required - [employer] 10/27/2021 10/27/2022 99 99 Specialty Diagnoses / Procedures Referred By Contac t Referred To Contact Diagnoses Primary biliary cirrhosis (HCC) HAMM (nonalcoholic steatohepatitis) Procedures CONSULT TO HEPATOLOGY OFFICE/OUTPATIENT NEW HIGH MDM 60-74 MINUTES Jorge Landrum MD [address] [place] [address] Referral ID Status Reason Start Date Expiration Date Visits Requested Visits Authorized [id number] Authorized PCP Requested Referral 01/02/2022 12/19/2022 1 1 Additional Source Comments INFORMATION SOURCE (unrecogn ized section and content) DATE CREATED AUTHOR 11/02/2017 [facility] DATE CREATED AUTHOR AUTHOR'S ORGANIZ ATION 01/14/2018 [facility] DATE CREATED AUTHOR AUTHOR'S ORGANIZ ATION 02/27/2022 [facility] Source Comments (unrecognize d section and content) In the event this informatio n is protected by the Federal Confidentiality of Alcohol and Drug Abuse Patient Records regulations: The Federal rules restrict any use of the information to criminally investigate or prosecute any alcohol or drug abuse patient.[facility] the event this information is protected by the Federal Confidentiality of Alcohol and Drug Abuse Patient Records regulations: The Federal rules restrict any use of the information to criminally investigate or prosecute any alcohol or drug abuse patient.[facility] the event this information is protected by the Federal Confidentiality of Alcohol and Drug Abuse Patient Records regulations: The Federal rules restrict any use of the information to criminally investigate or prosecute any alcohol or drug abuse patient.[facility] Reason for Visit (unrecogniz ed section and content) Reason Comments Referral - Liver Txp Reason Comments Referral - Liver Txp Intake Reason Comments Future appointment Care Teams (unrecognized sec tion and content) [employer] Machine Mechanic Relationship Specialty Start Date End Date David Hampton MD [address] [place] [address] PCP - General Internal Medicine 01/08/18 [employer] Relationship Specialty Start Date End Date David Hampton MD [address] [place] [address] PCP - General Internal Medicine 01/08/18 [employer] Machine Mechanic Relationship Specialty Start Date End Date David Hampton MD [address] [place] [address] PCP - General Internal Medicine 01/08/18 FOR RECORDS PERTAINING TO PATIENTS WHO ARE OR HAVE BEEN ENROLLED IN A CHEMICAL DEPENDENCY/SUBSTANCEABUSE PROGRAM, SOME INFORMATION MAY BE OMITTED. This clinical summary was aggregated from multiple sources. Caution should be exercised in using it in the provision of clinical care. This summary normalizes information from multiple sources, and as a consequence, information in this document may materially change the coding, format and clinical context of patient data. In addition, data may be omitted in some cases. CLINICAL DECISIONS SHOULD BE BASED ON THE PRIMARY CLINICAL RECORDS. [email or web address] provides no warranty or guarantee of the accuracy or completeness of information in this document.
[2024-03-03] MEDS: 0.9% Saline Lock 10 ML Syringe IV (08:18)
--- NOTE | 2024-03-03 08:34 | PCM.PRE.AN2 ---
ASA Classification* ASA Classification ASA Classification: 3 Assessment & Plan Anesthesia* Anesthesia Assessment Anesthesia Assessment: Discussed sedation and/or anesthesia options, risks, benefits, and alternatives with patient/parents/legal guardian/POA. Questions invited. The patient/parents/legal guardian/POA seems to understand and agrees to proceed with anesthesia plan. Reviewed the physical assessment, medical history, allergy history and patient home medications list prior to surgery/procedure/anesthetic and documented any changes. Performed airway and anesthesia risk assessments. Anesthesia Type Anesthesia Type: MAC Anesthesia Focused Assessment* Temperature: 98.5 F Pulse Rate: 81 Blood Pressure: 140/83 Respiratory Rate: 17 Pulse Ox: 98 Airway Assessment Mouth opens: >3 cm Mallampati Score: II Focused Labs Anesthesia Preop lab: CBC WBC 7.2 K/mm3 (4.4-11.0) 02/05/24 14:12 RBC 5.06 M/mm3 (4.2-5.4) 02/05/24 14:12 Hgb 13.2 g/dL (12.0-15.0) 02/05/24 14:12 Hct 43.2 % (37-47) 02/05/24 14:12 Plt Count 302 K/mm3 (150-450) 02/05/24 14:12 CHEMISTRY Potassium 3.9 mmol/L (3.5-5.1) 02/05/24 14:12 Sodium 136 mmol/L (136-145) 02/05/24 14:12 Magnesium 1.9 mg/dL (1.6-2.6) 08/23/18 07:30 Phosphorus 3.0 mg/dL (2.5-4.9) 08/19/18 05:02 BUN 19 mg/dL (7-18) H 02/05/24 14:12 Creatinine 0.99 mg/dL (0.55-1.02) 02/05/24 14:12 Glucose [facility] 163 mg/dL (70-110) H 07/16/23 10:03 Glucose 106 mg/dL (74-106) 02/05/24 14:12 POC Glucose 134 mg/dL (74-106) H 10/03/23 08:50 TSH 4.18 uIU/mL (0.358-3.74) H 10/17/23 12:02 COAG PT 14.0 SECONDS (11.7-14.9) 02/05/24 14:12 Pre-Assessment Diagnosis/Proposed Procedure Planned Operative Procedure(s): EGD Anesthesia History 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 When Was Last Pacemaker Check QUESTION #4 FULL TEXT: You/Your Family Experience fever (hyperthermia) with Anesthesia Last Oral Intake Last Oral intake: Last Oral Intake NPO since 00:00 03/03/24 08:19 Meds taken in AM with sips of No 03/03/24 08:19 water? 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 teacher librarian Female No 02/28/24 12:06 HX of Motion Sickness No 02/28/24 12:06 HX of N/V After Surgery No 02/28/24 12:06 Non-Smoker Yes 02/28/24 12:06 Duration of Surgery greater No 02/28/24 12:06 than 60 minutes Number of Risk Factors 1 02/28/24 12:06 PONV Score Low Risk 02/28/24 12:06 Height & Weight Height & Weight: Anesthesia: Height & Weight Height 5 ft 9 in 03/03/24 08:19 Weight: 85.3 kg 03/03/24 08:19 Body Mass Index (BMI) 27.7 03/03/24 08:19 Respiratory Assessment Respiratory Assessment - primary school teacher librarian: Respiratory Tract Infection Hx - primary school teacher librarian Hx Respiratory Tract Infection No 02/28/24 12:06 STOP Sleep Apnea STOP Sleep Apnea - primary school teacher librarian: STOP Sleep Apnea - primary school teacher librarian Hx Hypertension Yes: ON MEDS 02/28/24 12:06 Hx Sleep Apnea No 02/28/24 12:06 CPAP BIPAP Do you snore loudly (louder No 02/28/24 12:06 than talking or can be heard Do you often feel tired/ No 02/28/24 12:06 fatigued/ sleepy during daytime? Has anyone observed you stop No 02/28/24 12:06 breathing during sleep? STOP Results Negative 02/28/24 12:06 QUESTION #5 FULL TEXT : Do you snore loudly (louder than talking or can be heard through closed doors)? 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 Specify any problems Hx of Preganancy in last 3 No 02/28/24 12:06 Months Nurse Filling Out Transfusion [email or web address] 02/28/24 12:06 & Questions: Date: 02/28/24 02/28/24 12:06 Time: 12:08 02/28/24 12:06 Patient unable to answer at this time (ie. 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 History - primary school teacher librarian: /Reproductive Hx- primary school teacher librarian Hx Now Gestational Age (in weeks): EDC: Hx Hx Para Hx Section SAB No 02/13/24 13:09 Active Medications Active Medications: Current Medications Generic Name Dose Route Start Last Admin Trade Name Freq PRN Reason Stop Dose Admin Sodium Chloride 10 - 40 ml 03/03/24 08:04 03/03/24 08:18 0.9% Saline Lock 10 Ml Syringe IV 10 ml UD PRN Administration SALINE FLUSH PFSH Medical History Fatty liver Gastric reflux Hypertension Impingement of left shoulder Left shoulder pain Tremor Memory impairment Alcohol use History of steroid therapy Vertigo Easy bruising History of diverticulitis History of echocardiogram History of edema History of heart attack History of stress test Suprapubic discomfort Osteopenia SLE (systemic lupus erythematosus) Hypercalcemia Wears glasses Anxiety Diabetes Ambulates with cane Arthritis Back pain Syncope Mejia esophagus Cardiology follow-up encounter Primary biliary cholangitis Obesity (BMI 30.0-34.9) Kidney stones Former smoker Positive double stranded 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 Chronic constipation Elevated serum GGT level Health care maintenance Bunion of left foot Hyperhidrosis Anxiety and depression Chronic back pain Depression Colonic thickening Perforated appendicitis (08/18/18) Vitamin D deficiency Scoliosis Venous insufficiency of both lower extremities Type 2 diabetes mellitus HAMM (nonalcoholic steatohepatitis) Hiatal hernia Small bowel obstruction Essential (primary) hypertension Hx of non-ST elevation myocardial infarction (NSTEMI) (05/02/06) GERD (gastroesophageal reflux disease) Atherosclerotic heart disease of [place] coronary artery without angina pectoris Breast lump Hyperlipidemia Home Medications ?Medication ?Instructions ?Recorded ?Last Taken ?Type Handicap Placard #1 ea 03/11/21 Unknown Rx dulaglutide 3 mg/0.5 mL 3 mg (0.5 mL) subcut QWEEK 3 07/04/21 02/25/24 Rx subcutaneous pen injector months #6.5 mL cholecalciferol (vitamin D3) 125 125 mcg PO DAILY 01/26/23 03/02/24 History mcg (5,000 unit) capsule clopidogrel 75 mg tablet (Plavix) 75 mg PO QDAY #90 tabs 06/07/23 02/24/24 Rx meclizine 25 mg tablet 25 mg PO BID-TID PRN 06/07/23 03/02/24 Rx dizziness/vertigo #60 tabs nitroglycerin 0.4 mg sublingual 0.4 mg sublingual Q5M PRN Chest 06/07/23 Unknown Rx tablet Pain #30 tabs venlafaxine 150 mg 150 mg PO DAILY #90 caps 06/07/23 03/02/24 Rx capsule,extended release 24 hr blood-glucose meter (OneTouch #1 ea 06/14/23 Unknown Rx Verio Flex Start kit) blood sugar diagnostic (OneTouch #100 ea 06/15/23 Unknown Rx Verio test strips) lancets 28 gauge (Unilet Lancet) #100 ea 07/16/23 Unknown Rx fenofibrate 54 mg tablet 54 mg PO DAILY #90 tabs 10/17/23 03/02/24 Rx hydrochlorothiazide 25 mg tablet 12.5 mg (1/2 x 25 mg) PO QAM #60 10/17/23 03/02/24 Rx tabs pantoprazole 40 mg tablet,delayed 40 mg PO DAILY #90 tabs 01/02/24 03/02/24 Rx release Handicap Placard #1 ea 01/23/24 Unknown Rx calcium carbonate (Calcium 600) 600 mg PO QDAY 01/23/24 03/02/24 History ursodiol 250 mg tablet 250 mg PO QDAY 01/23/24 03/02/24 History cyanocobalamin (vitamin B-12) 1,000 mcg PO DAILY Low in vitamin B 01/24/24 03/02/24 History 1,000 mcg tablet (Vitamin B-12) polyethylene glycol 3350 17 17 g PO DAILY PRN Trouble with 01/24/24 03/02/24 History gram/dose oral powder (Miralax) bowels rosuvastatin 20 mg tablet 20 mg PO MOWEFR 01/24/24 Unknown History Allergy/AdvReac Type Severity Reaction Status Date / Time triamcinolone Allergy Intermediate Rash Verified 03/03/24 08:17 eptifibatide (From Allergy Rash Verified 03/03/24 08:17 Integrilin) niacin (From Niaspan Allergy Rash Verified 03/03/24 08:17 Extended-Release) tizanidine (From Zanaflex) Allergy Rash Verified 03/03/24 08:17 Family History Brother alcoholism Brother alcoholism Colon cancer Mother Arthritis Heart disease Hypertension High cholesterol Myocardial infarction Sister Myocardial infarction Hypertension High cholesterol Heart disease Sister Myocardial infarction Hypertension High cholesterol Heart disease Emphysema lung Sister Heart disease High cholesterol Hypertension Grandmother Rheumatoid arthritis Other Type 2 diabetes mellitus Surgical History History of esophagogastroduodenoscopy (EGD) History of heart surgery Stented coronary artery History of colonoscopy History of appendectomy (08/18/18) History of lumbar fusion History of liver biopsy History of tubal ligation History of cholecystectomy History of coronary artery stent placement (05/01/06) History of back surgery Social History Smoking Status: Former smoker how long ago did patient quit smokin years second hand exposure: No alcohol intake: never substance use type: does not use caffeine: Yes Type: coffee Number of servings: 2 and tea what type of physical activity do you participate in: walking and other details: [employer] frequency: daily duration: 15-30 minutes/day seatbelt use: always do you feel safe at home: Yes Review of Systems (Anesthesia) ROS Narrative System reviewed and no additional complaints, except as documented.
[2024-03-03 08:40] LABS: Bedside Glucose 118 mg/dL (74-106)
--- NOTE | 2024-03-03 08:41 | PCM.HP.BLA ---
History and Physical Date of Admission: 03/03/24 AWILDA WEBER, is a 78 F who presents to the office today for follow up. PMH DMII, chronic pain (Dr. De La Paz), History of Mejia?s esophagus that was resolved on last EGD; Lupus (Dr. Alexandre). Previous imaging: CT abd/pel 08.22.18 with hepatic steatosis. s/p cholecystectomy; moderate hiatal hernia; diverticulosis; surgical changes of cecum with residual thickening along cecum and TI. Previously seen fluid collections improved (appendicitis). *[facility] established 07.28.21 with referral for further workup of abnormal LFT with a history of fatty liver disease with liver biopsy 5years prior confirming. Constipation is also an issue with increased gas and associated pains, small and hard BM. Attempted MiraLAX, Activia yogurt, stool softeners and EX-Lax without effect. Biochemical workup CBC, haptoglobin, ESR, coagulation, ferritin, CRP, LUCINDA, AFP, copper, IgGAM, ANCA, hepatitis, HIV without pertinent abnormality GGT H273, ammonia H33, LDH H251, ceruloplasmin H40.2, LFT AST H162/ALT H132/AP 109, JENELLE Beta globulin H1.5 US RUQ and elastography .06.28 with hepatomegaly measuring 18.2cm with fatty infiltration stiffness measures 16kPa F3/4. MRCP 08.12.21 for elevated GGT with mild extra/intrahepatic biliary duct dilation; likely reservoir effect s/p cholecystectomy. Liver biopsy 08.17.21 noting macro vesicular steatosis and cirrhosis with parenchymal distortion and portal-portal bridging; chronic inflammation noted and confined to portal areas; no abnormal protein accumulation. Cirrhosis confirmed with reticulin and trichrome stains. OV 09.01.21 Start ursodiol and lactulose. EGD 09.26.21 noting Grade II esophageal varices, banded; large hiatal hernia; medium amount of food in stomach. No esophageal metaplasia. OV 6. 2-3 BM/day with use of lactulose with resolution of previously noted confusion/HE. OV 12.30.21 with continued resolution of confusion and sleep pattern. Start Xifaxan. OV 03.24.22 continues to be doing well without HE SE; Lactulose continues. OV 07.28.22 continues to be doing well without HE SE. Lactulose continues. PCP OV 01.12.23 with worsening GERD, continues PPI. OV 02.21. persistent RUQ abdominal pain; lactulose continues and bowels move regularly. ? US 03.08.23 hepatic measurement 17.5cm with fatty infiltration; s/p cholecystectomy; dilated CBD. ? EGD 03.22.23 small lower EV; large hiatal hernia; moderate portal HTN gastropathy; moderate GAVE; gastritis; multiple gastric polyps. No specimens OV 05.30.23 BM occur 1-2/day. Denies difficulty with sleep-wake cycle disturbance, balance difficulty, pruritis. EGD 10.03.23 Small (< 5 mm) esophageal varices. Portal hypertensive gastropathy. Multiple gastric polyps. Biopsied. Normal first portion of the duodenum. OV 6 Pt reports 1 loose bm per day; denies blood in the stool. Pt states that she has swollen ankles, dry itchy skin on her arms, and daily vertigo / tremors. Pt denies difficulty sleeping and confusion. Pt reports that Dr Hampton is referring her to a neurologist for her tremors and vertigo. Pt continues with Lactulose, Ursodiol, and Pantoprazole. OV 01.31.24 Pt reports that at the he switched her from Lactulose to Miralax which she reports is not working very well. Pt is having daily BM, but they are hard to pass; denies blood in the stool. Pt reports worsened HB and bloating with BM. Pt reports swelling in her ankles and continued brain fog. MELD? CP? plt/INR ? Ammonia? 11.10.21 7? A? 220/1.1 40? 03.24.22 6? A? 243/1??? 33? ESR, CRP, LDH WNL 08.03.23 8? A? 217/1.1 23? ESR, CRP, LDH WNL 10.31.23 6?A? 223/1??? 12 6.12.24 7 A 219/1.1 35.0 ESR, CRP, LDH WNL ROS Const Constitutional: Positive for fatigue, weakness and weight change (weight loss); No fever(s) ENT ENT: No difficulty swallowing Gastro GI: Positive for bloating, constipation, heartburn and excessive flatus; No abdominal pain, belching, change in bowel habits, change in stool character, coffee ground emesis, cramping, diarrhea, difficulty swallowing, feeling full early, incontinent of stools, Vomiting blood/hematemesis, Blood in stool, loose stools, Black,tarry stools, nausea/dyspepsia, pain with swallowing, vomiting or other Musc Musculoskeletal: Positive for abnormal gait, joint pain, back pain, joint swelling, muscle weakness, stiffness and Arthritis Skin Skin: Positive for dry skin and rash; No yellowing of the eye or itchy eyes Neuro Neurology: Positive for abnormal gait, weakness and tremor(s) Psych Psychiatric: No anxiety and No depression Endo Endocrine: Positive for fatigue and weight change (weight loss) Aller/Imm Allergy/Immunologic: No itchy eyes Vipul/Lymp Hematologic/Lymphatic: Positive for easy bruising; No easy bleeding Exam Const General: cooperative, comfortable and no acute distress Orientation: alert, awake and oriented x3 [facility]: normal to inspection, normocephalic and atraumatic Ears: hearing grossly normal bilaterally Neck Neck: normal visual inspection, full ROM and supple Neck mass: No Thyroid: thyroid normal Resp Effort & Inspection: normal respiratory effort and able to speak in complete sentences Auscultation: Bilateral: Clear to Auscultation Cardio Rate: regular rate Rhythm: regular rhythm Heart Sounds: S1 normal and S2 normal GI Palpation: soft (Nontender, no palpable organomegaly) Musc Musculoskeletal: Yes joint tenderness and decreased range of motion Neuro General: patient alert, patient awake, patient oriented x3, moves all extremities and CN's II-XI intact bilaterally Motor: tremor Extrem General: no clubbing, cyanosis or edema Psych Appearance: grossly normal Mental Status: mental status grossly normal Mood: congruent mood Affect: normal affect Assessment and Plan Assessment and Plan (1) Cirrhosis: Status: Chronic Qualifiers: Ascites presence: without ascites Hepatic cirrhosis type: unspecified hepatic cirrhosis Qualified Code(s): K74.60 - Unspecified cirrhosis of liver Plan: She is a child [place] class a with a meld of 7. She has not shown any signs of decompensation at this time including no encephalopathy, no ascites, no bleeding or jaundice. She is having approximately 3-4 bowel movements per day. She presents monitoring her sodium intake. At this time she is only taking about a gram of sodium a day. Patient has lost approximately 7 pounds. I do not recommend protein restriction to decrease hyperammonemia. This is because recent studies have shown that protein restriction can lead to worsening sarcopenia in a cirrhotic patient. Due to the fact that she is very stable at this time on the current regimen we will not make any other changes in her medication regimen. (2) Primary biliary cholangitis: Status: Chronic (3) Esophageal varices: Status: Chronic Qualifiers: Esophageal varices type: idiopathic Esophageal varices bleeding: without bleeding Qualified Code(s): I85.00 - Esophageal varices without bleeding Plan: She is still banding of esophageal varices. When she follows up in the office in approximately 3 months we will Discuss the further need for banding in the future. She is on beta-jose therapy we will continue that (4) Chronic constipation: Status: Chronic (5) Hepatic encephalopathy: Status: Chronic Plan: We will try to get Xifaxan 550 mg twice a day for her. She has thought about starting her on neomycin or vancomycin for the treatment of her hepatic encephalopathy but she is doing very well on lactulose therapy. Hopefully will be able to get Xifaxan for the sterilization of her GI tract. Orders: Orders AFP, Tumor Marker 01/31/24 K74.60 - Unspecified cirrhosis of liver Ammonia 01/31/24 K74.60 - Unspecified cirrhosis of liver Comprehensive Metabolic Profil 01/31/24 K74.60 - Unspecified cirrhosis of liver CBC W/Diff, Automated 01/31/24 K74.60 - Unspecified cirrhosis of liver Prothrombin Time w/INR 01/31/24 K74.60 - Unspecified cirrhosis of liver Abdomen Limited 01/31/24 K74.60 - Unspecified cirrhosis of liver I have examined the patient and the H&P has been reviewed. There are no clinical changes since date of exam.
--- NOTE | 2024-03-03 09:00 | IMM_PTH ---
PATHOLOGY RESULTS PATIENT: AWILDA WEBER LOC: EN U#:[id number] AGE/SX: 78/F ROOM: RE03/03/[address]: Dr. Hernesto Ponce DO : 1945 BED: DIS: 03/03/2024 SPEC #: [id number] RECD: 03/03/24 13:35 STATUS: CHANTEL REQ #: [id number] LUIS: 03/03/24 09:[address]: Hernesto Ponce DEPT: IMMUNOHISTOCHEMISTRY RECD BY: Jerman Ramírez ENTERED: 03/03/24 13:36 SP TYPE: IMMUNO OTHR DR: Dr. Mati Hampton MD Tissues: Gastric mucous membrane Procedures: H Pylori (initial) PHYSICIAN & INSTITUTION /[place] [id number] SPECIMEN INFORMATION: Tissue Source: Gastric ulcer biopsy Clinical Info: Cirrhosis, primary biliary cholangitis, esophageal varice, chronic constipation, hepatic encephalopathy Specimen Number: [id number] CPT code: 46277 METHODOLOGY: Deparaffinized sections of prefer/formalin-fixed tissue or PAP/DQ stained slides are incubated with monoclonal/polyclonal antibodies/oligonucleotide probes. Localization is made via biotin free immunoperoxidase method. Appropriate controls are performed and reacted as expected. Results on target cell population are indicated in the following table: RESULTS: ANTIBODY / CLONE RESULT H Pylori (polyclonal) negative These tests were developed and their performance characteristics determined by [facility]. They may not have been cleared or approved by the U.S. Food and Drug Administration. The FDA has determined that such clearance or approval is not necessary. The above immunohistochemical/dualISH markers are ordered and reviewed by the Pathologist. INTERPRETATION: Gastric ulcer, biopsy: Negative for Helicobacter pylori organisms. RADHA/ 03/04/2024
--- NOTE | 2024-03-03 09:00 | EGD_PTH ---
PATHOLOGY RESULTS PATIENT: AWILDA WEBER LOC: EN U#:[id number] AGE/SX: 78/F ROOM: RE03/03/[address]: Dr. Hernesto Ponce DO : 1945 BED: DIS: 03/03/2024 SPEC #: [id number] RECD: 03/03/24 12:06 STATUS: CHANTEL ERNIE #: [id number] LUIS: 03/03/24 09:[address]: Hernesto Ponce DEPT: SURGICAL PATHOLOGY RECD BY: Sean Richardson ENTERED: 03/03/24 12:50 SP TYPE: EGD BIOPSY QUINN DR: Dr. Mati Hampton MD Tissues: Gastric mucous membrane Procedures: Special Stain Group I Surgery Specimen Level IV Alcian Blue/PAS (control) HEADER OPERATION: EGD biopsy PRE-OP DIAGNOSIS: Cirrhosis, primary biliary cholangitis, esophageal varice, chronic constipation, hepatic encephalopathy TISSUE SUBMITTED: Gastric ulcer biopsy MICROSCOPIC DIAGNOSIS Gastric ulcer, biopsy: Mild gastritis. See microscopic description and comment. 03/04/2024 COMMENT The results of immunohistochemistry for Helicobacter pylori will be reported separately ([id number]). Alcian blue/PAS stain with matched control is used in the evaluation of the specimen. MICROSCOPIC DESCRIPTION Slides are reviewed. The specimen shows fragments of gastric mucosa with chronic inflammatory cell infiltrates in the lamina propria consisting of lymphocytes and plasma cells, consistent with mild chronic gastritis. Focal mucosal congestion, hemorrhage and focal intestinal metaplasia are also noted. GROSS DESCRIPTION Received in fixative is one container labeled with the patient's name and designated Gastric ulcer biopsy. The specimen consists of multiple irregular fragments of light carrillo soft tissue that in aggregate measure 1.0 x 0.3 x 0.1 cm. The specimen is totally submitted in one cassette. 03/03/2024 TC:3 CPT:01560,53427
--- NOTE | 2024-03-03 09:20 | OP.EGD_ITS ---
Patient Name: Ariane Fagan Procedure Date: 03/03/2024 9:03 AM Date of : 1945 Age: 78 Procedure: Upper GI endoscopy Indications: Iron deficiency anemia, Esophageal varices Providers: Hernesto Ponce DO Referring MD: Mati Hampton MD Medicines: Monitored Anesthesia Care Patient Profile: This is a 78 year old female. Refer to note in patient chart for documentation of history and physical. Patient has symptoms. Complications: No immediate complications. Procedure: Pre-Anesthesia Assessment: - Prior to the procedure, a History and Physical was performed, and patient medications and allergies were reviewed. The patient is competent. The risks and benefits of the procedure and the sedation options and risks were discussed with the patient. All questions were answered and informed consent was obtained. Patient identification and proposed procedure were verified in the pre-procedure area. Mental Status Examination: alert and oriented. Airway Examination: normal oropharyngeal airway and neck mobility. Respiratory Examination: clear to auscultation. CV Examination: normal. Prophylactic Antibiotics: The patient does not require prophylactic antibiotics. Prior Anticoagulants: The patient has taken no anticoagulant or antiplatelet agents except for NSAID medication. ASA Grade Assessment: II - A patient with mild systemic disease. After reviewing the risks and benefits, the patient was deemed in satisfactory condition to undergo the procedure. The anesthesia plan was to use monitored anesthesia care (MAC). Immediately prior to administration of medications, the patient was re-assessed for adequacy to receive sedatives. The heart rate, respiratory rate, oxygen saturations, blood pressure, adequacy of pulmonary ventilation, and response to care were monitored throughout the procedure. The physical status of the patient was re-assessed after the procedure. After obtaining informed consent, the endoscope was passed under direct vision. Throughout the procedure, the patient's blood pressure, pulse, and oxygen saturations were monitored continuously. The Endoscope was introduced through the mouth, and advanced to the second part of duodenum. The upper GI endoscopy was accomplished without difficulty. The patient tolerated the procedure well. Scope In: 9:12:55 AM Scope Out: 9:15:55 AM Total Procedure Duration Time 0 hours 3 minutes 0 seconds Findings: Grade I, small (< 5 mm) varices were found in the lower third of the esophagus. A medium-sized hiatal hernia was present. One non-bleeding linear gastric ulcer with no stigmata of bleeding was found in the gastric antrum. The lesion was 6 mm in largest dimension. Biopsies were taken with a cold forceps for histology. Verification of patient identification for the specimen was done. Estimated blood loss was minimal. Moderate portal hypertensive gastropathy was found in the entire examined stomach. Multiple hyperplastic polyps with no bleeding and no stigmata of recent bleeding were found in the gastric body. No gross lesions were noted in the first portion of the duodenum. Impression: - Grade I and small (< 5 mm) esophageal varices. - Medium-sized hiatal hernia. - Non-bleeding gastric ulcer with no stigmata of bleeding. Biopsied. - Portal hypertensive gastropathy. - Multiple gastric polyps. - No gross lesions in the first portion of the duodenum. Recommendation: - Discharge patient to home. - Resume previous diet. - Continue present medications. - Await pathology results. - Repeat upper endoscopy in 4 months for surveillance. Procedure Code(s): --- Professional --- 06958, Esophagogastroduodenoscopy, flexible, transoral; with biopsy, single or multiple CPT copyright 2021 [employer]. All rights reserved. The codes documented in this report are preliminary and upon director of rehabilitative services review may be revised to meet current compliance requirements. Hernesto Ponce DO 03/03/2024 9:20:25 AM This report has been signed electronically. Number of Addenda: 0 Note Initiated On: 03/03/2024 9:03 AM
--- NOTE | 2024-03-03 09:21 | OP.CCLET_ITS ---
03/03/2024 Mati Hampton MD [address] [place] [address] [place] [address] Re : Upper GI endoscopy procedure for Ariane Fagan Dear Dr. Hampton This procedure was performed on Sunday, March 03, 2024. My impressions and recommendations are as follows: Impressions : - Grade I and small (< 5 mm) esophageal varices. - Medium-sized hiatal hernia. - Non-bleeding gastric ulcer with no stigmata of bleeding. Biopsied. - Portal hypertensive gastropathy. - Multiple gastric polyps. - No gross lesions in the first portion of the duodenum. Recommendations : - Discharge patient to home. - Resume previous diet. - Continue present medications. - Await pathology results. - Repeat upper endoscopy in 4 months for surveillance. My findings are described in the full procedure note, which is enclosed. If I can be of further assistance, please feel free to contact me at . Sincerely, Hernesto Ponce, 03/03/2024 9:20:25 AM This report has been signed electronically.
--- NOTE | 2024-03-03 09:24 | PCM.POST.ANE ---
Anesthesia: Postop Eval I Current Vital Signs Temperature: 99 F Pulse Rate: 84 Blood Pressure: 89/65 Respiratory Rate: 16 Pulse Ox: 98 Oxygen Delivery Method: Room Air Assessment Airway patent: Yes Spontaneous unlabored respirations: Yes Mental status: Awake and Calm nausea: No Vomiting: No Anesthesia Complication: No Fluid Hydration Crystalloid volume administer (ml): 30 Total IV fluid infused: 30 Progress Note Anesthesia document: Postop Eval 1 completed: Yes
--- NOTE | 2024-03-03 09:32 | PCM.POSTANE2 ---
Anesthesia Postop Eval I Sum Postop Eval Completion status Anesthesia document: Postop Eval 1 completed: Yes Anesthesia Postop Eval I Summary Anesthesia Postop Eval I Summary: Anesthesia Postop Eval I: Assessment Summary Airway patent Yes 03/03/24 09:25 [email or web address] Spontaneous unlabored Yes 03/03/24 09:25 [email or web address] respirations Mental status Awake,Calm 03/03/24 09:25 [email or web address] nausea No 03/03/24 09:25 [email or web address] Vomiting No 03/03/24 09:25 [email or web address] Anesthesia Postop Eval I: Fluid Summary Crystalloid volume administer 30 03/03/24 09:25 [email or web address] (ml) Colloids volume administered ( ml) Blood Product volume administered (ml) Total IV fluid infused 30 03/03/24 09:25 [email or web address] Anesthesia Postop Eval I: Summary Notes Anesthesia Complication No 03/03/24 09:25 [email or web address] Anesthesia Complication Comment: Post-operative progress note Anesthesia: Postop Eval II Evaluation Mental status: Awake Pain Level: 0 nausea: No Vomiting: No
== END 2024-03-03 10:05 | disposition home or self-care (01) ==
LOC: EN 07:52 → AC 07:53
PROVIDERS: PCP Internal Medicine; Referring Provider Internal Medicine; Visit Provider Internal Medicine Gastroenterology
PROC: 0DJ08ZZ Inspection of Upper Intestinal Tract, Via Natural or Artificial Opening Endoscopic (ICD-10-PCS; CPT 43235; principal; 2024-03-03 08:55)
DX: K25.9 Gastric ulcer, unspecified as acute or chronic, without hemorrhage or perforation (principal); K76.6 Portal hypertension; I85.00 Esophageal varices without bleeding; K74.60 Unspecified cirrhosis of liver; K31.7 Polyp of stomach and duodenum; K44.9 Diaphragmatic hernia without obstruction or gangrene; K29.70 Gastritis, unspecified, without bleeding; D50.9 Iron deficiency anemia, unspecified; Z79.01 Long term (current) use of anticoagulants; Z79.899 Other long term (current) drug therapy; K21.9 Gastro-esophageal reflux disease without esophagitis
CPT/HCPCS: 43239; 82962; 88305; 88312; 88342; A4216; J2405

== ENCOUNTER 2024-03-11 10:00 | Outpatient (RCR) | payer MEDICARE, SELFPAY ==
--- NOTE | 2024-02-20 09:56 | HP.PTEVAL_ITS ---
Patient's Visit Information Visit Information Visit Information: AWILDA WEEBR is a 78 year old F referred to Physical Therapy by Dr. Taiwo Lopez MD with a diagnosis of L shoulder pain. Date of Evaluation: 02/20/24 Physical Therapist: Chucho Michaels, DPT, OCS, CSCS Visit Plan Frequency: 2-3x /Week Duration: 4-6 Weeks Plan: 2-3x/week for 4-6 weeks for 1. US nonthermal L supra 2. manual therapy grade 1-2 g-h mobs, PROM 3. strength RC and posture progress to HEP IE HEP: scap cirlcels, pendulum, supine stick flexion, stick er 10x 2x/day and activitiy modification. Subjective Subjective: Has h/o back pain with walking and SOB. Is here for shoulder L pain whihch has been hurting for 3 weeks insidiously. Had injection which helped 2 d ays. Is now on oral steroids which helps back and arm a little. Pain is with lifting on top of shoulder. Is comfortable at rest. Moving arm is painful on L side. Gets up to 10/10 and feels like a bone is moving. X rays: hard to tell, wants MRI and needs PT first. Hard time getting to sleep and rolls on wrong will wake her up. Basic ADLs: are getting done, hurts to put shirt on and do hair. Back also limits here. No regular exercises. Ice, Had a sling at first but doctor d/c d it. Retired Hobbies: picking on , 10 yo grandosn who she watches and can do this. Pain L shoulder: Pain Intensity (Out of 10): 0 Pain Intensity Range: 0 and 10 Objective Objective: cane in R UE to get around mod I. SOB after 300 feet. r antalgia in gait. trasnfers bed and chair I but slow and painful with weight through L UE. Tender L supraspinatus insertion moderately. Posture is forward head and protracted scap with kyphositc T/S UE AROM symmetrical with R at 140 elevation and 50 er and L4 IR but painful at all end ranges on L. PROM not as painful. reflexes 2/3 bi and tri Sensation LE WNL to gross light touch. strength is 3+ on rotations B with pain L IR, 4- in tri and bi with triceps testing causing sholder pain L. flexion adn abduction 3+ and painful L, + empty can, - ext rotation lag test, - drop arm, - labral tests, - sulcus and + HK and neer on L. Balance/Special Test Scores Quick DASH Score: [phone] Goals Goal 1:: Pain in L shoulder 80% better and 1/10 at worst Goal Time Frame: 4-6 Weeks Goal 2:: I appropriate HEP to limit future problems(strength) Goal Time Frame: 4-6 Weeks Goal 3:: Do hair without noticing L shoulder pain Goal Time Frame: 4-6 Weeks Goal 4:: sleep without interruption from L shoulder Goal Time Frame: 4-6 Weeks Goal 5:: quickdash 18 or better Goal Time Frame: 4-6 Weeks Rehabilitation Potential Physical Therapy Diagnosis: L supraspinatus tendonitis limiting comfortable function. Rehabilitation Potential: Fair Anticipated Interventions Patient/Client Instruction: Educate patient on: Condition and Plan of Care For the Purpose of:: To decrease pain, To increase ROM, To improve nutrient delivery to tissue, To improve muscle performance and motor function and To increase tolerance to activity/condition/position Therapeutic Exercise to Include: Strength training, Postural training, Flexibilty training, Passive ROM and Active ROM For the Purpose of:: To decrease pain, To increase ROM, To improve nutrient delivery to tissue, To improve muscle performance and motor function and To increase tolerance to activity/condition/position Manual Therapy Techniques to Include: Mobilization, Passive ROM and Soft tissue mobilization For the Purpose of:: To decrease pain, To increase ROM, To improve nutrient delivery to tissue and To improve gait and locomotor functions Thermo therapy (hot pack): Yes Ultrasound (thermal/non thermal): Yes (nonthermal) For the Purpose of:: To decrease pain, To decrease swelling/inflammation, To increase ROM and To improve nutrient delivery to tissue Text: Thank you for the opportunity to evaluate your patient. For Medicare and Medicare HMO plans, please review the plan of care and approve it. It will need to be FAXED BACK to us at [phone] for Medicare purposes. For Medicare only, by signing this I certify the plan of care. Please let me know if there are questions or concerns regarding this plan of care. Physician Signature: Date:
--- NOTE | 2024-05-23 13:02 | HP.PT.NRP ---
Patient Information Patient Information: AWILDA WEBER was seen in my office for initial evaluation on 02/20/24. The following Plan of Care was established for this patient: POC Established Initial Frequency: 2-3x /Week Initial Duration: 4-6 Weeks Anticipated Interventions Patient/Client Instruction: Educate patient on: Condition and Plan of Care For the Purpose of:: To decrease pain, To increase ROM, To improve nutrient delivery to tissue, To improve muscle performance and motor function and To increase tolerance to activity/condition/position Therapeutic Exercise to Include: Strength training, Postural training, Flexibilty training, Passive ROM and Active ROM For the Purpose of:: To decrease pain, To increase ROM, To improve nutrient delivery to tissue, To improve muscle performance and motor function and To increase tolerance to activity/condition/position Manual Therapy Techniques to Include: Mobilization, Passive ROM and Soft tissue mobilization For the Purpose of:: To decrease pain, To increase ROM, To improve nutrient delivery to tissue and To improve gait and locomotor functions Thermo therapy (hot pack): Yes Ultrasound (thermal/non thermal): Yes (nonthermal) For the Purpose of:: To decrease pain, To decrease swelling/inflammation, To increase ROM and To improve nutrient delivery to tissue Last Seen Last Seen: This patient was last seen in our office 03/11/24. Pertinent comments regarding their Physical therapy will appear below: Pt seen 4 visits of POC then cancelled the rest as she was having an MRI. At this point, it has been over 2 months and I will discontinue due to nonattendance. At this point I will be discontinuing this patient from physical therapy. I would be happy to see this patient again in the future if found appropriate by the physician. Thank you! Chucho Michaels, DPT, OCS, CSCS Balance/Gait/Functional tests Balance/Special Test Scores Quick DASH Score: [phone]
== END 2024-03-11 19:00 | disposition home or self-care (01) ==
LOC: PT 10:00
PROVIDERS: PCP Internal Medicine; Referring Provider Orthopaedic Surgery Sports Medicine; Visit Provider Orthopaedic Surgery Sports Medicine
DX: M25.812 Other specified joint disorders, left shoulder (principal); M25.512 Pain in left shoulder
CPT/HCPCS: 97110; 97140; 97161

== ENCOUNTER → 2024-03-13 | Outpatient (CLI) | payer MEDICARE, SELFPAY | END | disposition home or self-care (01) | PROVIDERS: PCP Internal Medicine; Referring Provider Orthopaedic Surgery Sports Medicine; Visit Provider Orthopaedic Surgery Sports Medicine | DX: M25.812 Other specified joint disorders, left shoulder (principal); M25.512 Pain in left shoulder | CPT/HCPCS: 73221 ==

== ENCOUNTER 2024-04-16 11:13 | Day surgery (SDC) | payer MEDICARE, SELFPAY ==
--- NOTE | 2024-04-15 10:11 | PAT.ANE_ITS ---
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 When Was Last Pacemaker Check QUESTION #4 FULL TEXT: You/Your Family Experience fever (hyperthermia) with Anesthesia Last Oral Intake Last Oral intake: Last Oral Intake NPO since Meds taken in AM with sips of water? 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 Female Yes 04/14/24 12:15 HX of Motion Sickness No 04/14/24 12:15 HX of N/V After Surgery No 04/14/24 12:15 Non-Smoker Yes 04/14/24 12:15 Duration of Surgery greater Yes 04/14/24 12:15 than 60 minutes Number of Risk Factors 3 04/14/24 12:15 PONV Score Moderate Risk 04/14/24 12:15 Height & Weight Height & Weight: Anesthesia: Height & Weight Height 5 ft 9 in 03/03/24 08:19 Respiratory Assessment Respiratory Assessment - air vice marshal: Respiratory Tract Infection Hx - air vice marshal Hx Respiratory Tract Infection No 04/14/24 12:15 STOP Sleep Apnea STOP Sleep Apnea - air vice marshal: STOP Sleep Apnea - air vice marshal Hx Hypertension Yes: CONTROLLED WITH MED 04/14/24 12:15 Hx Sleep Apnea No 04/14/24 12:15 CPAP BIPAP Do you snore loudly (louder No 04/14/24 12:15 than talking or can be heard Do you often feel tired/ Yes 04/14/24 12:15 fatigued/ sleepy during daytime? Has anyone observed you stop No 04/14/24 12:15 breathing during sleep? STOP Results Positive 04/14/24 12:15 QUESTION #5 FULL TEXT : Do you snore loudly (louder than talking or can be heard through closed doors)? 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 Specify any problems Hx of Preganancy in last 3 No 04/14/24 12:15 Months Nurse Filling Out Transfusion DSCHRIBER 04/14/24 12:15 & Questions: Date: 04/14/24 04/14/24 12:15 Time: 12:17 04/14/24 12:15 Patient unable to answer at this time (ie. 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 History - air vice marshal: /Reproductive Hx- air vice marshal Hx Now No 04/14/24 12:15 Gestational Age (in weeks): EDC: Hx Hx Para Hx Section SAB No 04/14/24 12:15 PFS Medical History (Updated 04/14/24 @ 12:25 by Carlee Matthews) Lupus Primary osteoarthritis, left shoulder Fatty liver Gastric reflux Hypertension Impingement of left shoulder Left shoulder pain Tremor Memory impairment Alcohol use History of steroid therapy Vertigo History of diverticulitis History of echocardiogram History of edema History of heart attack History of stress test Suprapubic discomfort Osteopenia Hypercalcemia Wears glasses Anxiety Diabetes Ambulates with cane Arthritis Back pain Syncope Mejia esophagus Cardiology follow-up encounter Primary biliary cholangitis Obesity (BMI 30.0-34.9) Former smoker Positive double stranded 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 Chronic constipation Elevated serum GGT level Health care maintenance Bunion of left foot Hyperhidrosis Anxiety and depression Chronic back pain Depression Colonic thickening Perforated appendicitis (08/18/18) Vitamin D deficiency Scoliosis Venous insufficiency of both lower extremities Type 2 diabetes mellitus HAMM (nonalcoholic steatohepatitis) Hiatal hernia Essential (primary) hypertension Hx of non-ST elevation myocardial infarction (NSTEMI) (05/02/06) GERD (gastroesophageal reflux disease) Atherosclerotic heart disease of [place] coronary artery without angina pectoris Hyperlipidemia Home Medications ?Medication ?Instructions ?Recorded ?Last Taken ?Type Handicap Placard #1 ea 03/11/21 Unknown Rx cholecalciferol (vitamin D3) 125 125 mcg PO DAILY 01/26/23 03/02/24 History mcg (5,000 unit) capsule clopidogrel 75 mg tablet (Plavix) 75 mg PO QDAY #90 tabs 06/07/23 04/09/24 Rx meclizine 25 mg tablet 25 mg PO BID-TID PRN 06/07/23 03/02/24 Rx dizziness/vertigo #60 tabs nitroglycerin 0.4 mg sublingual 0.4 mg sublingual Q5M PRN Chest 06/07/23 Unknown Rx tablet Pain #30 tabs venlafaxine 150 mg 150 mg PO DAILY #90 caps 06/07/23 03/02/24 Rx capsule,extended release 24 hr blood-glucose meter (OneTouch #1 ea 06/14/23 Unknown Rx Verio Flex Start kit) blood sugar diagnostic (OneTouch #100 ea 06/15/23 Unknown Rx Verio test strips) lancets 28 gauge (Unilet Lancet) #100 ea 07/16/23 Unknown Rx fenofibrate 54 mg tablet 54 mg PO DAILY #90 tabs 10/17/23 03/02/24 Rx pantoprazole 40 mg tablet,delayed 40 mg PO DAILY #90 tabs 01/02/24 03/02/24 Rx release Handicap Placard #1 ea 01/23/24 Unknown Rx calcium carbonate (Calcium 600) 600 mg PO QDAY 01/23/24 03/02/24 History ursodiol 250 mg tablet 250 mg PO BID 01/23/24 03/02/24 History cyanocobalamin (vitamin B-12) 1,000 mcg PO DAILY Low in vitamin B 01/24/24 03/02/24 History 1,000 mcg tablet (Vitamin B-12) polyethylene glycol 3350 17 17 g PO DAILY PRN Trouble with 01/24/24 03/02/24 History gram/dose oral powder (Miralax) bowels rosuvastatin 20 mg tablet 20 mg PO MOWEFR 01/24/24 Unknown History metformin 750 mg tablet,extended 750 mg PO BID #180 tabs 03/25/24 Unknown Rx release 24 hr hydrochlorothiazide 25 mg tablet 12.5 mg (1/2 x 25 mg) PO QAM #60 03/31/24 Unknown Rx tabs Allergy/AdvReac Type Severity Reaction Status Date / Time triamcinolone Allergy Intermediate Rash Verified 04/14/24 12:12 eptifibatide (From Allergy Rash Verified 04/14/24 12:12 Integrilin) niacin (From Niaspan Allergy Rash Verified 04/14/24 12:12 Extended-Release) tizanidine (From Zanaflex) Allergy Rash Verified 04/14/24 12:12 Family History Brother alcoholism Brother alcoholism Colon cancer Mother Arthritis Heart disease Hypertension High cholesterol Myocardial infarction Sister Myocardial infarction Hypertension High cholesterol Heart disease Sister Myocardial infarction Hypertension High cholesterol Heart disease Emphysema lung Sister Heart disease High cholesterol Hypertension Grandmother Rheumatoid arthritis Other Type 2 diabetes mellitus Surgical History (Updated 04/14/24 @ 12:37 by Carlee Matthews) History of ERCP History of coronary artery stent placement History of esophagogastroduodenoscopy (EGD) History of colonoscopy History of appendectomy (08/18/18) History of lumbar fusion History of liver biopsy History of tubal ligation History of cholecystectomy History of coronary artery stent placement (05/01/06) History of back surgery Social History Smoking Status: Former smoker how long ago did patient quit smokin years second hand exposure: No alcohol intake: never substance use type: does not use caffeine: Yes Type: coffee Number of servings: 2 and tea what type of physical activity do you participate in: walking and other details: [employer] frequency: daily duration: 15-30 minutes/day seatbelt use: always do you feel safe at home: Yes Audit: Pertinent Findings Pertinent Findings EKG Perinent findings: nl 2019 Stress test pertinent findings: 01/26 wnl, ejection fraction is noted to be 82%. Echo (EF%) pertinent findings: EF 60, wnl 08/21
--- NOTE | 2024-04-15 11:31 | PAT.ANESEVAL ---
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 When Was Last Pacemaker Check QUESTION #4 FULL TEXT: You/Your Family Experience fever (hyperthermia) with Anesthesia Last Oral Intake Last Oral intake: Last Oral Intake NPO since Meds taken in AM with sips of water? 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 Has anyone observed you stop No 04/14/24 12:15 breathing during sleep? STOP Results Positive 04/14/24 12:15 QUESTION #5 FULL TEXT : Do you snore loudly (louder than talking or can be heard through closed doors)? 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 Specify any problems Hx of Preganancy in last 3 No 04/14/24 12:15 Months Nurse Filling Out Transfusion DSCHRIBER 04/14/24 12:15 & Questions: Date: 04/14/24 04/14/24 12:15 Time: 12:17 04/14/24 12:15 Patient unable to answer at this time (ie. 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 teacher Hx Now No 04/14/24 12:15 Gestational Age (in weeks): EDC: Hx Hx Para Hx Section SAB No 04/14/24 12:15 PFS Medical History (Updated 04/14/24 @ 12:25 by Carlee Matthews) Lupus Primary osteoarthritis, left shoulder Fatty liver Gastric reflux Hypertension Impingement of left shoulder Left shoulder pain Tremor Memory impairment Alcohol use History of steroid therapy Vertigo History of diverticulitis History of echocardiogram History of edema History of heart attack History of stress test Suprapubic discomfort Osteopenia Hypercalcemia Wears glasses Anxiety Diabetes Ambulates with cane Arthritis Back pain Syncope Mejia esophagus Cardiology follow-up encounter Primary biliary cholangitis Obesity (BMI 30.0-34.9) Former smoker Positive double stranded 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 Chronic constipation Elevated serum GGT level Health care maintenance Bunion of left foot Hyperhidrosis Anxiety and depression Chronic back pain Depression Colonic thickening Perforated appendicitis (08/18/18) Vitamin D deficiency Scoliosis Venous insufficiency of both lower extremities Type 2 diabetes mellitus HAMM (nonalcoholic steatohepatitis) Hiatal hernia Essential (primary) hypertension Hx of non-ST elevation myocardial infarction (NSTEMI) (05/02/06) GERD (gastroesophageal reflux disease) Atherosclerotic heart disease of [place] coronary artery without angina pectoris Hyperlipidemia Home Medications ?Medication ?Instructions ?Recorded ?Last Taken ?Type Handicap Placard #1 ea 03/11/21 Unknown Rx cholecalciferol (vitamin D3) 125 125 mcg PO DAILY 01/26/23 03/02/24 History mcg (5,000 unit) capsule clopidogrel 75 mg tablet (Plavix) 75 mg PO QDAY #90 tabs 06/07/23 04/09/24 Rx meclizine 25 mg tablet 25 mg PO BID-TID PRN 06/07/23 03/02/24 Rx dizziness/vertigo #60 tabs nitroglycerin 0.4 mg sublingual 0.4 mg sublingual Q5M PRN Chest 06/07/23 Unknown Rx tablet Pain #30 tabs venlafaxine 150 mg 150 mg PO DAILY #90 caps 06/07/23 03/02/24 Rx capsule,extended release 24 hr blood-glucose meter (OneTouch #1 ea 06/14/23 Unknown Rx Verio Flex Start kit) blood sugar diagnostic (OneTouch #100 ea 06/15/23 Unknown Rx Verio test strips) lancets 28 gauge (Unilet Lancet) #100 ea 07/16/23 Unknown Rx fenofibrate 54 mg tablet 54 mg PO DAILY #90 tabs 10/17/23 03/02/24 Rx pantoprazole 40 mg tablet,delayed 40 mg PO DAILY #90 tabs 01/02/24 03/02/24 Rx release Handicap Placard #1 ea 01/23/24 Unknown Rx calcium carbonate (Calcium 600) 600 mg PO QDAY 01/23/24 03/02/24 History ursodiol 250 mg tablet 250 mg PO BID 01/23/24 03/02/24 History cyanocobalamin (vitamin B-12) 1,000 mcg PO DAILY Low in vitamin B 01/24/24 03/02/24 History 1,000 mcg tablet (Vitamin B-12) polyethylene glycol 3350 17 17 g PO DAILY PRN Trouble with 01/24/24 03/02/24 History gram/dose oral powder (Miralax) bowels rosuvastatin 20 mg tablet 20 mg PO MOWEFR 01/24/24 Unknown History metformin 750 mg tablet,extended 750 mg PO BID #180 tabs 03/25/24 Unknown Rx release 24 hr hydrochlorothiazide 25 mg tablet 12.5 mg (1/2 x 25 mg) PO QAM #60 03/31/24 Unknown Rx tabs Allergy/AdvReac Type Severity Reaction Status Date / Time triamcinolone Allergy Intermediate Rash Verified 04/14/24 12:12 eptifibatide (From Allergy Rash Verified 04/14/24 12:12 Integrilin) niacin (From Niaspan Allergy Rash Verified 04/14/24 12:12 Extended-Release) tizanidine (From Zanaflex) Allergy Rash Verified 04/14/24 12:12 Family History Brother alcoholism Brother alcoholism Colon cancer Mother Arthritis Heart disease Hypertension High cholesterol Myocardial infarction Sister Myocardial infarction Hypertension High cholesterol Heart disease Sister Myocardial infarction Hypertension High cholesterol Heart disease Emphysema lung Sister Heart disease High cholesterol Hypertension Grandmother Rheumatoid arthritis Other Type 2 diabetes mellitus Surgical History (Updated 04/14/24 @ 12:37 by Carlee Matthews) History of ERCP History of coronary artery stent placement History of esophagogastroduodenoscopy (EGD) History of colonoscopy History of appendectomy (08/18/18) History of lumbar fusion History of liver biopsy History of tubal ligation History of cholecystectomy History of coronary artery stent placement (05/01/06) History of back surgery Social History Smoking Status: Former smoker how long ago did patient quit smokin years second hand exposure: No alcohol intake: never substance use type: does not use caffeine: Yes Type: coffee Number of servings: 2 and tea what type of physical activity do you participate in: walking and other details: [employer] frequency: daily duration: 15-30 minutes/day seatbelt use: always do you feel safe at home: Yes Audit: Pertinent Findings HISTORY of Pertinent Findings History of Pertinent Findings: EKG Pertinent Findings EKG Perinent findings nl 2019 04/15/24 10:15 Stress Test Pertinent Findings Stress test pertinent findings 01/26 wnl, ejection fraction 04/15/24 10:14 is noted to be 82%. Echo Pertinent Findings Echo (EF%) pertinent findings EF 60, wnl 08/2104/15/24 10:14 Recommendation Anesthesia Recommendation Anesthesia recommentdation: OPTIMIZED for anesthesia
[2024-04-16] VITALS (7 sets, daily range): BP systolic 117–140; BP diastolic 79–90; PULSE 78–101; RESP 14–18; TEMP 36.4–36.8; O2SAT 93–98; BMI 27.3
--- NOTE | 2024-04-16 11:32 | PRE.ANES_ITS ---
ASA Classification* ASA Classification ASA Classification: 3 Assessment & Plan Anesthesia* Anesthesia Assessment Anesthesia Assessment: Discussed sedation and/or anesthesia options, risks, benefits, and alternatives with patient/parents/legal guardian/POA. Questions invited. The patient/parents/legal guardian/POA seems to understand and agrees to proceed with anesthesia plan. Reviewed the physical assessment, medical history, allergy history and patient home medications list prior to surgery/procedure/anesthetic and documented any changes. Performed airway and anesthesia risk assessments. Anesthesia Type Anesthesia Type: General Anesthesia Focused Assessment* Airway Assessment Mouth opens: >3 cm Mallampati Score: II Focused Labs Anesthesia Preop lab: CBC WBC 7.2 K/mm3 (4.4-11.0) 02/05/24 14:12 RBC 5.06 M/mm3 (4.2-5.4) 02/05/24 14:12 Hgb 13.2 g/dL (12.0-15.0) 02/05/24 14:12 Hct 43.2 % (37-47) 02/05/24 14:12 Plt Count 302 K/mm3 (150-450) 02/05/24 14:12 CHEMISTRY Potassium 3.9 mmol/L (3.5-5.1) 02/05/24 14:12 Sodium 136 mmol/L (136-145) 02/05/24 14:12 Magnesium 1.9 mg/dL (1.6-2.6) 08/23/18 07:30 Phosphorus 3.0 mg/dL (2.5-4.9) 08/19/18 05:02 BUN 19 mg/dL (7-18) H 02/05/24 14:12 Creatinine 0.99 mg/dL (0.55-1.02) 02/05/24 14:12 Glucose [facility] 163 mg/dL (70-110) H 07/16/23 10:03 Glucose 106 mg/dL (74-106) 02/05/24 14:12 POC Glucose 118 mg/dL (74-106) H 03/03/24 08:13 TSH 4.18 uIU/mL (0.358-3.74) H 10/17/23 12:02 COAG PT 14.0 SECONDS (11.7-14.9) 02/05/24 14:12 Pre-Assessment Diagnosis/Proposed Procedure Planned Operative Procedure(s): ERCP Anesthesia History Anesthesia History - digital account coordinator: Anesthesia History - digital account coordinator Hx Hospitalization No 04/14/24 12:35 Any Problems With Anesthesia No 04/14/24 12:35 Cholinesterase deficiency No 04/14/24 12:35 You/Your Family Experience No 04/14/24 12:35 fever (hyperthermia) with Relationship Recent Exposure to Contagious No 03/03/24 08:19 Disease Does patient have nerve No 04/14/24 12:35 stimulator Patient instructed to have device shut off --Does patient have Pacemaker or ICD? When Was Last Pacemaker Check QUESTION #4 FULL TEXT: You/Your Family Experience fever (hyperthermia) with Anesthesia Last Oral Intake Last Oral intake: Last Oral Intake NPO since Meds taken in AM with sips of water? 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 - digital account coordinator: PONV - digital account coordinator Female Yes 04/14/24 12:15 HX of Motion Sickness No 04/14/24 12:15 HX of N/V After Surgery No 04/14/24 12:15 Non-Smoker Yes 04/14/24 12:15 Duration of Surgery greater Yes 04/14/24 12:15 than 60 minutes Number of Risk Factors 3 04/14/24 12:15 PONV Score Moderate Risk 04/14/24 12:15 Height & Weight Height & Weight: Anesthesia: Height & Weight Height 5 ft 9 in 03/03/24 08:19 Respiratory Assessment Respiratory Assessment - digital account coordinator: Respiratory Tract Infection Hx - digital account coordinator Hx Respiratory Tract Infection No 04/14/24 12:35 STOP Sleep Apnea STOP Sleep Apnea - digital account coordinator: STOP Sleep Apnea - digital account coordinator Hx Hypertension Yes: CONTROLLED WITH MED 04/14/24 12:35 Hx Sleep Apnea No 04/14/24 12:35 CPAP BIPAP Do you snore loudly (louder No 04/14/24 12:15 than talking or can be heard Do you often feel tired/ Yes 04/14/24 12:15 fatigued/ sleepy during daytime? Has anyone observed you stop No 04/14/24 12:15 breathing during sleep? STOP Results Positive 04/14/24 12:15 QUESTION #5 FULL TEXT : Do you snore loudly (louder than talking or can be heard through closed doors)? 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 - digital account coordinator: Tobacco Use History - digital account coordinator Tobacco Use Smoking Status Former smoker 04/14/24 12:35 Hx Tobacco Use No 04/14/24 12:35 Years Smoking Packs Smoked per Day Smoking Cessation Date was No - quit smoking greater 04/14/24 12:15 within the last 15 years than 15 years ago Hx Smoking Cessation Date 05/07/06 04/14/24 12:35 Hx Smoking Cessation No 04/14/24 12:35 Counseling Hematologic Medial History Hematologic Hx - digital account coordinator: Hematologic Medical Hx - outer diameter grinder tool Hx of Blood Transfusion Yes 04/14/24 12:15 Hx of Transfusion in last 3 No 04/14/24 12:15 Months Date of Last Transfusion (if within last 3 months) Ever experience any problems No 04/14/24 12:15 with transfusion(s)? Specify any problems Hx of Preganancy in last 3 No 04/14/24 12:15 Months Nurse Filling Out Transfusion DSCHRIBER 04/14/24 12:15 & Questions: Date: 04/14/24 04/14/24 12:15 Time: 12:17 04/14/24 12:15 Patient unable to answer at this time (ie. 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 History - digital account coordinator: /Reproductive Hx- digital account coordinator Hx Now No 04/14/24 12:15 Gestational Age (in weeks): EDC: Hx Hx Para Hx Section SAB No 04/14/24 12:35 PFSH Medical History Lupus Primary osteoarthritis, left shoulder Fatty liver Gastric reflux Hypertension Impingement of left shoulder Left shoulder pain Tremor Memory impairment Alcohol use History of steroid therapy Vertigo History of diverticulitis History of echocardiogram History of edema History of heart attack History of stress test Suprapubic discomfort Osteopenia Hypercalcemia Wears glasses Anxiety Diabetes Ambulates with cane Arthritis Back pain Syncope Mejia esophagus Cardiology follow-up encounter Primary biliary cholangitis Obesity (BMI 30.0-34.9) Former smoker Positive double stranded 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 Chronic constipation Elevated serum GGT level Health care maintenance Bunion of left foot Hyperhidrosis Anxiety and depression Chronic back pain Depression Colonic thickening Perforated appendicitis (08/18/18) Vitamin D deficiency Scoliosis Venous insufficiency of both lower extremities Type 2 diabetes mellitus HAMM (nonalcoholic steatohepatitis) Hiatal hernia Essential (primary) hypertension Hx of non-ST elevation myocardial infarction (NSTEMI) (05/02/06) GERD (gastroesophageal reflux disease) 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 Hyperlipidemia Home Medications ?Medication ?Instructions ?Recorded ?Last Taken ?Type Handicap Placard #1 ea 03/11/21 Unknown Rx cholecalciferol (vitamin D3) 125 125 mcg PO DAILY 01/26/23 03/02/24 History mcg (5,000 unit) capsule clopidogrel 75 mg tablet (Plavix) 75 mg PO QDAY #90 tabs 06/07/23 04/09/24 Rx meclizine 25 mg tablet 25 mg PO BID-TID PRN 06/07/23 03/02/24 Rx dizziness/vertigo #60 tabs nitroglycerin 0.4 mg sublingual 0.4 mg sublingual Q5M PRN Chest 06/07/23 Unknown Rx tablet Pain #30 tabs venlafaxine 150 mg 150 mg PO DAILY #90 caps 06/07/23 03/02/24 Rx capsule,extended release 24 hr blood-glucose meter (OneTouch #1 ea 06/14/23 Unknown Rx Verio Flex Start kit) blood sugar diagnostic (OneTouch #100 ea 06/15/23 Unknown Rx Verio test strips) lancets 28 gauge (Unilet Lancet) #100 ea 07/16/23 Unknown Rx fenofibrate 54 mg tablet 54 mg PO DAILY #90 tabs 10/17/23 03/02/24 Rx pantoprazole 40 mg tablet,delayed 40 mg PO DAILY #90 tabs 01/02/24 03/02/24 Rx release Handicap Placard #1 ea 01/23/24 Unknown Rx calcium carbonate (Calcium 600) 600 mg PO QDAY 01/23/24 03/02/24 History ursodiol 250 mg tablet 250 mg PO BID 01/23/24 03/02/24 History cyanocobalamin (vitamin B-12) 1,000 mcg PO DAILY Low in vitamin B 01/24/24 03/02/24 History 1,000 mcg tablet (Vitamin B-12) polyethylene glycol 3350 17 17 g PO DAILY PRN Trouble with 01/24/24 03/02/24 History gram/dose oral powder (Miralax) bowels rosuvastatin 20 mg tablet 20 mg PO MOWEFR 01/24/24 Unknown History metformin 750 mg tablet,extended 750 mg PO BID #180 tabs 03/25/24 Unknown Rx release 24 hr hydrochlorothiazide 25 mg tablet 12.5 mg (1/2 x 25 mg) PO QAM #60 03/31/24 Unknown Rx tabs Allergy/AdvReac Type Severity Reaction Status Date / Time triamcinolone Allergy Intermediate Rash Verified 04/14/24 12:12 eptifibatide (From Allergy Rash Verified 04/14/24 12:12 Integrilin) niacin (From Niaspan Allergy Rash Verified 04/14/24 12:12 Extended-Release) tizanidine (From Zanaflex) Allergy Rash Verified 04/14/24 12:12 Family History Brother alcoholism Brother alcoholism Colon cancer Mother Arthritis Heart disease Hypertension High cholesterol Myocardial infarction Sister Myocardial infarction Hypertension High cholesterol Heart disease Sister Myocardial infarction Hypertension High cholesterol Heart disease Emphysema lung Sister Heart disease High cholesterol Hypertension Grandmother Rheumatoid arthritis Other Type 2 diabetes mellitus Surgical History History of ERCP History of coronary artery stent placement History of esophagogastroduodenoscopy (EGD) History of colonoscopy History of appendectomy (08/18/18) History of lumbar fusion History of liver biopsy History of tubal ligation History of cholecystectomy History of coronary artery stent placement (05/01/06) History of back surgery Social History Smoking Status: Former smoker how long ago did patient quit smokin years second hand exposure: No alcohol intake: never substance use type: does not use caffeine: Yes Type: coffee Number of servings: 2 and tea what type of physical activity do you participate in: walking and other details: [employer] frequency: daily duration: 15-30 minutes/day seatbelt use: always do you feel safe at home: Yes Review of Systems (Anesthesia) ROS Narrative System reviewed and no additional complaints, except as documented.
[2024-04-16 12:31] LABS: Bedside Glucose 134 mg/dL (74-106)
--- NOTE | 2024-04-16 13:08 | PCM.HP.BLA ---
History and Physical Date of Admission: 04/16/24 AWILDA WEBER, is a 78 F who presents to the office today for follow up. PMH DMII, chronic pain (Dr. De La Paz), History of Mejia?s esophagus that was resolved on last EGD; Lupus (Dr. Alexandre). Previous imaging: CT abd/pel 08.22.18 with hepatic steatosis. s/p cholecystectomy; moderate hiatal hernia; diverticulosis; surgical changes of cecum with residual thickening along cecum and TI. Previously seen fluid collections improved (appendicitis). *[facility] established 07.28.21 with referral for further workup of abnormal LFT with a history of fatty liver disease with liver biopsy 5years prior confirming. Constipation is also an issue with increased gas and associated pains, small and hard BM. Attempted MiraLAX, Activia yogurt, stool softeners and EX-Lax without effect. Biochemical workup CBC, haptoglobin, ESR, coagulation, ferritin, CRP, LUCINDA, AFP, copper, IgGAM, ANCA, hepatitis, HIV without pertinent abnormality GGT H273, ammonia H33, LDH H251, ceruloplasmin H40.2, LFT AST H162/ALT H132/AP 109, JENELLE Beta globulin H1.5 US RUQ and elastography .06.28 with hepatomegaly measuring 18.2cm with fatty infiltration stiffness measures 16kPa F3/4. MRCP .12.26 for elevated GGT with mild extra/intrahepatic biliary duct dilation; likely reservoir effect s/p cholecystectomy. Liver biopsy 08.17.21 noting macro vesicular steatosis and cirrhosis with parenchymal distortion and portal-portal bridging; chronic inflammation noted and confined to portal areas; no abnormal protein accumulation. Cirrhosis confirmed with reticulin and trichrome stains. OV 09.01.21 Start ursodiol and lactulose. EGD 09.26.21 noting Grade II esophageal varices, banded; large hiatal hernia; medium amount of food in stomach. No esophageal metaplasia. OV 6. 2-3 BM/day with use of lactulose with resolution of previously noted confusion/HE. OV 12.30.21 with continued resolution of confusion and sleep pattern. Start Xifaxan. OV 03.24.22 continues to be doing well without HE SE; Lactulose continues. OV 07.28.22 continues to be doing well without HE SE. Lactulose continues. PCP OV 01.12.23 with worsening GERD, continues PPI. OV 02.21. persistent RUQ abdominal pain; lactulose continues and bowels move regularly. ? US 03.08.23 hepatic measurement 17.5cm with fatty infiltration; s/p cholecystectomy; dilated CBD. ? EGD 03.22.23 small lower EV; large hiatal hernia; moderate portal HTN gastropathy; moderate GAVE; gastritis; multiple gastric polyps. No specimens OV 05.30.23 BM occur 1-2/day. Denies difficulty with sleep-wake cycle disturbance, balance difficulty, pruritis. EGD 10.03.23 Small (< 5 mm) esophageal varices. Portal hypertensive gastropathy. Multiple gastric polyps. Biopsied. Normal first portion of the duodenum. OV 6 Pt reports 1 loose bm per day; denies blood in the stool. Pt states that she has swollen ankles, dry itchy skin on her arms, and daily vertigo / tremors. Pt denies difficulty sleeping and confusion. Pt reports that Dr Hampton is referring her to a neurologist for her tremors and vertigo. Pt continues with Lactulose, Ursodiol, and Pantoprazole. OV 01.31.24 Pt reports that at the he switched her from Lactulose to Miralax which she reports is not working very well. Pt is having daily BM, but they are hard to pass; denies blood in the stool. Pt reports worsened HB and bloating with BM. Pt reports swelling in her ankles and continued brain fog. MELD? CP? plt/INR ? Ammonia? 11.10.21 7? A? 220/1.1 40? 03.24.22 6? A? 243/1??? 33? ESR, CRP, LDH WNL 08.03.23 8? A? 217/1.1 23? ESR, CRP, LDH WNL 10.31.23 6?A? 223/1??? 12 6.12.24 7 A 219/1.1 35.0 ESR, CRP, LDH WNL ROS Const Constitutional: Positive for fatigue, weakness and weight change (weight loss); No fever(s) ENT ENT: No difficulty swallowing Gastro GI: Positive for bloating, constipation, heartburn and excessive flatus; No abdominal pain, belching, change in bowel habits, change in stool character, coffee ground emesis, cramping, diarrhea, difficulty swallowing, feeling full early, incontinent of stools, Vomiting blood/hematemesis, Blood in stool, loose stools, Black,tarry stools, nausea/dyspepsia, pain with swallowing, vomiting or other Musc Musculoskeletal: Positive for abnormal gait, joint pain, back pain, joint swelling, muscle weakness, stiffness and Arthritis Skin Skin: Positive for dry skin and rash; No yellowing of the eye or itchy eyes Neuro Neurology: Positive for abnormal gait, weakness and tremor(s) Psych Psychiatric: No anxiety and No depression Endo Endocrine: Positive for fatigue and weight change (weight loss) Aller/Imm Allergy/Immunologic: No itchy eyes Vipul/Lymp Hematologic/Lymphatic: Positive for easy bruising; No easy bleeding Exam Const General: cooperative, comfortable and no acute distress Orientation: alert, awake and oriented x3 [facility] Head: normal to inspection, normocephalic and atraumatic Ears: hearing grossly normal bilaterally Neck Neck: normal visual inspection, full ROM and supple Neck mass: No Thyroid: thyroid normal Resp Effort & Inspection: normal respiratory effort and able to speak in complete sentences Auscultation: Bilateral: Clear to Auscultation Cardio Rate: regular rate Rhythm: regular rhythm Heart Sounds: S1 normal and S2 normal GI Palpation: soft (Nontender, no palpable organomegaly) Musc Musculoskeletal: Yes joint tenderness and decreased range of motion Neuro General: patient alert, patient awake, patient oriented x3, moves all extremities and CN's II-XI intact bilaterally Motor: tremor Extrem General: no clubbing, cyanosis or edema Psych Appearance: grossly normal Mental Status: mental status grossly normal Mood: congruent mood Affect: normal affect Assessment and Plan Assessment and Plan (1) Cirrhosis: Status: Chronic Qualifiers: Ascites presence: without ascites Hepatic cirrhosis type: unspecified hepatic cirrhosis Qualified Code(s): K74.60 - Unspecified cirrhosis of liver Plan: She is a child [place] class a with a meld of 7. She has not shown any signs of decompensation at this time including no encephalopathy, no ascites, no bleeding or jaundice. She is having approximately 3-4 bowel movements per day. She presents monitoring her sodium intake. At this time she is only taking about a gram of sodium a day. Patient has lost approximately 7 pounds. I do not recommend protein restriction to decrease hyperammonemia. This is because recent studies have shown that protein restriction can lead to worsening sarcopenia in a cirrhotic patient. Due to the fact that she is very stable at this time on the current regimen we will not make any other changes in her medication regimen. (2) Primary biliary cholangitis: Status: Chronic (3) Esophageal varices: Status: Chronic Qualifiers: Esophageal varices type: idiopathic Esophageal varices bleeding: without bleeding Qualified Code(s): I85.00 - Esophageal varices without bleeding Plan: She is still banding of esophageal varices. When she follows up in the office in approximately 3 months we will Discuss the further need for banding in the future. She is on beta-jose therapy we will continue that (4) Chronic constipation: Status: Chronic (5) Hepatic encephalopathy: Status: Chronic Plan: We will try to get Xifaxan 550 mg twice a day for her. She has thought about starting her on neomycin or vancomycin for the treatment of her hepatic encephalopathy but she is doing very well on lactulose therapy. Hopefully will be able to get Xifaxan for the sterilization of her GI tract. Orders: Orders AFP, Tumor Marker 01/31/24 K74.60 - Unspecified cirrhosis of liver Ammonia 01/31/24 K74.60 - Unspecified cirrhosis of liver Comprehensive Metabolic Profil 01/31/24 K74.60 - Unspecified cirrhosis of liver CBC W/Diff, Automated 01/31/24 K74.60 - Unspecified cirrhosis of liver Prothrombin Time w/INR 01/31/24 K74.60 - Unspecified cirrhosis of liver Abdomen Limited 01/31/24 K74.60 - Unspecified cirrhosis of liver I have examined the patient and the H&P has been reviewed. There are no clinical changes since date of exam.
--- NOTE | 2024-04-16 14:30 | RAD_ITS ---
STUDY: ERCP REASON FOR EXAM: Female, 78 years old. Stent placement. FLUOROSCOPY TIME (if supplied): ( 1 minute and 53 seconds ) minutes/seconds. 36.57 mGy. 10 fluoroscopic images were submitted. TECHNIQUE: ERCP was performed by the visualizer. COMPARISON: None. FINDINGS: There is dilatation of the intra and extra hepatic biliary ducts. Stent was placed. RAD/ERCP Biliary/Pancreas IMPRESSION: Dilated ducts. Stent placement Electronically Signed: Barry Segura MD at 10:27 EST ,
--- NOTE | 2024-04-16 15:02 | OP.CCLET_ITS ---
04/16/2024 Mati Hampton MD [address] [place] [address] [place] [address] Re : ERCP procedure for Ariane Fagan Dear Dr. Hampton This procedure was performed on Tuesday, April 16, 2024. My impressions and recommendations are as follows: Impressions : - Choledocholithiasis was found. Complete removal was accomplished by biliary sphincterotomy and balloon extraction. - A biliary sphincterotomy was performed. - The biliary tree was swept. - The left main hepatic duct was successfully dilated. - One temporary stent was placed into the common bile duct. Recommendations : My findings are described in the full procedure note, which is enclosed. If I can be of further assistance, please feel free to contact me at . Sincerely, Hernesto Ponce, 04/16/2024 3:01:38 PM This report has been signed electronically.
--- NOTE | 2024-04-16 15:02 | OP.ERCP_ITS ---
Patient Name: Ariane Fagan Procedure Date: 04/16/2024 2:12 PM Date of : 1945 Age: 78 Procedure: ERCP Indications: Bile duct stone(s), Jaundice, Elevated liver enzymes, Abdominal pain of suspected biliary origin Providers: Hernesto Ponce DO Referring MD: Mati Hampton MD Medicines: Monitored Anesthesia Care Patient Profile: This is a 78 year old female. Refer to note in patient chart for documentation of history and physical. Patient has symptoms of chronic right upper quadrant abdominal pain and chronic jaundice. This patient has no history of previous ERCP. She is status post laparoscopic cholecystectomy in the distant past. Complications: No immediate complications. Procedure: Pre-Anesthesia Assessment: - Prior to the procedure, a History and Physical was performed, and patient medications and allergies were reviewed. The patient is competent. The risks and benefits of the procedure and the sedation options and risks were discussed with the patient. All questions were answered and informed consent was obtained. Patient identification and proposed procedure were verified by the physician in the pre-procedure area. Mental Status Examination: alert and oriented. Airway Examination: normal oropharyngeal airway and neck mobility. Respiratory Examination: clear to auscultation. CV Examination: normal. Prophylactic Antibiotics: The patient does not require prophylactic antibiotics. Prior Anticoagulants: The patient has taken no anticoagulant or antiplatelet agents. ASA Grade Assessment: II - A patient with mild systemic disease. After reviewing the risks and benefits, the patient was deemed in satisfactory condition to undergo the procedure. The anesthesia plan was to use monitored anesthesia care (MAC). Immediately prior to administration of medications, the patient was re-assessed for adequacy to receive sedatives. The heart rate, respiratory rate, oxygen saturations, blood pressure, adequacy of pulmonary ventilation, and response to care were monitored throughout the procedure. The physical status of the patient was re-assessed after the procedure. After obtaining informed consent, the scope was passed under direct vision. Throughout the procedure, the patient's blood pressure, pulse, and oxygen saturations were monitored continuously. The Duodenoscope was introduced through the mouth, and advanced to the duodenum and used to inject contrast into the bile duct. The ERCP was accomplished without difficulty. The patient tolerated the procedure well. Scope In: 2:30:48 PM Scope Out: 2:52:10 PM Total Procedure Duration Time 0 hours 21 minutes 22 seconds Findings: The desk representative film was normal. The esophagus was successfully intubated under direct vision. The scope was advanced to a normal major papilla in the descending duodenum without detailed examination of the pharynx, larynx and associated structures, and upper GI tract. The upper GI tract was grossly normal. The bile duct was deeply cannulated with the short-nosed traction sphincterotome. Contrast was injected. I personally interpreted the bile duct images. There was brisk flow of contrast through the ducts. Image quality was adequate. Contrast extended to the biliary pancreatic junction. Contrast extended to the main bile duct. Contrast extended to the bifurcation. Contrast extended to the hepatic ducts. Contrast extended to the entire biliary tree. A long 0.025 inch Jagwire was passed into the biliary tree. A 5 mm biliary sphincterotomy was made with a traction (standard) sphincterotome using ERBE electrocautery. There was no post-sphincterotomy bleeding. The biliary tree was swept with a 15 mm balloon starting at the biliary pancreatic junction, upper third of the main bile duct, middle third of the main bile duct, lower third of the main duct, bifurcation, left intrahepatic duct(s), left main hepatic duct, right intrahepatic duct(s) and right main hepatic duct. Sludge was swept from the duct. All stones were removed. Dilation of the left main hepatic duct with a 10-11-12 mm balloon (to a maximum balloon size of 12 mm) dilator was successful. One 10 Fr by 7 cm temporary stent was placed 5 cm into the common bile duct. Bile flowed through the stent. The stent was in good position. Impression: - Choledocholithiasis was found. Complete removal was accomplished by biliary sphincterotomy and balloon extraction. - A biliary sphincterotomy was performed. - The biliary tree was swept. - The left main hepatic duct was successfully dilated. - One temporary stent was placed into the common bile duct. Procedure Code(s): --- Professional --- 55500, Endoscopic retrograde cholangiopancreatography (ERCP); with placement of endoscopic stent into biliary or pancreatic duct, including pre- and post-dilation and guide wire passage, when performed, including sphincterotomy, when performed, each stent 32843, 59, Endoscopic retrograde cholangiopancreatography (ERCP); with trans-endoscopic balloon dilation of biliary/pancreatic duct(s) or of ampulla (sphincteroplasty), including sphincterotomy, when performed, each duct 48516, 51, Endoscopic retrograde cholangiopancreatography (ERCP); with removal of calculi/debris from biliary/pancreatic duct(s) 72777, 26, Endoscopic catheterization of the biliary ductal system, radiological supervision and interpretation CPT copyright 2021 [employer]. All rights reserved. The codes documented in this report are preliminary and upon certified histologic technician review may be revised to meet current compliance requirements. Hernesto Ponce DO 04/16/2024 3:01:38 PM This report has been signed electronically. Number of Addenda: 0 Note Initiated On: 04/16/2024 2:12 PM
--- NOTE | 2024-04-16 15:07 | PCM.POST.ANE ---
Anesthesia: Postop Eval I Current Vital Signs Temperature: 97.5 F Pulse Rate: 86 Blood Pressure: 117/82 Respiratory Rate: 14 Pulse Ox: 98 Oxygen Delivery Method: Room Air Assessment Airway patent: Yes Spontaneous unlabored respirations: Yes Mental status: Awake and Calm nausea: No Vomiting: No Anesthesia Complication: No Fluid Hydration Crystalloid volume administer (ml): 700 Total IV fluid infused: 700 Progress Note Anesthesia document: Postop Eval 1 completed: Yes
--- NOTE | 2024-04-16 20:57 | PCM.POSTANE2 ---
Anesthesia Postop Eval I Sum Postop Eval Completion status Anesthesia document: Postop Eval 1 completed: Yes Anesthesia Postop Eval I Summary Anesthesia Postop Eval I Summary: Anesthesia Postop Eval I: Assessment Summary Airway patent Yes 04/16/24 15:08 [email or web address] Spontaneous unlabored Yes 04/16/24 15:08 [email or web address] respirations Mental status Awake,Calm 04/16/24 15:08 [email or web address] nausea No 04/16/24 15:08 [email or web address] Vomiting No 04/16/24 15:08 [email or web address] Anesthesia Postop Eval I: Fluid Summary Crystalloid volume administer 700 04/16/24 15:08 [email or web address] (ml) Colloids volume administered ( ml) Blood Product volume administered (ml) Total IV fluid infused 700 04/16/24 15:08 [email or web address] Anesthesia Postop Eval I: Summary Notes Anesthesia Complication No 04/16/24 15:08 [email or web address] Anesthesia Complication Comment: Post-operative progress note Anesthesia: Postop Eval II Evaluation Mental status: Awake and Calm Pain Level: 0 nausea: No Vomiting: No Complications Anesthesia Complication: No
== END 2024-04-16 15:53 | disposition home or self-care (01) ==
LOC: EN 11:17 → AC 11:17
PROVIDERS: PCP Internal Medicine; Referring Provider Internal Medicine; Visit Provider Internal Medicine Gastroenterology
PROC: (CPT 43260; principal; 2024-04-16 12:10)
DX: K80.50 Calculus of bile duct without cholangitis or cholecystitis without obstruction (principal); I85.00 Esophageal varices without bleeding; K74.60 Unspecified cirrhosis of liver; Z79.01 Long term (current) use of anticoagulants; Z79.84 Long term (current) use of oral hypoglycemic drugs; Z79.899 Other long term (current) drug therapy
CPT/HCPCS: 43274; 43277; 43264; 74330; 76000; 82962; 93005; A4216; J2405

== ENCOUNTER 2024-04-25 07:44 | Day surgery (SDC) | payer MEDICARE, SELFPAY ==
--- NOTE | 2024-04-15 09:47 | PAT.ANESEVAL ---
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 When Was Last Pacemaker Check QUESTION #4 FULL TEXT: You/Your Family Experience fever (hyperthermia) with Anesthesia Last Oral Intake Last Oral intake: Last Oral Intake NPO since Meds taken in AM with sips of water? 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 Female Yes 04/14/24 12:35 HX of Motion Sickness No 04/14/24 12:35 HX of N/V After Surgery No 04/14/24 12:35 Non-Smoker Yes 04/14/24 12:35 Duration of Surgery greater Yes 04/14/24 12:35 than 60 minutes Number of Risk Factors 3 04/14/24 12:35 PONV Score Moderate Risk 04/14/24 12:35 Height & Weight Height & Weight: Anesthesia: Height & Weight Height 5 ft 9 in 03/03/24 08:19 Respiratory Assessment Respiratory Assessment - baseboard heating installer: Respiratory Tract Infection Hx - baseboard heating installer Hx Respiratory Tract Infection No 04/14/24 12:35 STOP Sleep Apnea STOP Sleep Apnea - baseboard heating installer: STOP Sleep Apnea - baseboard heating installer Hx Hypertension Yes: CONTROLLED WITH MED 04/14/24 12:35 Hx Sleep Apnea No 04/14/24 12:35 CPAP BIPAP Do you snore loudly (louder No 04/14/24 12:35 than talking or can be heard Do you often feel tired/ Yes 04/14/24 12:35 fatigued/ sleepy during daytime? Has anyone observed you stop No 04/14/24 12:35 breathing during sleep? STOP Results Positive 04/14/24 12:35 QUESTION #5 FULL TEXT : Do you snore loudly (louder than talking or can be heard through closed doors)? 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 Specify any problems Hx of Preganancy in last 3 No 04/14/24 12:35 Months Nurse Filling Out Transfusion DSCHRIBER 04/14/24 12:35 & Questions: Date: 04/14/24 04/14/24 12:35 Time: 12:36 04/14/24 12:35 Patient unable to answer at this time (ie. 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 History - baseboard heating installer: /Reproductive Hx- baseboard heating installer Hx Now Gestational Age (in weeks): EDC: Hx Hx Para Hx Section SAB No 04/14/24 12:35 PFSH Medical History (Updated 04/14/24 @ 12:25 by Carlee Matthews) Lupus Primary osteoarthritis, left shoulder Fatty liver Gastric reflux Hypertension Impingement of left shoulder Left shoulder pain Tremor Memory impairment Alcohol use History of steroid therapy Vertigo History of diverticulitis History of echocardiogram History of edema History of heart attack History of stress test Suprapubic discomfort Osteopenia Hypercalcemia Wears glasses Anxiety Diabetes Ambulates with cane Arthritis Back pain Syncope Mejia esophagus Cardiology follow-up encounter Primary biliary cholangitis Obesity (BMI 30.0-34.9) Former smoker Positive double stranded 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 Chronic constipation Elevated serum GGT level Health care maintenance Bunion of left foot Hyperhidrosis Anxiety and depression Chronic back pain Depression Colonic thickening Perforated appendicitis (08/18/18) Vitamin D deficiency Scoliosis Venous insufficiency of both lower extremities Type 2 diabetes mellitus HAMM (nonalcoholic steatohepatitis) Hiatal hernia Essential (primary) hypertension Hx of non-ST elevation myocardial infarction (NSTEMI) (05/02/06) GERD (gastroesophageal reflux disease) Atherosclerotic heart disease of [place] coronary artery without angina pectoris Hyperlipidemia Home Medications ?Medication ?Instructions ?Recorded ?Last Taken ?Type Handicap Placard #1 ea 03/11/21 Unknown Rx cholecalciferol (vitamin D3) 125 125 mcg PO DAILY 01/26/23 03/02/24 History mcg (5,000 unit) capsule clopidogrel 75 mg tablet (Plavix) 75 mg PO QDAY #90 tabs 06/07/23 04/09/24 Rx meclizine 25 mg tablet 25 mg PO BID-TID PRN 06/07/23 03/02/24 Rx dizziness/vertigo #60 tabs nitroglycerin 0.4 mg sublingual 0.4 mg sublingual Q5M PRN Chest 06/07/23 Unknown Rx tablet Pain #30 tabs venlafaxine 150 mg 150 mg PO DAILY #90 caps 06/07/23 03/02/24 Rx capsule,extended release 24 hr blood-glucose meter (OneTouch #1 ea 06/14/23 Unknown Rx Verio Flex Start kit) blood sugar diagnostic (OneTouch #100 ea 06/15/23 Unknown Rx Verio test strips) lancets 28 gauge (Unilet Lancet) #100 ea 07/16/23 Unknown Rx fenofibrate 54 mg tablet 54 mg PO DAILY #90 tabs 10/17/23 03/02/24 Rx pantoprazole 40 mg tablet,delayed 40 mg PO DAILY #90 tabs 01/02/24 03/02/24 Rx release Handicap Placard #1 ea 01/23/24 Unknown Rx calcium carbonate (Calcium 600) 600 mg PO QDAY 01/23/24 03/02/24 History ursodiol 250 mg tablet 250 mg PO BID 01/23/24 03/02/24 History cyanocobalamin (vitamin B-12) 1,000 mcg PO DAILY Low in vitamin B 01/24/24 03/02/24 History 1,000 mcg tablet (Vitamin B-12) polyethylene glycol 3350 17 17 g PO DAILY PRN Trouble with 01/24/24 03/02/24 History gram/dose oral powder (Miralax) bowels rosuvastatin 20 mg tablet 20 mg PO MOWEFR 01/24/24 Unknown History metformin 750 mg tablet,extended 750 mg PO BID #180 tabs 03/25/24 Unknown Rx release 24 hr hydrochlorothiazide 25 mg tablet 12.5 mg (1/2 x 25 mg) PO QAM #60 03/31/24 Unknown Rx tabs Allergy/AdvReac Type Severity Reaction Status Date / Time triamcinolone Allergy Intermediate Rash Verified 04/14/24 12:12 eptifibatide (From Allergy Rash Verified 04/14/24 12:12 Integrilin) niacin (From Niaspan Allergy Rash Verified 04/14/24 12:12 Extended-Release) tizanidine (From Zanaflex) Allergy Rash Verified 04/14/24 12:12 Family History Brother alcoholism Brother alcoholism Colon cancer Mother Arthritis Heart disease Hypertension High cholesterol Myocardial infarction Sister Myocardial infarction Hypertension High cholesterol Heart disease Sister Myocardial infarction Hypertension High cholesterol Heart disease Emphysema lung Sister Heart disease High cholesterol Hypertension Grandmother Rheumatoid arthritis Other Type 2 diabetes mellitus Surgical History (Updated 04/14/24 @ 12:37 by Carlee Matthews) History of ERCP History of coronary artery stent placement History of esophagogastroduodenoscopy (EGD) History of colonoscopy History of appendectomy (08/18/18) History of lumbar fusion History of liver biopsy History of tubal ligation History of cholecystectomy History of coronary artery stent placement (05/01/06) History of back surgery Social History Smoking Status: Former smoker how long ago did patient quit smokin years second hand exposure: No alcohol intake: never substance use type: does not use caffeine: Yes Type: coffee Number of servings: 2 and tea what type of physical activity do you participate in: walking and other details: [employer] frequency: daily duration: 15-30 minutes/day seatbelt use: always do you feel safe at home: Yes Audit: Pertinent Findings Pertinent Findings EKG Perinent findings: nl 2019 Stress test pertinent findings: 01/26 wnl, ejection fraction is noted to be 82%. Echo (EF%) pertinent findings: EF 60, wnl 08/21
--- NOTE | 2024-04-15 10:10 | PAT.ANESEVAL ---
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 When Was Last Pacemaker Check QUESTION #4 FULL TEXT: You/Your Family Experience fever (hyperthermia) with Anesthesia Last Oral Intake Last Oral intake: Last Oral Intake NPO since Meds taken in AM with sips of water? 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 Female Yes 04/14/24 12:35 HX of Motion Sickness No 04/14/24 12:35 HX of N/V After Surgery No 04/14/24 12:35 Non-Smoker Yes 04/14/24 12:35 Duration of Surgery greater Yes 04/14/24 12:35 than 60 minutes Number of Risk Factors 3 04/14/24 12:35 PONV Score Moderate Risk 04/14/24 12:35 Height & Weight Height & Weight: Anesthesia: Height & Weight Height 5 ft 9 in 03/03/24 08:19 Respiratory Assessment Respiratory Assessment - clinical professor: Respiratory Tract Infection Hx - clinical professor Hx Respiratory Tract Infection No 04/14/24 12:35 STOP Sleep Apnea STOP Sleep Apnea - clinical professor: STOP Sleep Apnea - clinical professor Hx Hypertension Yes: CONTROLLED WITH MED 04/14/24 12:35 Hx Sleep Apnea No 04/14/24 12:35 CPAP BIPAP Do you snore loudly (louder No 04/14/24 12:35 than talking or can be heard Do you often feel tired/ Yes 04/14/24 12:35 fatigued/ sleepy during daytime? Has anyone observed you stop No 04/14/24 12:35 breathing during sleep? STOP Results Positive 04/14/24 12:35 QUESTION #5 FULL TEXT : Do you snore loudly (louder than talking or can be heard through closed doors)? 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 Specify any problems Hx of Preganancy in last 3 No 04/14/24 12:35 Months Nurse Filling Out Transfusion DSCHRIBER 04/14/24 12:35 & Questions: Date: 04/14/24 04/14/24 12:35 Time: 12:36 04/14/24 12:35 Patient unable to answer at this time (ie. 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 History - clinical professor: /Reproductive Hx- clinical professor Hx Now Gestational Age (in weeks): EDC: Hx Hx Para Hx Section SAB No 04/14/24 12:35 PFSH Medical History (Updated 04/14/24 @ 12:25 by Carlee Matthews) Lupus Primary osteoarthritis, left shoulder Fatty liver Gastric reflux Hypertension Impingement of left shoulder Left shoulder pain Tremor Memory impairment Alcohol use History of steroid therapy Vertigo History of diverticulitis History of echocardiogram History of edema History of heart attack History of stress test Suprapubic discomfort Osteopenia Hypercalcemia Wears glasses Anxiety Diabetes Ambulates with cane Arthritis Back pain Syncope Mejia esophagus Cardiology follow-up encounter Primary biliary cholangitis Obesity (BMI 30.0-34.9) Former smoker Positive double stranded 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 Chronic constipation Elevated serum GGT level Health care maintenance Bunion of left foot Hyperhidrosis Anxiety and depression Chronic back pain Depression Colonic thickening Perforated appendicitis (08/18/18) Vitamin D deficiency Scoliosis Venous insufficiency of both lower extremities Type 2 diabetes mellitus HAMM (nonalcoholic steatohepatitis) Hiatal hernia Essential (primary) hypertension Hx of non-ST elevation myocardial infarction (NSTEMI) (05/02/06) GERD (gastroesophageal reflux disease) Atherosclerotic heart disease of [place] coronary artery without angina pectoris Hyperlipidemia Home Medications ?Medication ?Instructions ?Recorded ?Last Taken ?Type Handicap Placard #1 ea 03/11/21 Unknown Rx cholecalciferol (vitamin D3) 125 125 mcg PO DAILY 01/26/23 03/02/24 History mcg (5,000 unit) capsule clopidogrel 75 mg tablet (Plavix) 75 mg PO QDAY #90 tabs 06/07/23 04/09/24 Rx meclizine 25 mg tablet 25 mg PO BID-TID PRN 06/07/23 03/02/24 Rx dizziness/vertigo #60 tabs nitroglycerin 0.4 mg sublingual 0.4 mg sublingual Q5M PRN Chest 06/07/23 Unknown Rx tablet Pain #30 tabs venlafaxine 150 mg 150 mg PO DAILY #90 caps 06/07/23 03/02/24 Rx capsule,extended release 24 hr blood-glucose meter (OneTouch #1 ea 06/14/23 Unknown Rx Verio Flex Start kit) blood sugar diagnostic (OneTouch #100 ea 06/15/23 Unknown Rx Verio test strips) lancets 28 gauge (Unilet Lancet) #100 ea 07/16/23 Unknown Rx fenofibrate 54 mg tablet 54 mg PO DAILY #90 tabs 10/17/23 03/02/24 Rx pantoprazole 40 mg tablet,delayed 40 mg PO DAILY #90 tabs 01/02/24 03/02/24 Rx release Handicap Placard #1 ea 01/23/24 Unknown Rx calcium carbonate (Calcium 600) 600 mg PO QDAY 01/23/24 03/02/24 History ursodiol 250 mg tablet 250 mg PO BID 01/23/24 03/02/24 History cyanocobalamin (vitamin B-12) 1,000 mcg PO DAILY Low in vitamin B 01/24/24 03/02/24 History 1,000 mcg tablet (Vitamin B-12) polyethylene glycol 3350 17 17 g PO DAILY PRN Trouble with 01/24/24 03/02/24 History gram/dose oral powder (Miralax) bowels rosuvastatin 20 mg tablet 20 mg PO MOWEFR 01/24/24 Unknown History metformin 750 mg tablet,extended 750 mg PO BID #180 tabs 03/25/24 Unknown Rx release 24 hr hydrochlorothiazide 25 mg tablet 12.5 mg (1/2 x 25 mg) PO QAM #60 03/31/24 Unknown Rx tabs Allergy/AdvReac Type Severity Reaction Status Date / Time triamcinolone Allergy Intermediate Rash Verified 04/14/24 12:12 eptifibatide (From Allergy Rash Verified 04/14/24 12:12 Integrilin) niacin (From Niaspan Allergy Rash Verified 04/14/24 12:12 Extended-Release) tizanidine (From Zanaflex) Allergy Rash Verified 04/14/24 12:12 Family History Brother alcoholism Brother alcoholism Colon cancer Mother Arthritis Heart disease Hypertension High cholesterol Myocardial infarction Sister Myocardial infarction Hypertension High cholesterol Heart disease Sister Myocardial infarction Hypertension High cholesterol Heart disease Emphysema lung Sister Heart disease High cholesterol Hypertension Grandmother Rheumatoid arthritis Other Type 2 diabetes mellitus Surgical History (Updated 04/14/24 @ 12:37 by Carlee Matthews) History of ERCP History of coronary artery stent placement History of esophagogastroduodenoscopy (EGD) History of colonoscopy History of appendectomy (08/18/18) History of lumbar fusion History of liver biopsy History of tubal ligation History of cholecystectomy History of coronary artery stent placement (05/01/06) History of back surgery Social History Smoking Status: Former smoker how long ago did patient quit smokin years second hand exposure: No alcohol intake: never substance use type: does not use caffeine: Yes Type: coffee Number of servings: 2 and tea what type of physical activity do you participate in: walking and other details: [employer] frequency: daily duration: 15-30 minutes/day seatbelt use: always do you feel safe at home: Yes Audit: Pertinent Findings HISTORY of Pertinent Findings History of Pertinent Findings: EKG Pertinent Findings EKG Perinent findings nl 201804/15/24 09:57 Stress Test Pertinent Findings Stress test pertinent findings 01/26 wnl, ejection fraction 04/15/24 09:57 is noted to be 82%. Echo Pertinent Findings Echo (EF%) pertinent findings EF 60, wnl 08/2104/15/24 09:57
[2024-04-25] VITALS (11 sets, daily range): BP systolic 123–150; BP diastolic 67–80; PULSE 76–96; RESP 16; TEMP 36.1–37.3; O2SAT 90–99; BMI 27.7
[2024-04-25] MEDS: 0.9% Normal Saline (1000mL) 1,000 ML 15 ML IV (08:54)
--- NOTE | 2024-04-25 08:59 | PRE.ANES_ITS ---
ASA Classification* ASA Classification ASA Classification: 3 Assessment & Plan Anesthesia* Anesthesia Assessment Anesthesia Assessment: Discussed sedation and/or anesthesia options, risks, benefits, and alternatives with patient/parents/legal guardian/POA. Questions invited. The patient/parents/legal guardian/POA seems to understand and agrees to proceed with anesthesia plan. Reviewed the physical assessment, medical history, allergy history and patient home medications list prior to surgery/procedure/anesthetic and documented any changes. Performed airway and anesthesia risk assessments. Anesthesia Type Anesthesia Type: General and Block Anesthesia Focused Assessment* Temperature: 99.1 F Pulse Rate: 96 Blood Pressure: 150/80 Respiratory Rate: 16 Pulse Ox: 96 Airway Assessment Mouth opens: >3 cm Mallampati Score: II Focused Labs Anesthesia Preop lab: CBC WBC 7.2 K/mm3 (4.4-11.0) 02/05/24 14:12 RBC 5.06 M/mm3 (4.2-5.4) 02/05/24 14:12 Hgb 13.2 g/dL (12.0-15.0) 02/05/24 14:12 Hct 43.2 % (37-47) 02/05/24 14:12 Plt Count 302 K/mm3 (150-450) 02/05/24 14:12 CHEMISTRY Potassium 3.9 mmol/L (3.5-5.1) 02/05/24 14:12 Sodium 136 mmol/L (136-145) 02/05/24 14:12 Magnesium 1.9 mg/dL (1.6-2.6) 08/23/18 07:30 Phosphorus 3.0 mg/dL (2.5-4.9) 08/19/18 05:02 BUN 19 mg/dL (7-18) H 02/05/24 14:12 Creatinine 0.99 mg/dL (0.55-1.02) 02/05/24 14:12 Glucose [facility] 163 mg/dL (70-110) H 07/16/23 10:03 Glucose 106 mg/dL (74-106) 02/05/24 14:12 POC Glucose 134 mg/dL (74-106) H 04/16/24 12:11 TSH 4.18 uIU/mL (0.358-3.74) H 10/17/23 12:02 COAG PT 14.0 SECONDS (11.7-14.9) 02/05/24 14:12 Pre-Assessment Diagnosis/Proposed Procedure Planned Operative Procedure(s): LEFT SHOULDER ARTHROSCOPY SUBCROMIAL D ECOMPRESSION DEBRIDEMENT Anesthesia History Anesthesia History - supervisor filling and packing: Anesthesia History - supervisor filling and packing Hx Hospitalization No 04/14/24 12:35 Any Problems With Anesthesia No 04/14/24 12:35 Cholinesterase deficiency No 04/14/24 12:35 You/Your Family Experience No 04/14/24 12:35 fever (hyperthermia) with Relationship Recent Exposure to Contagious No 04/25/24 08:47 Disease Does patient have nerve No 04/14/24 12:35 stimulator Patient instructed to have device shut off --Does patient have Pacemaker No 04/25/24 08:47 or ICD? When Was Last Pacemaker Check QUESTION #4 FULL TEXT: You/Your Family Experience fever (hyperthermia) with Anesthesia Last Oral Intake Last Oral intake: Last Oral Intake NPO since 00:00 04/25/24 08:47 Meds taken in AM with sips of No 04/25/24 08:47 water? 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 - supervisor filling and packing: PONV - supervisor filling and packing Female Yes 04/14/24 12:35 HX of Motion Sickness No 04/14/24 12:35 HX of N/V After Surgery No 04/14/24 12:35 Non-Smoker Yes 04/14/24 12:35 Duration of Surgery greater Yes 04/14/24 12:35 than 60 minutes Number of Risk Factors 3 04/14/24 12:35 PONV Score Moderate Risk 04/14/24 12:35 Height & Weight Height & Weight: Anesthesia: Height & Weight Height 5 ft 9 in 04/25/24 08:47 Weight: 85.185 kg 04/25/24 08:47 Body Mass Index (BMI) 27.7 04/25/24 08:47 Respiratory Assessment Respiratory Assessment - supervisor filling and packing: Respiratory Tract Infection Hx - supervisor filling and packing Hx Respiratory Tract Infection No 04/14/24 12:35 STOP Sleep Apnea STOP Sleep Apnea - supervisor filling and packing: STOP Sleep Apnea - supervisor filling and packing Hx Hypertension Yes: CONTROLLED WITH MED 04/14/24 12:35 Hx Sleep Apnea No 04/14/24 12:35 CPAP BIPAP Do you snore loudly (louder No 04/14/24 12:35 than talking or can be heard Do you often feel tired/ Yes 04/14/24 12:35 fatigued/ sleepy during daytime? Has anyone observed you stop No 04/14/24 12:35 breathing during sleep? STOP Results Positive 04/14/24 12:35 QUESTION #5 FULL TEXT : Do you snore loudly (louder than talking or can be heard through closed doors)? 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 Specify any problems Hx of Preganancy in last 3 No 04/14/24 12:35 Months Nurse Filling Out Transfusion DSCHRIBER 04/14/24 12:35 & Questions: Date: 04/14/24 04/14/24 12:35 Time: 12:36 04/14/24 12:35 Patient unable to answer at this time (ie. 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 History - supervisor filling and packing: /Reproductive Hx- supervisor filling and packing Hx Now Gestational Age (in weeks): EDC: Hx Hx Para Hx Section SAB No 04/14/24 12:35 Active Medications Active Medications: Current Medications Generic Name Dose Route Start Last Admin Trade Name Freq PRN Reason Stop Dose Admin Cefazolin Sodium 2 gm/ N/A 20 mls @ 400 mls/hr 04/25/24 09:40 IV 04/25/24 09:42 PREOP ONE Sodium Chloride 1,000 mls @ 15 mls/hr 04/25/24 08:10 04/25/24 08:54 IV 04/30/24 21:29 15 mls/hr .Q48H CHILANGO Administration Protocol PFSH Medical History Lupus Primary osteoarthritis, left shoulder Fatty liver Gastric reflux Hypertension Impingement of left shoulder Left shoulder pain Tremor Memory impairment Alcohol use History of steroid therapy Vertigo History of diverticulitis History of echocardiogram History of edema History of heart attack History of stress test Suprapubic discomfort Osteopenia Hypercalcemia Wears glasses Anxiety Diabetes Ambulates with cane Arthritis Back pain Syncope Mejia esophagus Cardiology follow-up encounter Primary biliary cholangitis Obesity (BMI 30.0-34.9) Former smoker Positive double stranded 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 Chronic constipation Elevated serum GGT level Health care maintenance Bunion of left foot Hyperhidrosis Anxiety and depression Chronic back pain Depression Colonic thickening Perforated appendicitis (08/18/18) Vitamin D deficiency Scoliosis Venous insufficiency of both lower extremities Type 2 diabetes mellitus HAMM (nonalcoholic steatohepatitis) Hiatal hernia Essential (primary) hypertension Hx of non-ST elevation myocardial infarction (NSTEMI) (05/02/06) GERD (gastroesophageal reflux disease) Atherosclerotic heart disease of [place] coronary artery without angina pectoris Hyperlipidemia Home Medications ?Medication ?Instructions ?Recorded ?Last Taken ?Type Handicap Placard #1 ea 03/11/21 Unknown Rx cholecalciferol (vitamin D3) 125 125 mcg PO DAILY 01/26/23 04/24/24 History mcg (5,000 unit) capsule clopidogrel 75 mg tablet (Plavix) 75 mg PO QDAY #90 tabs 06/07/23 04/18/24 Rx meclizine 25 mg tablet 25 mg PO BID-TID PRN 06/07/23 04/24/24 Rx dizziness/vertigo #60 tabs nitroglycerin 0.4 mg sublingual 0.4 mg sublingual Q5M PRN Chest 06/07/23 04/24/24 Rx tablet Pain #30 tabs venlafaxine 150 mg 150 mg PO DAILY #90 caps 06/07/23 04/24/24 Rx capsule,extended release 24 hr blood-glucose meter (OneTouch #1 ea 06/14/23 Unknown Rx Verio Flex Start kit) blood sugar diagnostic (OneTouch #100 ea 06/15/23 Unknown Rx Verio test strips) lancets 28 gauge (Unilet Lancet) #100 ea 07/16/23 Unknown Rx fenofibrate 54 mg tablet 54 mg PO DAILY #90 tabs 10/17/23 04/24/24 Rx pantoprazole 40 mg tablet,delayed 40 mg PO DAILY #90 tabs 01/02/24 04/24/24 Rx release Handicap Kirti #1 ea 01/23/24 Unknown Rx calcium carbonate (Calcium 600) 600 mg PO QDAY 01/23/24 04/24/24 History ursodiol 250 mg tablet 250 mg PO BID 01/23/24 04/24/24 History cyanocobalamin (vitamin B-12) 1,000 mcg PO DAILY Low in vitamin B 01/24/24 04/24/24 History 1,000 mcg tablet (Vitamin B-12) polyethylene glycol 3350 17 17 g PO DAILY PRN Trouble with 01/24/24 04/24/24 His tory gram/dose oral powder (Miralax) bowels rosuvastatin 20 mg tablet 20 mg PO MOWEFR 01/24/24 04/24/24 History metformin 750 mg tablet,extended 750 mg PO BID #180 tabs 03/25/24 04/24/24 Rx release 24 hr hydrochlorothiazide 25 mg tablet 12.5 mg (1/2 x 25 mg) PO QAM #60 03/31/24 04/24/24 Rx tabs Allergy/AdvReac Type Severity Reaction Status Date / Time triamcinolone Allergy Intermediate Rash Verified 04/25/24 08:45 eptifibatide (From Allergy Rash Verified 04/25/24 08:45 Integrilin) niacin (From Niaspan Allergy Rash Verified 04/25/24 08:45 Extended-Release) tizanidine (From Zanaflex) Allergy Rash Verified 04/25/24 08:45 Family History Brother alcoholism Brother alcoholism Colon cancer Mother Arthritis Heart disease Hypertension High cholesterol Myocardial infarction Sister Myocardial infarction Hypertension High cholesterol Heart disease Sister Myocardial infarction Hypertension High cholesterol Heart disease Emphysema lung Sister Heart disease High cholesterol Hypertension Grandmother Rheumatoid arthritis Other Type 2 diabetes mellitus Surgical History History of ERCP History of coronary artery stent placement History of esophagogastroduodenoscopy (EGD) History of colonoscopy History of appendectomy (08/18/18) History of lumbar fusion History of liver biopsy History of tubal ligation History of cholecystectomy History of coronary artery stent placement (05/01/06) History of back surgery Social History Smoking Status: Former smoker how long ago did patient quit smokin years second hand exposure: No alcohol intake: never substance use type: does not use caffeine: Yes Type: coffee Number of servings: 2 and tea what type of physical activity do you participate in: walking and other details: [employer] frequency: daily duration: 15-30 minutes/day seatbelt use: always do you feel safe at home: Yes Review of Systems (Anesthesia) ROS Narrative System reviewed and no additional complaints, except as documented.
[2024-04-25 09:02] LABS: Bedside Glucose 163 mg/dL (74-106)
--- NOTE | 2024-04-25 10:07 | HP.PCM_ITS ---
HPI - General HPI Narrative AWILDA WEBER, is a 78 F who presents for left shoulder arthroscopy, subacromial decompression and debridement. No changes to history and physical exam. Left shoulder marked. Risks alternatives benefits discussed as well as postoperative instructions and narcotic counseling. The patient understands no further questions or concerns okay to proceed. MR#: [id number] Acct: [id number] Name: AWILDA WEBER Rep #: [id number] : 1945 Provider: Dr. Taiwo Lopez MD Age/Sex: 78/F [place] [facility] [email or web address] Status: Signed Intake Vital Signs 03/03/2408:19 Height 5 ft 9 in Intake Visit Reasons: LEFT SHOULDER Allergies triamcinolone Allergy (Intermediate, Verified 03/18/24 11:04) Rasheptifibatide (From Integrilin) Allergy (Verified 03/18/24 11:04) Rashniacin (From Niaspan Extended-Release) Allergy (Verified 03/18/24 11:04) Rashtizanidine (From Zanaflex) Allergy (Verified 03/18/24 11:04) Rash Medications ?Medication ?Instructions ?Recorded ?Confirmed ?Type Handicap Placard #1 ea 03/11/21 03/18/24 Rx dulaglutide 3 mg/0.5 mL 3 mg (0.5 mL) subcut QWEEK 3 07/04/21 03/18/24 Rx subcutaneous pen injector months #6.5 mL cholecalciferol (vitamin D3) 125 125 mcg PO DAILY 01/26/23 03/18/24 History mcg (5,000 unit) capsule clopidogrel 75 mg tablet (Plavix) 75 mg PO QDAY #90 tabs 06/07/23 03/18/24 Rx meclizine 25 mg tablet 25 mg PO BID-TID PRN 06/07/23 03/18/24 Rx dizziness/vertigo #60 tabs nitroglycerin 0.4 mg sublingual 0.4 mg sublingual Q5M PRN Chest 06/07/23 03/18/24 Rx tablet Pain #30 tabs venlafaxine 150 mg 150 mg PO DAILY #90 caps 06/07/23 03/18/24 Rx capsule,extended release 24 hr blood-glucose meter (OneTouch #1 ea 06/14/23 03/18/24 Rx Verio Flex Start kit) blood sugar diagnostic (OneTouch #100 ea 06/15/23 03/18/24 Rx Verio test strips) lancets 28 gauge (Unilet Lancet) #100 ea 07/16/23 03/18/24 Rx fenofibrate 54 mg tablet 54 mg PO DAILY #90 tabs 10/17/23 03/18/24 Rx hydrochlorothiazide 25 mg tablet 12.5 mg (1/2 x 25 mg) PO QAM #60 10/17/23 03/18/24 Rx tabs pantoprazole 40 mg tablet,delayed 40 mg PO DAILY #90 tabs 01/02/24 03/18/24 Rx release Handicap Placard #1 ea 01/23/24 03/18/24 Rx calcium carbonate (Calcium 600) 600 mg PO QDAY 01/23/24 03/18/24 History ursodiol 250 mg tablet 250 mg PO QDAY 01/23/24 03/18/24 History cyanocobalamin (vitamin B-12) 1,000 mcg PO DAILY Low in vitamin B 01/24/24 03/18/24 History 1,000 mcg tablet (Vitamin B-12) polyethylene glycol 3350 17 17 g PO DAILY PRN Trouble with 01/24/24 03/18/24 History gram/dose oral powder (Miralax) bowels rosuvastatin 20 mg tablet 20 mg PO MOWEFR 01/24/24 03/18/24 History sucralfate 1 gram tablet 1 g PO BID 4 weeks #56 tabs 03/14/24 03/18/24 Rx Have you fallen in the past year?: No PFSH Medical History Primary osteoarthritis, left shoulder Fatty liver Gastric reflux Hypertension Impingement of left shoulder Left shoulder pain Tremor Memory impairment Alcohol use History of steroid therapy Vertigo Easy bruising History of diverticulitis History of echocardiogram History of edema History of heart attack History of stress test Suprapubic discomfort Osteopenia SLE (systemic lupus erythematosus) Hypercalcemia Wears glasses Anxiety Diabetes Ambulates with cane Arthritis Back pain Syncope Mejia esophagus Cardiology follow-up encounter Primary biliary cholangitis Obesity (BMI 30.0-34.9) Kidney stones Former smoker Positive double stranded 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 Chronic constipation Elevated serum GGT level Health care maintenance Bunion of left foot Hyperhidrosis Anxiety and depression Chronic back pain Depression Colonic thickening Perforated appendicitis (08/18/18) Vitamin D deficiency Scoliosis Venous insufficiency of both lower extremities Type 2 diabetes mellitus HAMM (nonalcoholic steatohepatitis) Hiatal hernia Small bowel obstruction Essential (primary) hypertension Hx of non-ST elevation myocardial infarction (NSTEMI) (05/02/06) GERD (gastroesophageal reflux disease) Atherosclerotic heart disease of [place] coronary artery without angina pectoris Breast lump Hyperlipidemia Surgical History History of esophagogastroduodenoscopy (EGD) History of heart surgery Stented coronary artery History of colonoscopy History of appendectomy (08/18/18) History of lumbar fusion History of liver biopsy History of tubal ligation History of cholecystectomy History of coronary artery stent placement (05/01/06) History of back surgery Family History Brother alcoholismBrother alcoholism Colon cancerMother Arthritis Heart disease Hypertension High cholesterol Myocardial infarctionSister Myocardial infarction Hypertension High cholesterol Heart diseaseSister Myocardial infarction Hypertension High cholesterol Heart disease Emphysema lungSister Heart disease High cholesterol HypertensionGrandmother Rheumatoid arthritisOther Type 2 diabetes mellitus Social History Smoking Status: Former smoker how long ago did patient quit smokin years second hand exposure: No alcohol intake: never substance use type: does not use caffeine: Yes Type: coffee Number of servings: 2 and tea what type of physical activity do you participate in: walking and other details: [employer] frequency: daily duration: 15-30 minutes/day seatbelt use: always do you feel safe at home: Yes HPI LEFT SHOULDER Details: This documentation accurately reflects the service provided and the decisions made by me, Dr. Taiwo Lopez MD 03/18/24 1013. Part of today?s visit was documented by [ ], acting as scribe. AWILDA WEBER is a 78 year old F here today for follow-up left shoulder MRI results. Patient has had a cortisone injection in the past with minimal relief. There was some relief with physical therapy but that was irritating the patient's back and the patient does have pain lateral side of the shoulder especially in abduction worse with lifting. Supplemental Info [facility] Imaging Services [address] [place] [address] Upper Ext Joint Only(Routine) MR#: [id number] Acct: [id number] Name: AWILDA WEBER Rep #: [id number] : 1945 F 78 From: Shahram Vasquez MD PCP: Dr. Mati Hampton MD Status: REG CLI Study: Upper Ext Joint Only(Routine) Date of Exam: 03/13/24 Exam# [id number] Ordering Dr: Taiwo Lopez MD STUDY: MRI LEFT SHOULDER REASON FOR EXAM: Female, 78 years old. Limited range of motion with pain and weakness. TECHNIQUE: Standardized fat and water weighted pulse sequences were obtained in all 3 orthogonal planes. COMPARISON: X-rays of the right shoulder dated September 13, 2021 FINDINGS: Supraspinatus and infraspinatus tendinosis with thinning/attenuation and articular surface fraying. No focal partial-thickness or full-thickness tear (coronal series 6 images 6-14). Subscapularis tendinosis with thinning/attenuation without a focal partial-thickness or full-thickness tear (axial series 2 images 10-15). Normal teres minor tendon. Normal supraspinatus muscle. Normal infraspinatus muscle. Normal subscapularis muscle. Normal teres minor muscle. Moderate thinning of the articular cartilage of the glenohumeral joint with a small glenohumeral joint effusion (axial series 2 images 8-15). Normal humeral head and visualized proximal humerus. Normal biceps labral complex. Normal intracapsular long biceps tendon. Normal labrum. Normal capsulo- ligamentous complex. Normal rotator interval. AC joint effusion with moderate AC joint hypertrophy which results in narrowing of the subacromial space (coronal series 6 images 5-10). There is a Type II morphology (curved), with a neutral orientation. Subacromial-subdeltoid bursitis (coronal series 6 image 10). Normal visualized coracohumeral and coracoacromial ligaments. Normal quadrilateral space. Normal axillary space. Normal deltoid muscle. Normal trapezius muscle. MRI/Upper Ext Joint Only(Routine) IMPRESSION: Supraspinatus, infraspinatus and subscapularis tendinosis. No focal partial-thickness or full-thickness tear. Moderate arthrosis of the glenohumeral joint. AC joint effusion with moderate AC joint hypertrophy resulting in narrowing of the subacromial space. Small glenohumeral joint effusion with subacromial-subdeltoid bursitis. Electronically Signed: Shahram Vasquez MD at 9:45 EST , I independently reviewed the imaging. Concur with radiologist report. Coding Level of Care Code Off vis,est,level 4 Diagnoses Impingement of left shoulder M25.812 Left shoulder pain M25.512 Primary osteoarthritis, left shoulder M19.012 Assessment and Plan Assessment and Plan (1) Impingement of left shoulder: Status: Acute Plan: 78-year-old female with left shoulder tendinosis and moderate glenohumeral osteoarthritis. Patient counseled on diagnosis prognosis different treatment options available including but not limited to rest ice anti-inflammatories repeat cortisone injection physical therapy and continue nonoperative management. Could consider an arthroscopic surgery although that would not address the any pain from the glenohumeral osteoarthritis I did warn the patient although on the radiographs the joint space looks well-maintained though on the MRI it is called at moderate. Patient does have tendinosis and some evidence of bursitis and impingement of the rotator cuff as well as most the pain is laterally and worse with reaching with good range of motion and strength of the shoulder. Shoulder arthroplasty may be a little bit too aggressive for this patient but they are desiring a surgical solution. In my opinion a reasonable option would be left shoulder arthroscopy, subacromial decompression and debridement. They would like to ahead with the operation. Also get a clearance from Dr. Callse in terms of how long to hold the Plavix before surgery. Patient understands also has diabetes which can increase the chance of infection and other complications patient understands wished to proceed with surgery no further questions or concerns. Pros and cons risks and benefits were discussed with the patient including but not limited to infection, pain, stiffness, bleeding, damage to surrounding structures, neurovascular injury, recurrence or retear, failure or wear of hardware or fixation, instability, fracture, deep vein thrombosis and pulmonary embolism, anesthetic risks, , patient dissatisfaction, need for further surgery and other risks. Patient understood and wished to proceed with surgery, and signed the informed consent documentation. (2) Left shoulder pain: Status: Acute (3) Primary osteoarthritis, left shoulder: Status: Acute Clinical Quality Measures Falls Risk Screening/Assistive Devices Have you fallen in the past year?: No Ortho Exam General General: Yes no acute distress Neurologic: Yes alert and Yes oriented x3 Psychologic: Yes reasonable and appropriate Left Shoulder Skin/Wound: Yes CDI, No ecchymosis, No erythema and No swelling Testing: Yes Hawkin's, Yes Neer's, Yes Speed's, Yes TTP Biceps, No TTP AC Joint, Yes Drop Arm, Yes AROM-External Rotation at side 0-60, Yes PROM-Forward Elevation 0-180, Yes empty can and No scapular winging SHOULDER: painful arc [facility] Medical History Lupus Primary osteoarthritis, left shoulder Fatty liver Gastric reflux Hypertension Impingement of left shoulder Left shoulder pain Tremor Memory impairment Alcohol use History of steroid therapy Vertigo History of diverticulitis History of echocardiogram History of edema History of heart attack History of stress test Suprapubic discomfort Osteopenia Hypercalcemia Wears glasses Anxiety Diabetes Ambulates with cane Arthritis Back pain Syncope Mejia esophagus Cardiology follow-up encounter Primary biliary cholangitis Obesity (BMI 30.0-34.9) Former smoker Positive double stranded 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 Chronic constipation Elevated serum GGT level Health care maintenance Bunion of left foot Hyperhidrosis Anxiety and depression Chronic back pain Depression Colonic thickening Perforated appendicitis (08/18/18) Vitamin D deficiency Scoliosis Venous insufficiency of both lower extremities Type 2 diabetes mellitus HAMM (nonalcoholic steatohepatitis) Hiatal hernia Essential (primary) hypertension Hx of non-ST elevation myocardial infarction (NSTEMI) (05/02/06) GERD (gastroesophageal reflux disease) Atherosclerotic heart disease of [place] coronary artery without angina pectoris Hyperlipidemia Home Medications ?Medication ?Instructions ?Recorded ?Last Taken ?Type Handicap Placard #1 ea 03/11/21 Unknown Rx cholecalciferol (vitamin D3) 125 125 mcg PO DAILY 01/26/23 04/24/24 History mcg (5,000 unit) capsule clopidogrel 75 mg tablet (Plavix) 75 mg PO QDAY #90 tabs 06/07/23 04/18/24 Rx meclizine 25 mg tablet 25 mg PO BID-TID PRN 06/07/23 04/24/24 Rx dizziness/vertigo #60 tabs nitroglycerin 0.4 mg sublingual 0.4 mg sublingual Q5M PRN Chest 06/07/23 04/24/24 Rx tablet Pain #30 tabs venlafaxine 150 mg 150 mg PO DAILY #90 caps 06/07/23 04/24/24 Rx capsule,extended release 24 hr blood-glucose meter (OneTouch #1 ea 06/14/23 Unknown Rx Verio Flex Start kit) blood sugar diagnostic (OneTouch #100 ea 06/15/23 Unknown Rx Verio test strips) lancets 28 gauge (Unilet Lancet) #100 ea 07/16/23 Unknown Rx fenofibrate 54 mg tablet 54 mg PO DAILY #90 tabs 10/17/23 04/24/24 Rx pantoprazole 40 mg tablet,delayed 40 mg PO DAILY #90 tabs 01/02/24 04/24/24 Rx release Handicap Placard #1 ea 01/23/24 Unknown Rx calcium carbonate (Calcium 600) 600 mg PO QDAY 01/23/24 04/24/24 History ursodiol 250 mg tablet 250 mg PO BID 01/23/24 04/24/24 History cyanocobalamin (vitamin B-12) 1,000 mcg PO DAILY Low in vitamin B 01/24/24 04/24/24 History 1,000 mcg tablet (Vitamin B-12) polyethylene glycol 3350 17 17 g PO DAILY PRN Trouble with 01/24/24 04/24/24 History gram/dose oral powder (Miralax) bowels rosuvastatin 20 mg tablet 20 mg PO MOWEFR 01/24/24 04/24/24 History metformin 750 mg tablet,extended 750 mg PO BID #180 tabs 03/25/24 04/24/24 Rx release 24 hr hydrochlorothiazide 25 mg tablet 12.5 mg (2 x 25 mg) PO QAM #60 03/31/24 04/24/24 Rx tabs Allergy/AdvReac Type Severity Reaction Status Date / Time triamcinolone Allergy Intermediate Rash Verified 04/25/24 08:45 eptifibatide (From Allergy Rash Verified 04/25/24 08:45 Integrilin) niacin (From Niaspan Allergy Rash Verified 04/25/24 08:45 Extended-Release) tizanidine (From Zanaflex) Allergy Rash Verified 04/25/24 08:45 Family History Brother alcoholism Brother alcoholism Colon cancer Mother Arthritis Heart disease Hypertension High cholesterol Myocardial infarction Sister Myocardial infarction Hypertension High cholesterol Heart disease Sister Myocardial infarction Hypertension High cholesterol Heart disease Emphysema lung Sister Heart disease High cholesterol Hypertension Grandmother Rheumatoid arthritis Other Type 2 diabetes mellitus Surgical History History of ERCP History of coronary artery stent placement History of esophagogastroduodenoscopy (EGD) History of colonoscopy History of appendectomy (08/18/18) History of lumbar fusion History of liver biopsy History of tubal ligation History of cholecystectomy History of coronary artery stent placement (05/01/06) History of back surgery Social History Smoking Status: Former smoker how long ago did patient quit smokin years second hand exposure: No alcohol intake: never substance use type: does not use caffeine: Yes Type: coffee Number of servings: 2 and tea what type of physical activity do you participate in: walking and other details: [email or web address] frequency: daily duration: 15-30 minutes/day seatbelt use: always do you feel safe at home: Yes Vital Signs Vital Signs Vital Signs: 04/25/24 08:47 04/25/24 08:47 04/25/24 09:00 Temperature 99.1 F 99.1 F Temperature Source Temporal Pulse Rate 96 96 Respiratory Rate 16 16 Respiratory Pattern Normal Blood Pressure 150/80 H 150/80 H Blood Pressure Mean 103 Blood Pressure Source Monitor Blood Pressure Position Semi-Fowlers Blood Pressure Location Right Arm Pulse Ox 96 96 Oxygen Delivery Method Room Air Weight Weight: 187 lb 12.8 oz Body Mass Index (BMI) 27.7 Results Lab / Micro Data Labs: Laboratory Results - last 24 hr 04/25/24 08:35: POC Glucose 163 H
[2024-04-25] MEDS: Cefazolin 2 GM in Syringe IV (10:30)
--- NOTE | 2024-04-25 11:37 | DCINST_ITS ---
Discharge Instructions Diet Discharge Diet: No restrictions Activity Ice area for (Minutes): 10 Lifting Restrictions: no lifting over 2 pounds Additional Activity Instructions:: pendulums 4x/day, ok to remove sling at rest Dressing / Incision Call your doctor if your incision/area has: Continuous Slow Oozing, Sudden Increased Bleeding, Increased Pain/ Swelling, Increased Redness, Foul Smelling Discharge and Swelling at the incision site Call your doctor if you observe: Fever of 101 or Higher, Coldness, Increased Pain and Numbness or Tingling Remove Dressing in: leave in place till F/U Cleanse incision/area with: Do not get Incision Wet Follow Up Care Please Follow Up With: Taiwo Lopez MD When: next week Test Results: Test results from this visit will be discussed in further detail at your follow- up appointment, if applicable. Discharge Plan Admission Attending Provider: Taiwo Lopez Primary Care Provider: Mati Hampton Instructions Print Language: [place] Discharge Orders/Prescriptions Prescriptions: New oxycodone-acetaminophen [Endocet] 5-325 mg tablet 1 tab PO Q4H MDD 6 PRN (Reason: pain) 5 Days Qty: 30 0RF No Action cholecalciferol (vitamin D3) 125 mcg (5,000 unit) capsule 125 mcg PO DAILY rosuvastatin 20 mg tablet 20 mg PO MOWEFR cyanocobalamin (vitamin B-12) [Vitamin B-12] 1,000 mcg tablet 1,000 mcg PO DAILY polyethylene glycol 3350 [Miralax] 17 gram/dose powder 17 g PO DAILY PRN (Reason: Trouble with bowels) (DME) lancets [Unilet Lancet] 28 gauge misc See Rx Instructions .ROUTE .COMPLEX Qty: 100 6RF Dose Instruction: Check blood glucose daily for type 2 DM Rx Instructions: Check blood glucose daily for type 2 DM calcium carbonate [Calcium 600] 600 mg calcium (1,500 mg) tablet 600 mg PO QDAY ursodiol 250 mg tablet 250 mg PO BID Rx Instructions: am (DME) Handicap Placard See Rx Instructions .ROUTE .MEDSUPPLY Qty: 1 0RF Rx Instructions: As directed, length of time 3 years (DME) Handicap Placard See Rx Instructions .ROUTE .MEDSUPPLY Qty: 1 0RF Rx Instructions: As directed, length of time 3 years clopidogrel [Plavix] 75 mg tablet 75 mg PO QDAY Qty: 90 3RF meclizine 25 mg tablet 25 mg PO BID-TID PRN (Reason: dizziness/vertigo) Qty: 60 1RF nitroglycerin 0.4 mg tablet, sublingual 0.4 mg SUBLINGUAL Q5M PRN (Reason: Chest Pain) Qty: 30 1RF venlafaxine 150 mg capsule,extended release 24hr 150 mg PO DAILY Qty: 90 3RF (DME) blood-glucose meter [OneTouch Verio Flex Start] Kit See Rx Instructions .Route Qty: 1 0RF Rx Instructions: Use twice daily as directed to check blood glucose due to DMII (DME) OneTouch Verio test strips Strip See Rx Instructions .Route Qty: 100 3RF Rx Instructions: Use daily as directed to test blood glucose due to DMII fenofibrate 54 mg tablet 54 mg PO DAILY Qty: 90 1RF pantoprazole 40 mg tablet,delayed release (DR/EC) 40 mg PO DAILY Qty: 90 3RF metformin 750 mg tablet extended release 24 hr 750 mg PO BID Qty: 180 0RF Rx Instructions: Take daily x 2 weeks then increase to BID hydrochlorothiazide 25 mg tablet 12.5 mg PO QAM Qty: 60 1RF Referrals / Follow Up: Mati Hampton MD [Primary Care Provider] - Taiwo Lopez MD [Med Staff - Active Staff] - Disposition Disposition (needs filled in before D/C Order can be placed): Home, Self Care
--- NOTE | 2024-04-25 11:41 | PCM.OPRPT ---
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 [employer] Assistant: donna Tasks completed by first mate: Retracting Additional assistant professor of english?: No Type of Anesthesia: Block,Regional and General RN Documented Start/Stop Times: Operation Date: 04/25/24 09:40 Case Time Into Pre-Op 04/25/24 08:07 Anesthesia Start 04/25/24 10:30 Into Room 04/25/24 10:30 Procedure Start 04/25/24 10:56 Procedure End 04/25/24 11:32 Anesthesia End 04/25/24 11:37 Out of Room 04/25/24 11:37 Procedure Start Time: 10:56 Procedure Stop Time: 11:32 Select all DRAINS/GRAFTS/IMPLANTS that apply: Implanted device Implanted device details: arthrex rc fiber enrique anchors and 4.75mm swivelock biocomposite anchor Estimated Blood Loss: 50 Specimen collected: No Description of surgery: Patient brought to the operating room theater. Placed supine on the table. 2 g IV Ancef administered prior to the start of the procedure. General anesthesia induced. Patient transferred left side up lateral decubitus beanbag positioner. All bony prominences were padded. Axillary roll used SCDs and legs. Upper extremity prepped and draped in usual sterile fashion with chlorhexidine-based prep solution allowing over 3 minutes drying time prior to draping. 10 pounds of inline traction 45 degrees of abduction was used. Preoperative timeout performed to confirm the site patient the surgery. Began by inserting the arthroscope into the intra-articular portion of the shoulder through a standard posterior arthroscopy portal. Made an accessory anterior portal using inside out spinal needle localization. No loose bodies. Moderate grade 2-3 osteoarthritis changes glenoid and humeral head. No tears of the infraspinatus or teres minor. Two small loose bodies of cartilage fragments removed. Labrum, humeral head cartilage, glenoid cartilage and rotator interval debrided. Biceps tendon mild hypertrophy, no instability. Subscapularis normal for age. Undersurface about 40% partial thickness tearing undersurface SS tendon. I then inserted the arthroscope into the subacromial space. Lateral portal and canula established. Mild burtitis removed. There is type II mild acromion, so I flattened this out using a high-speed ravi instrument by about 2mm. I placed 2 Arthrex RC fiber tack all suture knotless anchors anterior and posterior to the supraspinatus tendon footprint. I then used the link sutures and the knotless mechanism to pass sutures anterior to posterior to compress the footprint. Good compression at the footprint. I then took the fiber tape sutures and passed these laterally and inserted them into an Arthrex 4.75 mm bio composite suture anchor for further compression and repair of the tendon. This created a 'triangular' shaped repair. Arthroscopy pictures taken and saved throughout this case. Wounds closed with 2-0 Vicryl suture and 3-0 Monocryl. Skin cleaned with wet dry dressing followed application of Steri-Strips Adaptic 4 x 4 gauze ABD dressing cloth tape and an abduction pillow sling for the upper extremity. Patient woken up from the general anesthetic transferred off the operating table and taken postanesthetic care unit in stable condition. All sponge needle instrument counts were correct no complications plan to the patient discharged home going to day surgery criteria and follow-up in the office early next week. cpt 89633, 32571, 12094? Surgical Findings: PASTA tear SS, OA of the joint, small loose bodies, mild bursitis. Complications Complications: No Admit VTE Documentation VTE Present on Admission: No VTE Mechan Device Prophylaxis: SCD's VTE Pharm Prophylaxis ordered?: No Reason prophylaxis not ordered: Treatment Not Indicated
--- NOTE | 2024-04-25 12:16 | PCM.POST.ANE ---
Anesthesia: Postop Eval I Current Vital Signs Temperature: 96.9 F Pulse Rate: 76 Blood Pressure: 127/67 Respiratory Rate: 16 Pulse Ox: 94 Oxygen Delivery Method: Room Air Assessment Airway patent: Yes Spontaneous unlabored respirations: Yes Mental status: Awake nausea: No Vomiting: No Anesthesia Complication: No Fluid Hydration Crystalloid volume administer (ml): 500 Total IV fluid infused: 500 Progress Note Anesthesia document: Postop Eval 1 completed: Yes
--- NOTE | 2024-04-25 12:17 | PCM.POSTANE2 ---
Anesthesia Postop Eval I Sum Postop Eval Completion status Anesthesia document: Postop Eval 1 completed: Yes Anesthesia Postop Eval I Summary Anesthesia Postop Eval I Summary: Anesthesia Postop Eval I: Assessment Summary Airway patent Yes 04/25/24 12:17 Spontaneous unlabored Yes 04/25/24 12:17 respirations Mental status Awake 04/25/24 12:17 nausea No 04/25/24 12:17 Vomiting No 04/25/24 12:17 Anesthesia Postop Eval I: Fluid Summary Crystalloid volume administer 500 04/25/24 12:17 (ml) Colloids volume administered ( ml) Blood Product volume administered (ml) Total IV fluid infused 500 04/25/24 12:17 Anesthesia Postop Eval I: Summary Notes Anesthesia Complication No 04/25/24 12:17 Anesthesia Complication Comment: Post-operative progress note Anesthesia: Postop Eval II Evaluation Mental status: Awake Pain Level: 2 nausea: No Vomiting: No
--- NOTE | 2024-04-25 12:25 | PCM.POST.ANE ---
Anesthesia: Postop Eval I Current Vital Signs Temperature: 97.6 F Pulse Rate: 83 Blood Pressure: 132/72 Respiratory Rate: 16 Pulse Ox: 97 Oxygen Delivery Method: Room Air Assessment Airway patent: Yes Spontaneous unlabored respirations: Yes Mental status: Awake and Calm nausea: No Vomiting: No Anesthesia Complication: No Fluid Hydration Crystalloid volume administer (ml): 900 Total IV fluid infused: 900 Progress Note Anesthesia document: Postop Eval 1 completed: Yes
== END 2024-04-25 12:52 | disposition home or self-care (01) ==
LOC: SDC 07:46 → AC 07:47
PROVIDERS: PCP Internal Medicine; Referring Provider Orthopaedic Surgery Sports Medicine; Visit Provider Orthopaedic Surgery Sports Medicine
PROC: (CPT 29805; principal; 2024-04-25 09:20)
DX: M19.012 Primary osteoarthritis, left shoulder (principal); E11.9 Type 2 diabetes mellitus without complications; E78.5 Hyperlipidemia, unspecified; I10 Essential (primary) hypertension; I25.10 Atherosclerotic heart disease of native coronary artery without angina pectoris; K21.9 Gastro-esophageal reflux disease without esophagitis; M75.102 Unspecified rotator cuff tear or rupture of left shoulder, not specified as traumatic; M75.42 Impingement syndrome of left shoulder; I25.2 Old myocardial infarction; Z79.02 Long term (current) use of antithrombotics/antiplatelets; Z79.84 Long term (current) use of oral hypoglycemic drugs; Z79.899 Other long term (current) drug therapy; Z87.891 Personal history of nicotine dependence; Z95.5 Presence of coronary angioplasty implant and graft
CPT/HCPCS: 29826; 29827; 29822; 64415; 01630; 82962; C1713; J2405

== ENCOUNTER → 2024-06-06 | Outpatient (CLI) | payer MEDICARE, SELFPAY ==
[2024-06-06 13:33] LABS: Anion Gap 9 (5-15); BUN 15 mg/dL (7-18); BUN/Creat Ratio 17.6 RATIO (10-20); Chloride 103 mmol/L (98-107); Creatinine, Serum 0.85 mg/dL (0.55-1.02); EST Glomerular Filtration Rate 69 mL/min (>60); Est Glom Filt Rate - Afr Amer 83 mL/min (>60); Glucose 133 mg/dL (74-106); Potassium 3.9 mmol/L (3.5-5.1); Sodium Level 137 mmol/L (136-145)
== END | disposition home or self-care (01) ==
LOC: BIMLAB 10:54
PROVIDERS: PCP Internal Medicine; Referring Provider Internal Medicine; Visit Provider Internal Medicine
DX: I10 Essential (primary) hypertension (principal)
CPT/HCPCS: 36415; 80048

== ENCOUNTER → 2024-07-02 | Outpatient (CLI) | payer MEDICARE, SELFPAY ==
[2024-07-02 16:02] LABS: Anion Gap 15 (5-15); BUN 19 mg/dL (4-19); BUN/Creat Ratio 24.7 RATIO (10-20); Calcium 9.8 mg/dL (7.6-11.0); Carbon Dioxide 25.3 mmol/L (22.0-29.0); Chloride 99 mmol/L (96-108); Creatinine, Serum 0.8 mg/dL (0.6-1.0); EST Glomerular Filtration Rate 83 (>60); Glucose 122 mg/dL (70-99); Sodium Level 139 mmol/L (133-145)
== END | disposition home or self-care (01) ==
LOC: BIMLAB 12:16
PROVIDERS: PCP Internal Medicine; Referring Provider Internal Medicine; Visit Provider Internal Medicine
DX: I10 Essential (primary) hypertension (principal)
CPT/HCPCS: 36415; 80048

== ENCOUNTER → 2024-09-02 | Outpatient (CLI) | payer MEDICARE, SELFPAY ==
[2024-09-02 15:18] LABS: Absolute Lymphocyte Count 1.62 X10^3/uL (0.83-4.51); Absolute Neutrophil Count 3.7 X10^3/uL (2.0-7.7); Basophil# 0.07 X10^3/uL; Basophil% 1.1 % (0-1); Eosinophil# 0.13 X10^3/uL; Eosinophils% 2.1 % (0-5); Hematocrit 37.7 % (37-47); Hemoglobin 11.9 g/dL (12.0-15.0); Lymphocyte # 1.62 X10^3/ul (0.83-4.51); Lymphocyte % 26.4 % (19-41); Mean Corp Hgb Conc 31.6 g/dL (32-36); Mean Corpuscular Volume 85.7 fL (81-99); Mean Platelet Vol. 9.4 fl (6.2-12.0); Monocyte# 0.64 X10^3/uL; Monocyte% 10.4 % (0-10); NRBC Flagged by Analyzer 0 % (0-5); Neutrophil # 3.66 X10^3/uL (2.7-7.7); Neutrophil % 59.7 % (47-70); Platelet Count 237 K/mm3 (150-450); RBC Distribution Width CV 15.1 % (11.6-14.6); RBC Distribution Width SD 47.3 fl (35.1-43.9); White Blood Count 6.1 K/mm3 (4.4-11.0)
[2024-09-02 15:43] LABS: ALB/GLOB Ratio 1.5 RATIO (0.9-2.4); AST(SGOT) 26 U/L (<=31); Alanine Aminotransfer ALT/SGPT 14 U/L (<=34); Albumin, Serum 4.3 g/dL (3.4-4.8); Alkaline Phosphatase 64 U/L (35-104); Anion Gap 15 (5-15); BUN 19 mg/dL (4-19); BUN/Creat Ratio 24.7 RATIO (10-20); Calcium,Total 9.9 mg/dL (7.6-11.0); Chloride 100 mmol/L (98-108); Creatinine, Serum 0.75 mg/dL (0.70-1.20); EST Glomerular Filtration Rate 82 (>60); Globulin 2.9 g/dL (2.2-4.2); Glucose 135 mg/dL (70-99); Potassium 3.5 mmol/L (3.3-5.1); Protein, Total 7.2 g/dL (5.9-8.4); Sodium Level 139 mmol/L (133-145); Total Bilirubin 0.42 mg/dL (0.00-1.30)
[2024-09-02 17:40] LABS: EXAGEN MAILED SPECIMEN
[2024-09-02 19:34] LABS: Glucose, Dipstick Normal (Normal); Ketone-Dipstick Negative (Negative); Leukocyte Esterase-Dipstick 500 /ul (Negative); Nitrite-Dipstick Negative (Negative); Occult Blood-Urine Negative /ul (Negative); Protein-Dipstick 15 mg/dl (Negative); Specific Gravity, Urine 1.015 (1.002-1.030); Urine Bilirubin Dipstick Negative (Negative); Urine Urobilinogen 4 mg/dl (Normal)
[2024-09-02 19:40] LABS: Color, Urine Yellow (Yellow); Urine Clarity Clear (Clear)
[2024-09-02 20:00] LABS: Protein:Creat Ratio 148 mg/g CRE (0-200)
== END | disposition home or self-care (01) ==
LOC: MTLAB 11:56
PROVIDERS: PCP Internal Medicine; Referring Provider Internal Medicine Rheumatology; Visit Provider Internal Medicine Rheumatology
DX: M06.4 Inflammatory polyarthropathy (principal); R76.8 Other specified abnormal immunological findings in serum; M79.7 Fibromyalgia; Z79.899 Other long term (current) drug therapy
CPT/HCPCS: 36415; 80053; 81002; 82570; 84156; 85025

== ENCOUNTER → 2024-12-19 | Outpatient (CLI) | payer MEDICARE, SELFPAY ==
[2024-12-19 12:37] LABS: Hematocrit 36.8 % (37-47); Hemoglobin 11.0 g/dL (12.0-15.0); Immature Granulocytes Count 0.020 X10^3/uL (0.0-0.0); Mean Corp Hgb Conc 29.9 g/dL (32-36); Mean Corpuscular Volume 80.7 fL (81-99); Mean Platelet Vol. 9.2 fl (6.2-12.0); NRBC Flagged by Analyzer 0 % (0-5); Platelet Count 258 K/mm3 (150-450); RBC Distribution Width CV 15.4 % (11.6-14.6); RBC Distribution Width SD 44.9 fl (35.1-43.9); Red Blood Count 4.56 M/mm3 (4.2-5.4); White Blood Count 5.6 K/mm3 (4.4-11.0)
[2024-12-19 13:27] LABS: AST(SGOT) 22 U/L (<=31); Alanine Aminotransfer ALT/SGPT 11 U/L (<=34); Albumin, Serum 4.2 g/dL (3.4-4.8); Alkaline Phosphatase 63 U/L (35-104); Anion Gap 15 (5-15); BUN 15 mg/dL (4-19); BUN/Creat Ratio 19.4 RATIO (10-20); Calcium,Total 10.2 mg/dL (7.6-11.0); Carbon Dioxide 24.3 mmol/L (21.0-32.0); Chloride 101 mmol/L (98-108); Cholesterol 125 mg/dL (<=200); Globulin 2.9 g/dL (2.2-4.2); Glucose 106 mg/dL (70-99); Low Density Lipoprotein Calc. 46 mg/dL; Potassium 4.1 mmol/L (3.3-5.1); Triglycerides 139 mg/dL; Very Low Density Lipoprotein 28 mg/dL (5-40); cholesterol:hdl ratio screen 2.45
== END | disposition home or self-care (01) ==
LOC: MTLAB 10:16
PROVIDERS: PCP Internal Medicine; Referring Provider Internal Medicine; Visit Provider Internal Medicine
DX: M06.4 Inflammatory polyarthropathy (principal); Z79.899 Other long term (current) drug therapy; R76.8 Other specified abnormal immunological findings in serum; M79.7 Fibromyalgia
CPT/HCPCS: 36415; 80053; 80061; 83036; 85025

== ENCOUNTER → 2024-12-25 | Outpatient (CLI) | payer MEDICARE, SELFPAY ==
[2024-12-25 13:42] LABS: Ferritin 15 ng/mL (22-378); Iron 44 ug/dL (50-170); Iron Binding Capacity,Total 446 ug/dL (250-450); Iron Binding Capacity,Unsat 402 ug/dL (228-428)
== END | disposition home or self-care (01) ==
PROVIDERS: PCP Internal Medicine; Referring Provider Internal Medicine; Visit Provider Internal Medicine
DX: D64.9 Anemia, unspecified (principal)
CPT/HCPCS: 36415; 82274; 82728; 83540; 83550

== ENCOUNTER → 2025-01-30 | Outpatient (CLI) | payer MEDICARE, SELFPAY ==
[2025-01-30 12:27] LABS: Prothrombin Time (Protime)PT. 14.3 SECONDS (11.7-14.9)
[2025-01-30 13:10] LABS: Ammonia < 10.0 umol/L (11-51)
[2025-01-30 13:16] LABS: AST(SGOT) 24 U/L (<=31); Alanine Aminotransfer ALT/SGPT 15 U/L (<=34); Albumin, Serum 4.0 g/dL (3.4-4.8); Alkaline Phosphatase 66 U/L (35-104); Anion Gap 15 (5-15); BUN 18 mg/dL (4-19); BUN/Creat Ratio 25.2 RATIO (10-20); CRP < 3.00 mg/L (0.0-3.0); Calcium,Total 9.8 mg/dL (7.6-11.0); Carbon Dioxide 23.7 mmol/L (21.0-32.0); Chloride 100 mmol/L (98-108); Globulin 3.8 g/dL (2.2-4.2); Glucose 118 mg/dL (70-99); Potassium 3.8 mmol/L (3.3-5.1)
== END | disposition home or self-care (01) ==
PROVIDERS: PCP Internal Medicine; Referring Provider Internal Medicine Gastroenterology; Visit Provider Internal Medicine Gastroenterology
DX: K74.60 Unspecified cirrhosis of liver (principal)
CPT/HCPCS: 36415; 80053; 82105; 82140; 85610; 85652; 86140

== ENCOUNTER → 2025-04-17 | Outpatient (CLI) | payer MEDICARE, SELFPAY ==
[2025-04-17 12:34] LABS: Hematocrit 38.5 % (37-47); Hemoglobin 11.4 g/dL (12.0-15.0); Immature Granulocytes Count 0.040 X10^3/uL (0.0-0.0); Mean Corp Hgb Conc 29.6 g/dL (32-36); Mean Corpuscular Volume 80.9 fL (81-99); Mean Platelet Vol. 9.1 fl (6.2-12.0); NRBC Flagged by Analyzer 0 % (0-5); Platelet Count 293 K/mm3 (150-450); RBC Distribution Width CV 15.9 % (11.6-14.6); RBC Distribution Width SD 45.9 fl (35.1-43.9); Red Blood Count 4.76 M/mm3 (4.2-5.4); White Blood Count 7.2 K/mm3 (4.4-11.0)
[2025-04-17 12:53] LABS: AST(SGOT) 28 U/L (<=31); Alanine Aminotransfer ALT/SGPT 13 U/L (<=34); Albumin, Serum 4.6 g/dL (3.4-4.8); Alkaline Phosphatase 58 U/L (35-104); Anion Gap 16 (5-15); BUN 19 mg/dL (4-19); BUN/Creat Ratio 26.2 RATIO (10-20); Calcium,Total 9.7 mg/dL (7.6-11.0); Carbon Dioxide 23.9 mmol/L (21.0-32.0); Chloride 101 mmol/L (98-108); Ferritin 16 ng/mL (22-378); Globulin 2.8 g/dL (2.2-4.2); Glucose 111 mg/dL (70-99); Iron 46 ug/dL (50-170); Iron Binding Capacity,Unsat 493 ug/dL (228-428); Potassium 3.8 mmol/L (3.3-5.1)
[2025-04-17 13:25] LABS: Iron Binding Capacity,Total 539 ug/dL (250-450)
== END | disposition home or self-care (01) ==
LOC: EPLAB 11:22
PROVIDERS: PCP Internal Medicine; Visit Provider Internal Medicine
DX: D64.9 Anemia, unspecified (principal); K21.9 Gastro-esophageal reflux disease without esophagitis
CPT/HCPCS: 80053; 82728; 83540; 83550; 85025